=== PATIENT | female | born 1930 | race Caucasian/White ===

== ENCOUNTER 2017-08-09 06:39 | Emergency (ER) | payer OTHER, MEDICARE ==
[~2017-08-09] VITALS: Ht 152.4 cm; Wt 56.2 kg
[~2017-08-09 06:39] MED LIST: APR50 PO; ATOR-22 PO; DILT360C22 PO; FLV1 PO; LEVO175T3 PO; LIDO5DIS10 TOP; MULT-506 PO; MULT-663 PO; POLY335019 PO; POTA10CA28 PO; PRIM250T30 PO; PROP120C PO; PRT/20 PO; VALS-59 PO; WARF4TAB PO
[2017-08-09 06:45] VITALS: TEMP 36.8; Ht 152.4 cm; Wt 56.2 kg
[2017-08-09] MEDS ORDERED: MoRPHine SULFATE 4 MG/ML 1 ML CARP\\VIAL IV STA (07:02)
[2017-08-09] MEDS ORDERED: METOCLOPRAMIDE HCL INJ 5 MG/ML 2 ML VIAL IV STA (07:02)
[2017-08-09] MEDS ORDERED: SODIUM CHLORIDE 0.9% 500ML 500 ML IV STA (07:02)
--- NOTE | 2017-08-09 07:06 | EMERGENCY ROOM VISIT NOTE ---
History Report prepared by Rolanda: Rose Caldwell Under the Supervision of: Dr. Xavier Gillis M.D. First contact with patient: 06:55 Chief Complaint: GI ASSESSMENT Stated Complaint: BOWEL OBSTRUCTION History of Present Illness The patient is an 87 year old female who presents to the Emergency Room with complaints of persistent upper abdominal pain that began yesterday. She currently rates her discomfort as a 9/10 in severity. The patient states that she has a history of diverticulitis and notes several bowel obstructions since she had a diverticular rupture several years ago. She states that she has had four abdominal surgeries and has many known adhesions. The patient states that she went for lunch yesterday and ate foods that she knows she cannot. She states that she additionally has a known abdominal hernia. The patient states that she is on Coumadin for a Mitral Valve Prolapse. She denies any nausea or vomiting. Source of History: patient Onset: yesterday Position: abdomen (upper) Symptom Intensity: 9/10 Timing: other (persistent) Associated Symptoms: No nausea, No vomiting Review of Systems See HPI for pertinent positives & negatives. A total of 10 systems reviewed and were otherwise negative. Past Medical & Surgical Medical Problems: (1) ANTICOAGULANTS,LT,CURRENT USE (2) ATRIAL FIBRILLATION (3) DVT (deep venous thrombosis) (4) HEART BLOCK S/P PACEMAKER INSERTION (5) INTESTINAL OBSTRUCT NOS (6) KNEE JOINT REPLACEMENT STATUS (7) MRSA (8) Ovarian cyst Surgical Problems: (1) H/O: hysterectomy (2) History of colon resection (3) Hx of appendectomy (4) Hx of cholecystectomy Family History FH: gallbladder disease FH: heart disease FH: leukemia Hypertension Social History Smoking Status: Never Smoker Alcohol Use: none Drug Use: none Marital Status: Housing Status: lives with family Occupation Status: retired Current/Historical Medications Scheduled Diltiazem Hcl Extended Release (Tiazac 360 Mg), 360 MG PO QPM Folic Acid (Folic Acid), 1 MG PO DAILY Hydralazine HCl (Hydralazine HCl), 50 MG PO QPM Levothyroxine Sodium (Levothyroxine Sodium), 175 MCG PO DAILY Lidocaine (Lidoderm Patch 5%), 1 PATCH TOP DAILY Multiple Minerals W/ Vitamins (Citracal Plus), 1 TAB PO BIDM Multivitamin (Multivitamin), 1 TAB PO DAILY Pantoprazole Sodium (Protonix), 20 MG PO DAILY Polyethylene Glycol 3350 (Miralax), 17 GM PO DAILY Potassium Chloride (Micro-K Ext Rel), 10 MEQ PO BID Primidone (Mysoline), 375 MG PO BID Propranolol Hcl (Propranolol Hcl Er), 120 MG PO BID Valsartan (Valsartan), 320 MG PO DAILY Warfarin Sodium (Coumadin), 4 MG PO DAILY Allergies Coded Allergies: Pseudoephedrine (Verified Allergy, Intermediate, worsens afib, 09/15/16) Sulfa Antibiotics (Verified Allergy, Intermediate, hives, 09/15/16) White (Verified Allergy, Mild, HIVES, 09/15/16) [place] (Verified Allergy, Unknown, HIVES, 09/15/16) Lorazepam (Unverified Adverse Reaction, Severe, "WENT CRAZY", 09/15/16) Caffeine (Verified Adverse Reaction, Intermediate, HEART PALPITATIONS, ) worsens afib Physical Exam Vital Signs Date Time Temp Pulse Resp B/P (MAP) Pulse Ox O2 Delivery O2 Flow Rate FiO2 08/09/17 11:46 66 20 137/66 97 Room Air 08/09/17 11:24 66 08/09/17 10:01 87 18 139/61 96 08/09/17 08:08 73 16 144/68 96 Room Air 08/09/17 07:19 66 08/09/17 07:11 97 Room Air 08/09/17 06:45 36.8 73 20 184/82 97 Room Air Physical Exam GENERAL: Patient is a healthy-appearing well-nourished female HEAD: Normocephalic atraumatic EYES: Ocular movements intact pupils equal and react to light OROPHARYNX mucous membranes are moist no exudates present no erythema or edema present NECK: Supple no nuchal rigidity CHEST: Good equal expansion LUNGS: Clear and equal to auscultation CARDIAC: Normal S1 and S2 ABDOMEN: Soft, tender in the epigastric area, no guarding BACK: No CVA tenderness EXTREMITIES: No pain upon palpation normal muscle strength in all groups no clubbing cyanosis or edema NEURO: Patient is following commands and answering questions appropriately. Alert and oriented x3 Cranial Nerves 2-12 grossly intact Medical Decision & Procedures ER Provider Diagnostic Interpretation: Radiology results as stated below per my review and radiologist interpretation: CHEST ONE VIEW PORTABLE HISTORY: Atypical CHEST PAIN COMPARISON: Chest 12/09/2015. FINDINGS: The heart remains mildly enlarged. No pleural effusions. No pneumothorax. Left-sided single lead pacemaker. Mild diffuse interstitial thickening persists. IMPRESSION: No change in the cardiomegaly and mild congestive change. Electronically signed by: Adarsh Knapp M.D. 08/09/2017 8:51 AM Dictated Date/Time: 08/09/2017 8:48 AM ABDOMEN AND PELVIS CT WITH IV AND ORAL CONTRAST CT DOSE: 367.65 mGycm HISTORY: Generalized abdominal pain. Assess for bowel obstruction. TECHNIQUE: Multiaxial CT images of the abdomen and pelvis were performed following the use of intravenous and oral contrast. A dose lowering technique was utilized adhering to the principles of ALARA. COMPARISON STUDY: Abdomen and pelvis CT 09/15/2016. FINDINGS: The heart remains moderately enlarged. Pacemaker wire is identified. Stable 4 mm subpleural nodule within the right middle lobe on image 12. Bibasilar interstitial thickening persists. No pneumoperitoneum. No pneumatosis. Sclerosis within the right sacral wing consistent with an insufficiency fracture. This is likely subacute to chronic. Cholecystectomy. No hepatic or splenic masses. The adrenal glands and pancreas are unremarkable. Moderate bilateral cortical renal scarring. No hydronephrosis. Calcified plaque throughout the normal caliber abdominal aorta. No significant retroperitoneal lymphadenopathy. A few small fat-containing and a single small bowel containing ventral hernias. Normal bladder. The uterus is surgically absent. A 2.4 cm low-density lesion along the left side of the vaginal cuff. This was not present on the prior study. This could represent a bladder diverticulum. There is a similar-appearing low density lesion abutting the right anterior bladder which measures 2.6 cm. This may also represent a bladder diverticulum. No change in the low density tubular structure adjacent to the cecal base on image 274. This measures 3.9 x 1.5 cm. Evidence for prior sigmoid anastomosis. Mild bowel wall thickening and mucosal hyperenhancement involving the splenic flexure of the colon, descending colon, sigmoid colon, and rectum. This is consistent with a nonspecific colitis. No evidence for bowel obstruction. Contrast extends into the colon. Small low-density tubular structure anterior to the pancreatic tail which measures 3.1 x 1.1 cm. No significant stenosis seen within the celiac artery mesenteric vessels. Ventral hernia. This contains a short segment of small bowel. Trace perihepatic ascites. IMPRESSION: 1. Mild thickening and mucosal hyperenhancement seen within the splenic flexure of the colon, descending colon, sigmoid colon, and rectum. This is consistent with a nonspecific colitis but favors an infectious or inflammatory process. Ischemic colitis could also have a similar appearance. However, the visualized mesenteric vessels appear patent. This has slightly progressed compared the prior study. 2. No evidence for bowel obstruction. 3. A few scattered nonspecific low-density structures seen within the abdomen and pelvis. This could represent a combination of bladder diverticula and/or small focal areas of loculated fluid/ascites. This includes a 3.9 x 1.5 cm tubular low density focus adjacent to the cecal base. If the patient has had prior appendectomy, then this is of doubtful clinical significance. However, if the appendix remains present within this could represent a mucocele and surgical consultation would be recommended. 4. Small fat-containing ventral hernias and a single small bowel containing ventral hernia. 5. Additional findings as described above. Electronically signed by: Adarsh Knapp M.D. 08/09/2017 10:21 AM Dictated Date/Time: 08/09/2017 10:03 AM Laboratory Results 08/09/17 07:24 Red Blood Count 4.29, Mean Corpuscular Volume 96.0, Mean Corpuscular Hemoglobin 34.7, Mean Corpuscular Hemoglobin Concent 36.2, Mean Platelet Volume 9.4, Neutrophils (%) (Auto) 69.7, Lymphocytes (%) (Auto) 15.9, Monocytes (%) (Auto) 12.9, Eosinophils (%) (Auto) 1.0, Basophils (%) (Auto) 0.3, Neutrophils # (Auto ) 6.93, Lymphocytes # (Auto) 1.58, Monocytes # (Auto) 1.28, Eosinophils # (Auto ) 0.10, Basophils # (Auto) 0.03 08/09/17 07:24 Test 08/09/17 06:54 08/09/17 07:24 Urine Color YELLOW Urine Appearance CLEAR (CLEAR) Urine pH 7.5 (4.5-7.5) Urine Specific [place] 1.016 (1.000-1.030) Urine Protein NEG (NEG) Urine Glucose (UA) NEG (NEG) Urine Ketones NEG (NEG) Urine Occult Blood 1+ (NEG) Urine Nitrite NEG (NEG) Urine Bilirubin NEG (NEG) Urine Urobilinogen NEG (NEG) Urine Leukocyte Esterase NEG (NEG) Urine WBC (Auto) 1-5 /hpf (0-5) Urine RBC (Auto) 10-30 /hpf (0-4) Urine Hyaline Casts (Auto) 1-5 /lpf (0-5) Urine Epithelial Cells (Auto) 10-20 /lpf (0-5) Urine Bacteria (Auto) NEG (NEG) White Blood Count 9.94 K/uL (4.8-10.8) Red Blood Count 4.29 M/uL (4.2-5.4) Hemoglobin 14.9 g/dL (12.0-16.0) Hematocrit 41.2 % (37-47) Mean Corpuscular Volume 96.0 fL (80-100) Mean Corpuscular Hemoglobin 34.7 pg (25-34) Mean Corpuscular Hemoglobin Concent 36.2 g/dl (32-36) Platelet Count 168 K/uL (130-400) Mean Platelet Volume 9.4 fL (7.4-10.4) Neutrophils (%) (Auto) 69.7 % Lymphocytes (%) (Auto) 15.9 % Monocytes (%) (Auto) 12.9 % Eosinophils (%) (Auto) 1.0 % Basophils (%) (Auto) 0.3 % Neutrophils # (Auto) 6.93 K/uL (1.4-6.5) Lymphocytes # (Auto) 1.58 K/uL (1.2-3.4) Monocytes # (Auto) 1.28 K/uL (0.11-0.59) Eosinophils # (Auto) 0.10 K/uL (0-0.5) Basophils # (Auto) 0.03 K/uL (0-0.2) RDW Standard Deviation 54.3 fL (36.4-46.3) RDW Coefficient of Variation 15.6 % (11.5-14.5) Immature Granulocyte % (Auto) 0.2 % Immature Granulocyte # (Auto) 0.02 K/uL (0.00-0.02) Prothrombin Time 30.9 SECONDS (9.0-12.0) Prothromb Time International Ratio 2.8 (0.9-1.1) Anion Gap 7.0 mmol/L (3-11) Est Creatinine Clear Calc Drug Dose 41.2 ml/min Estimated GFR () 81.0 Estimated GFR (Non- 69.9 BUN/Creatinine Ratio 22.9 (10-20) Calcium Level 8.5 mg/dl (8.5-10.1) Total Bilirubin 0.8 mg/dl (0.2-1) Direct Bilirubin 0.3 mg/dl (0-0.2) Aspartate Amino Transf (AST/SGOT) 19 U/L (15-37) Alanine Aminotransferase (ALT/SGPT) 18 U/L (12-78) Alkaline Phosphatase 89 U/L (45-117) Total Creatine Kinase 54 U/L (26-192) Creatine Kinase MB 3.4 ng/ml (0.5-3.6) Creatine Kinase MB Ratio 6.3 (0-3.0) Troponin I < 0.015 ng/ml (0-0.045) Total Protein 7.1 gm/dl (6.4-8.2) Albumin 3.6 gm/dl (3.4-5.0) Lipase 123 U/L (73-393) Labs reviewed by ED physician. Medications Administered Medications (Trade) Dose Ordered Sig/[place] Route Start Time Stop Time Status Last Admin Dose Admin Sodium Chloride 500 ml @ 999 mls/hr Q31M STAT IV 08/09/17 07:02 08/09/17 07:32 DC 08/09/17 07:36 999 MLS/HR Metoclopramide HCl (Reglan Inj) 10 mg NOW STAT IV 08/09/17 07:02 08/09/17 07:04 DC 08/09/17 07:36 10 MG Cholestyramine Resin (Questran Powder Light) 4 gm NOW STAT PO 08/09/17 11:18 08/09/17 11:19 DC 08/09/17 11:45 4 GM ECG Indication: abdominal pain Rate (beats per minute): 62 Rhythm: other (paced rhythm) Findings: no acute ischemic change, paced rhythm, no ectopy ED Course 0656: Past medical records reviewed. The patient was evaluated in room B10. A complete history and physical examination was performed. 0702: Ordered Reglan Inj 10 mg IV, Sodium Chloride 500 ml @ 999 mls/hr IV. 0808: Per nursing staff the patient had a liquidy bowel movement 1117: I reevaluated the patient and she is feeling much better. I discussed the exam findings with her and I discussed the treatment plan. She verbalized complete understanding and agreement. She is ready to go home. 1118: Ordered Cholestyramine Resin 4 gm PO. Medical Decision Differential diagnosis: Etiologies such as appendicitis, diverticulitis, PUD, biliary pathology, UTI, pancreatitis, obstruction, mesenteric ischemia, aortic pathology, infections, inflammatory bowel disease, renal colic, as well as others were entertained. This is an 87-year-old female who presents emergency department complaining of epigastric abdominal pain. The patient was minimally tender on examination. The patient has a history of small bowel obstructions and asked what this feels like. An IV was established, patient given morphine and Reglan in the emergency department. After some time pain did suddenly constance and the patient had a large bowel movement in the emergency department. She was sent for CAT scan of the abdomen pelvis which only showed a colitis. She is pain-free at this point. Serial abdominal examinations were performed on the patient in the emergency department and the patient on second and third examinations did not have any abdominal tenderness or exhibited a surgical abdomen. She does not have an elevation in her white blood count cell count. She is feeling much better. I feel the patient can be discharged home. She was given cholestyramine for her diarrhea. I recommended that the patient follow-up with her primary care physician. Patient was in agreement with the treatment plan. Medication Reconcilliation Current Medication List: was personally reviewed by me Blood Pressure Screening Patient's blood pressure: Elevated blood pressure Blood pressure disposition: Referred to PCP Impression Primary Impression: Diarrhea Scribe Attestation The scribe's documentation has been prepared under my direction and personally reviewed by me in its entirety. I confirm that the note above accurately reflects all work, treatment, procedures, and medical decision making performed by me. Departure Information Dispostion Home / Self-Care Referrals Mayank Segura M.D. (PCP) Forms HOME CARE DOCUMENTATION FORM, IMPORTANT VISIT INFORMATION, School Instructions, Work Instructions Patient Instructions ED Diarrhea Viral, ED Diet Vomiting Diarrhea, My [facility] Additional Instructions Culture results are usually available in approx 48 hours You have been examined and treated today on an emergency basis only. This is not a substitute for, or an effort to provide, complete comprehensive medical care. It is impossible to recognize and treat all injuries or illnesses in a single emergency department visit. It is therefore important that you follow up closely with Dr Segura. Call as soon as possible for an appointment. Thank you for your time and consideration. I look forward to speaking with you again soon. Please don't hesitate to call us if you have any questions. Problem Qualifiers Primary Impression: Diarrhea Diarrhea type: unspecified type Qualified Codes: R19.7 - Diarrhea, unspecified
[2017-08-09] MEDS ORDERED: NF656 TOP (07:07)
[2017-08-09 07:11] VITALS: O2SAT 97
[2017-08-09 07:14] LABS: URINE APPEARANCE CLEAR (CLEAR); URINE BILIRUBIN NEG (NEG); URINE COLOR YELLOW; URINE NITRITE NEG (NEG); URINE PH 7.5 (4.5-7.5); URINE SPECIFIC GRAVITY 1.016 (1.000-1.030); UROBILINOGEN NEG (NEG); ZZUR CULT IF INDIC CLEAN CATCH NO
[2017-08-09 07:16] LABS: MANUAL MICROSCOPIC REQUIRED? NO; REVIEW REQ? NO
[2017-08-09 07:18] LABS: SULFASALICYLIC ACID NEG (NEG)
[2017-08-09 07:36] LABS: BASO % 0.3 %; BASO ABS # 0.03 K/uL (0-0.2); COMPLETE YES; HEMATOCRIT 41.2 % (37-47); IG% 0.2 %; LYMPH % 15.9 %; LYMPH ABS # 1.58 K/uL (1.2-3.4); MEAN CORPUSCULAR HEMOGLOBIN 34.7 pg (25-34); MEAN CORPUSCULAR HGB CONC 36.2 g/dl (32-36); MEAN PLATELET VOLUME 9.4 fL (7.4-10.4); MONO % 12.9 %; NEUT % 69.7 %; PLATELET COUNT 168 K/uL (130-400); RED BLOOD COUNT 4.29 M/uL (4.2-5.4); WHITE BLOOD COUNT 9.94 K/uL (4.8-10.8)
[2017-08-09 07:44] LABS: INR 2.8 (0.9-1.1); PROTHROMBIN TIME (PATIENT) 30.9 SECONDS (9.0-12.0)
[2017-08-09 07:54] LABS: BLOOD UREA NITROGEN 18 mg/dl (7-18); CREATININE 0.77 mg/dl (0.60-1.20); GLUCOSE 92 mg/dl (70-99)
[2017-08-09 07:55] LABS: ALT/SGPT 18 U/L (12-78); AST/SGOT 19 U/L (15-37); BUN/CREATININE RATIO 22.9 (10-20); CALCIUM 8.5 mg/dl (8.5-10.1); CARBON DIOXIDE 29 mmol/L (21-32); CHLORIDE 100 mmol/L (98-107); POTASSIUM 3.4 mmol/L (3.5-5.1); SODIUM 136 mmol/L (136-145)
[2017-08-09 07:57] LABS: ALKALINE PHOSPHATASE 89 U/L (45-117); CKMB/CK RATIO 6.3 (0-3.0)
--- NOTE | 2017-08-09 08:52 | DIAGNOSTIC IMAGING REPORT ---
CHEST ONE VIEW PORTABLE HISTORY: Atypical CHEST PAIN COMPARISON: Chest 12/09/2015. FINDINGS: The heart remains mildly enlarged. No pleural effusions. No pneumothorax. Left-sided single lead pacemaker. Mild diffuse interstitial thickening persists. IMPRESSION: No change in the cardiomegaly and mild congestive change. Electronically signed by: Adarsh Knapp M.D. 08/09/2017 8:51 AM Dictated Date/Time: 08/09/2017 8:48 AM
[2017-08-09] MEDS ORDERED: OPTIRAY 320 IV PRN (10:00)
--- NOTE | 2017-08-09 10:23 | DIAGNOSTIC IMAGING REPORT ---
ABDOMEN AND PELVIS CT WITH IV AND ORAL CONTRAST CT DOSE: 367.65 mGycm HISTORY: Generalized abdominal pain. Assess for bowel obstruction. TECHNIQUE: Multiaxial CT images of the abdomen and pelvis were performed following the use of intravenous and oral contrast. A dose lowering technique was utilized adhering to the principles of ALARA. COMPARISON STUDY: Abdomen and pelvis CT 09/15/2016. FINDINGS: The heart remains moderately enlarged. Pacemaker wire is identified. Stable 4 mm subpleural nodule within the right middle lobe on image 12. Bibasilar interstitial thickening persists. No pneumoperitoneum. No pneumatosis. Sclerosis within the right sacral wing consistent with an insufficiency fracture. This is likely subacute to chronic. Cholecystectomy. No hepatic or splenic masses. The adrenal glands and pancreas are unremarkable. Moderate bilateral cortical renal scarring. No hydronephrosis. Calcified plaque throughout the normal caliber abdominal aorta. No significant retroperitoneal lymphadenopathy. A few small fat-containing and a single small bowel containing ventral hernias. Normal bladder. The uterus is surgically absent. A 2.4 cm low-density lesion along the left side of the vaginal cuff. This was not present on the prior study. This could represent a bladder diverticulum. There is a similar-appearing low density lesion abutting the right anterior bladder which measures 2.6 cm. This may also represent a bladder diverticulum. No change in the low density tubular structure adjacent to the cecal base on image 274. This measures 3.9 x 1.5 cm. Evidence for prior sigmoid anastomosis. Mild bowel wall thickening and mucosal hyperenhancement involving the splenic flexure of the colon, descending colon, sigmoid colon, and rectum. This is consistent with a nonspecific colitis. No evidence for bowel obstruction. Contrast extends into the colon. Small low-density tubular structure anterior to the pancreatic tail which measures 3.1 x 1.1 cm. No significant stenosis seen within the celiac artery mesenteric vessels. Ventral hernia. This contains a short segment of small bowel. Trace perihepatic ascites. IMPRESSION: 1. Mild thickening and mucosal hyperenhancement seen within the splenic flexure of the colon, descending colon, sigmoid colon, and rectum. This is consistent with a nonspecific colitis but favors an infectious or inflammatory process. Ischemic colitis could also have a similar appearance. However, the visualized mesenteric vessels appear patent. This has slightly progressed compared the prior study. 2. No evidence for bowel obstruction. 3. A few scattered nonspecific low-density structures seen within the abdomen and pelvis. This could represent a combination of bladder diverticula and/or small focal areas of loculated fluid/ascites. This includes a 3.9 x 1.5 cm tubular low density focus adjacent to the cecal base. If the patient has had prior appendectomy, then this is of doubtful clinical significance. However, if the appendix remains present within this could represent a mucocele and surgical consultation would be recommended. 4. Small fat-containing ventral hernias and a single small bowel containing ventral hernia. 5. Additional findings as described above. Electronically signed by: Adarsh Knapp M.D. 08/09/2017 10:21 AM Dictated Date/Time: 08/09/2017 10:03 AM
[2017-08-09] MEDS ORDERED: CHOLESTYRAMINE LIGHT 4 GM PKT PO STA (11:18)
[2017-08-09 11:46] VITALS: BP 137/66; PULSE 66; O2SAT 97
== END 2017-08-09 11:56 | disposition home or self-care (01) ==
LOC: C.EDB 06:41
DX: R19.7 Diarrhea, unspecified (principal); I48.91 Unspecified atrial fibrillation; Z82.49 Family history of ischemic heart disease and other diseases of the circulatory system; Z79.01 Long term (current) use of anticoagulants

== ENCOUNTER 2019-05-13 10:45 | Inpatient (IN) ==
[2019-05-13] MEDS ORDERED: ONDANSETRON INJ 2 MG/ML 2 ML VIAL IV STA (11:15)
[2019-05-13] MEDS ORDERED: MoRPHine SULFATE 10 MG/ML CARP/VIAL IV STA (11:15)
[2019-05-13] MEDS ORDERED: MoRPHine SULFATE 2 MG/ML CARP ONE (11:27)
[2019-05-13] MEDS ORDERED: MoRPHine SULFATE 4 MG/ML 1 ML CARP\\VIAL ONE (11:27)
--- NOTE | 2019-05-13 12:20 | CT Scan Report ---
CT head/brain wo con CT DOSE: HISTORY: Trauma fall on coumadin TECHNIQUE: Multiaxial CT images of the head were performed without the use of intravenous contrast. A dose lowering technique was utilized adhering to the principles of ALARA. Comparison: 05/16/2014 Findings: The paranasal sinuses and mastoid air cells are clear. The calvarium and skull base are int act. The ventricles and sulci are within normal limits. There is no mass, hematoma, midline shift, or acute infarct. Impression: No acute intracranial abnormality. Age-related atrophy and chronic small vessel change The above report was generated using voice recognition software. It may contain grammatical, syntax or spelling errors. Electronically signed by: Niko Fuchs M.D. 05/13/2019 12:18 PM
--- NOTE | 2019-05-13 12:24 | CT Scan Report ---
CT cervical spine wo con CT DOSE: HISTORY: Trauma fall, trauma TECHNIQUE: Multiaxial CT images of the cervical spine were performed and reformatted in the sagittal and coronal plane without the use of contrast. A dose lowering technique was utilized adhering to th e principles of ALARA. COMPARISON: 04/21/2013 FINDINGS: No fractures. No subluxation. Prevertebral soft tissues and the C1-C2 interval are intact. No pneumothorax. Considerable degenerative disc change. No evidence for compression deformity. Slight wedge deformity superior endplate T3 considered old. IMPRESSION: No fractures within the cervical spine. Significant degenerative change. The above report was generated using voice recognition software. It may contain grammatical, syntax or spelling errors. Electronically signed by: Niko Fuchs M.D. 05/13/2019 12:22 PM
[2019-05-13] MEDS ORDERED: MoRPHine SULFATE 4 MG/ML 1 ML CARP\\VIAL IV STA (12:30)
--- NOTE | 2019-05-13 12:31 | CT Scan Report ---
CT chest wo con CT DOSE: HISTORY: Trauma. Pain. left rib pain s/p trauma on coumadin TECHNIQUE: Multiaxial CT images of the chest were performed without contrast. A dose lowering techni que was utilized adhering to the principles of ALARA. COMPARISON: 08/31/2015 FINDINGS: Cardiomegaly. Distinct prominence of pulmonary vasculature suggesting a component of conges tive heart failure with pulmonary arterial hypertension. Diffuse interstitial change of both hemithoraces progressive from the prior study. There are several old right-sided rib fractures. No well-defined acute bony abnormality is appreciate d. Slight wedge deformity of T3 considered old IMPRESSION: 1. Findings consistent with congestive heart failure. 2. Progressive interstitial change throughout both hemithoraces compared to the prior study possibly on the basis of interstitial congestive failure. 3. Cardiomegaly with components of pulmonary arterial hypertension. 4. No acute posttraumatic abnormality is appreciated. The above report was generated using voice recognition software. It may contain grammatical, syntax or spelling errors. Electronically signed by: Niko Fuchs M.D. 05/13/2019 12:30 PM
[2019-05-13 13:13] LABS: Basophils # (auto) 0.03 K/uL (0-0.2); Basophils % (auto) 0.5 %; Eosinophils # (auto) 0.21 K/uL (0-0.5); Eosinophils % (auto) 3.5 %; Hematocrit (blood only) 36.1 % (37-47); Hemoglobin 12.9 g/dL (12.0-16.0); Immature Granulocytes # (auto) 0.02 K/uL (0.00-0.02); Immature Granulocytes % (auto) 0.3 %; Lymphocytes # (auto) 0.99 K/uL (1.2-3.4); Lymphocytes % (auto) 16.4 %; Mean Corpuscular Hgb Conc 35.7 g/dL (32-36); Mean Corpuscular Volume 92.6 fL (80-100); Mean Platelet Volume 10.4 fL (7.4-10.4); Monocytes # (auto) 0.69 K/uL (0.11-0.59); Monocytes % (auto) 11.4 %; Neutrophils # (auto) 4.09 K/uL (1.4-6.5); Neutrophils % (auto) 67.9 %; Platelet Count 158 K/uL (130-400); RDW Coefficient of Variation 14.6 % (11.5-14.5); RDW Standard Deviation 49.6 fL (36.4-46.3); White Blood Count 6.03 K/uL (4.8-10.8)
[2019-05-13 13:30] LABS: BUN Creatinine Ratio 14.3 (10-20); Blood Urea Nitrogen 11 mg/dl (7-18); Calcium 8.2 mg/dl (8.5-10.1); Carbon Dioxide 25 mmol/L (21-32); Chloride 96 mmol/L (98-107); Creatinine Clr Calc Pharmacy 39.1 ml/min; Est GFR (African American) 76.3; Est GFR (Non-African American) 65.8; Glucose 102 mg/dl (70-99); Potassium 3.7 mmol/L (3.5-5.1); Sodium 129 mmol/L (136-145)
[2019-05-13 13:35] LABS: NT Pro B Type Natriuretic Pept 671 pg/ml (0-1800); Troponin I < 0.015 ng/ml (0-0.045)
[2019-05-13] MEDS ORDERED: FUROSEMIDE 40 MG/4 ML VIAL IV STA (13:37)
[2019-05-13 14:23] LABS: INR 2.6 (0.9-1.1); Prothrombin Time 24.7 Seconds (9.0-12.0)
--- NOTE | 2019-05-13 14:48 | History & Physical Report ---
Date of Service May 13, 2019 Assessment & Plan (1) Fall as cause of accidental injury at home as place of occurrence: Supportive care. OT and PT assessments tomorrow. Left rib detail to rule out fracture. Present on Admission?: Yes (2) CHF (congestive heart failure): Acute on chronic. Diastolic most likely. Cardiac echo pending. Continue intravenous Lasix. Claudio catheter to monitor urine output. Continue ARB therapy Present on Admission?: Yes (3) Contusion of rib on left side: Pain control measures and supportive care. Rib detail x-rays pending to rule out fracture Present on Admission?: Yes (4) Permanent atrial fibrillation: Rate controlled. Continue warfarin therapy. Daily INR. Continue propranolol and diltiazem Present on Admission?: Yes (5) Warfarin anticoagulation: INR 2.6. Daily INR measurements Present on Admission?: Yes History of Present Illness Chief Complaint: Mechanical fall at home Primary Care Provider: SOHAIL Daniel 89-year-old female who fell getting out of bed this morning suffering left- sided rib pain. She was evaluated in the emergency department. No apparent rib fractures on chest CT scan but she is exquisitely tender in the left lateral rib area and rib detail x-rays are pending. There is some evidence of CHF on chest CT scan and physical exam. Although she does not notice any change in her respiratory status she is mostly sedentary but she does notice some increasing peripheral edema. Nevertheless despite a normal BNP, she was given intravenous Lasix in the ED and has experienced a significant diuresis. Her sodium is mildly low at 129 and I suspect her serum osmolality will also be low due to volume overload. Serum osmolality is pending. She is on chronic Coumadin therapy with INR 2.6. She has chronic atrial fibrillation and sick sinus syndrome with a permanent cardiac pacemaker. Paced rhythm noted on EKG. She lives alone and is unable to ambulate effectively. She is admitted for further evaluation and treatment of the left rib contusions and possible rib fractures along with the CHF exacerbation. Allergies Allergy/AdvReac Type Severity Reaction Status Date / Time orange Allergy Intermediate HIVES Verified 05/13/19 11:20 pseudoephedrine Allergy Intermediate worsens Verified 05/13/19 11:20 afib strawberry Allergy Intermediate HIVES Verified 05/13/19 11:20 Sulfa (Sulfonamide Allergy Intermediate hives Verified 05/13/19 11:20 Antibiotics) lorazepam AdvReac Severe "WENT Verified 05/13/19 11:20 CRAZY" caffeine AdvReac Intermediate HEART Verified 05/13/19 11:20 PALPITATIONS Cephalosporins Allergy Unknown Unknown Uncoded 05/13/19 11:20 Codeine Derivatives Allergy Unknown Unknown Uncoded 05/13/19 11:20 Doxycycline Monohydrate CAPS Allergy Unknown Unknown Uncoded 05/13/19 11:20 hydroCHLOROthiazide TABS Allergy Unknown Unknown Uncoded 05/13/19 11:20 Pletal TABS Allergy Unknown Unknown Uncoded 05/13/19 11:20 Rosuvastatin Calcium TABS Allergy Unknown Unknown Uncoded 05/13/19 11:20 Tramadol Allergy Unknown Unknown Uncoded 05/13/19 11:20 Home Medications Home Medications Medication Instructions Recorded Confirmed Type diltiazem HCl 360 mg PO HS 02/02/19 05/13/19 History folic acid 1 mg PO QAM 02/02/19 05/13/19 History furosemide 20 mg PO DAILY PRN 02/02/19 05/13/19 History levothyroxine 150 mg PO DAILYBB 02/02/19 05/13/19 History valsartan 320 mg PO QAM 02/02/19 05/13/19 History warfarin [Coumadin] 4 mg PO HS 02/02/19 05/13/19 History primidone 250 mg tablet 375 mg PO BID #180 tab 04/10/19 05/13/19 Rx calcium phosphate-vitamin D3 250 1 tab PO BID tab 04/15/19 05/13/19 History mg calcium-500 unit chewable tablet docusate sodium 100 mg capsule 100 mg PO DAILY PRN cap 04/15/19 05/13/19 History hydrocortisone 2.5 % topical cream 1 appln TOPICAL BID PRN #1 gm 04/15/19 05/13/19 History pantoprazole 40 mg tablet,delayed 40 mg PO BID PRN #180 tab 04/15/19 05/13/19 History release potassium chloride ER 10 mEq 10 meq PO BID tab 04/15/19 05/13/19 History tablet,extended release propranolol ER 120 mg capsule,24 120 mg PO BID cap 04/15/19 05/13/19 History hr,extended release polyethylene glycol 3350 [Miralax] 17 g PO HS 05/13/19 05/13/19 History Past Med/Surg History Medical History Tricuspid regurgitation (Acute) Spinal stenosis (Chronic) Sick sinus syndrome (Acute) Rosacea (Acute) Rheumatoid arthritis (Acute) Rectocele (Acute) Permanent atrial fibrillation (Acute) Osteoporosis (Acute) Mitral regurgitation (Acute) Meckels diverticulum (Acute) Hypothyroidism (Acute) Hypertension (Acute) Hip pain, bilateral (Acute) Generalized weakness (Acute) Gastroesophageal reflux disease (Acute) Gait disturbance (Acute) Elevated alkaline phosphatase level (Acute) Edema (Acute) Dyslipidemia (Acute) Cystocele (Acute) Chronic osteoarthritis (Acute) Chronic anticoagulation (Acute) Cerebral atherosclerosis (Acute) Carotid artery plaque (Acute) Cardiac pacemaker (Acute) Benign essential tremor (Acute) Aortic stenosis (Acute) Actinic keratosis (Acute) Ovarian cyst (Chronic) DVT (deep venous thrombosis) (Resolved) SBO (small bowel obstruction) (Acute) Surgical History History of hernia repair Hx of appendectomy (Resolved) Hx of cholecystectomy (Resolved) H/O: hysterectomy (Resolved) History of colon resection (Resolved) Family History Other Family history non-contributory Social History Preferred Language: Japanese Current Living Situation: Alone Current Living Situation Comment: Family is neighbor Feels Safe at Home: Yes Smoking Status: Never smoker Review of Systems Review of Systems: Constitutional-no fever or chills ENT-no blurred vision, no double vision, no epistaxis, no sore throat Respiratory-no cough, no wheezing, no shortness of breath Cardiac-no palpitations, no chest pain, no syncope GI-no nausea, vomiting, diarrhea, melena, hematochezia -no urinary retention, no urinary incontinence, no dysuria, no hematuria Musculoskeletal-left lateral rib pain and tenderness Skin-no bruising, no rashes, no pruritus Neuro-no isolated weakness, no paresthesia, no weakness Psych-no depression, no anxiety Physical Exam Physical Exam: General-alert and oriented x3, no fevers, no chills HEENT-head atraumatic and normocephalic, TMs intact bilaterally, pupils equal and reactive to light, extraocular muscles intact Neck-no lymphadenopathy or thyromegaly, trachea midline Chest-bilateral coarse inspiratory rales. No dullness to percussion Cardiac-regular rate and rhythm, normal S1 and S2. Hepatojugular reflux noted. Grade 2/6 systolic murmur Abdomen-normal bowel sounds, nontender, no hepatosplenomegaly Extremities-no cyanosis, clubbing. 1+ pitting edema bilateral distal lower extremities Neuro-cranial nerves II through XII intact, motor and sensory function within normal limits, strength symmetrical , no focal deficits Psych-normal affect, normal mood Results & Data Vital Signs (Past 12 Hours) Vital Signs Temp Pulse Pulse Resp BP BP Pulse Ox 05/13/19 13:06 61 17 146/71 H 98 05/13/19 12:17 61 17 150/71 H 97 05/13/19 11:46 60 60 16 99 05/13/19 11:30 60 60 20 145/79 H 86 L 05/13/19 10:55 36.6 C 84 17 139/76 94 Laboratory Results 05/13/19 12:58 05/13/19 12:52 PG Care Time/CCT Total # of Minutes Spent Total Time Spent with Patient: Total time spent is greater than 50% in coordination of care (as documented) at patient's floor/unit and/or counseling patient: (1) CHF (congestive heart failure) Heart failure chronicity: unspecified Heart failure type: unspecified Qualified Code(s): I50.9 - Heart failure, unspecified (2) Contusion of rib on left side Encounter type: initial encounter Qualified Code(s): S20.212A - Contusion of left front wall of thorax, initial encounter
--- NOTE | 2019-05-13 14:53 | XRay Report ---
XR ribs LT min 3V w CXR1V HISTORY: 89 years-old Female fall rib pain acute left-sided rib pain status post fall COMPARISON: Chest CT 05/13/2019 TECHNIQUE: AP view of the chest with 3 views of the left ribs FINDINGS: Moderate cardiomegaly. Calcification the thoracic aortic arch. Left subclavian pacer. No pneumothorax . Trace pleural effusions with bilateral mixed interstitial and alveolar opacities. Degenerative aparicio ges of the shoulders and spine. Multiple remote left-sided rib fractures are noted. No definite acute rib fracture identified. Please note however that acute nondisplaced fractures of the anterior left fourth and fifth ribs are noted on chest CT of same day with healing subacute nondisplaced fracture o f the anterior right fourth rib. Degenerative changes of the spine. IMPRESSION: 1. Cardiomegaly with trace pleural effusions and bilateral mixed interstitial and alveolar opacities redemonstrated. 2. Multiple remote left-sided rib fractures. 3. No definite acute rib fracture identified. Please note however that on chest CT of same day there are acute nondisplaced fractures noted involving the anterior aspect of the left fourth and fifth rib s. The above report was generated using voice recognition software. It may contain grammatical, syntax o r spelling errors. Electronically signed by: Bao Evans M.D. 05/13/2019 2:52 PM
[2019-05-13] MEDS ORDERED: DOCUSATE SODIUM 100 MG CAP PO PRN (16:16)
[2019-05-13] MEDS ORDERED: ONDANSETRON INJ 2 MG/ML 2 ML VIAL IV PRN (16:16)
[2019-05-13] MEDS ORDERED: PANTOprazole 40 MG TAB PO PRN (16:16)
[2019-05-13] MEDS ORDERED: OXYCODONE HCL IR 5 MG TAB (IMMEDIATE RELEASE) PO PRN (16:16)
[2019-05-13] MEDS ORDERED: ALUMINUM/MAGNESIUM SUSP 30 ML UDC PO PRN (16:16)
--- NOTE | 2019-05-13 17:29 | Emergency Department Note ---
Entered by Debbie Regan acting as a scribe for Yordy Quiles MD ED Provider Note Name: Blanca Hall Age: 89F Arrives Via: EMS Informant: Patient CC: Fall HPI: The patient is a 89 year old female that is presenting to the Emergency Room with complaints of an episode of a fall that occurred this morning. The patient states that she was getting out of bed and fell. She notes that she uses a wheelchair or walker at baseline and states that she fell over the wheelchair. She reports that she is currently experiencing severe left sided chest pain that is worse under her left breast. She denies any lacerations, bruising, abdominal pain, headache, head trauma, or neck pain. She states that Fentanyl administered en route by EMS slightly relieved her symptoms. The patient notes that she takes Coumadin for a history of blood clots in her legs. She states that she fell in July and fractured a rib at that time. ROS: See above HPI for pertinent positives & negatives. A total of 10 systems reviewed and were otherwise negative. Past Medical History: Hypertension, blood clots. See below for more extensive history. Past Surgical History: See below Family History: Non-contributory Social History: , retired, lives with son; never smoker Home Medications: Coumadin, Propranolol, Valsartan Allergies Strawberries, oranges, sulfa drugs Physical: Vitals: BP: 145/79; P: 60; R: 16; T: 97.9F, 98% RA Exam: GENERAL: Patient is elderly appearing and in no mild distress. EYES: No scleral icterus, unremarkable pupils. ENT: Mucous membranes moist, no nasal congestion. NECK: No masses appreciated, no meningismus, trachea is midline. RESPIRATORY: No dyspnea. No rhonchi. Diffuse crackles at bases. CARDIOVASCULAR: Regular rate and rhythm. No murmurs, rubs, gallops appreciated. GASTROINTESTINAL: Abdomen soft, non-tender, no peritonitis. Bowel sounds positive. No masses appreciated. CHEST: Moderate tenderness to entire left lateral ribs. BACK: No midline tenderness, no CVA tenderness EXTREMITIES: Normal motion all extremities, no cyanosis, no edema. NEUROLOGIC: Alert and oriented, no acute motor or sensory deficits, no focal weakness, cranial nerves grossly intact. SKIN: No rash, no jaundice, no diaphoresis. GCS 15 ED Course: Prior Medical Record, Triage/Nursing Notes, Medications, Allergies reviewed by Yi dotson Vital Signs: reviewed and remarkable for wnl Labs: Reviewed and remarkable for normal bnp, normal cbc/bmp/trop Interventions: Saline lock, morphine IV x 2, Lasix 20mg IV Imaging: CT cervical spine wo con CT DOSE: HISTORY: Trauma fall, trauma TECHNIQUE: Multiaxial CT images of the cervical spine were performed and reformatted in the sagittal and coronal plane without the use of contrast. A dose lowering technique was utilized adhering to the principles of ALARA. COMPARISON: 04/21/2013 FINDINGS: No fractures. No subluxation. Prevertebral soft tissues and the C1-C2 interval are intact. No pneumothorax. Considerable degenerative disc change. No evidence for compression deformity. Slight wedge deformity superior endplate T3 considered old. IMPRESSION: No fractures within the cervical spine. Significant degenerative change. The above report was generated using voice recognition software. It may contain grammatical, syntax or spelling errors. Electronically signed by: Niko Fuchs M.D. 05/13/2019 12:[address] chest wo con CT DOSE: HISTORY: Trauma. Pain. left rib pain s/p trauma on coumadin TECHNIQUE: Multiaxial CT images of the chest were performed without contrast. A dose lowering technique was utilized adhering to the principles of ALARA. COMPARISON: 08/31/2015 FINDINGS: Cardiomegaly. Distinct prominence of pulmonary vasculature suggesting a component of congestive heart failure with pulmonary arterial hypertension. Diffuse interstitial change of both hemithoraces progressive from the prior stud y. There are several old right-sided rib fractures. No well-defined acute bony abnormality is appreciated. Slight wedge deformity of T3 considered old IMPRESSION: 1. Findings consistent with congestive heart failure. 2. Progressive interstitial change throughout both hemithoraces compared to the prior study possibly on the basis of interstitial congestive failure. 3. Cardiomegaly with components of pulmonary arterial hypertension. 4. No acute posttraumatic abnormality is appreciated. The above report was generated using voice recognition software. It may contain grammatical, syntax or spelling errors. Electronically signed by: Niko Fuchs M.D. 05/13/2019 12:[address] head/brain wo con CT DOSE: HISTORY: Trauma fall on coumadin TECHNIQUE: Multiaxial CT images of the head were performed without the use of intravenous contrast. A dose lowering technique was utilized adhering to the principles of ALARA. Comparison: 05/16/2014 Findings: The paranasal sinuses and mastoid air cells are clear. The calvarium and skull base are intact. The ventricles and sulci are within normal limits. There is no mass, hematoma, midline shift, or acute infarct. Impression: No acute intracranial abnormality. Age-related atrophy and chronic small vessel change The above report was generated using voice recognition software. It may contain grammatical, syntax or spelling errors. Electronically signed by: Niok Fuchs M.D. 05/13/2019 12:18 PM EKG: Course: 1110:The patient was evaluated in room A03. A complete history and physical examination was performed. 1230 I reevaluated the patient at this time. She states the pain is increasing after initially resolving. She states that she does not feel comfortable going home 1338: The patient is still requiring oxygen and is very uncomfortable in her ribs. She notes that she is still able to breathe through the pain. She does not feel like she can go home. 1349: I discussed the patients case [place] [facility] [place] will evaluate the patient for further management and care. He requested that a Claudio be placed and a serum osmolality ordered. 1350: Upon reevaluation, the patient is resting comfortably. I discussed laboratory and radiographic results with the patient. She verbalized agreement of the treatment plan. The patient will be evaluated for further management and care. Blood pressure: Normal. No Referral necessary Disposition: Hospitalization Differentials: Differential diagnosis: Etiologies such as fracture, dislocation, neurovascular compromise, compartment syndrome, soft tissue injury, as well as others were entertained. Medical Decision Makin yr old female very uncomfortable s/p fall at home. On coumadin. GCS [address] of head/neck indicated and given difficulty with pain will get CT chest at same time. CT with left rib fractures. Multiple IV rounds pain meds required. She is still uncomfortable but unfortunately she is somewhat hypoxic in RA after pain meds. Suspect this is combo of minor chf as well as pain medications. Regardless she is still uncomfortable and pain only moderately controlled with IV narcotics. No evidence of pneumothorax, ICH, nor cervical injury. Labs without evidence of ACS, renal failure, etc. She does not appear to have infectious etiology. Fall very much appears to be due to her wheelchair sliding out from under her. She will come in to hospitalist service for further management/evaluation as I do not feel this requires transfer to tertiary care center at this alli. Impression: CHF, hypoxia, intractable pain, left rib contusion The scribe's documentation has been prepared under my direction and personally reviewed by me in its entirety. I confirm that the note above accurately reflects all work, treatment, procedures, and medical decision making performed by me. Yordy Quiles MD Impression & Plan CHF (congestive heart failure), Hypoxia, Intractable pain, Left rib fracture Past Med/Surg History Medical History Fall as cause of accidental injury at home as place of occurrence (Acute) Warfarin anticoagulation (Chronic) CHF (congestive heart failure) (Acute) Tricuspid regurgitation (Acute) Spinal stenosis (Chronic) Sick sinus syndrome (Acute) Rosacea (Acute) Rheumatoid arthritis (Acute) Rectocele (Acute) Permanent atrial fibrillation (Chronic) Osteoporosis (Acute) Mitral regurgitation (Acute) Meckels diverticulum (Acute) Hypothyroidism (Acute) Hypertension (Chronic) Hip pain, bilateral (Acute) Generalized weakness (Acute) Gastroesophageal reflux disease (Acute) Gait disturbance (Acute) Elevated alkaline phosphatase level (Acute) Edema (Acute) Dyslipidemia (Acute) Cystocele (Acute) Chronic osteoarthritis (Acute) Chronic anticoagulation (Acute) Cerebral atherosclerosis (Acute) Carotid artery plaque (Acute) Cardiac pacemaker (Acute) Benign essential tremor (Acute) Aortic stenosis (Acute) Actinic keratosis (Acute) Ovarian cyst (Chronic) DVT (deep venous thrombosis) (Resolved) SBO (small bowel obstruction) (Acute) Surgical History History of hernia repair Hx of appendectomy (Resolved) Hx of cholecystectomy (Resolved) H/O: hysterectomy (Resolved) History of colon resection (Resolved) Family History Other Family history non-contributory Social History Preferred Language: Kinyarwanda Communication Ability: Effective Stock Driver Required: No Beliefs That Will Affect Care: None Current Living Situation: Alone Current Living Situation Comment: Family is neighbor Other Information That Helps Us Care for You: No Feels Safe at Home: Yes and No Is there a partner from a previous relationship who is making you feel unsafe now?: No Any Concerns about Your Family Situation: No Would You Like to Speak to Someone About Your Situation: No Safety Concerns: Feels Safe At This Time Smoking Status: Never smoker Do You Dip or Chew Tobacco: No Second Hand Exposure: No Tobacco Cessation Education Requested by Patient: No Hx Alcohol Use: No Hx Substance Use: No Results & Data Vital Signs Vital Signs - 24 hr 05/13/19 10:55 05/13/19 11:30 05/13/19 11:46 Temperature 36.6 C Temperature Source Oral Sepsis Recent Fever Within 48 Hours No Sepsis New/Unexplained Change in Mental Status No Sepsis Action Taken by Nursing No Action Required Oxygen Flow Rate - Titration 4 2 Pulse Oximetry Post Tiitration 96 98 Pulse Rate 84 60 60 Pulse Rate [Apical] 60 60 Pulse Rhythm Regular Regular Pulse Rhythm [Apical] Pulse Strength Normal Respiratory Rate 17 20 16 Respiratory Effort / Characteristics Non-Labored Spontaneous Non-Labored Spontaneous Respiratory Depth Normal Normal Respiratory Pattern Regular Regular Blood Pressure 139/76 Blood Pressure [Right Arm] 145/79 H Blood Pressure Mean 97 Blood Pressure Mean [Right Arm] 101 Blood Pressure Position [Right Arm] Lying Pulse Oximetry 94 86 L 99 Oxygen Delivery Method Room Air Nasal Cannula Nasal Cannula Oxygen Flow Rate 0 4 05/13/19 12:17 05/13/19 13:06 Temperature Temperature Source Sepsis Recent Fever Within 48 Hours Sepsis New/Unexplained Change in Mental Status Sepsis Action Taken by Nursing Oxygen Flow Rate - Titration Pulse Oximetry Post Tiitration Pulse Rate Pulse Rate [Apical] 61 61 Pulse Rhythm Pulse Rhythm [Apical] Regular Regular Pulse Strength Respiratory Rate 17 17 Respiratory Effort / Characteristics Non-Labored Spontaneous Non-Labored Spontaneous Respiratory Depth Normal Normal Respiratory Pattern Regular Regular Blood Pressure Blood Pressure [Right Arm] 150/71 H 146/71 H Blood Pressure Mean Blood Pressure Mean [Right Arm] 97 96 Blood Pressure Position [Right Arm] Pulse Oximetry 97 98 Oxygen Delivery Method Room Air Nasal Cannula Oxygen Flow Rate 2 Laboratory Data Result diagrams: 05/13/19 12:58 05/13/19 12:52 Lab Results 05/13/19 05/13/19 05/13/19 Range/Units 12:52 12:52 12:52 WBC (4.8-10.8) K/uL RBC (4.2-5.4) M/uL Hgb (12.0-16.0) g/dL Hct (37-47) % MCV (80-100) fL MCH (25-34) pg MCHC (32-36) g/dL RDW Std Deviation (36.4-46.3) fL RDW Coeff of Kristian (11.5-14.5) % Plt Count (130-400) K/uL MPV (7.4-10.4) fL Immature Gran % (Auto) % Neut % (Auto) % Lymph % (Auto) % [place] % (Auto) % Eos % (Auto) % Baso % (Auto) % Immature Gran # (Auto) (0.00-0.02) K/uL Neut # (Auto) (1.4-6.5) K/uL Lymph # (Auto) (1.2-3.4) K/uL [place] # (Auto) (0.11-0.59) K/uL Eos # (Auto) (0-0.5) K/uL Baso # (Auto) (0-0.2) K/uL PT 24.7 H (9.0-12.0) Seconds INR 2.6 H (0.9-1.1) Sodium 129 L (136-145) mmol/L Potassium 3.7 (3.5-5.1) mmol/L Chloride 96 L (98-107) mmol/L Carbon Dioxide 25 (21-32) mmol/L Anion Gap 8.0 (3-11) BUN 11 (7-18) mg/dl Creatinine 0.80 (0.6-1.2) mg/dl Est Cr Clr Drug Dosing 39.1 ml/min Est GFR ( Amer) 76.3 Est GFR (Non-Af Amer) 65.8 BUN/Creatinine Ratio 14.3 (10-20) Glucose 102 H (70-99) mg/dl Osmolality 266 L (280-300) mOsm/kg Calcium 8.2 L (8.5-10.1) mg/dl Troponin I < 0.015 (0-0.045) ng/ml NT-Pro-B Natriuret Pep 671 (0-1800) pg/ml 05/13/19 Range/Units 12:58 WBC 6.03 (4.8-10.8) K/uL RBC 3.90 L (4.2-5.4) M/uL Hgb 12.9 (12.0-16.0) g/dL Hct 36.1 L (37-47) % MCV 92.6 (80-100) fL MCH 33.1 (25-34) pg MCHC 35.7 (32-36) g/dL RDW Std Deviation 49.6 H (36.4-46.3) fL RDW Coeff of Kristian 14.6 H (11.5-14.5) % Plt Count 158 (130-400) K/uL MPV 10.4 (7.4-10.4) fL Immature Gran % (Auto) 0.3 % Neut % (Auto) 67.9 % Lymph % (Auto) 16.4 % [place] % (Auto) 11.4 % Eos % (Auto) 3.5 % Baso % (Auto) 0.5 % Immature Gran # (Auto) 0.02 (0.00-0.02) K/uL Neut # (Auto) 4.09 (1.4-6.5) K/uL Lymph # (Auto) 0.99 L (1.2-3.4) K/uL [place] # (Auto) 0.69 H (0.11-0.59) K/uL Eos # (Auto) 0.21 (0-0.5) K/uL Baso # (Auto) 0.03 (0-0.2) K/uL PT (9.0-12.0) Seconds INR (0.9-1.1) Sodium (136-145) mmol/L Potassium (3.5-5.1) mmol/L Chloride (98-107) mmol/L Carbon Dioxide (21-32) mmol/L Anion Gap (3-11) BUN (7-18) mg/dl Creatinine (0.6-1.2) mg/dl Est Cr Clr Drug Dosing ml/min Est GFR ( Amer) Est GFR (Non-Af Amer) BUN/Creatinine Ratio (10-20) Glucose (70-99) mg/dl Osmolality (280-300) mOsm/kg Calcium (8.5-10.1) mg/dl Troponin I (0-0.045) ng/ml NT-Pro-B Natriuret Pep (0-1800) pg/ml Administered Medications Oxycodone HCl (Roxicodone Immediate Rel) 5 mg PO Q6H PRN PRN Reason: Pain Stop: 08/06/19 16:15 Last Admin: 05/13/19 16:58 Dose: 5 mg Documented by: [id number] Discontinued Medications Furosemide (Lasix) 20 mg IV NOW STA Stop: 05/13/19 13:38 Last Admin: 05/13/19 14:08 Dose: 20 mg Documented by: [id number] Morphine Sulfate (Morphine Sulfate) 6 mg IV NOW STA Stop: 05/13/19 11:16 Last Admin: 05/13/19 11:31 Dose: Not Given Documented by: [id number] Morphine Sulfate (Morphine Sulfate) Confirm Administered Dose 4 mg .ROUTE .STK- MED ONE Stop: 05/13/19 11:28 Last Admin: 05/13/19 11:30 Dose: 4 mg Documented by: [id number] Morphine Sulfate (Morphine Sulfate) Confirm Administered Dose 2 mg .ROUTE .STK- MED ONE Stop: 05/13/19 11:28 Last Admin: 05/13/19 11:30 Dose: 2 mg Documented by: [id number] Morphine Sulfate (Morphine Sulfate) 4 mg IV NOW STA Stop: 05/13/19 12:31 Last Admin: 05/13/19 13:06 Dose: 4 mg Documented by: [id number] Ondansetron HCl (Zofran) 4 mg IV NOW STA Stop: 05/13/19 11:16 Last Admin: 05/13/19 11:29 Dose: 4 mg Documented by: [id number] Discharge Plan Visit Data *Final* Discharge Date/Time: 05/13/19 15:33 Chief Complaint: Fall Other Complaint: Rib Injury/Pain ED Provider: Yordy Quiles Discharge Problem: CHF (congestive heart failure), Hypoxia, Intractable pain, Left rib fracture Patient Disposition: Admitted As Inpatient Discharge Instructions Interventions: ED Discharge Assessment Last Done: 05/13/19 15:33 Discharge Problem: CHF (congestive heart failure) Qualifiers: Heart failure type: unspecified Heart failure chronicity: unspecified Qualified Code(s): I50.9 - Heart failure, unspecified Left rib fracture Qualifiers: Encounter type: initial encounter Rib fracture type: multiple ribs Fracture type: closed Qualified Code(s): S22.42XA - Multiple fractures of ribs, left side, initial encounter for closed fracture The scribe's documentation has been prepared under my direction and personally reviewed by me in its entirety. I confirm that the note above accurately reflects all work, treatment, procedures, and medical decision making performed by me.
[2019-05-13] MEDS: WARFARIN SOD 4 MG TAB PO SCH (17:48)
[2019-05-13] MEDS: dilTIAZem HCL 180 MG CAPCR PO SCH (17:55)
[2019-05-13] MEDS: PROPRANOLOL HCL 60 MG LA CAP PO SCH (17:56)
[2019-05-13] MEDS: FUROSEMIDE 20 MG in SYRINGE 0 ML IV SCH (20:20)
[2019-05-13] MEDS: POTASSIUM CHLORIDE 10 MEQ TABCR PO SCH (20:20)
[2019-05-13] MEDS: CALCIUM 600MG + VIT D 400 IU TAB PO SCH (20:21)
[2019-05-13] MEDS: POLYETHYLENE (MIRALAX) 17 GM PACK PO SCH (20:22)
[2019-05-13] MEDS ORDERED: PRIMIDONE 250 MG TAB PO SCH (21:00)
[2019-05-13] MEDS: PRIMIDONE 50 MG TAB PO SCH (21:43)
[2019-05-14] MEDS: LEVOTHYROXINE SODIUM 150 MCG TABLET PO SCH (05:20)
[2019-05-14 07:29] LABS: INR 3.1 (0.9-1.1); Prothrombin Time 29.3 Seconds (9.0-12.0)
[2019-05-14 07:54] LABS: BUN Creatinine Ratio 11.8 (10-20); Calcium 7.6 mg/dl (8.5-10.1); Est GFR (African American) 58.3; Est GFR (Non-African American) 50.3; Potassium 3.7 mmol/L (3.5-5.1)
[2019-05-14] MEDS: ACETAMINOPHEN 325 MG TAB PO PRN (09:01)
[2019-05-14] MEDS: CALCIUM 600MG + VIT D 400 IU TAB PO SCH ×2 (09:02→21:25)
[2019-05-14] MEDS: PROPRANOLOL HCL 60 MG LA CAP PO SCH ×2 (09:02→21:25)
[2019-05-14] MEDS: PRIMIDONE 50 MG TAB PO SCH ×2 (09:03→21:26)
[2019-05-14] MEDS: VALSARTAN 80 MG TAB PO SCH (09:03)
[2019-05-14] MEDS: FUROSEMIDE 20 MG in SYRINGE 0 ML IV SCH (09:03)
[2019-05-14] MEDS: POTASSIUM CHLORIDE 10 MEQ TABCR PO SCH ×2 (09:04→21:25)
[2019-05-14] MEDS: FOLIC ACID 1 MG TAB PO SCH (09:04)
--- NOTE | 2019-05-14 12:04 | Hospitalist Progress Note ---
Date of Service May 14, 2019 Assessment & Plan (1) Left rib fracture: CT chest shows non displaced fracture left anterior 4-5 ribs pain control, PT/OT evaluations encourage deep breathing (2) Fall as cause of accidental injury at home as place of occurrence: Supportive care. OT and PT assessments patient slipped due to one wheel on wheelchair not being locked (3) CHF (congestive heart failure): Acute on chronic. Diastolic most likely. Cardiac echo pending. stop IV Lasix today, lungs clear, no JVD, no further signs of volume overload resume Lasix 20mg PO daily tomorrow (4) Permanent atrial fibrillation: Rate controlled. Continue warfarin therapy. INR is 3.1, repeat tomorrow Continue propranolol and diltiazem (5) Warfarin anticoagulation: INR 3.1. Daily INR measurements Plan: will go to SNF for rehab, needs three midnights Subjective patient c/o pain in her ribs on the left side, but otherwise she is doing well she describes the fall as mechanical, the one side of wheelchair was not locked causing her to slip and fall over the wheelchair she is breathing well, no cough, no fever she ate her breakfast reviewed all the labs and viewed images myself discussed with RN, no concerns will transfer to medical floor patient would like to go to [place] for rehab, needs three midnights Review of Systems Review of Systems: All systems reviewed & are unremarkable except as noted in HPI & below Constitutional: + weakness; no fever, no chills, no sweats and no fatigue Respiratory: no cough, no dyspnea, no dyspnea on exertion and no sputum production Cardiovascular: + chest pain (rib pain, tender on palpation and deep breath); no edema Gastrointestinal: no abdominal pain, no nausea, no vomiting, no constipation and no diarrhea/loose stools Physical Exam Constitutional: WD/WN, vitals as above + thin Eyes: PERRL, conjunctivae normal, anicteric sclerae ENMT: external ear and nose normal, oropharynx normal Neck: trachea midline, no thyromegaly Respiratory: normal respiratory effort, lungs clear to auscultation Cardiovascular: Rate/Rhythm: regular rate and + irregularly irregular Heart Sounds: normal S1, normal S2 and + murmur Vessels: no JVD Extremities: normal capillary refill; no edema Chest (Breasts): Chest: normal inspection of chest (tender to palpation, anterior left side) Gastrointestinal (Abdomen): normal bowel sounds, soft, nontender, no hepatosplenomegaly Musculoskeletal: no cyanosis or clubbing, extremities motor strength 5/5 Skin: no rashes, warm and dry Neurologic: patellar DTR's 2+ bilat, sensation intact and PERRL, EOMI, accommodation nl, no face palsy, no dysarthria Psychiatric: A+Ox3, euthymic affect Lymphatic: no cervical or axillary lymphadenopathy Results & Data Vital Signs (Past 12 Hours) Vital Signs Temp Pulse Pulse Resp BP Pulse Ox Pulse Ox 05/14/19 08:30 60 05/14/19 06:56 36.6 C 60 18 120/72 99 05/14/19 04:37 36.5 C 60 19 103/62 97 05/14/19 03:14 60 98 Laboratory Results Laboratory Results - last 24 hr 05/13/19 05/13/19 05/13/19 12:52 12:52 12:52 WBC RBC Hgb Hct MCV MCH MCHC RDW Std Deviation RDW Coeff of Kristian Plt Count MPV Immature Gran % (Auto) Neut % (Auto) Lymph % (Auto) [place] % (Auto) Eos % (Auto) Baso % (Auto) Immature Gran # (Auto) Neut # (Auto) Lymph # (Auto) [place] # (Auto) Eos # (Auto) Baso # (Auto) PT 24.7 H INR 2.6 H Sodium 129 L Potassium 3.7 Chloride 96 L Carbon Dioxide 25 Anion Gap 8.0 BUN 11 Creatinine 0.80 Est Cr Clr Drug Dosing 39.1 Est GFR ( Amer) 76.3 Est GFR (Non-Af Amer) 65.8 BUN/Creatinine Ratio 14.3 Glucose 102 H Osmolality 266 L Calcium 8.2 L Troponin I < 0.015 NT-Pro-B Natriuret Pep 671 05/13/19 05/14/19 05/14/19 12:58 07:04 07:04 WBC 6.03 RBC 3.90 L Hgb 12.9 Hct 36.1 L MCV 92.6 MCH 33.1 MCHC 35.7 RDW Std Deviation 49.6 H RDW Coeff of Kristian 14.6 H Plt Count 158 MPV 10.4 Immature Gran % (Auto) 0.3 Neut % (Auto) 67.9 Lymph % (Auto) 16.4 [place] % (Auto) 11.4 Eos % (Auto) 3.5 Baso % (Auto) 0.5 Immature Gran # (Auto) 0.02 Neut # (Auto) 4.09 Lymph # (Auto) 0.99 L [place] # (Auto) 0.69 H Eos # (Auto) 0.21 Baso # (Auto) 0.03 PT 29.3 H INR 3.1 H Sodium 127 L Potassium 3.7 Chloride 92 L Carbon Dioxide 29 Anion Gap 6.0 BUN 12 Creatinine 1.00 Est Cr Clr Drug Dosing 31.0 Est GFR ( Amer) 58.3 Est GFR (Non-Af Amer) 50.3 BUN/Creatinine Ratio 11.8 Glucose 75 Osmolality Calcium 7.6 L Troponin I NT-Pro-B Natriuret Pep Medications Administered Current Inpatient Medications Acetaminophen (Tylenol) 650 mg PO Q4H PRN PRN Reason: Pain or Fever Stop: 06/12/19 16:15 Last Admin: 05/14/19 09:01 Dose: 650 mg Documented by: Al Hydrox/Mg Hydrox/Simethicone (Maalox) 15 ml PO Q4H PRN PRN Reason: Dyspepsia Stop: 06/12/19 16:15 Diltiazem HCl (Cardizem Cd) 360 mg PO HS [facility] Stop: 06/12/19 20:59 Last Admin: 05/13/19 17:55 Dose: 360 mg Documented by: Docusate Sodium (Colace) 100 mg PO DAILY PRN PRN Reason: Constipation Stop: 06/12/19 16:15 Last Admin: 05/13/19 21:48 Dose: 100 mg Documented by: Folic Acid (Folvite) 1 mg PO QAM [facility] Stop: 06/13/19 08:59 Last Admin: 05/14/19 09:04 Dose: 1 mg Documented by: Furosemide 20 mg/ Syringe 2 mls @ 4 mls/min IV Q12H [facility] Stop: 06/12/19 20:59 Last Admin: 05/14/19 09:03 Dose: 4 mls/min Documented by: Levothyroxine Sodium (Synthroid) 150 mcg PO DAILYBB [facility] Stop: 06/13/19 06:29 Last Admin: 05/14/19 05:20 Dose: 150 mcg Documented by: Multivitamins/Minerals (Caltrate Plus) 1 tab PO BID [facility] Stop: 06/12/19 20:59 Last Admin: 05/14/19 09:02 Dose: 1 tab Documented by: Ondansetron HCl (Zofran) 4 mg IV Q6H PRN PRN Reason: Nausea Stop: 06/12/19 16:15 Oxycodone HCl (Roxicodone Immediate Rel) 5 mg PO Q6H PRN PRN Reason: Pain Stop: 05/27/19 16:15 Last Admin: 05/13/19 16:58 Dose: 5 mg Documented by: Pantoprazole Sodium (Protonix) 40 mg PO BID PRN PRN Reason: Acid Reflux Stop: 06/12/19 16:15 Last Admin: 05/14/19 09:04 Dose: 40 mg Documented by: Polyethylene Glycol (Miralax Powder Packet) 17 gm PO HS [facility] Stop: 06/12/19 20:59 Last Admin: 05/13/19 20:22 Dose: 17 gm Documented by: Potassium Chloride (Klor-Con M10) 10 meq PO BID [facility] Stop: 06/12/19 20:59 Last Admin: 05/14/19 09:04 Dose: 10 meq Documented by: Primidone (Primidone) 375 mg PO BID [facility] Stop: 06/12/19 20:59 Last Admin: 05/14/19 09:03 Dose: 375 mg Documented by: Propranolol HCl (Inderal La) 120 mg PO BID [facility] Stop: 06/12/19 20:59 Last Admin: 05/14/19 09:02 Dose: 120 mg Documented by: Valsartan (Diovan) 320 mg PO QAM [facility] Stop: 06/13/19 08:59 Last Admin: 05/14/19 09:03 Dose: 320 mg Documented by: Warfarin Sodium (Coumadin) 4 mg PO DAILY@1600 [facility] Stop: 06/12/19 16:59 Last Admin: 05/13/19 17:48 Dose: 4 mg Documented by: PG Care Time/CCT Total # of Minutes Spent Total Time Spent with Patient: Total time spent is greater than 50% in coordination of care (as documented) at patient's floor/unit and/or counseling patient: (1) CHF (congestive heart failure) Heart failure chronicity: unspecified Heart failure type: unspecified Qualified Code(s): I50.9 - Heart failure, unspecified (2) Left rib fracture Encounter type: initial encounter Fracture type: closed Rib fracture type: multiple ribs Qualified Code(s): S22.42XA - Multiple fractures of ribs, left side, initial encounter for closed fracture
[2019-05-14] MEDS: WARFARIN SOD 4 MG TAB PO SCH (15:46)
[2019-05-14] MEDS ORDERED: MAGNESIUM HYDROXIDE SUSP 30 ML UDC PO PRN (19:11)
[2019-05-14] MEDS: dilTIAZem HCL 180 MG CAPCR PO SCH (21:25)
[2019-05-14] MEDS: POLYETHYLENE (MIRALAX) 17 GM PACK PO SCH (21:25)
[2019-05-15] MEDS: LEVOTHYROXINE SODIUM 150 MCG TABLET PO SCH (05:20)
[2019-05-15] MEDS: ACETAMINOPHEN 325 MG TAB PO PRN (05:20)
[2019-05-15 08:13] LABS: Prothrombin Time 28.3 Seconds (9.0-12.0)
[2019-05-15 08:34] LABS: BUN Creatinine Ratio 17.4 (10-20); Calcium 8.1 mg/dl (8.5-10.1); Creatinine Clr Calc Pharmacy 37.8 ml/min; Est GFR (Non-African American) 63.9
[2019-05-15] MEDS: POTASSIUM CHLORIDE 10 MEQ TABCR PO SCH ×2 (08:41→21:09)
[2019-05-15] MEDS: CALCIUM 600MG + VIT D 400 IU TAB PO SCH ×2 (08:42→21:08)
[2019-05-15] MEDS: VALSARTAN 80 MG TAB PO SCH (08:42)
[2019-05-15] MEDS: FOLIC ACID 1 MG TAB PO SCH (08:42)
[2019-05-15] MEDS: PRIMIDONE 50 MG TAB PO SCH ×2 (08:43→21:10)
[2019-05-15] MEDS: PROPRANOLOL HCL 60 MG LA CAP PO SCH ×2 (08:43→21:09)
[2019-05-15] MEDS: TRAMADOL HCL 50 MG TABLET PO PRN ×2 (12:20→16:22)
--- NOTE | 2019-05-15 12:54 | Fluoroscopy Report ---
FL video swallow HISTORY: Possible aspiration. please schedule per order to assess swallow TECHNIQUE: Video fluoroscopic evaluation of swallowing was performed in the AP and lateral projection s by the speech pathology staff. The patient is fed nectar-thick and thin liquid barium, a barium coa rajendra wafer, and barium pudding. FLUOROSCOPY TIME: 2.5 minutes. A cine loop submitted. COMPARISON STUDY: None. FINDINGS: A few episodes of incomplete epiglottic deflection. This results in aspiration with the thi n liquid barium only. Mild esophageal dysmotility. Mild vallecular residue with the thicker barium co nsistencies. IMPRESSION: 1. Aspiration of the thin liquid barium. 2. Please see the speech pathologist report for detailed findings and recommendations. Electronically signed by: Adarsh Knapp M.D. 05/15/2019 12:05 PM
--- NOTE | 2019-05-15 13:15 | Hospitalist Progress Note ---
Date of Service May 15, 2019 Assessment & Plan (1) Left rib fracture: CT chest shows non displaced fracture left anterior 4-5 ribs pain control, PT/OT evaluations encourage deep breathing will add Ultram today (2) Fall as cause of accidental injury at home as place of occurrence: Supportive care. OT and PT assessments patient slipped due to one wheel on wheelchair not being locked (3) CHF (congestive heart failure): Acute on chronic heart failure with preserved EF EF is 55-60% on echo yesterday responded well to Lasix initially, negative 1400cc breathing better continue PO Lasix 20mg daily fluid restriction (4) Hyponatremia: sodium up to 128 from 127 continue fluid restriction at 1200cc a day repeat BMP tomorrow (5) Permanent atrial fibrillation: Rate controlled. Continue warfarin therapy. INR is 3.0, repeat tomorrow Continue propranolol and diltiazem (6) Warfarin anticoagulation: INR 3.1. Daily INR measurements Plan: will go to SNF for rehab, needs three midnights Subjective patient doing well pain is moderate, only getting Tylenol, will try some Ultram will pull cueva today plan for SNF rehab tomorrow after third midnight tonight negative fluid output for 1400 she asked about fluid restriction, discussed that her sodium was low but improved to 128 today Review of Systems Review of Systems: All systems reviewed & are unremarkable except as noted in HPI & below Constitutional: + fatigue and + weakness; no fever, no chills and no sweats Respiratory: no cough and no dyspnea Cardiovascular: + chest pain (left side over fractured ribs) Gastrointestinal: no abdominal pain, no nausea, no vomiting, no constipation and no diarrhea/loose stools Physical Exam Constitutional: WD/WN, vitals as above + thin Eyes: PERRL, conjunctivae normal, anicteric sclerae ENMT: external ear and nose normal, oropharynx normal Neck: trachea midline, no thyromegaly Respiratory: normal respiratory effort, lungs clear to auscultation Cardiovascular: Rate/Rhythm: regular rate and + irregularly irregular Heart Sounds: normal S1, normal S2 and + murmur Vessels: no JVD Extremities: normal capillary refill; no edema Chest (Breasts): Chest: normal inspection of chest (tender to palpation, anterior left side) Gastrointestinal (Abdomen): normal bowel sounds, soft, nontender, no hepatosplenomegaly Musculoskeletal: no cyanosis or clubbing, extremities motor strength 5/5 Skin: no rashes, warm and dry Neurologic: patellar DTR's 2+ bilat, sensation intact and PERRL, EOMI, accommodation nl, no face palsy, no dysarthria Psychiatric: A+Ox3, euthymic affect Lymphatic: no cervical or axillary lymphadenopathy Results & Data Vital Signs (Past 12 Hours) Vital Signs Temp Pulse Resp BP Pulse Ox 05/15/19 07:44 36.7 C 60 15 118/71 97 Laboratory Results Laboratory Results - last 24 hr 05/15/19 05/15/19 07:37 07:37 PT 28.3 H INR 3.0 H Sodium 128 L Potassium 4.0 Chloride 93 L Carbon Dioxide 27 Anion Gap 8.0 BUN 14 Creatinine 0.82 Est Cr Clr Drug Dosing 37.8 Est GFR ( Amer) 74.0 Est GFR (Non-Af Amer) 63.9 BUN/Creatinine Ratio 17.4 Glucose 85 Calcium 8.1 L Medications Administered Current Inpatient Medications Acetaminophen (Tylenol) 650 mg PO Q4H PRN PRN Reason: Pain or Fever Stop: 06/12/19 16:15 Last Admin: 05/15/19 05:20 Dose: 650 mg Documented by: Al Hydrox/Mg Hydrox/Simethicone (Maalox) 15 ml PO Q4H PRN PRN Reason: Dyspepsia Stop: 06/12/19 16:15 Diltiazem HCl (Cardizem Cd) 360 mg PO HS [facility] Stop: 06/12/19 20:59 Last Admin: 05/14/19 21:25 Dose: 360 mg Documented by: Docusate Sodium (Colace) 100 mg PO DAILY PRN PRN Reason: Constipation Stop: 06/12/19 16:15 Last Admin: 05/13/19 21:48 Dose: 100 mg Documented by: Folic Acid (Folvite) 1 mg PO QAM [facility] Stop: 06/13/19 08:59 Last Admin: 05/15/19 08:42 Dose: 1 mg Documented by: Levothyroxine Sodium (Synthroid) 150 mcg PO DAILYBB [facility] Stop: 06/13/19 06:29 Last Admin: 05/15/19 05:20 Dose: 150 mcg Documented by: Magnesium Hydroxide (Milk Of Magnesia) 30 ml PO DAILY PRN PRN Reason: Constipation Stop: 06/13/19 19:10 Last Admin: 05/14/19 21:25 Dose: 30 ml Documented by: Multivitamins/Minerals (Caltrate Plus) 1 tab PO BID BAUDILIO Stop: 06/12/19 20:59 Last Admin: 05/15/19 08:42 Dose: 1 tab Documented by: Ondansetron HCl (Zofran) 4 mg IV Q6H PRN PRN Reason: Nausea Stop: 06/12/19 16:15 Oxycodone HCl (Roxicodone Immediate Rel) 5 mg PO Q6H PRN PRN Reason: Pain Stop: 05/27/19 16:15 Last Admin: 05/13/19 16:58 Dose: 5 mg Documented by: Pantoprazole Sodium (Protonix) 40 mg PO BID PRN PRN Reason: Acid Reflux Stop: 06/12/19 16:15 Last Admin: 05/14/19 09:04 Dose: 40 mg Documented by: Polyethylene Glycol (Miralax Powder Packet) 17 gm PO HS [facility] Stop: 06/12/19 20:59 Last Admin: 05/14/19 21:25 Dose: Not Given Documented by: Potassium Chloride (Klor-Con M10) 10 meq PO BID [facility] Stop: 06/12/19 20:59 Last Admin: 05/15/19 08:41 Dose: 10 meq Documented by: Primidone (Primidone) 375 mg PO BID BAUDILIO Stop: 06/12/19 20:59 Last Admin: 05/15/19 08:43 Dose: 375 mg Documented by: Propranolol HCl (Inderal La) 120 mg PO BID [facility] Stop: 06/12/19 20:59 Last Admin: 05/15/19 08:43 Dose: 120 mg Documented by: Tramadol HCl (Ultram) 50 mg PO Q4H PRN PRN Reason: Pain Stop: 06/14/19 10:54 Last Admin: 05/15/19 12:20 Dose: 50 mg Documented by: Valsartan (Diovan) 320 mg PO QAM BAUDILIO Stop: 06/13/19 08:59 Last Admin: 05/15/19 08:42 Dose: 320 mg Documented by: Warfarin Sodium (Coumadin) 4 mg PO DAILY@1600 [facility] Stop: 06/12/19 16:59 Last Admin: 05/14/19 15:46 Dose: 4 mg Documented by: PG Care Time/CCT Total # of Minutes Spent Total Time Spent with Patient: Total time spent is greater than 50% in coordination of care (as documented) at patient's floor/unit and/or counseling patient: (1) Left rib fracture Encounter type: initial encounter Fracture type: closed Rib fracture type: multiple ribs Qualified Code(s): S22.42XA - Multiple fractures of ribs, left side, initial encounter for closed fracture (2) CHF (congestive heart failure) Heart failure chronicity: unspecified Heart failure type: unspecified Qualified Code(s): I50.9 - Heart failure, unspecified
[2019-05-15] MEDS: WARFARIN SOD 4 MG TAB PO SCH (18:33)
[2019-05-15] MEDS: POLYETHYLENE (MIRALAX) 17 GM PACK PO SCH (21:04)
[2019-05-15] MEDS: dilTIAZem HCL 180 MG CAPCR PO SCH (21:09)
[2019-05-16] MEDS: LEVOTHYROXINE SODIUM 150 MCG TABLET PO SCH (05:42)
[2019-05-16 08:07] LABS: INR 2.1 (0.9-1.1); Prothrombin Time 20.8 Seconds (9.0-12.0)
[2019-05-16 08:30] LABS: BUN Creatinine Ratio 16.6 (10-20); Creatinine Clr Calc Pharmacy 45.7 ml/min; Est GFR (African American) 90.5; Est GFR (Non-African American) 78.1; Potassium 4.1 mmol/L (3.5-5.1)
[2019-05-16] MEDS: CALCIUM 600MG + VIT D 400 IU TAB PO SCH (09:22)
[2019-05-16] MEDS: FOLIC ACID 1 MG TAB PO SCH (09:23)
[2019-05-16] MEDS: PROPRANOLOL HCL 60 MG LA CAP PO SCH (09:23)
[2019-05-16] MEDS: VALSARTAN 80 MG TAB PO SCH (09:23)
[2019-05-16] MEDS: POTASSIUM CHLORIDE 10 MEQ TABCR PO SCH (09:24)
[2019-05-16] MEDS: PRIMIDONE 50 MG TAB PO SCH (09:24)
[2019-05-16] MEDS: ACETAMINOPHEN 325 MG TAB PO PRN (11:22)
[2019-05-16] MEDS: TRAMADOL HCL 50 MG TABLET PO PRN (13:37)
--- NOTE | 2019-05-16 16:08 | Discharge Summary ---
Date of Service May 16, 2019 Admission HPI Per Admitting Provider 89-year-old female who fell getting out of bed this morning suffering left-sided rib pain. She was evaluated in the emergency department. No apparent rib fractures on chest CT scan but she is exquisitely tender in the left lateral rib area and rib detail x-rays are pending. There is some evidence of CHF on chest CT scan and physical exam. Although she does not notice any change in her respiratory status she is mostly sedentary but she does notice some increasing peripheral edema. Nevertheless despite a normal BNP, she was given intravenous Lasix in the ED and has experienced a significant diuresis. Her sodium is mildly low at 129 and I suspect her serum osmolality will also be low due to volume overload. Serum osmolality is pending. She is on chronic Coumadin therapy with INR 2.6. She has chronic atrial fibrillation and sick sinus syndrome with a permanent cardiac pacemaker. Paced rhythm noted on EKG. She lives alone and is unable to ambulate effectively. She is admitted for further evaluation and treatment of the left rib contusions and possible rib fractures along with the CHF exacerbation. Admission Exam Per Admitting Provider General-alert and oriented x3, no fevers, no chills HEENT-head atraumatic and normocephalic, TMs intact bilaterally, pupils equal and reactive to light, extraocular muscles intact Neck-no lymphadenopathy or thyromegaly, trachea midline Chest-bilateral coarse inspiratory rales. No dullness to percussion Cardiac-regular rate and rhythm, normal S1 and S2. Hepatojugular reflux noted. Grade 2/6 systolic murmur Abdomen-normal bowel sounds, nontender, no hepatosplenomegaly Extremities-no cyanosis, clubbing. 1+ pitting edema bilateral distal lower extremities Neuro-cranial nerves II through XII intact, motor and sensory function within normal limits, strength symmetrical , no focal deficits Psych-normal affect, normal mood Principal Diagnosis Rib fractures, traumatic fall Discharge Exam Constitutional WD/WN, vitals as above + thin Eyes PERRL, conjunctivae normal, anicteric sclerae ENMT external ear and nose normal, oropharynx normal Neck trachea midline, no thyromegaly Respiratory normal respiratory effort, lungs clear to auscultation Cardiovascular Rate/Rhythm: regular rate and + irregularly irregular Heart Sounds: normal S1, normal S2 and + murmur Vessels: no JVD Extremities: normal capillary refill; no edema Chest (Breasts) Chest: normal inspection of chest (tender to palpation, anterior left side) Gastrointestinal (Abdomen) normal bowel sounds, soft, nontender, no hepatosplenomegaly Musculoskeletal no cyanosis or clubbing, extremities motor strength 5/5 Skin no rashes, warm and dry Neurologic patellar DTR's 2+ bilat, sensation intact and PERRL, EOMI, accommodation nl, no face palsy, no dysarthria Psychiatric A+Ox3, euthymic affect Lymphatic no cervical or axillary lymphadenopathy Discharge Data Allergies Allergy/AdvReac Type Severity Reaction Status Date / Time orange Allergy Intermediate HIVES Verified 05/13/19 11:20 pseudoephedrine Allergy Intermediate worsens Verified 05/13/19 11:20 afib strawberry Allergy Intermediate HIVES Verified 05/13/19 11:20 Sulfa (Sulfonamide Allergy Intermediate hives Verified 05/13/19 11:20 Antibiotics) lorazepam AdvReac Severe "WENT Verified 05/13/19 11:20 CRAZY" caffeine AdvReac Intermediate HEART Verified 05/13/19 11:20 PALPITATIONS Cephalosporins Allergy Unknown Unknown Uncoded 05/13/19 11:20 Codeine Derivatives Allergy Unknown Unknown Uncoded 05/13/19 11:20 Doxycycline Monohydrate CAPS Allergy Unknown Unknown Uncoded 05/13/19 11:20 hydroCHLOROthiazide TABS Allergy Unknown Unknown Uncoded 05/13/19 11:20 Pletal TABS Allergy Unknown Unknown Uncoded 05/13/19 11:20 Rosuvastatin Calcium TABS Allergy Unknown Unknown Uncoded 05/13/19 11:20 Tramadol Allergy Unknown Unknown Uncoded 05/13/19 11:20 Consultations 05/13/19 13:49 ED Decision to Admit Stat Ordered Studies 05/13/19 11:15 CT cervical spine wo con Stat CT chest wo con Stat CT head/brain wo con Stat 05/15/19 11:00 FL video swallow Routine Hospital Course (1) Left rib fracture: CT chest shows non displaced fracture left anterior 4-5 ribs pain control, PT/OT evaluations encourage deep breathing pain well controlled with Ultram, continue to use after discharge (2) Fall as cause of accidental injury at home as place of occurrence: Supportive care. OT and PT assessments patient slipped due to one wheel on wheelchair not being locked (3) CHF (congestive heart failure): Acute on chronic heart failure with preserved EF EF is 55-60% on echo responded well to Lasix initially, negative 1400cc breathing better continue PO Lasix 20mg daily fluid restriction (4) Hyponatremia: sodium up to 129 from 127 continue fluid restriction at 1500cc a day repeat BMP at rehab (5) Permanent atrial fibrillation: Rate controlled. Continue warfarin therapy. INR is therapeutic Continue propranolol and diltiazem (6) Warfarin anticoagulation: INR therapeutic. check INR at rehab Plan: will go to SNF for rehab Total Time Total Time Spent Total Time Spent (In Minutes): 25 Total Time Includes: Examination of the Patient, Discharge Planning and Medication Reconciliation Discharge Plan Discharge Items Patient Disposition: Transfer Custodial Fac Reason For Visit: MECHANICAL FALL,RIB CONTUSTIONS,CHF Discharge Diagnosis: Left 4th and 5th rib fractures Hyponatremia Acute heart failure with preserved ejection fraction Condition: Good Discharge Goals: Decrease discomfort, Improve disease control and Improve function Activity: Resume your previous activity Non-emergency contact: Primary Care Provider Call non-emergency contact if: you have any medication questions, your symptoms worsen, your pain is not controlled and you have a fever Follow-up/Referrals: Alta Segura CRNP [Primary Care Provider] - Diet: Regular Addtl Provider Instructions: Medications: - SODIUM CHLORIDE: 1gm daily to help keep sodium normal - LASIX: 20mg daily for fluid balance - ULTRAM: use every 4 hours as needed for right rib pain Right 4-5th rib fractures due to mechanical fall pain controlled with Ultram continue to encourage deep breathing, she is saturating in the 90's on room air, no distress continue therapy to improve strength and independence, at baseline she is independent on transfers, uses wheelchair Hyponatremia Na is 129 on discharge, has been stable, as low as 127 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 for now, no history of low sodium treated with fluid restriction recommend continue with fluid restriction of 1500mL a day, liberalize salt in diet, start NaCl 1gm daily recommend repeating BMP on Saturday 05/19 to follow up on sodium level Acute heart failure with preserved EF diuresed 1400cc on admission with Lasix 20mg IV BID changed back to Lasix 20mg PO daily, continue this fluid restrict to 1500mL a day recommend daily weights to make sure she is not gaining fluid FOLLOW UP - physician at [facility] this week Prescriptions: New tramadol 50 mg Tablet 50 mg PO Q4H PRN (Reason: pain) 14 Days Qty: 30 RF: 0 sodium chloride 1 gram tablet 1,000 mg PO DAILY Qty: 30 RF: 0 furosemide [Lasix] 20 mg tablet 20 mg PO DAILY Qty: 30 RF: 0 Continued primidone 250 mg tablet 375 mg PO BID Qty: 180 RF: 2 calcium phosphate-vitamin D3 [Citracal + D3 (calcium phos)] 250 mg calcium- 500 unit tablet,chewable 1 tab PO BID RF: 0 docusate sodium 100 mg capsule 100 mg PO DAILY PRN (Reason: Constipation) RF: 0 hydrocortisone 2.5 % cream 1 appln topical BID PRN (Reason: itching) Qty: 1 RF: 0 pantoprazole 40 mg tablet,delayed release (DR/EC) 40 mg PO BID PRN (Reason: Acid Reflux) Qty: 180 RF: 0 propranolol 120 mg capsule,extended release 24 hr 120 mg PO BID RF: 0 diltiazem HCl 360 mg capsule,extended release 24 hr 360 mg PO HS RF: 0 warfarin [Coumadin] 4 mg tablet 4 mg PO HS RF: 0 valsartan 320 mg tablet 320 mg PO QAM RF: 0 levothyroxine 150 mcg tablet 150 mg PO DAILYBB RF: 0 folic acid 1 mg Tablet 1 mg PO QAM RF: 0 potassium chloride 10 mEq tablet extended release 10 meq PO BID RF: 0 polyethylene glycol 3350 [Miralax] 17 gram Powder In Packet 17 g PO HS RF: 0 Discontinued furosemide 20 mg Tablet 20 mg PO DAILY PRN (Reason: Fluid Retention) RF: 0 Stand-Alone Forms: [facility] Discharge Orders: Discharge Order (Routine); Ordered 05/16/19 Ordered By: Connor Jain Skilled Items Patient informed of condition?: Yes DNR: No Discharge Level of Care: Skilled Communicable Disease: No Discharge Prognosis: Stable Admission Data Admit Date/Time: 05/13/19 14:46 Attending Provider: Connor Jain Admit Provider: Horacio Llanes Primary Care Provider: Alta Segura I Other Providers: Horacio Llanes Service: Medical Other Interventions: Discharge Summary Assessment (RN) Last Done: 05/16/19 12:45 Pending Studies at Discharge: No DC Date/Time DO NOT enter until pt leaves facility: 05/16/19 13:48
--- NOTE | 2019-06-18 13:37 | Coding Query ---
CODING QUERY To promote full compliance with coding requirements relating to patient care, provider participation is requested in all cases of director of music uncertainty. Please assist us with the question(s) below: Coding Question(s): Please clarify chronicity of the rib pain. Physician's Response(s): acute rib pain due to traumatic fall Thank you Martha Mcfarland Principal Diagnosis: "that condition established after study, to be chiefly responsible for occasioning the admission of the patient to the hospital for care." Co-Existing Principal Diagnosis: "when two or more diagnoses equally meet the criteria for principal diagnosis as determined by the circumstances of admission, diagnostic work up, and/or therapy provided, and the Alphabetic Index, Tabular List, or another coding guideline does not provide sequencing direction, any one of the diagnoses may be sequenced first." "When the physician has documented what appears to be a current diagnosis in the body of the record, but has not included the diagnosis in the final diagnostic statement, the physician should be asked whether the diagnosis should be added." ([facility] 2 QTR90. p3-4) RAFAEL
== END 2019-05-16 13:48 | DRG 947 ==
LOC: ED 10:45 → 2S 14:46 → SUATTDRO 14:46 → 2S 15:33 → 3W 05-14 12:02

== ENCOUNTER 2019-08-08 13:53 | Inpatient (IN) ==
[2019-08-08] MEDS ORDERED: SODIUM CHLORIDE 0.9% 1000ML 1,000 ML IV SCH (15:00)
--- NOTE | 2019-08-08 16:11 | XRay Report ---
XR chest 1V portable CLINICAL HISTORY: weakness COMPARISON STUDY: 07/16/2019 FINDINGS: The heart is enlarged. There is a left subclavian single chamber central venous pacemaker. There is mild chronic interstitial thickening. There is an equivocal more focal right upper lobe airs pace process. There are no pleural effusions.[ IMPRESSION: 1. Stable cardiomegaly and interstitial thickening 2. Equivocal subtle right upper lobe airspace opacities. A developing inflammatory process cannot be excluded and radiographic follow-up is recommended. Electronically signed by: Nikita Roberts M.D. 08/08/2019 4:10 PM
[2019-08-08 17:24] LABS: Basophils # (auto) 0.02 K/uL (0-0.2); Basophils % (auto) 0.3 %; Eosinophils # (auto) 0.24 K/uL (0-0.5); Eosinophils % (auto) 3.8 %; Hematocrit (blood only) 39.4 % (37-47); Hemoglobin 14.2 g/dL (12.0-16.0); Immature Granulocytes # (auto) 0.01 K/uL (0.00-0.02); Immature Granulocytes % (auto) 0.2 %; Lymphocytes # (auto) 1.63 K/uL (1.2-3.4); Mean Corpuscular Hemoglobin 34.1 pg (25-34); Mean Corpuscular Volume 94.5 fL (80-100); Mean Platelet Volume 10.5 fL (7.4-10.4); Monocytes % (auto) 11.2 %; Neutrophils # (auto) 3.67 K/uL (1.4-6.5); Neutrophils % (auto) 58.5 %; Platelet Count 166 K/uL (130-400); RDW Coefficient of Variation 15.9 % (11.5-14.5); RDW Standard Deviation 54.5 fL (36.4-46.3); Red Blood Count 4.17 M/uL (4.2-5.4); White Blood Count 6.27 K/uL (4.8-10.8)
--- NOTE | 2019-08-08 17:29 | CT Scan Report ---
CT head/brain wo con CLINICAL HISTORY: Head pain status post trauma. Weakness. COMPARISON STUDY: 07/16/2019 TECHNIQUE: Axial CT of the brain is performed from the vertex to the skull base. IV contrast was not administered for this examination. A dose lowering technique was utilized adhering to the principles of ALARA. CT DOSE: FINDINGS: No intra or extra-axial mass lesions are visualized. There is no CT evidence of acute cortical infarc tion. There is no evidence of midline shift. There is no acute hemorrhage. No calvarial fractures ar e visualized. There are patchy white matter hypodensities likely on a small vessel basis. There is no evidence of pathologic ventricular dilatation. There is no evidence of acute sinusitis IMPRESSION: No acute intracranial findings Electronically signed by: Nikita Roberts M.D. 08/08/2019 5:28 PM
[2019-08-08 17:32] LABS: INR 1.3 (0.9-1.1); Prothrombin Time 12.9 Seconds (9.0-12.0)
--- NOTE | 2019-08-08 17:32 | CT Scan Report ---
CT OF THE CERVICAL SPINE CLINICAL HISTORY: Neck pain status post trauma. Weakness. COMPARISON STUDY: 07/16/2019 CT DOSE: 383.13 mGycm TECHNIQUE: CT scan of the cervical spine was performed from the skull base to the thoracic inlet. Jody ges are reviewed in the axial, sagittal, and coronal planes. IV contrast was not administered for thi s examination. A dose lowering technique was utilized adhering to the principles of ALARA. FINDINGS: The visualized portions of the lung apices reveal no evidence of pneumothorax. The prevertebral soft tissues are normal. No fractures or traumatic subluxations are visualized. There are multilevel degenerative changes. There is minimal anterolisthesis of C3 on C4, unchanged fr om the prior study, and felt to be degenerative. There is also minimal anterolisthesis of C6 on C7 an d C7 on T1. This also remains unchanged and is felt to be arthritic there is a small C4-5 disc protru emily. This also remains unchanged IMPRESSION: No evidence of acute fracture or traumatic subluxation. Electronically signed by: Nikita Roberts M.D. 08/08/2019 5:31 PM
[2019-08-08 17:37] LABS: Alanine Aminotransferase 14 U/L (12-78); Albumin Level 3.2 gm/dl (3.4-5.0); Aspartate Aminotransferase 18 U/L (15-37); BUN Creatinine Ratio 18.4 (10-20); Blood Urea Nitrogen 17 mg/dl (7-18); Calcium 8.1 mg/dl (8.5-10.1); Carbon Dioxide 31 mmol/L (21-32); Chloride 105 mmol/L (98-107); Est GFR (African American) 63.6; Est GFR (Non-African American) 54.9; Glucose 94 mg/dl (70-99); Magnesium 2.1 mg/dl (1.8-2.4); Potassium 3.5 mmol/L (3.5-5.1); Sodium 141 mmol/L (136-145)
[2019-08-08 17:48] LABS: Albumin Globulin Ratio 0.8 (0.9-2); Alkaline Phosphatase 125 U/L (45-117); Bilirubin,Total 0.5 mg/dl (0.2-1); Creatine Kinase 58 U/L (26-192); Total Protein 7.2 gm/dl (6.4-8.2); Troponin I < 0.015 ng/ml (0-0.045)
[2019-08-08 18:02] LABS: T4 Free Thyroxine 0.66 ng/dl (0.8-1.6)
[2019-08-08 18:07] LABS: Appearance Urine Clear (Clear); Bilirubin Urine Negative (Negative); Blood Urine Negative (Negative); Color Urine Yellow; Glucose Urine UA Negative (Negative); Ketones Urine Negative (Negative); Leukocyte Esterase Urine Negative (Negative); Nitrite Urine Negative (Negative); Urobilinogen Urine Negative (Negative)
[2019-08-08 18:10] LABS: Protein Urine Trace (Negative); Sulfosalicylic Acid Urine Positive (Negative)
[2019-08-08 18:20] LABS: Bacteria Urine Negative (Negative); WBC Urine 0-5 /hpf (0-5)
[2019-08-08] MEDS ORDERED: CLINDAMYCIN 600 MG in DEXTROSE 5% 50 ML IV ONE (18:25)
[2019-08-08] MEDS ORDERED: LEVOFLOXACIN/D5W 750 MG/150 ML BAG IV STA (18:25)
[2019-08-08] MEDS ORDERED: LEVOTHYROXINE SODIUM 150 MCG TABLET PO STA (18:40)
--- NOTE | 2019-08-08 18:58 | History & Physical Report ---
Date of Service August 08, 2019 Assessment & Plan (1) AMS (altered mental status): (2) Toxic metabolic encephalopathy: (3) Severe hypothyroidism: (4) Pneumonia: (5) Warfarin anticoagulation: (6) CHF (congestive heart failure): (7) Hypoxia: (8) Sick sinus syndrome: (9) Permanent atrial fibrillation: (10) Hypertension: (11) Generalized weakness: (12) Gastroesophageal reflux disease: (13) Gait disturbance: (14) Dyslipidemia: (15) Cardiac pacemaker: (16) Aortic stenosis: (17) Frequent falls: Continue home medications. She was started on IV antibiotics for possible pneumonia. Consult case management for discharge planning. Consult PT OT. Repeat labs in a.m. CODE STATUS full code. Continue DVT prophylaxis with anticoagulationadjust Coumadin according to PT/INR. History of Present Illness Chief Complaint: Generalized weakness and decreased mental status Primary Care Provider: JALEN PCP The patient is 89 years old female who was brought to the emergency room with the complaints of generalized weakness. Patient is elderly lady who lives by herself and often misses her medications. The patient has not taken her Synthroid for many days. She has history of frequent falls. She is wheelchair-bound and has been falling frequently. She denies any chest pain or loss of consciousness. No seizures. She was started on IV antibiotics in the ER for possible pneumonia. She has history of vomiting and possible aspiration. No fever. She has history of permanent atrial fibrillation. In the ER she was found to be having severe hypothyroidism. She will be admitted for further evaluation and management. Family is requesting for possible rehab placement. CODE STATUS discussed and she is a full code. Allergies Allergy/AdvReac Type Severity Reaction Status Date / Time orange Allergy Intermediate HIVES Verified 08/08/19 14:37 pseudoephedrine Allergy Intermediate worsens Verified 08/08/19 14:37 afib strawberry Allergy Intermediate HIVES Verified 08/08/19 14:37 Sulfa (Sulfonamide Allergy Intermediate hives Verified 08/08/19 14:37 Antibiotics) Cephalosporins Allergy Unknown ON [facility] Verified 08/08/19 14:37 LIST cilostazol [From Pletal] Allergy Unknown ON [facility] Verified 08/08/19 14:37 LIST tramadol Allergy Unknown ON [facility] Verified 08/08/19 14:37 LIST lorazepam AdvReac Severe "WENT Verified 08/08/19 14:37 CRAZY" caffeine AdvReac Intermediate HEART Verified 08/08/19 14:37 PALPITATIONS doxycycline AdvReac Intermediate NIGHTMARES Verified 08/08/19 14:37 rosuvastatin AdvReac Intermediate MYALGIAS Verified 08/08/19 14:37 hydrochlorothiazide AdvReac HYPONATREMI Verified 08/08/19 14:37 A Home Medications Home Medications Medication Instructions Recorded Confirmed Type diltiazem HCl 360 mg PO HS 02/02/19 08/08/19 History folic acid 1 mg PO QAM 02/02/19 08/08/19 History levothyroxine 150 mg PO DAILYBB 02/02/19 08/08/19 History valsartan 320 mg PO QAM 02/02/19 08/08/19 History primidone 250 mg tablet 375 mg PO BID #180 tab 04/10/19 08/08/19 Rx calcium phosphate-vitamin D3 250 1 tab PO BID tab 04/15/19 08/08/19 History mg calcium-500 unit chewable tablet hydrocortisone 2.5 % topical cream 1 appln TOPICAL BID PRN #1 gm 04/15/19 08/08/19 History propranolol ER 120 mg capsule,24 120 mg PO BID cap 04/15/19 08/08/19 History hr,extended release polyethylene glycol 3350 [Miralax] 17 g PO HS 05/13/19 08/08/19 History acetaminophen 325 mg tablet 650 mg PO Q4H PRN #60 tab 06/17/19 08/08/19 Rx potassium chloride ER 10 mEq 10 meq PO BID tab 07/09/19 08/08/19 History tablet,extended release furosemide [Lasix] 20 mg PO DAILY 07/16/19 08/08/19 History warfarin 4 mg tablet 4 mg PO HS #100 tab 07/30/19 08/08/19 Rx Past Med/Surg History Medical History Hyponatremia Left rib fracture (Acute) Fall as cause of accidental injury at home as place of occurrence (Acute) Warfarin anticoagulation (Chronic) CHF (congestive heart failure) (Acute) Hypoxia (Acute) Tricuspid regurgitation (Acute) Spinal stenosis (Chronic) Sick sinus syndrome (Acute) Rosacea (Acute) Rheumatoid arthritis (Acute) Rectocele (Acute) Permanent atrial fibrillation (Chronic) Osteoporosis (Acute) Mitral regurgitation (Acute) Meckels diverticulum (Acute) Hypothyroidism (Acute) Hypertension (Chronic) Hip pain, bilateral (Acute) Generalized weakness (Acute) Gastroesophageal reflux disease (Acute) Gait disturbance (Chronic) Elevated alkaline phosphatase level (Acute) Edema (Acute) Dyslipidemia (Acute) Cystocele (Acute) Chronic osteoarthritis (Acute) Chronic anticoagulation (Acute) Cerebral atherosclerosis (Acute) Carotid artery plaque (Acute) Cardiac pacemaker (Acute) Benign essential tremor (Acute) Aortic stenosis (Acute) Actinic keratosis (Acute) Ovarian cyst (Chronic) DVT (deep venous thrombosis) (Resolved) SBO (small bowel obstruction) (Acute) Small bowel obstruction (Acute) Surgical History History of hernia repair Hx of appendectomy (Resolved) Hx of cholecystectomy (Resolved) H/O: hysterectomy (Resolved) History of colon resection (Resolved) Family History Other Family history non-contributory Social History Preferred Language: Citizen Of [place] Communication Ability: Effective Adult Care Provider Required: No Beliefs That Will Affect Care: None marital status: / Current Living Situation: Alone Current Living Situation Comment: Family is neighbor Feels Safe at Home: Yes Smoking Status: Never smoker Second Hand Exposure: No ; Hx Alcohol Use: No Hx Substance Use: No Review of Systems Review of Systems: All systems reviewed & are unremarkable except as noted in HPI & below Constitutional: + fatigue, + malaise, + weakness and + anorexia Respiratory: + cough, + chest congestion and + dyspnea on exertion Cardiovascular: + dyspnea and + dyspnea on exertion Neurologic: + gait abnormality, + unsteadiness, + falls, + generalized we akness, + lack of coordination and + memory loss Psychiatric: + confusion Physical Exam Physical Exam: GENERAL : No acute distress. Appears to be lethargic but arousable EYES: No icterus, gaze conjugate NOSE: No evidence of epistaxis MOUTH: No lesions or candidiasis, mucosa moist NECK: Supple LUNGS: Decreased breath in the lung bases HEART: Irregularly irregular, systolic murmur present ABDOMEN: Soft, NT, ND, BS Present EXTREMITIES: No LE edema, pedal pulses intact NEURO: A&OX3 Results & Data Vital Signs (Past 12 Hours) Vital Signs Temp Pulse Resp BP Pulse Ox 08/08/19 17:10 71 25 H 95 08/08/19 17:00 72 24 96 08/08/19 16:50 77 20 94 08/08/19 16:40 73 22 08/08/19 16:30 70 19 08/08/19 16:20 72 21 08/08/19 16:10 76 18 08/08/19 16:00 74 22 08/08/19 15:52 72 20 08/08/19 14:07 97.3 F L 69 18 146/75 H 87 L Laboratory Results 08/08/19 16:56 08/08/19 16:56 08/08/19 08/08/19 08/08/19 Range/Units 18:02 16:56 16:56 WBC 6.27 (4.8-10.8) K/uL RBC 4.17 L (4.2-5.4) M/uL Hgb 14.2 (12.0-16.0) g/dL Hct 39.4 (37-47) % MCV 94.5 (80-100) fL MCH 34.1 H (25-34) pg MCHC 36.0 (32-36) g/dL RDW Std Deviation 54.5 H (36.4-46.3) fL RDW Coeff of Kristian 15.9 H (11.5-14.5) % Plt Count 166 (130-400) K/uL MPV 10.5 H (7.4-10.4) fL Immature Gran % (Auto) 0.2 % Neut % (Auto) 58.5 % Lymph % (Auto) 26.0 % Bay % (Auto) 11.2 % Eos % (Auto) 3.8 % Baso % (Auto) 0.3 % Immature Gran # (Auto) 0.01 (0.00-0.02) K/uL Neut # (Auto) 3.67 (1.4-6.5) K/uL Lymph # (Auto) 1.63 (1.2-3.4) K/uL Bay # (Auto) 0.70 H (0.11-0.59) K/uL Eos # (Auto) 0.24 (0-0.5) K/uL Baso # (Auto) 0.02 (0-0.2) K/uL PT (9.0-12.0) Seconds INR (0.9-1.1) Sodium 141 (136-145) mmol/L Potassium 3.5 (3.5-5.1) mmol/L Chloride 105 (98-107) mmol/L Carbon Dioxide 31 (21-32) mmol/L Anion Gap 5.0 (3-11) BUN 17 (7-18) mg/dl Creatinine 0.93 (0.6-1.2) mg/dl Est Cr Clr Drug Dosing Not Reportable Est GFR ( Amer) 63.6 Est GFR (Non-Af Amer) 54.9 BUN/Creatinine Ratio 18.4 (10-20) Glucose 94 (70-99) mg/dl POC Glucose (70-99) Lactate (0.4-2.0) mmol/L Calcium 8.1 L (8.5-10.1) mg/dl Magnesium 2.1 (1.8-2.4) mg/dl Total Bilirubin 0.5 (0.2-1) mg/dl AST 18 (15-37) U/L ALT 14 (12-78) U/L Alkaline Phosphatase 125 H (45-117) U/L Total Creatine Kinase 58 (26-192) U/L Troponin I < 0.015 (0-0.045) ng/ml Total Protein 7.2 (6.4-8.2) gm/dl Albumin 3.2 L (3.4-5.0) gm/dl Globulin 4.0 (2.5-4.0) gm/dl Albumin/Globulin Ratio 0.8 L (0.9-2) TSH 54.700 H (0.300-4.500) uIu/ml Free T4 0.66 L (0.8-1.6) ng/dl Urine Color Yellow Urine Appearance Clear (Clear) Urine pH 8.0 H (4.5-7.5) Ur Specific [place] 1.010 (1.000-1.030) Urine Protein Trace H (Negative) Urine Glucose (UA) Negative (Negative) Urine Ketones Negative (Negative) Urine Blood Negative (Negative) Urine Nitrite Negative (Negative) Urine Bilirubin Negative (Negative) Urine Urobilinogen Negative (Negative) Ur Leukocyte Esterase Negative (Negative) Urine RBC 5-10 H (0-4) /hpf Urine WBC 0-5 (0-5) /hpf Ur Epithelial Cells 5-10 H (0-5) /lpf Urine Bacteria Negative (Negative) 08/08/19 08/08/19 08/08/19 Range/Units 16:56 16:56 16:26 WBC (4.8-10.8) K/uL RBC (4.2-5.4) M/uL Hgb (12.0-16.0) g/dL Hct (37-47) % MCV (80-100) fL MCH (25-34) pg MCHC (32-36) g/dL RDW Std Deviation (36.4-46.3) fL RDW Coeff of Kristian (11.5-14.5) % Plt Count (130-400) K/uL MPV (7.4-10.4) fL Immature Gran % (Auto) % Neut % (Auto) % Lymph % (Auto) % Bay % (Auto) % Eos % (Auto) % Baso % (Auto) % Immature Gran # (Auto) (0.00-0.02) K/uL Neut # (Auto) (1.4-6.5) K/uL Lymph # (Auto) (1.2-3.4) K/uL Bay # (Auto) (0.11-0.59) K/uL Eos # (Auto) (0-0.5) K/uL Baso # (Auto) (0-0.2) K/uL PT 12.9 H (9.0-12.0) Seconds INR 1.3 H (0.9-1.1) Sodium (136-145) mmol/L Potassium (3.5-5.1) mmol/L Chloride (98-107) mmol/L Carbon Dioxide (21-32) mmol/L Anion Gap (3-11) BUN (7-18) mg/dl Creatinine (0.6-1.2) mg/dl Est Cr Clr Drug Dosing Est GFR ( Amer) Est GFR (Non-Af Amer) BUN/Creatinine Ratio (10-20) Glucose (70-99) mg/dl POC Glucose 87 (70-99) Lactate 1.6 (0.4-2.0) mmol/L Calcium (8.5-10.1) mg/dl Magnesium (1.8-2.4) mg/dl Total Bilirubin (0.2-1) mg/dl AST (15-37) U/L ALT (12-78) U/L Alkaline Phosphatase (45-117) U/L Total Creatine Kinase (26-192) U/L Troponin I (0-0.045) ng/ml Total Protein (6.4-8.2) gm/dl Albumin (3.4-5.0) gm/dl Globulin (2.5-4.0) gm/dl Albumin/Globulin Ratio (0.9-2) TSH (0.300-4.500) uIu/ml Free T4 (0.8-1.6) ng/dl Urine Color Urine Appearance (Clear) Urine pH (4.5-7.5) Ur Specific [place] (1.000-1.030) Urine Protein (Negative) Urine Glucose (UA) (Negative) Urine Ketones (Negative) Urine Blood (Negative) Urine Nitrite (Negative) Urine Bilirubin (Negative) Urine Urobilinogen (Negative) Ur Leukocyte Esterase (Negative) Urine RBC (0-4) /hpf Urine WBC (0-5) /hpf Ur Epithelial Cells (0-5) /lpf Urine Bacteria (Negative) Diagnostic Findings XR chest 1V portable CLINICAL HISTORY: weakness COMPARISON STUDY: 07/16/2019 FINDINGS: The heart is enlarged. There is a left subclavian single chamber central venous pacemaker. There is mild chronic interstitial thickening. There is an equivocal more focal right upper lobe airspace process. There are no pleural effusions.[ IMPRESSION: 1. Stable cardiomegaly and interstitial thickening 2. Equivocal subtle right upper lobe airspace opacities. A developing inflammatory process cannot be excluded and radiographic follow-up is recommended. CT OF THE CERVICAL SPINE CLINICAL HISTORY: Neck pain status post trauma. Weakness. COMPARISON STUDY: 07/16/2019 CT DOSE: 383.13 mGycm TECHNIQUE: CT scan of the cervical spine was performed from the skull base to the thoracic inlet. Images are reviewed in the axial, sagittal, and coronal planes. IV contrast was not administered for this examination. A dose lowering technique was utilized adhering to the principles of ALARA. FINDINGS: The visualized portions of the lung apices reveal no evidence of pneumothorax. The prevertebral soft tissues are normal. No fractures or traumatic subluxations are visualized. There are multilevel degenerative changes. There is minimal anterolisthesis of C3 on C4, unchanged from the prior study, and felt to be degenerative. There is also minimal anterolisthesis of C6 on C7 and C7 on T1. This also remains unchanged and is felt to be arthritic there is a small C4-5 disc protrusion. This also remains unchanged IMPRESSION: No evidence of acute fracture or traumatic subluxation. Code Status & VTE Plan Code Status Full code PG Care Time/CCT Total # of Minutes Spent Total Time Spent with Patient: Total time spent is greater than 50% in coordination of care (as documented) at patient's floor/unit and/or counseling patient: (1) CHF (congestive heart failure) Heart failure chronicity: unspecified Heart failure type: unspecified Qualified Code(s): I50.9 - Heart failure, unspecified (2) AMS (altered mental status) Altered mental status type: unspecified Qualified Code(s): R41.82 - Altered mental status, unspecified (3) Pneumonia Laterality: unspecified laterality Lung location: unspecified part of lung Pneumonia type: due to unspecified organism Qualified Code(s): J18.9 - Pneumonia, unspecified organism
[2019-08-08] MEDS ORDERED: POLYETHYLENE (MIRALAX) 17 GM PACK PO PRN (19:50)
[2019-08-08] MEDS ORDERED: HYDROCORTISONE 2.5% CR 30 GM TUBE EXT PRN (19:50)
[2019-08-08] MEDS ORDERED: ALUMINUM/MAGNESIUM SUSP 30 ML UDC PO PRN (19:50)
[2019-08-08] MEDS ORDERED: ONDANSETRON INJ 2 MG/ML 2 ML VIAL IV PRN (19:50)
[2019-08-08] MEDS ORDERED: ACETAMINOPHEN 325 MG TAB PO PRN (19:50)
[2019-08-08] MEDS ORDERED: LEVOFLOXACIN CONSULT ACTIVE PRN (20:39)
[2019-08-08] MEDS: POTASSIUM CHLORIDE 10 MEQ TABCR PO SCH (21:02)
[2019-08-08] MEDS: POLYETHYLENE (MIRALAX) 17 GM PACK PO SCH (21:02)
[2019-08-08] MEDS: PRIMIDONE 250 MG TAB PO SCH (21:03)
[2019-08-08] MEDS: CALCIUM 600MG + VIT D 400 IU TAB PO SCH (21:03)
[2019-08-08] MEDS: PROPRANOLOL HCL 60 MG LA CAP PO SCH (21:04)
[2019-08-08] MEDS: WARFARIN SOD 4 MG TAB PO SCH (21:05)
--- NOTE | 2019-08-09 00:01 | Emergency Department Note ---
Entered by Faith Millan acting as a scribe for Bean Kaur MD ED Provider Note CHIEF COMPLAINT: Falls HISTORY OF PRESENT ILLNESS: The patient is a 89 year old female who presents to the Emergency Room with complaints of multiple episodes of falls over the past few days. She reports that she's had 4 falls in the past four days, noting that she's hit her head twice. Her son reports that this is similar to her episodes of falling 4 months ago, stating that she "cracked her ribs" then. The patient's family, at bedside, complains that she has been confused over the past few days, and her son notes that she's been speaking slowly. Her family reports that she's been weak over the past week. The patient complains of constipation. Pt denies LOC, headache, fevers, chills, diaphoresis, visual changes, neck pain, chest pain, breathing difficulties, nausea, vomiting, change in appetite, abdominal pain, back pain, melena, hematochezia, urinary symptoms, numbness, lymphadenopathy, rash, or other complaints. The patient notes that she's on Coumadin. REVIEW OF SYSTEMS: See HPI for pertinent positives and negatives. A total of ten systems were reviewed and were otherwise negative. PMHx/PSHx: CHF, hypoxia, osteoporosis, HTN, GERD, DVT, appendectomy SOCIAL HISTORY: Patient lives at home. PHYSICAL EXAM: GENERAL: Awake, alert, tired-appearing, in no distress HENT: Normocephalic. Large hematoma to the right forehead. Hematoma on the top of the scalp. Oropharynx unremarkable. EYES: PERRL. Normal conjunctiva. Sclera non-icteric. NECK: Inspection normal. Non-tender. Supple. No nuchal rigidity. FROM. No masses. RESPIRATORY: Clear to auscultation. No wheezes. No rales. Normal respiratory effort. CARDIAC: Normal rate. Normal rhythm. No murmurs. No rubs. Extremities warm and well perfused. Pulses equal. No JVD. GI: Soft, non-distended. No tenderness to palpation. No rebound or guarding. No masses. RECTAL: Deferred. MUSCULOSKELETAL: Atraumatic. Chest examination reveals no tenderness. The back is symmetrical on inspection without obvious abnormality. There is no CVA tenderness to palpation. No joint edema. LOWER EXTREMITIES: Calves are equal size bilaterally and non-tender. No edema. No discoloration. NEURO: Normal sensorium. No sensory or motor deficits noted. Speech is slow. SKIN: No rash or jaundice noted. EMERGENCY DEPARTMENT COURSE: 1506: Past medical records reviewed. The patient was evaluated in room A03, and a complete history and physical examination were performed. 1710: I reevaluated the patient, and she was feeling somewhat better. 1837: I updated the patient, and she said she hasn't been taking her Synthroid as prescribed. 1840: I spoke with Dr. Valero, [facility] hospitalist, about the patients case. Dr. Valero will further evaluate the patient. MEDICAL DECISION MAKING: Prior records/ancillary studies reviewed and summarized above. Nursing notes reviewed and agree them. Additional history obtained from family. Family also noted the patient was having some issues with choking on liquids and food over the last few days. They were concerned about aspiration yesterday. The patient's history was concerning for altered mental status. Differential diagnosis: Etiologies such as infection, hypoglycemia, electrolyte abnormalities, cardiac sources, intracerebral event, toxicologic, neurologic, as well as others were entertained. Physical examination: As above. ER treatment provided: IV Lock Normal saline hydration IV Levaquin IV clindamycin On reassessment the patient was stable. Diagnostics interpretation by me: ECG: No acute ischemia. The labs revealed an unremarkable CBC and chemistry panel. Urinalysis negative. The patient's troponin is negative. The patient's TSH is markedly elevated concerning for hypothyroidism. The patient then noted that she has not been taking her Synthroid. Imaging studies: Chest x-ray concerning for right-sided infiltrate. The patient's CT imaging did not reveal any acute findings. The patient has what appears to be a developing infiltrate. Family notes that her mental status is somewhat altered. She also has not been taking her Synthroid and is severely hypothyroid. She is not in a coma at this point in time. Oral levothyroxine was ordered. She was given the antibiotics as above to cover for possible aspiration and to avoid any of her significant allergies. Consultation: A consultation was placed with the hospitalist. The case was discussed and diagnostics were reviewed. The patient was evaluated in the ER for further treatment. IMPRESSION: AMS, severe hypothyroidism, pneumonia PLAN: Evaluation by hospitalist The scribe's documentation has been prepared under my direction and personally reviewed by me in its entirety. I confirm that the note above accurately reflect s all work, treatment, procedures, and medical decision making performed by me. Impression & Plan AMS (altered mental status), Severe hypothyroidism, Pneumonia Past Med/Surg History Medical History Hyponatremia Left rib fracture (Acute) Fall as cause of accidental injury at home as place of occurrence (Acute) Warfarin anticoagulation (Chronic) CHF (congestive heart failure) (Acute) Hypoxia (Acute) Tricuspid regurgitation (Acute) Spinal stenosis (Chronic) Sick sinus syndrome (Acute) Rosacea (Acute) Rheumatoid arthritis (Acute) Rectocele (Acute) Permanent atrial fibrillation (Chronic) Osteoporosis (Acute) Mitral regurgitation (Acute) Meckels diverticulum (Acute) Hypothyroidism (Acute) Hypertension (Chronic) Hip pain, bilateral (Acute) Generalized weakness (Acute) Gastroesophageal reflux disease (Acute) Gait disturbance (Chronic) Elevated alkaline phosphatase level (Acute) Edema (Acute) Dyslipidemia (Acute) Cystocele (Acute) Chronic osteoarthritis (Acute) Chronic anticoagulation (Acute) Cerebral atherosclerosis (Acute) Carotid artery plaque (Acute) Cardiac pacemaker (Acute) Benign essential tremor (Acute) Aortic stenosis (Acute) Actinic keratosis (Acute) Ovarian cyst (Chronic) DVT (deep venous thrombosis) (Resolved) SBO (small bowel obstruction) (Acute) Small bowel obstruction (Acute) Surgical History History of hernia repair Hx of appendectomy (Resolved) Hx of cholecystectomy (Resolved) H/O: hysterectomy (Resolved) History of colon resection (Resolved) Family History Other Family history non-contributory Social History Preferred Language: Upper Sorbian Communication Ability: Effective Cupola Tapper Helper Required: No Beliefs That Will Affect Care: None marital status: / Current Living Situation: Alone and Other Current Living Situation Comment: pt states her son lives next door Feels Safe at Home: Yes Smoking Status: Never smoker Second Hand Exposure: No ; Hx Alcohol Use: No Hx Substance Use: No Results & Data Vital Signs Vital Signs - 24 hr 08/08/19 14:07 08/08/19 15:52 08/08/19 16:00 Temperature 36.3 C L Temperature Source Oral Sepsis Recent Fever Within 48 Hours No Sepsis New/Unexplained Change in Mental Status No Sepsis Action Taken by Nursing No Action Required Pulse Rate 69 72 74 Pulse Rate from SpO2 Sensor Respiratory Rate 18 20 22 Blood Pressure 146/75 H Blood Pressure Mean 98 Pulse Oximetry 87 L Oxygen Delivery Method Room Air 08/08/19 16:10 08/08/19 16:20 08/08/19 16:30 Temperature Temperature Source Sepsis Recent Fever Within 48 Hours Sepsis New/Unexplained Change in Mental Status Sepsis Action Taken by Nursing Pulse Rate 76 72 70 Pulse Rate from SpO2 Sensor Respiratory Rate 18 21 19 Blood Pressure Blood Pressure Mean Pulse Oximetry Oxygen Delivery Method 08/08/19 16:40 08/08/19 16:50 08/08/19 17:00 Temperature Temperature Source Sepsis Recent Fever Within 48 Hours Sepsis New/Unexplained Change in Mental Status Sepsis Action Taken by Nursing Pulse Rate 73 77 72 Pulse Rate from SpO2 Sensor 75 72 Respiratory Rate 22 20 24 Blood Pressure Blood Pressure Mean Pulse Oximetry 94 96 Oxygen Delivery Method 08/08/19 17:10 Temperature Temperature Source Sepsis Recent Fever Within 48 Hours Sepsis New/Unexplained Change in Mental Status Sepsis Action Taken by Nursing Pulse Rate 71 Pulse Rate from SpO2 Sensor 72 Respiratory Rate 25 H Blood Pressure Blood Pressure Mean Pulse Oximetry 95 Oxygen Delivery Method Home Medications Current Medication List: was personally reviewed by me Laboratory Data Attestation: I reviewed the patient's lab results. Result diagrams: 08/08/19 16:56 08/08/19 16:56 Lab Results 08/08/19 08/08/19 08/08/19 Range/Units 16:26 16:56 16:56 WBC (4.8-10.8) K/uL RBC (4.2-5.4) M/uL Hgb (12.0-16.0) g/dL Hct (37-47) % MCV (80-100) fL MCH (25-34) pg MCHC (32-36) g/dL RDW Std Deviation (36.4-46.3) fL RDW Coeff of Kristian (11.5-14.5) % Plt Count (130-400) K/uL MPV (7.4-10.4) fL Immature Gran % (Auto) % Neut % (Auto) % Lymph % (Auto) % [place] % (Auto) % Eos % (Auto) % Baso % (Auto) % Immature Gran # (Auto) (0.00-0.02) K/uL Neut # (Auto) (1.4-6.5) K/uL Lymph # (Auto) (1.2-3.4) K/uL [place] # (Auto) (0.11-0.59) K/uL Eos # (Auto) (0-0.5) K/uL Baso # (Auto) (0-0.2) K/uL PT 12.9 H (9.0-12.0) Seconds INR 1.3 H (0.9-1.1) Sodium (136-145) mmol/L Potassium (3.5-5.1) mmol/L Chloride (98-107) mmol/L Carbon Dioxide (21-32) mmol/L Anion Gap (3-11) BUN (7-18) mg/dl Creatinine (0.6-1.2) mg/dl Est Cr Clr Drug Dosing Est GFR ( Amer) Est GFR (Non-Af Amer) BUN/Creatinine Ratio (10-20) Glucose (70-99) mg/dl POC Glucose 87 (70-99) Lactate 1.6 (0.4-2.0) mmol/L Calcium (8.5-10.1) mg/dl Magnesium (1.8-2.4) mg/dl Total Bilirubin (0.2-1) mg/dl AST (15-37) U/L ALT (12-78) U/L Alkaline Phosphatase (45-117) U/L Total Creatine Kinase (26-192) U/L Troponin I (0-0.045) ng/ml Total Protein (6.4-8.2) gm/dl Albumin (3.4-5.0) gm/dl Globulin (2.5-4.0) gm/dl Albumin/Globulin Ratio (0.9-2) TSH (0.300-4.500) uIu/ml Free T4 (0.8-1.6) ng/dl Urine Color Urine Appearance (Clear) Urine pH (4.5-7.5) Ur Specific [place] (1.000-1.030) Urine Protein (Negative) Urine Glucose (UA) (Negative) Urine Ketones (Negative) Urine Blood (Negative) Urine Nitrite (Negative) Urine Bilirubin (Negative) Urine Urobilinogen (Negative) Ur Leukocyte Esterase (Negative) Urine RBC (0-4) /hpf Urine WBC (0-5) /hpf Ur Epithelial Cells (0-5) /lpf Urine Bacteria (Negative) 08/08/19 08/08/19 08/08/19 Range/Units 16:56 16:56 18:02 WBC 6.27 (4.8-10.8) K/uL RBC 4.17 L (4.2-5.4) M/uL Hgb 14.2 (12.0-16.0) g/dL Hct 39.4 (37-47) % MCV 94.5 (80-100) fL MCH 34.1 H (25-34) pg MCHC 36.0 (32-36) g/dL RDW Std Deviation 54.5 H (36.4-46.3) fL RDW Coeff of Kristian 15.9 H (11.5-14.5) % Plt Count 166 (130-400) K/uL MPV 10.5 H (7.4-10.4) fL Immature Gran % (Auto) 0.2 % Neut % (Auto) 58.5 % Lymph % (Auto) 26.0 % [place] % (Auto) 11.2 % Eos % (Auto) 3.8 % Baso % (Auto) 0.3 % Immature Gran # (Auto) 0.01 (0.00-0.02) K/uL Neut # (Auto) 3.67 (1.4-6.5) K/uL Lymph # (Auto) 1.63 (1.2-3.4) K/uL [place] # (Auto) 0.70 H (0.11-0.59) K/uL Eos # (Auto) 0.24 (0-0.5) K/uL Baso # (Auto) 0.02 (0-0.2) K/uL PT (9.0-12.0) Seconds INR (0.9-1.1) Sodium 141 (136-145) mmol/L Potassium 3.5 (3.5-5.1) mmol/L Chloride 105 (98-107) mmol/L Carbon Dioxide 31 (21-32) mmol/L Anion Gap 5.0 (3-11) BUN 17 (7-18) mg/dl Creatinine 0.93 (0.6-1.2) mg/dl Est Cr Clr Drug Dosing Not Reportable Est GFR ( Amer) 63.6 Est GFR (Non-Af Amer) 54.9 BUN/Creatinine Ratio 18.4 (10-20) Glucose 94 (70-99) mg/dl POC Glucose (70-99) Lactate (0.4-2.0) mmol/L Calcium 8.1 L (8.5-10.1) mg/dl Magnesium 2.1 (1.8-2.4) mg/dl Total Bilirubin 0.5 (0.2-1) mg/dl AST 18 (15-37) U/L ALT 14 (12-78) U/L Alkaline Phosphatase 125 H (45-117) U/L Total Creatine Kinase 58 (26-192) U/L Troponin I < 0.015 (0-0.045) ng/ml Total Protein 7.2 (6.4-8.2) gm/dl Albumin 3.2 L (3.4-5.0) gm/dl Globulin 4.0 (2.5-4.0) gm/dl Albumin/Globulin Ratio 0.8 L (0.9-2) TSH 54.700 H (0.300-4.500) uIu/ml Free T4 0.66 L (0.8-1.6) ng/dl Urine Color Yellow Urine Appearance Clear (Clear) Urine pH 8.0 H (4.5-7.5) Ur Specific [place] 1.010 (1.000-1.030) Urine Protein Trace H (Negative) Urine Glucose (UA) Negative (Negative) Urine Ketones Negative (Negative) Urine Blood Negative (Negative) Urine Nitrite Negative (Negative) Urine Bilirubin Negative (Negative) Urine Urobilinogen Negative (Negative) Ur Leukocyte Esterase Negative (Negative) Urine RBC 5-10 H (0-4) /hpf Urine WBC 0-5 (0-5) /hpf Ur Epithelial Cells 5-10 H (0-5) /lpf Urine Bacteria Negative (Negative) Administered Medications Multivitamins/Minerals (Caltrate Plus) 1 tab PO BID [facility] Stop: 09/07/19 20:59 Last Admin: 08/08/19 21:03 Dose: 1 tab Documented by: [id number] Polyethylene Glycol (Miralax Powder Packet) 17 gm PO HS [facility] Stop: 09/07/19 20:59 Last Admin: 08/08/19 21:02 Dose: 17 gm Documented by: [id number] Potassium Chloride (Klor-Con M10) 10 meq PO BID [facility] Stop: 09/07/19 20:59 Last Admin: 08/08/19 21:02 Dose: 10 meq Documented by: [id number] Primidone (Mysoline) 375 mg PO BID [facility] Stop: 09/07/19 20:59 Last Admin: 08/08/19 21:03 Dose: 375 mg Documented by: [id number] Propranolol HCl (Inderal La) 120 mg PO BID [facility] Stop: 09/07/19 20:59 Last Admin: 08/08/19 21:04 Dose: 120 mg Documented by: [id number] Warfarin Sodium (Coumadin) 4 mg PO HS [facility] Stop: 09/07/19 20:59 Last Admin: 08/08/19 21:05 Dose: 4 mg Documented by: [id number] Discontinued Medications Sodium Chloride (Nss 1000ml) 1,000 mls @ 125 mls/hr IV .Q8H [facility] Stop: 08/08/19 22:59 Last Infusion: 08/08/19 20:48 Dose: 0 mls/hr Documented by: [id number] Infusion: 08/08/19 19:55 Dose: 0 mls/hr Documented by: [id number] Admin: 08/08/19 16:51 Dose: 125 mls/hr Documented by: [id number] Clindamycin Phosphate 600 mg/ (Dextrose) 54 mls @ 100 mls/hr IV ONE ONE Stop: 08/08/19 18:57 Last Infusion: 08/08/19 19:55 Dose: 0 mls/hr Documented by: [id number] Admin: 08/08/19 19:03 Dose: 100 mls/hr Documented by: [id number] Levofloxacin/Dextrose (Levaquin/D5w) 750 mg in 150 mls @ 100 mls/hr IV NOW STA Stop: 08/08/19 19:54 Last Infusion: 08/08/19 19:55 Dose: 0 mls/hr Documented by: [id number] Admin: 08/08/19 18:33 Dose: 100 mls/hr Documented by: [id number] Levothyroxine Sodium (Synthroid) 150 mcg PO NOW STA Stop: 08/08/19 18:41 Last Admin: 08/08/19 19:06 Dose: 150 mcg Documented by: [id number] Imaging Data Radiologist's Impression: Radiology results as stated below per my review and the radiologist's interpretation: CT OF THE CERVICAL SPINE CLINICAL HISTORY: Neck pain status post trauma. Weakness. COMPARISON STUDY: 07/16/2019 CT DOSE: 383.13 mGycm TECHNIQUE: CT scan of the cervical spine was performed from the skull base to the thoracic inlet. Images are reviewed in the axial, sagittal, and coronal planes. IV contrast was not administered for this examination. A dose lowering technique was utilized adhering to the principles of ALARA. FINDINGS: The visualized portions of the lung apices reveal no evidence of pneumothorax. The prevertebral soft tissues are normal. No fractures or traumatic subluxations are visualized. There are multilevel degenerative changes. There is minimal anterolisthesis of C3 on C4, unchanged from the prior study, and felt to be degenerative. There is also minimal anterolisthesis of C6 on C7 and C7 on T1. This also remains unchanged and is felt to be arthritic there is a small C4-5 disc protrusion. This also remains unchanged IMPRESSION: No evidence of acute fracture or traumatic subluxation. Electronically signed by: Nikita Roberts M.D. 08/08/2019 5:[address] head/brain wo con CLINICAL HISTORY: Head pain status post trauma. Weakness. COMPARISON STUDY: 07/16/2019 TECHNIQUE: Axial CT of the brain is performed from the vertex to the skull base. IV contrast was not administered for this examination. A dose lowering technique was utilized adhering to the principles of ALARA. CT DOSE: FINDINGS: No intra or extra-axial mass lesions are visualized. There is no CT evidence of acute cortical infarction. There is no evidence of midline shift. There is no acute hemorrhage. No calvarial fractures are visualized. There are patchy white matter hypodensities likely on a small vessel basis. There is no evidence of pathologic ventricular dilatation. There is no evidence of acute sinusitis IMPRESSION: No acute intracranial findings Electronically signed by: Nikita Roberts M.D. 08/08/2019 5:28 PM XR chest 1V portable CLINICAL HISTORY: weakness COMPARISON STUDY: 07/16/2019 FINDINGS: The heart is enlarged. There is a left subclavian single chamber cent ral venous pacemaker. There is mild chronic interstitial thickening. There is an equivocal more focal right upper lobe airspace process. There are no pleural effusions.[ IMPRESSION: 1. Stable cardiomegaly and interstitial thickening 2. Equivocal subtle right upper lobe airspace opacities. A developing inflammatory process cannot be excluded and radiographic follow-up is recommended. Electronically signed by: Nikita Roberts M.D. 08/08/2019 4:10 PM ECG Data Attestation: I personally reviewed and interpreted this ECG as follows: Indication: weakness Rate (beats per minute): 76 Rhythm: atrial fibrillation Findings: + other (ventricular paced complexes, right axis deviation, non specific intraventricular block, septal Q waves); no ST elevation Blood Pressure Blood Pressure Findings: Elevated blood pressure Blood Pressure Disposition: further management by hospitalist Discharge Plan Visit Data *Final* Discharge Date/Time: 08/08/19 19:15 Chief Complaint: Fall Stated Complaint: FELL ED Provider: Bean Kaur Discharge Problem: AMS (altered mental status), Severe hypothyroidism, Pneumonia Patient Disposition: Admitted As Inpatient Discharge Instructions Interventions: ED Discharge Assessment Last Done: 08/08/19 19:15 Discharge Problem: AMS (altered mental status) Qualifiers: Altered mental status type: unspecified Qualified Code(s): R41.82 - Altered mental status, unspecified Pneumonia Qualifiers: Pneumonia type: due to unspecified organism Laterality: unspecified laterality Lung location: unspecified part of lung Qualified Code(s): J18.9 - Pneumonia, unspecified organism The scribe's documentation has been prepared under my direction and personally reviewed by me in its entirety. I confirm that the note above accurately refl ects all work, treatment, procedures, and medical decision making performed by me.
[2019-08-09] MEDS: LEVOTHYROXINE SODIUM 150 MCG TABLET PO SCH (05:47)
[2019-08-09 07:28] LABS: Hematocrit (blood only) 35.9 % (37-47); Hemoglobin 12.5 g/dL (12.0-16.0); Mean Corpuscular Hemoglobin 32.9 pg (25-34); Mean Corpuscular Hgb Conc 34.8 g/dL (32-36); Mean Corpuscular Volume 94.5 fL (80-100); Mean Platelet Volume 10.6 fL (7.4-10.4); Platelet Count 155 K/uL (130-400); RDW Coefficient of Variation 15.8 % (11.5-14.5); RDW Standard Deviation 54.4 fL (36.4-46.3); White Blood Count 4.97 K/uL (4.8-10.8)
[2019-08-09 07:38] LABS: INR 1.3 (0.9-1.1); Prothrombin Time 12.8 Seconds (9.0-12.0)
[2019-08-09 08:08] LABS: Albumin Level 2.8 gm/dl (3.4-5.0); BUN Creatinine Ratio 20.5 (10-20); Bilirubin Direct 0.2 mg/dl (0-0.2); Calcium 8.3 mg/dl (8.5-10.1); Creatinine Clr Calc Pharmacy 34.9 ml/min; Est GFR (African American) 76.3; Est GFR (Non-African American) 65.8; Potassium 3.9 mmol/L (3.5-5.1)
[2019-08-09 08:11] LABS: Albumin Globulin Ratio 0.8 (0.9-2); Bilirubin,Total 0.6 mg/dl (0.2-1); Globulin 3.5 gm/dl (2.5-4.0); Total Protein 6.3 gm/dl (6.4-8.2)
[2019-08-09] MEDS: PRIMIDONE 250 MG TAB PO SCH ×2 (08:40→19:49)
[2019-08-09] MEDS: POTASSIUM CHLORIDE 10 MEQ TABCR PO SCH ×2 (08:42→19:50)
[2019-08-09] MEDS: dilTIAZem ER 180 MG CAPCR PO SCH (08:42)
[2019-08-09] MEDS: FUROSEMIDE 20 MG TAB PO SCH (08:42)
[2019-08-09] MEDS: CALCIUM 600MG + VIT D 400 IU TAB PO SCH ×2 (08:42→19:49)
[2019-08-09] MEDS: PROPRANOLOL HCL 60 MG LA CAP PO SCH ×2 (08:42→19:50)
[2019-08-09] MEDS: FOLIC ACID 1 MG TAB PO SCH (08:42)
[2019-08-09] MEDS: MAGNESIUM HYDROXIDE SUSP 30 ML UDC PO PRN (08:53)
[2019-08-09] MEDS ORDERED: VALSARTAN 80 MG TAB PO SCH (09:00)
[2019-08-09] MEDS: ACETAMINOPHEN 325 MG TAB PO PRN (15:22)
[2019-08-09] MEDS: WARFARIN SOD 4 MG TAB PO SCH (19:48)
[2019-08-09] MEDS: POLYETHYLENE (MIRALAX) 17 GM PACK PO SCH (19:48)
--- NOTE | 2019-08-09 20:44 | Hospitalist Progress Note ---
Date of Service August 09, 2019 Assessment & Plan (1) Frequent falls: Main reason for admission. Patient feels this is mainly a balance issue. Her strength appears normal on exam. Suspect mainly due to untreated hypothyroidism although possible recent concussion from falls also contributing. She has a prior history of spinal stenosis but no weakness on my exam today and was able to ambulate short distances with PT without pain. Recent discharged from [facility] in May. (2) Severe hypothyroidism: Non-compliant with meds Will restart prior dose (although may be too high longer term given non compliance) (3) Pneumonia: CAP possible given CXR findings. Will treat as may be contributory towards falls but no WBC or fever to suggest definitive diagnosis. Will continue levaquin for 7 day course. (4) Toxic metabolic encephalopathy: Unclear if she is off her baseline as unable to contact family today. She is alert and orientated but clearly shorter term memory difficulty with forgetting pills. Suspected untreated hypothyroidism contributing towards memory issues. (5) Sick sinus syndrome: s/p pacemaker. EKG - LBBB with intermittent ventricular pacing on EKG. Will get pacemaker check given recent frequent falls. (6) Permanent atrial fibrillation: Generally frequent falls not a contraindication to anticoagulation however given recent frequency of these would suggest holding for now and discussing with her stem shaper in the future if her falls resolve. Rate controlled on propranolol and diltiazem. Paced when she goes slow. (7) Hypertension: Continue losartan, diltiazem, lasix. 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 No current symptoms or si gn of exacerbation. Continue lasix 20mg PO daily. (9) Aortic stenosis: Echo 04/2019. Moderate aortic stenosis, moderate mitral regurgitation. Not causing heart failure at present (10) History of small bowel obstruction: Uses an abdominal binder, will prescribe here. Multiple prior abdominal surgeries (11) Constipation: Recommend miralax dosing until bowel movement. Passing flatus, no abdominal pain, nausea or vomiting to suggest obstruction. (12) Spastic dysphonia: (13) Benign essential tremor: Continue primidone. Will investigate when this was started as may have to be re-evaluated in setting of ataxia. (14) Osteoporosis: Currently on Prolia injections with Dr Hoffman (15) DVT prophylaxis: Start on lovenox 30mg SQ daily (reduced dose due to weight) (16) Discharge planning issues: Patient accepting of needing rehabilitation vs. roasterman care. Will get PT/OT evals and consult case management for placement. Keep on telemetry overnight. Can likely be transferred to med/surg in AM. Subjective Patient feels she needs to go to [facility] as admits to not taking her medication. She gets confused with the levothyroxine especially as it says before breakfast so if she doesn't take it prior to breakfast she decides not to take it that day. No fever, cough or shortness of breath to suggest pneumonia however I am unclear how reliable her history is and family not available at bedside or over the phone. Revisited history with the patient and consistent with H&P although she has only been wheelchair bound for the past 2 weeks and was walking after discharge from rehabilitation recently. 4 falls in 4 days recently without loss of conciousness causing scalp hematoma. She has been hospitalized for falls on multiple occasions in the last few years with rib fractures Review of Systems 2 Review of Systems: All systems reviewed & are unremarkable except as noted in HPI & below Constitutional: + fatigue; no fever, no chills and no weight loss Eyes: no diplopia and no eye pain Respiratory: no chest congestion and no dyspnea on exertion Gastrointestinal: + constipation (no BM since as per patient); no abdominal pain, no nausea, no vomiting and no diarrhea/loose stools Genitourinary: + urinary incontinence; no urinary frequency Musculoskeletal: + loss of height; no back pain, no joint pain, no muscle weakness, no muscle atrophy and no body aches Integumentary: no rash and no skin ulcer Neurologic: + unsteadiness, + generalized weakness, + headache(s) and + c onfusion; no localized weakness, no loss of sensation, no numbness, no tremor(s), no restless legs and no syncope Psychiatric: + difficulty concentrating; no hallucinations Physical Exam Constitutional: well developed, + disheveled and + malnourished; no acute distress and no altered mental status Eyes: normal pupil size ENMT: external ear and nose normal, oropharynx normal Neck: trachea midline Respiratory: normal respiratory effort, lungs clear to auscultation Cardiovascular: Rate/Rhythm: regular rhythm Heart Sounds: + murmur (LUSB) Extremities: normal capillary refill Gastrointestinal (Abdomen): Inspection/Auscultation: normal bowel sounds; + abdomen abnormal to inspection (multiple prior surgical scars) and abdomen not distended Percussion/Palpation: abdomen soft and + hernia (incisional); abdomen nontender, no guarding and abdomen not rigid Musculoskeletal: no cyanosis or clubbing, extremities motor strength 5/5 Skin: no rashes, warm and dry Neurologic: moves all extremities and awake; no focal motor deficits (grossly normal strength in all 4 extremities 5/5) Speech / Cognition: normal speech Motor/Sensory: no tremor and no pronator drift Psychiatric: A+Ox3, euthymic affect Results & Data Vital Signs (Past 12 Hours) Vital Signs Temp Pulse Resp BP Pulse Ox Pulse Ox 08/09/19 19:50 97 08/09/19 19:22 97.7 F 60 17 114/64 97 08/09/19 16:40 94 08/09/19 16:13 98.8 F 60 18 96/55 L 95 PG Care Time/CCT Total # of Minutes Spent Total Time Spent with Patient: Total time spent is greater than 50% in coordination of care (as documented) at patient's floor/unit and/or counseling patient: (1) CHF (congestive heart failure) Heart failure chronicity: unspecified Heart failure type: unspecified Qualified Code(s): I50.9 - Heart failure, unspecified (2) Aortic stenosis Cardiac valve disease etiology: nonrheumatic Qualified Code(s): I35.0 - Nonrheumatic aortic (valve) stenosis (3) Hypertension Hypertension type: essential hypertension Qualified Code(s): I10 - Essential (primary) hypertension (4) Pneumonia Laterality: unspecified laterality Lung location: unspecified part of lung Pneumonia type: due to unspecified organism Qualified Code(s): J18.9 - Pneumonia, unspecified organism (5) Constipation Constipation type: slow transit constipation Qualified Code(s): K59.01 - Slow transit constipation
[2019-08-09] MEDS: POLYETHYLENE (MIRALAX) 17 GM PACK PO PRN (21:52)
[2019-08-10] MEDS: POLYETHYLENE (MIRALAX) 17 GM PACK PO PRN ×4 (02:48→12:11)
[2019-08-10] MEDS: LEVOTHYROXINE SODIUM 150 MCG TABLET PO SCH (05:38)
[2019-08-10 08:05] LABS: Creatinine Clr Calc Pharmacy 32.1 ml/min; Est GFR (African American) 68.9; Est GFR (Non-African American) 59.5
[2019-08-10] MEDS ORDERED: VALSARTAN 80 MG TAB PO SCH (09:00)
[2019-08-10] MEDS: PROPRANOLOL HCL 60 MG LA CAP PO SCH ×2 (09:15→21:06)
[2019-08-10] MEDS: PRIMIDONE 250 MG TAB PO SCH ×2 (09:16→21:04)
[2019-08-10] MEDS: POTASSIUM CHLORIDE 10 MEQ TABCR PO SCH ×2 (09:16→21:06)
[2019-08-10] MEDS: CALCIUM 600MG + VIT D 400 IU TAB PO SCH ×2 (09:16→21:06)
[2019-08-10] MEDS: FOLIC ACID 1 MG TAB PO SCH (09:17)
[2019-08-10] MEDS: FUROSEMIDE 20 MG TAB PO SCH (09:18)
[2019-08-10] MEDS: dilTIAZem ER 180 MG CAPCR PO SCH (09:18)
[2019-08-10] MEDS: MAGNESIUM HYDROXIDE SUSP 30 ML UDC PO PRN (09:22)
[2019-08-10] MEDS: levoFLOXacin 750 MG TAB PO SCH (12:12)
--- NOTE | 2019-08-10 19:40 | Hospitalist Progress Note ---
Date of Service August 10, 2019 Assessment & Plan (1) Failure to thrive: Memory problems causing her to miss medications making this worse especially with hypothyroidism. If she does take her medications it seems her BP meds may have been prescribed too much for her as she doesn't take them regularly. Will get speech and nutrition evaluations. (2) Frequent falls: Main reason for admission. Patient feels this is mainly a balance issue. Does not appear to be related to her aortic stenosis. She is paced at 60 bpm consistently on monitor. No ophthalmoplegia to suggest Wernicke's but will start on thiamine tabs. Her strength appears normal on exam. Suspect mainly due to untreated hypothyroidism although possible recent concussion from falls also contributing. She has a prior history of spinal stenosis but no weakness on my exam today and was able to ambulate short distances with PT without pain. Recent discharged from [facility] in May - will need ongoing rehab on d/c possibly assistant terminal manager placement. (3) Severe hypothyroidism: Non-compliant with meds Restarted prior dose (although may be too high longer term given non compliance). Repeat labs in 2-4 weeks. (4) Pneumonia: CAP possible given CXR findings. Will treat as may be contributory towards falls but no WBC or fever to suggest definitive diagnosis. Continue levaquin for 7 day course. (5) Toxic metabolic encephalopathy: Unclear if she is off her baseline as unable to contact family today. She is alert and orientated but clearly shorter term memory difficulty with forgetting pills. Suspected untreated hypothyroidism contributing towards memory issues. (6) Sick sinus syndrome: s/p pacemaker. EKG - LBBB with intermittent ventricular pacing on EKG. Will get pacemaker check given recent frequent falls. (7) Permanent atrial fibrillation: Generally frequent falls not a contraindication to anticoagulation however given recent frequency of these would suggest holding for now and discussing with her perforator typist in the future if her falls resolve. Rate controlled on propranolol and diltiazem. Paced when she goes slow. (8) Hypertension: Continue diltiazem, lasix. Reduced propranolol and will d/c losartan given ongoing low BP. 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 No current symptoms or sign of exacerbation. Continue lasix 20mg PO daily. (10) Aortic stenosis: Echo 04/2019. Moderate aortic stenosis, moderate mitral regurgitation. Not causing heart failure or dizziness, SOBOE at present. Should be followed by cardiology as outpatient. (11) History of small bowel obstruction: Uses an abdominal binder, will prescribe here. Multiple prior abdominal surgeries (12) Constipation: Recommend miralax dosing until bowel movement. Passing flatus, no abdominal pain, nausea or vomiting to suggest obstruction. Continue MiraLAX to aim for BM daily. 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 Will reduce propranolol given low BP. (15) Osteoporosis: Currently on Prolia injections with Dr Hoffman (16) DVT prophylaxis: Continue lovenox 30mg SQ daily (reduced dose due to weight) (17) Discharge planning issues: Patient accepting of needing rehabilitation vs. senior care care. Transfer to Med/surg. Suspect can be d/c to rehabilitation once bed set up. Subjective Patient appears feels she is near her baseline mental state today. Concentrating on her bowels given her previous history of repeated small bowel obstruction although nursing do report having a small bowel movement earlier in the day. BP remains low normal but she reports no dizziness. No essential tremor noted with reduction in propranolol. She is not wearing the abdominal binder as she thinks it is too big for her (wears one at home). She was able to take some steps with supervision with PT so is not wheelchair bound (just she has been in a wheelchair at home for the past 2 weeks). No family visited today and no answer on phone contacts. Review of Systems Review of Systems: All systems reviewed & are unremarkable except as noted in HPI & below Physical Exam Constitutional: well developed, + disheveled and + malnourished; no acute distress and no altered mental status Eyes: PERRL; normal pupil size and no nystagmus ENMT: external ear and nose normal, oropharynx normal Neck: trachea midline Respiratory: normal respiratory effort, lungs clear to auscultation Cardiovascular: Rate/Rhythm: regular rhythm Heart Sounds: + murmur (LUSB) Extremities: normal capillary refill Gastrointestinal (Abdomen): Inspection/Auscultation: normal bowel sounds; + abdomen abnormal to inspection (multiple prior surgical scars) and abdomen not distended Percussion/Palpation: abdomen soft and + hernia (incisional); abdomen nontender, no guarding and abdomen not rigid Musculoskeletal: no cyanosis or clubbing, extremities motor strength 5/5 Skin: no rashes, warm and dry Neurologic: moves all extremities and awake; no focal motor deficits (grossly normal strength in all 4 extremities 5/5) Speech / Cognition: normal speech Motor/Sensory: no tremor and no pronator drift Psychiatric: A+Ox3, euthymic affect Results & Data Vital Signs (Past 12 Hours) Vital Signs Temp Pulse Resp BP Pulse Ox 08/10/19 18:27 97.7 F 63 20 122/72 96 08/10/19 15:17 98.4 F 60 23 108/67 96 08/10/19 11:58 97.3 F L 60 18 121/63 96 08/10/19 08:00 97.5 F L 78 19 122/69 94 PG Care Time/CCT Total # of Minutes Spent Total Time Spent with Patient: Total time spent is greater than 50% in coordination of care (as documented) at patient's floor/unit and/or counseling patient: (1) Osteoporosis Osteoporosis type: age-related Presence of current pathological fracture: without current pathological fracture Qualified Code(s): M81.0 - Age-related osteoporosis without current pathological fracture (2) CHF (congestive heart failure) Heart failure chronicity: unspecified Heart failure type: unspecified Qualified Code(s): I50.9 - Heart failure, unspecified (3) Aortic stenosis Cardiac valve disease etiology: nonrheumatic Qualified Code(s): I35.0 - Nonrheumatic aortic (valve) stenosis (4) Hypertension Hypertension type: essential hypertension Qualified Code(s): I10 - Essential (primary) hypertension (5) Pneumonia Laterality: unspecified laterality Lung location: unspecified part of lung Pneumonia type: due to unspecified organism Qualified Code(s): J18.9 - Pneumonia, unspecified organism (6) Constipation Constipation type: slow transit constipation Qualified Code(s): K59.01 - Slow transit constipation (7) Failure to thrive Failure to thrive age range: in adult Qualified Code(s): R62.7 - Adult failure to thrive
[2019-08-10] MEDS: POLYETHYLENE (MIRALAX) 17 GM PACK PO SCH (21:06)
[2019-08-11] MEDS: LEVOTHYROXINE SODIUM 150 MCG TABLET PO SCH (06:25)
[2019-08-11] MEDS: PROPRANOLOL HCL 60 MG LA CAP PO SCH ×2 (08:01→20:58)
[2019-08-11] MEDS: dilTIAZem ER 180 MG CAPCR PO SCH ×2 (08:02→08:07)
[2019-08-11] MEDS: FUROSEMIDE 20 MG TAB PO SCH (08:02)
[2019-08-11] MEDS: PRIMIDONE 250 MG TAB PO SCH ×2 (08:02→20:54)
[2019-08-11] MEDS: CALCIUM 600MG + VIT D 400 IU TAB PO SCH ×2 (08:03→20:59)
[2019-08-11] MEDS: FOLIC ACID 1 MG TAB PO SCH (08:04)
[2019-08-11] MEDS: POTASSIUM CHLORIDE 10 MEQ TABCR PO SCH ×2 (08:04→20:59)
[2019-08-11] MEDS: THIAMINE HCL 100 MG TAB PO SCH (08:16)
[2019-08-11] MEDS: ACETAMINOPHEN 325 MG TAB PO PRN (18:20)
[2019-08-11] MEDS: POLYETHYLENE (MIRALAX) 17 GM PACK PO SCH (21:25)
--- NOTE | 2019-08-11 23:07 | Hospitalist Progress Note ---
Date of Service August 11, 2019 Assessment & Plan (1) Failure to thrive: Memory problems causing her to miss medications making this worse especially with hypothyroidism. If she does take her medications it seems her BP meds may have been prescribed too much for her as she doesn't take them regularly. Will get speech and nutrition evaluations. Appreciate input. BMI does appear normal. (2) Frequent falls: Main reason for admission. Patient feels this is mainly a balance issue. Does not appear to be related to her aortic stenosis. She is paced at 60 bpm consistently on monitor. No ophthalmoplegia to suggest Wernicke's but will start on thiamine tabs. Her strength appears normal on exam. Suspect mainly due to untreated hypothyroidism although possible recent concussion from falls also contributing. She has a prior history of spinal stenosis but no weakness on my exam today and was able to ambulate short distances with PT without pain. Recent discharged from [facility] in May - will need ongoing rehab on d/c possibly termite control technician placement. Patient also requesting cardio input. Her balance problems could also be attributted to her noncompliance of her medicine which may lead to her to take too much meds at a time. (3) Severe hypothyroidism: Non-compliant with meds Restarted prior dose (although may be too high longer term given non compliance). Repeat labs in 2-4 weeks. (4) Pneumonia: CAP possible given CXR findings. Will treat as may be contributory towards falls but no WBC or fever to suggest definitive diagnosis. Continue levaquin for 7 day course. (5) Toxic metabolic encephalopathy: Unclear if she is off her baseline as unable to contact family today. She is alert and orientated but clearly shorter term memory difficulty with forgetting pills. Suspected untreated hypothyroidism contributing towards memory issues. Currently patient appears to be at baseline. (6) Sick sinus syndrome: s/p pacemaker. EKG - LBBB with intermittent ventricular pacing on EKG. Will get pacemaker check given recent frequent falls. Awaiting input from cardio. (7) Permanent atrial fibrillation: Generally frequent falls not a contraindication to anticoagulation however given recent frequency of these would suggest holding for now and discussing with her keymodule assembly supervisor in the future if her falls resolve. Rate controlled on propranolol and diltiazem. Paced when she goes slow. (8) Hypertension: Continue diltiazem, lasix. Reduced propranolol and will d/c losartan given ongoing low BP. 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 No current symptoms or sign of exacerbation. Continue lasix 20mg PO daily. (10) Aortic stenosis: Echo 04/2019. Moderate aortic stenosis, moderate mitral regurgitation. Not causing heart failure or dizziness, SOBOE at present. Should be followed by cardiology as outpatient. (11) History of small bowel obstruction: Uses an abdominal binder, will prescribe here. Multiple prior abdominal surgeries (12) Constipation: Recommend miralax dosing until bowel movement. Passing flatus, no abdominal pain, nausea or vomiting to suggest obstruction. Continue MiraLAX to aim for BM daily. 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 Will reduce propranolol given low BP. (15) Osteoporosis: Currently on Prolia injections with Dr Hoffman (16) DVT prophylaxis: Continue lovenox 30mg SQ daily (reduced dose due to weight) (17) Discharge planning issues: Patient accepting of needing rehabilitation vs. nursing home care. Transfer to Med/surg. Suspect can be d/c to rehabilitation once bed set up. Subjective Patient appears to be near her baseline as she is oirented x4. Patient though is fixated on the fact that she was transferred to a different roomm yesterday as is not happy about this. She also is requesting to see her keymodule assembly supervisor. Patient reports no new symptoms. Review of Systems Review of Systems: All systems reviewed & are unremarkable except as noted in HPI & below Physical Exam Physical Exam: Constitutional: well developed; no acute distress and no altered mental status Eyes: PERRL; normal pupil size and no nystagmus ENMT: external ear and nose normal, oropharynx normal Neck: trachea midline Respiratory: normal respiratory effort, lungs clear to auscultation Cardiovascular: Rate/Rhythm: regular rhythm Heart Sounds: + murmur (LUSB) Extremities: normal capillary refill Gastrointestinal (Abdomen): Inspection/Auscultation: normal bowel sounds; + abdomen abnormal to inspection (multiple prior surgical scars) and abdomen not distended Percussion/Palpation: abdomen soft and + hernia (incisional); abdomen nontender, no guarding and abdomen not rigid Musculoskeletal: no cyanosis or clubbing, extremities motor strength 5/5 Skin: no rashes, warm and dry Neurologic: moves all extremities and awake; no focal motor deficits (grossly normal strength in all 4 extremities 5/5) Speech / Cognition: normal speech Motor/Sensory: no tremor and no pronator drift Psychiatric: A+Ox3, euthymic affect Results & Data Vital Signs (Past 12 Hours) Vital Signs Temp Pulse Resp BP Pulse Ox 08/11/19 15:43 36.6 C 75 16 101/60 99 PG Care Time/CCT Total # of Minutes Spent Total Time Spent with Patient: Total time spent is greater than 50% in coordination of care (as documented) at patient's floor/unit and/or counseling patient: (1) Osteoporosis Osteoporosis type: age-related Presence of current pathological fracture: without current pathological fracture Qualified Code(s): M81.0 - Age-related osteoporosis without current pathological fracture (2) CHF (congestive heart failure) Heart failure chronicity: unspecified Heart failure type: unspecified Qualified Code(s): I50.9 - Heart failure, unspecified (3) Aortic stenosis Cardiac valve disease etiology: nonrheumatic Qualified Code(s): I35.0 - Nonrheumatic aortic (valve) stenosis (4) Failure to thrive Failure to thrive age range: in adult Qualified Code(s): R62.7 - Adult failure to thrive (5) Hypertension Hypertension type: essential hypertension Qualified Code(s): I10 - Essential (primary) hypertension (6) Pneumonia Laterality: unspecified laterality Lung location: unspecified part of lung Pneumonia type: due to unspecified organism Qualified Code(s): J18.9 - Pneumonia, unspecified organism (7) Constipation Constipation type: slow transit constipation Qualified Code(s): K59.01 - Slow transit constipation
[2019-08-12] MEDS: LEVOTHYROXINE SODIUM 150 MCG TABLET PO SCH (06:42)
[2019-08-12 07:48] LABS: Hematocrit (blood only) 37.1 % (37-47); Hemoglobin 12.9 g/dL (12.0-16.0); Mean Corpuscular Hemoglobin 33.2 pg (25-34); Mean Corpuscular Hgb Conc 34.8 g/dL (32-36); Mean Corpuscular Volume 95.4 fL (80-100); Mean Platelet Volume 10.7 fL (7.4-10.4); Platelet Count 184 K/uL (130-400); RDW Coefficient of Variation 15.8 % (11.5-14.5); RDW Standard Deviation 54.8 fL (36.4-46.3); Red Blood Count 3.89 M/uL (4.2-5.4)
[2019-08-12 08:22] LABS: BUN Creatinine Ratio 18.1 (10-20); Calcium 8.7 mg/dl (8.5-10.1); Creatinine Clr Calc Pharmacy 29.1 ml/min; Est GFR (African American) 61.2; Est GFR (Non-African American) 52.8; Potassium 4.3 mmol/L (3.5-5.1)
--- NOTE | 2019-08-12 10:00 | Cardiology Consultation ---
Date of Consultation August 12, 2019 Assessment & Plan (1) Atrial fibrillation: She appears to have permanent atrial fibrillation. She is not symptomatic from the arrhythmia. She has good rate control based on the histograms recorded by her pacemaker. She has been on systemic anticoagulation for stroke risk reduction. However, this has been discontinued due to frequent falls and minor trauma. It would seem reasonable to hold her anticoagulation in the short-term until her gait stability can be better assessed. I think constant reassessment of her gait instability, risk for falls and need for anticoagulation will need to be performed in the outpatient setting. (2) CHF (congestive heart failure): She is known to have preserved LV systolic function. She may have an element of diastolic dysfunction and was admitted earlier this year with volume overload. However, she does not appear to have any evidence of peripheral edema or pulmonary vascular congestion currently. She has no symptoms of decompensated heart failure. Do not believe she requires any specific intervention currently. Maintaining good blood pressure and continued use of her beta-leo and daily Lasix seems reasonable. (3) Cardiac pacemaker: Normal function. Longevity is limited and she likely will require a generator change within the next year. No arrhythmias recorded through the device to account for some of her falls. Overall rate histograms are blunted despite rate responsive mode likely due to her inactivity. (4) Valvular heart disease: She has moderate aortic stenosis and mitral regurgitation. None of the seem to be causing symptoms currently. She has preserved LV systolic function. Do not believe her valvular heart disease played any role in her recent falls or gait instability. History of Present Illness Reason for Consultation: Patient request Requesting Physician: Sam Attending Physician: Clarke Vargas History of Present Illness The patient is an 81-year-old woman with a history of valvular heart disease, chronic atrial fibrillation, diastolic heart failure and symptomatic bradycardia who was currently admitted after suffering a fall. Apparently the patient requested a visit by a card painter during her admission. She did not report any specific cardiac complaints. It seems that her recent issues involve significant weakness and fatigue. She was admitted to our hospital previously and discharged to [facility] for rehabilitation. Subsequently, she returned home which she has had some difficulty with gait stability. She states that she has fallen on multiple occasions primarily due to some discoordination of her lower extremities. She did not endorse symptoms of significant dizziness or lightheadedness associated with these episodes. She has not had dizziness or lightheadedness at other times. She has not been aware of any palpitations. She denies symptoms of chest pain either at rest or with exertion. She denies difficulty with breathing. She is not currently experiencing orthopnea or paroxysmal nocturnal dyspnea. She has not report any swelling in her lower extremities. No syncope. Patient states that she was able to ambulate with Physical therapy to the door of her hospital room yesterday. She continues to feel weak but overall thinks her strength has improved. Allergies Allergy/AdvReac Type Severity Reaction Status Date / Time orange Allergy Intermediate HIVES Verified 08/08/19 14:37 pseudoephedrine Allergy Intermediate worsens Verified 08/08/19 14:37 afib strawberry Allergy Intermediate HIVES Verified 08/08/19 14:37 Sulfa (Sulfonamide Allergy Intermediate hives Verified 08/08/19 14:37 Antibiotics) Cephalosporins Allergy Unknown ON [facility] Verified 08/08/19 14:37 LIST cilostazol [From Pletal] Allergy Unknown ON [facility] Verified 08/08/19 14:37 LIST tramadol Allergy Unknown ON [facility] Verified 08/08/19 14:37 LIST lorazepam AdvReac Severe "WENT Verified 08/08/19 14:37 CRAZY" caffeine AdvReac Intermediate HEART Verified 08/08/19 14:37 PALPITATIONS doxycycline AdvReac Intermediate NIGHTMARES Verified 08/08/19 14:37 rosuvastatin AdvReac Intermediate MYALGIAS Verified 08/08/19 14:37 hydrochlorothiazide AdvReac HYPONATREMI Verified 08/08/19 14:37 A Home Medications Home Medications Medication Instructions Recorded Confirmed Type diltiazem HCl 360 mg PO HS 02/02/19 08/08/19 History folic acid 1 mg PO QAM 02/02/19 08/08/19 History levothyroxine 150 mg PO DAILYBB 02/02/19 08/08/19 History valsartan 320 mg PO QAM 02/02/19 08/08/19 History primidone 250 mg tablet 375 mg PO BID #180 tab 04/10/19 08/08/19 Rx calcium phosphate-vitamin D3 250 1 tab PO BID tab 04/15/19 08/08/19 History mg calcium-500 unit chewable tablet hydrocortisone 2.5 % topical cream 1 appln TOPICAL BID PRN #1 gm 04/15/19 08/08/19 History propranolol ER 120 mg capsule,24 120 mg PO BID cap 04/15/19 08/08/19 History hr,extended release polyethylene glycol 3350 [Miralax] 17 g PO HS 05/13/19 08/08/19 History acetaminophen 325 mg tablet 650 mg PO Q4H PRN #60 tab 06/17/19 08/08/19 Rx potassium chloride ER 10 mEq 10 meq PO BID tab 07/09/19 08/08/19 History tablet,extended release furosemide [Lasix] 20 mg PO DAILY 07/16/19 08/08/19 History warfarin 4 mg tablet 4 mg PO HS #100 tab 07/30/19 08/08/19 Rx Patient History Medical History Hyponatremia Left rib fracture (Acute) Fall as cause of accidental injury at home as place of occurrence (Acute) Warfarin anticoagulation (Chronic) CHF (congestive heart failure) (Acute) Hypoxia (Acute) Tricuspid regurgitation (Acute) Spinal stenosis (Chronic) Sick sinus syndrome (Acute) Rosacea (Acute) Rheumatoid arthritis (Acute) Rectocele (Acute) Permanent atrial fibrillation (Chronic) Osteoporosis (Acute) Mitral regurgitation (Acute) Meckels diverticulum (Acute) Hypothyroidism (Acute) Hypertension (Chronic) Hip pain, bilateral (Acute) Generalized weakness (Acute) Gastroesophageal reflux disease (Acute) Gait disturbance (Chronic) Elevated alkaline phosphatase level (Acute) Edema (Acute) Dyslipidemia (Acute) Cystocele (Acute) Chronic osteoarthritis (Acute) Chronic anticoagulation (Acute) Cerebral atherosclerosis (Acute) Carotid artery plaque (Acute) Cardiac pacemaker (Acute) Benign essential tremor (Acute) Aortic stenosis (Acute) Actinic keratosis (Acute) Ovarian cyst (Chronic) DVT (deep venous thrombosis) (Resolved) SBO (small bowel obstruction) (Acute) Small bowel obstruction (Acute) Surgical History History of hernia repair Hx of appendectomy (Resolved) Hx of cholecystectomy (Resolved) H/O: hysterectomy (Resolved) History of colon resection (Resolved) Family History Other Family history non-contributory Social History Preferred Language: Italian Communication Ability: Effective Fur Sorter Required: No Beliefs That Will Affect Care: None marital status: / Current Living Situation: Alone and Other Current Living Situation Comment: pt states her son lives next door Feels Safe at Home: Yes Smoking Status: Never smoker Second Hand Exposure: No ; Hx Alcohol Use: No Hx Substance Use: No Review of Systems Review of Systems: All systems reviewed & are unremarkable except as noted in HPI & below Physical Exam Physical Exam: She is alert and oriented x3. Mood affect appear normal. She answered all questions appropriately. HEENT: Sclerae are anicteric. Pupils are equal and reactive to light and accommodation. Extraocular movements were intact. Neuro: Cranial nerves intact Neck: Examination of the submandibular region did not reveal any significant lymphadenopathy. Carotids are palpable bilaterally and free of bruits on auscultation. There was no evidence of jugular venous distention. The thyroid was not enlarged. Lungs: Lungs are clear to auscultation bilaterally. There are no rales wheezes or rhonchi. She has normal respiratory effort without use of accessory muscles. There is normal pulmonary excursion. Cardiac: The rhythm was regular. S1 and S2 were normal. Crescendo systolic murmur. The PMI was not markedly displaced on palpation. Abdomen: The abdomen was soft and nontender. Extremities: Patient has bilateral radial pulses that are equal in intensity. There is no evidence cyanosis or clubbing. There was no evidence of significant peripheral edema bilaterally. Skin: There are no rashes noted on examination today. Results & Data Vital Signs (Past 12 Hours) Vital Signs Temp Pulse Resp BP Pulse Ox 08/12/19 07:35 36.3 C L 60 20 137/79 99 08/11/19 23:32 36.7 C 64 18 101/68 91 Laboratory Results Abnormal Lab Results 08/12/19 08/12/19 07:12 07:12 WBC 5.10 RBC 3.89 L Hgb 12.9 Hct 37.1 MCV 95.4 MCH 33.2 MCHC 34.8 RDW Std Deviation 54.8 H RDW Coeff of Kristian 15.8 H Plt Count 184 MPV 10.7 H Sodium 139 Potassium 4.3 Chloride 105 Carbon Dioxide 28 Anion Gap 6.0 BUN 17 Creatinine 0.96 Est Cr Clr Drug Dosing 29.1 Est GFR ( Amer) 61.2 Est GFR (Non-Af Amer) 52.8 BUN/Creatinine Ratio 18.1 Glucose 77 Calcium 8.7 Diagnostic Findings Chest x-ray obtained at the time of admission was suspicious for an evolving infectious process but not diagnostic. No other significant findings. CT scan of the patient's head and neck did not reveal any acute intracranial abnormalities or cervical fractures. Echocardiogram obtained on 05/14/2019 revealed preserved LV systolic function. Mild LVH. Moderate valvular aortic stenosis. Moderate mitral regurgitation. Twelve lead EKG obtained at the time of admission revealed atrial fibrillation with demand ventricular pacing and fusion beats Device interrogation performed on 08/09/2019 revealed normal device function of a single-chamber pacemaker. Rate histograms are blunted likely due to inactivity. No ventricular arrhythmias recorded. Device longevity estimated at 10 months. PG Care Time/CCT Total # of Minutes Spent Total Time Spent with Patient: Total time spent is greater than 50% in coordination of care (as documented) at patient's floor/unit and/or counseling patient: (1) CHF (congestive heart failure) Heart failure chronicity: unspecified Heart failure type: unspecified Qualified Code(s): I50.9 - Heart failure, unspecified (2) Atrial fibrillation Atrial fibrillation type: longstanding persistent Qualified Code(s): I48.11 - Longstanding persistent atrial fibrillation
[2019-08-12] MEDS: PRIMIDONE 250 MG TAB PO SCH ×2 (10:19→20:36)
[2019-08-12] MEDS: POTASSIUM CHLORIDE 10 MEQ TABCR PO SCH ×2 (10:20→20:36)
[2019-08-12] MEDS: THIAMINE HCL 100 MG TAB PO SCH (10:20)
[2019-08-12] MEDS: CALCIUM 600MG + VIT D 400 IU TAB PO SCH ×2 (10:20→20:34)
[2019-08-12] MEDS: FOLIC ACID 1 MG TAB PO SCH (10:21)
[2019-08-12] MEDS: levoFLOXacin 750 MG TAB PO SCH (10:21)
[2019-08-12] MEDS: FUROSEMIDE 20 MG TAB PO SCH (10:21)
[2019-08-12] MEDS: PROPRANOLOL HCL 60 MG LA CAP PO SCH ×2 (10:21→20:35)
[2019-08-12] MEDS: dilTIAZem ER 180 MG CAPCR PO SCH ×2 (10:22→10:29)
[2019-08-12] MEDS: ACETAMINOPHEN 325 MG TAB PO PRN (16:01)
[2019-08-12] MEDS: LIDOCAINE 5% 1 PATCH TD SCH (16:22)
[2019-08-12] MEDS: POLYETHYLENE (MIRALAX) 17 GM PACK PO SCH (20:39)
--- NOTE | 2019-08-12 23:44 | Hospitalist Progress Note ---
Date of Service August 12, 2019 Assessment & Plan (1) Failure to thrive: Memory problems causing her to miss medications making this worse especially with hypothyroidism. If she does take her medications it seems her BP meds may have been prescribed too much for her as she doesn't take them regularly. Will get speech and nutrition evaluations. Appreciate input. BMI does appear normal. (2) Frequent falls: Main reason for admission. Patient feels this is mainly a balance issue. Does not appear to be related to her aortic stenosis. She is paced at 60 bpm consistently on monitor. No ophthalmoplegia to suggest Wernicke's but will start on thiamine tabs. Her strength appears normal on exam. Suspect mainly due to untreated hypothyroidism although possible recent concussion from falls also contributing. She has a prior history of spinal stenosis but no weakness on my exam today and was able to ambulate short distances with PT without pain. Recent discharged from [facility] in May - will need ongoing rehab on d/c possibly bed bug exterminator placement. Patient also requesting cardio input. Her balance problems could also be attributted to her noncompliance of her medicine which may lead to her to take too much meds at a time. will recommend f/u with Neuro as outpatient. (3) Severe hypothyroidism: Non-compliant with meds Restarted prior dose (although may be too high longer term given non compliance) . Repeat labs in 2-4 weeks. (4) Pneumonia: CAP possible given CXR findings. Will treat as may be contributory towards falls but no WBC or fever to suggest definitive diagnosis. Continue levaquin for 7 day course. Last dose on 08/14 (5) Toxic metabolic encephalopathy: Unclear if she is off her baseline as unable to contact family today. She is alert and orientated but clearly shorter term memory difficulty with forgetting pills. Suspected untreated hypothyroidism contributing towards memory issues. Currently patient appears to be at baseline. (6) Sick sinus syndrome: s/p pacemaker. EKG - LBBB with intermittent ventricular pacing on EKG. Will get pacemaker check given recent frequent falls. ppreciate input from cardio (7) Permanent atrial fibrillation: Generally frequent falls not a contraindication to anticoagulation however given recent frequency of these would suggest holding for now and discussing with her farm equipment engine mechanic in the future if her falls resolve. Rate controlled on propranolol and diltiazem. Paced when she goes slow. (8) Hypertension: Continue diltiazem, lasix. Reduced propranolol and will d/c losartan given ongoing low BP. 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 No current symptoms or sign of exacerbation. Continue lasix 20mg PO daily. (10) Aortic stenosis: Echo 04/2019. Moderate aortic stenosis, moderate mitral regurgitation. Not causing heart failure or dizziness, SOBOE at present. Should be followed by cardiology as outpatient. (11) History of small bowel obstruction: Uses an abdominal binder, will prescribe here. Multiple prior abdominal surgeries (12) Constipation: Recommend miralax dosing until bowel movement. Passing flatus, had BM today (08/12) no abdominal pain, nausea or vomiting to suggest obstruction. Continue MiraLAX to aim for BM daily. 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 Will reduce propranolol given low BP. (15) Osteoporosis: Currently on Prolia injections with Dr Hoffman (16) DVT prophylaxis: Continue lovenox 30mg SQ daily (reduced dose due to weight) (17) Discharge planning issues: Patient accepting of needing rehabilitation vs. bed bug exterminator care. Subjective Patient reports she had a BM yesterday. Patient reports she has some lower back pain and requested something for pain. Patient also reports having lower extremity weakness and would like to see a neurologist. She reports she saw Cardio today and was satisfied with the answers given. Review of Systems Review of Systems: All systems reviewed & are unremarkable except as noted in HPI & below Physical Exam Physical Exam: Constitutional: well developed; no acute distress and no altered mental status Eyes: PERRL; normal pupil size and no nystagmus ENMT: external ear and nose normal, oropharynx normal Neck: trachea midline Respiratory: normal respiratory effort, lungs clear to auscultation Cardiovascular: Rate/Rhythm: regular rhythm Heart Sounds: + murmur (LUSB) Extremities: normal capillary refill Gastrointestinal (Abdomen): Inspection/Auscultation: normal bowel sounds; (multiple prior surgical scars) and abdomen not distended Percussion/Palpation: abdomen soft and + hernia (incisional); abdomen nontender, no guarding and abdomen not rigid Musculoskeletal: no cyanosis or clubbing, extremities motor strength 5/5 Skin: no rashes, warm and dry Neurologic: moves all extremities and awake; no focal motor deficits (grossly normal strength in all 4 extremities 5/5) Speech / Cognition: normal speech Motor/Sensory: no tremor and no pronator drift Psychiatric: A+Ox3, euthymic affect Results & Data Vital Signs (Past 12 Hours) Vital Signs Temp Pulse Resp BP Pulse Ox 08/12/19 23:00 36.5 C 65 18 113/69 96 08/12/19 15:19 37.0 C 62 18 101/61 94 PG Care Time/CCT Total # of Minutes Spent Total Time Spent with Patient: Total time spent is greater than 50% in coordination of care (as documented) at patient's floor/unit and/or counseling patient: (1) Osteoporosis Osteoporosis type: age-related Presence of current pathological fracture: without current pathological fracture Qualified Code(s): M81.0 - Age-related osteoporosis without current pathological fracture (2) CHF (congestive heart failure) Heart failure chronicity: unspecified Heart failure type: unspecified Qualified Code(s): I50.9 - Heart failure, unspecified (3) Aortic stenosis Cardiac valve disease etiology: nonrheumatic Qualified Code(s): I35.0 - Nonrheumatic aortic (valve) stenosis (4) Failure to thrive Failure to thrive age range: in adult Qualified Code(s): R62.7 - Adult failure to thrive (5) Hypertension Hypertension type: essential hypertension Qualified Code(s): I10 - Essential (primary) hypertension (6) Pneumonia Laterality: unspecified laterality Lung location: unspecified part of lung Pneumonia type: due to unspecified organism Qualified Code(s): J18.9 - Pneumonia, unspecified organism (7) Constipation Constipation type: slow transit constipation Qualified Code(s): K59.01 - Slow transit constipation
[2019-08-13] MEDS: LEVOTHYROXINE SODIUM 150 MCG TABLET PO SCH (06:02)
[2019-08-13] MEDS: ACETAMINOPHEN 325 MG TAB PO PRN (06:08)
[2019-08-13] MEDS: CALCIUM 600MG + VIT D 400 IU TAB PO SCH (07:52)
[2019-08-13] MEDS: FOLIC ACID 1 MG TAB PO SCH (07:52)
[2019-08-13] MEDS: PROPRANOLOL HCL 60 MG LA CAP PO SCH (07:52)
[2019-08-13] MEDS: POTASSIUM CHLORIDE 10 MEQ TABCR PO SCH (07:53)
[2019-08-13] MEDS: FUROSEMIDE 20 MG TAB PO SCH (07:53)
[2019-08-13] MEDS: LIDOCAINE 5% 1 PATCH TD SCH (07:53)
[2019-08-13] MEDS: THIAMINE HCL 100 MG TAB PO SCH (07:53)
[2019-08-13] MEDS: dilTIAZem ER 180 MG CAPCR PO SCH (07:53)
[2019-08-13] MEDS: PRIMIDONE 250 MG TAB PO SCH (07:53)
--- NOTE | 2019-08-19 15:34 | Discharge Summary ---
Date of Service August 13, 2019 Admission HPI Per Admitting Provider The patient is 89 years old female who was brought to the emergency room with the complaints of generalized weakness. Patient is elderly lady who lives by herself and often misses her medications. The patient has not taken her Synthroid for many days. She has history of frequent falls. She is wheelchair-bound and has been falling frequently. She denies any chest pain or loss of consciousness. No seizures. She was started on IV antibiotics in the ER for possible pneumonia. She has history of vomiting and possible aspiration. No fever. She has history of permanent atrial fibrillation. In the ER she was found to be having severe hypothyroidism. She will be admitted for further evaluation and management. Family is requesting for possible rehab placement. CODE STATUS discussed and she is a full code. Principal Diagnosis failure to thrive Discharge Exam Constitutional: well developed; no acute distress and no altered mental status Eyes: PERRL; normal pupil size and no nystagmus ENMT: external ear and nose normal, oropharynx normal Neck: trachea midline Respiratory: normal respiratory effort, lungs clear to auscultation Cardiovascular: Rate/Rhythm: regular rhythm Heart Sounds: + murmur (LUSB) Extremities: normal capillary refill Gastrointestinal (Abdomen): Inspection/Auscultation: normal bowel sounds; (multiple prior surgical scars) and abdomen not distended Percussion/Palpation: abdomen soft and + hernia (incisional); abdomen nontender, no guarding and abdomen not rigid Musculoskeletal: no cyanosis or clubbing, extremities motor strength 5/5 Skin: no rashes, warm and dry Neurologic: moves all extremities and awake; no focal motor deficits (grossly normal strength in all 4 extremities 5/5) Speech / Cognition: normal speech Motor/Sensory: no tremor and no pronator drift Psychiatric: A+Ox3, euthymic affect Discharge Data Allergies Allergy/AdvReac Type Severity Reaction Status Date / Time orange Allergy Intermediate HIVES Verified 08/08/19 14:37 pseudoephedrine Allergy Intermediate worsens Verified 08/08/19 14:37 afib strawberry Allergy Intermediate HIVES Verified 08/08/19 14:37 Sulfa (Sulfonamide Allergy Intermediate hives Verified 08/08/19 14:37 Antibiotics) Cephalosporins Allergy Unknown ON [facility] Verified 08/08/19 14:37 LIST cilostazol [From Pletal] Allergy Unknown ON [facility] Verified 08/08/19 14:37 LIST tramadol Allergy Unknown ON [facility] Verified 08/08/19 14:37 LIST lorazepam AdvReac Severe "WENT Verified 08/08/19 14:37 CRAZY" caffeine AdvReac Intermediate HEART Verified 08/08/19 14:37 PALPITATIONS doxycycline AdvReac Intermediate NIGHTMARES Verified 08/08/19 14:37 rosuvastatin AdvReac Intermediate MYALGIAS Verified 08/08/19 14:37 hydrochlorothiazide AdvReac HYPONATREMI Verified 08/08/19 14:37 A Consultations 08/08/19 18:25 ED Decision to Admit Stat 08/11/19 18:22 Consult Cardiology Routine Ordered Studies 08/08/19 15:00 CT cervical spine wo con Stat CT head/brain wo con Stat Hospital Course (1) Failure to thrive: Memory problems causing her to miss medications making this worse especially with hypothyroidism. If she does take her medications it seems her BP meds may have been prescribed too much for her as she doesn't take them regularly. Will get speech and nutrition evaluations. Appreciate input. BMI does appear normal. (2) Frequent falls: Main reason for admission. Patient feels this is mainly a balance issue. Does not appear to be related to her aortic stenosis. She is paced at 60 bpm consistently on monitor. No ophthalmoplegia to suggest Wernicke's but will start on thiamine tabs. Her strength appears normal on exam. Suspect mainly due to untreated hypothyroidism although possible recent concussion from falls also contributing. She has a prior history of spinal stenosis but no weakness on my exam today and was able to ambulate short distances with PT without pain. Recent discharged from [facility] in May - will need ongoing rehab on d/c possibly fpc placement. Patient also requesting cardio input. Her balance problems could also be attributted to her noncompliance of her medicine which may lead to her to take too much meds at a time. will recommend f/u with Neuro as outpatient. (3) Severe hypothyroidism: Non-compliant with meds Restarted prior dose (although may be too high longer term given non compliance). Repeat labs in 2-4 weeks. (4) Pneumonia: CAP possible given CXR findings. Will treat as may be contributory towards falls but no WBC or fever to suggest definitive diagnosis. Continue levaquin for 7 day course. Last dose on 08/14 (5) Toxic metabolic encephalopathy: Unclear if she is off her baseline as unable to contact family today. She is alert and orientated but clearly shorter term memory difficulty with forgetting pills. Suspected untreated hypothyroidism contributing towards memory issues. Currently patient appears to be at baseline. (6) Sick sinus syndrome: s/p pacemaker. EKG - LBBB with intermittent ventricular pacing on EKG. Will get pacemaker check given recent frequent falls. appreciate input from cardio She appears to have permanent atrial fibrillation. She is not symptomatic from the arrhythmia. She has good rate control based on the histograms recorded by her pacemaker. She has been on systemic anticoagulation for stroke risk reduction. However, this has been discontinued due to frequent falls and minor trauma. It would seem reasonable to hold her anticoagulation in the short-term until her gait stability can be better assessed. I think constant reassessment of her gait instability, risk for falls and need for anticoagulation will need to be performed in the outpatient setting. 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 Rate controlled on propranolol and diltiazem. Paced when she goes slow. (8) Hypertension: Continue diltiazem, lasix. Reduced propranolol and will d/c losartan given ongoing low BP. 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 No current symptoms or sign of exacerbation. Continue lasix 20mg PO daily. (10) Aortic stenosis: Echo 04/2019. Moderate aortic stenosis, moderate mitral regurgitation. Not causing heart failure or dizziness, SOBOE at present. Should be followed by cardiology as outpatient. (11) History of small bowel obstruction: Uses an abdominal binder, will prescribe here. Multiple prior abdominal surgeries (12) Constipation: Recommend miralax dosing until bowel movement. Passing flatus, had BM today (08/12) no abdominal pain, nausea or vomiting to suggest obstruction. Continue MiraLAX to aim for BM daily. 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 Will reduce propranolol given low BP. (15) Osteoporosis: Currently on Prolia injections with Dr Hoffman (16) DVT prophylaxis: Continue lovenox 30mg SQ daily (reduced dose due to weight) (17) Discharge planning issues: Total Time Total Time Spent Total Time Spent (In Minutes): 32 Total Time Includes: Examination of the Patient, Discharge Planning and Medication Reconciliation Discharge Plan Discharge Items Patient Disposition: Transfer Inpatient Rehab Fac Reason For Visit: WEAKNESS Discharge Diagnosis: Failure to thrive Activity: Resume your previous activity Non-emergency contact: Primary Care Provider Call non-emergency contact if: you have any medication questions Follow-up/Referrals: PCP,NO [Primary Care Provider] - Diet: Regular Addtl Attending Provider Instructions: Recommend PCP followup in 2 weeks. Recommend followup with Neurology in 2-4 weeks for evaluation of her weakness. Followup with Cardiology in 2 weeks Hold blood thinning medicine due to risk of falls Continue antibiotic for one more day (last dose on 08/14) for levaquin Pending Studies at Discharge: No Stand-Alone Forms: [facility] GTI Skilled Items Patient informed of condition?: No DNR: No Discharge Level of Care: Skilled Communicable Disease: No Discharge Prognosis: Stable Lines: None Urinary Catheter: No Medications and DC Order Prescriptions: New thiamine HCl (vitamin B1) [Vitamin B-1] 100 mg Tablet 100 mg PO QAM Qty: 30 RF: 0 lidocaine 5 % Adhesive Patch,Medicated 1 patch transdermal QAM Qty: 30 RF: 0 Continued primidone 250 mg tablet 375 mg PO BID Qty: 180 RF: 2 acetaminophen [Tylenol] 325 mg tablet 650 mg PO Q4H PRN (Reason: pain) Qty: 60 RF: 5 potassium chloride 10 mEq tablet extended release 10 meq PO BID RF: 0 calcium phosphate-vitamin D3 [Citracal + D3 (calcium phos)] 250 mg calcium- 500 unit tablet,chewable 1 tab PO BID RF: 0 hydrocortisone 2.5 % cream 1 appln topical BID PRN (Reason: itching) Qty: 1 RF: 0 propranolol 120 mg capsule,extended release 24 hr 120 mg PO BID RF: 0 diltiazem HCl 360 mg capsule,extended release 24 hr 360 mg PO HS RF: 0 valsartan 320 mg tablet 320 mg PO QAM RF: 0 levothyroxine 150 mcg tablet 150 mg PO DAILYBB RF: 0 folic acid 1 mg Tablet 1 mg PO QAM RF: 0 polyethylene glycol 3350 [Miralax] 17 gram Powder In Packet 17 g PO HS RF: 0 furosemide [Lasix] 20 mg tablet 20 mg PO DAILY RF: 0 Discontinued warfarin [Coumadin] 4 mg tablet 4 mg PO HS Qty: 100 RF: 3 Discharge Orders: Discharge Order (Routine); Ordered 08/13/19 Ordered By: Clarke Vargas Admission Data Admit Date/Time: 08/08/19 18:50 Attending Provider: Clarke Vargas Admit Provider: Kurtis Valero Primary Care Provider: PCP,NO Other Providers: Kurtis Valero ; Yoandy Horvath Other DE Date/Time DO NOT enter until pt leaves facility: 08/13/19 13:07
== END 2019-08-13 13:07 | DRG 643 ==
LOC: ED 13:53 → SUATTDRO 18:50 → 2S 18:50 → 2N 08-10 18:08

== ENCOUNTER 2019-09-27 12:17 | Inpatient (IN) ==
[2019-09-27 13:11] LABS: Basophils # (auto) 0.03 K/uL (0-0.2); Basophils % (auto) 0.3 %; Eosinophils # (auto) 0.04 K/uL (0-0.5); Eosinophils % (auto) 0.4 %; Hematocrit (blood only) 47.9 % (37-47); Hemoglobin 17.4 g/dL (12.0-16.0); Immature Granulocytes # (auto) 0.03 K/uL (0.00-0.02); Immature Granulocytes % (auto) 0.3 %; Lymphocytes # (auto) 1.27 K/uL (1.2-3.4); Lymphocytes % (auto) 11.5 %; Mean Corpuscular Hemoglobin 35.7 pg (25-34); Mean Corpuscular Hgb Conc 36.3 g/dL (32-36); Mean Corpuscular Volume 98.4 fL (80-100); Mean Platelet Volume 11.9 fL (7.4-10.4); Monocytes # (auto) 1.19 K/uL (0.11-0.59); Monocytes % (auto) 10.8 %; Neutrophils # (auto) 8.48 K/uL (1.4-6.5); Neutrophils % (auto) 76.7 %; Platelet Count 166 K/uL (130-400); RDW Coefficient of Variation 15.1 % (11.5-14.5); RDW Standard Deviation 54.1 fL (36.4-46.3); Red Blood Count 4.87 M/uL (4.2-5.4); White Blood Count 11.04 K/uL (4.8-10.8)
[2019-09-27 13:24] LABS: Appearance Urine Clear (Clear); Bacteria Urine Automated Negative (Negative); Bilirubin Urine Negative (Negative); Blood Urine 2+ (Negative); Cast Urine Automated 0 /lpf (0-5); Color Urine Yellow; Glucose Urine UA Negative (Negative); Ketones Urine Trace (Negative); Leukocyte Esterase Urine Negative (Negative); Nitrite Urine Negative (Negative); Specific Gravity Urine 1.013 (1.000-1.030); Urobilinogen Urine Negative (Negative); pH Urine 8.5 (4.5-7.5)
[2019-09-27 13:25] LABS: Protein Urine 3+ (Negative)
[2019-09-27 13:26] LABS: Sulfosalicylic Acid Urine Positive (Negative)
[2019-09-27 13:27] LABS: INR 1.2 (0.9-1.1); Partial Thromboplastin Time 27.4 Seconds (21.0-31.0)
[2019-09-27] MEDS: SODIUM CHLORIDE 0.9% 500 ML IV SCH ×2 (13:40→18:18)
[2019-09-27 13:44] LABS: iSTAT Creatinine 0.6 mg/dl (0.6-1.3); iSTAT Hemoglobin 16.3 g/dl (12.0-16.0); iSTAT Ionized Calcium 0.88 mmol/l (1.12-1.32); iSTAT Potassium 3.8 mEq/L (3.3-5.0)
[2019-09-27 14:03] LABS: Albumin Level 3.5 gm/dl (3.4-5.0); BUN Creatinine Ratio 16.9 (10-20); Blood Urea Nitrogen 14 mg/dl (7-18); Calcium 8.5 mg/dl (8.5-10.1); Carbon Dioxide 27 mmol/L (21-32); Chloride 104 mmol/L (98-107); Creatinine Clr Calc Pharmacy 37.5 ml/min; Est GFR (Non-African American) 63.9; Glucose 91 mg/dl (70-99); Lipase 31 U/L (73-393); Sodium 139 mmol/L (136-145)
[2019-09-27 14:15] LABS: Alanine Aminotransferase 21 U/L (12-78); Alkaline Phosphatase 158 U/L (45-117); Bilirubin,Total 1.4 mg/dl (0.2-1); Troponin I < 0.015 ng/ml (0-0.045)
[2019-09-27] MEDS ORDERED: IOVERSOL 100ml IV PRN (14:19)
--- NOTE | 2019-09-27 14:29 | XRay Report ---
XR humerus RT 2V, XR elbow RT min 3V routine CLINICAL HISTORY: recurrent falls. Right arm and elbow pain. COMPARISON STUDY: None. FINDINGS: Mild chondrocalcinosis within the elbow. Suboptimal lateral view. No definite elbow effusio n. No fracture or dislocation within the humerus or elbow. No radiopaque foreign bodies. Soft tissues are unremarkable. The bones are osteopenic. IMPRESSION: No fractures within the right humerus or right elbow. Electronically signed by: Adarsh Knapp M.D. 09/27/2019 2:28 PM
[2019-09-27 14:30] LABS: Potassium 3.2 mmol/L (3.5-5.1)
--- NOTE | 2019-09-27 14:31 | XRay Report ---
XR chest 1V portable HISTORY: recurrent falls COMPARISON: Chest 08/08/2019. FINDINGS: The heart remains mildly enlarged. Left-sided single lead pacemaker. Mild diffuse interstit ial thickening which is likely chronic. No new focal lung consolidations. No pleural effusions. No pn eumothorax. IMPRESSION: Stable cardiomegaly and mild chronic interstitial thickening. No acute process within the chest. Electronically signed by: Adarsh Knapp M.D. 09/27/2019 2:29 PM
--- NOTE | 2019-09-27 14:34 | XRay Report ---
XR pelvis 1-2V routine, XR femur RT 2V routine CLINICAL HISTORY: recurrent falls Pelvic pain. Right leg pain. COMPARISON STUDY: Pelvis 07/16/2019. FINDINGS: No fracture or dislocation within the pelvis, hips, or right femur. There is a right total knee arthroplasty. Soft tissues are unremarkable. IMPRESSION: No fractures within the pelvis, hips, or right femur. Electronically signed by: Adarsh Knapp M.D. 09/27/2019 2:32 PM
[2019-09-27 14:38] LABS: Bilirubin Direct 0.4 mg/dl (0-0.2); Magnesium 2.1 mg/dl (1.8-2.4)
--- NOTE | 2019-09-27 14:43 | CT Scan Report ---
HEAD CT NONCONTRAST CT DOSE: HISTORY: recurrent falls TECHNIQUE: Multiaxial CT images of the head were performed without the use of intravenous contrast. A utomated exposure control was utilized for this study. A dose lowering technique was utilized adheri ng to the principles of ALARA. Comparison: Head CT 08/08/2019. Findings: The paranasal sinuses and mastoid air cells are clear. The calvarium and skull base are int act. There is no mass, hematoma, midline shift, acute infarct. White matter hypodensity is nonspecifi c but suggestive of microvascular ischemic change. The ventricles and sulci demonstrate mild age-rela rajendra involutional changes. 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 This r emains unchanged. Impression: No significant change compared to the prior study. No acute intracranial abnormality. Electronically signed by: Adarsh Knapp M.D. 09/27/2019 2:42 PM
--- NOTE | 2019-09-27 14:49 | CT Scan Report ---
CERVICAL SPINE CT CT DOSE: 1068.43 mGy.cm HISTORY: recurrent falls TECHNIQUE: Multiaxial CT images of the cervical spine were performed and reformatted in the sagittal and coronal plane without the use of contrast. A dose lowering technique was utilized adhering to th e principles of ALARA. COMPARISON: Cervical spine CT 08/08/2019. FINDINGS: No fractures. No subluxation. Prevertebral soft tissues and the C1-C2 interval are intact. No pneumothorax. Mild disc space narrowing at C4-C5. Moderate disc space narrowing at C5-C6 and C6-C7 . Minimal anterolisthesis of C6 on C7, unchanged. Stable Schmorl's node at C6. IMPRESSION: No fractures within the cervical spine. Electronically signed by: Adarsh Knapp M.D. 09/27/2019 2:48 PM
--- NOTE | 2019-09-27 14:58 | CT Scan Report ---
ABDOMEN AND PELVIS CT WITH IV CONTRAST CT DOSE: HISTORY: recurrent falls hx of sbo TECHNIQUE: Multiaxial CT images of the abdomen and pelvis were performed following the use of intrave nous contrast. A dose lowering technique was utilized adhering to the principles of ALARA. COMPARISON STUDY: Abdomen and pelvis CT 02/05/2019. FINDINGS: Stable 5 mm subpleural nodule within the right middle lobe. Interstitial thickening at the lung bases is likely chronic. No pneumoperitoneum. No pneumatosis. Old, healed bilateral rib fracture s. No acute fractures within the visualized osseous structures. The heart is enlarged. This remains u nchanged. Pacemaker wire is noted. Cholecystectomy. The liver, spleen, adrenal glands are unremarkabl e. There is motion artifact and streak artifact from the patient's overlapping artifact resulting in suboptimal evaluation of the abdomen and pelvis. Bilateral cortical renal thinning/scarring. No hydro nephrosis. The pancreas is suboptimally assessed but appears unremarkable. No retroperitoneal lymphad enopathy. Calcified plaque throughout the normal caliber abdominal aorta. Persistent anterior abdomin al wall laxity is again noted. Possible small left midline ventral hernia containing a short segment of small bowel. This is best seen on image 246. The bladder is unremarkable. The rectum is distended with gas and fluid. No pelvic free fluid. The uterus is surgically absent. The colon is fluid-filled. However, no bowel wall thickening or obstruction. IMPRESSION: 1. Fluid-filled colon and rectum which may represent a diarrheal state. This is not significantly tanya nged. 2. No definite bowel wall thickening or obstruction. 3. No acute traumatic process within the abdomen or pelvis. 4. Additional findings as described above. Electronically signed by: Adarsh Knapp M.D. 09/27/2019 2:57 PM
--- NOTE | 2019-09-27 17:19 | Emergency Department Note ---
Entered by Mar Wilde acting as a scribe for History of Present Illness General Chief complaint: Fall Stated complaint: fall/confused Time Seen by Provider: 09/27/19 12:38 Source: patient and RN notes reviewed Limitations: no limitations History of Present Illness Provider complaint: Fall Onset (ago): hour(s) 2 Location: upper extremity and lower extremity Pain Consistency: + other (episode ) Quality: + constant Associated symptoms: + other (Positive: fall, right arm pain, right leg pain ) The patient is an 89 year old female with past medical history of valvular disease, dysphonia, small bowel obstruction, atrial fibrillation, pneumonia, on Coumadin, CHF, intractable pain, tricuspid regurgitation, spinal stenosis, rheumatoid arthritis, dyslipidemia, aortic stenosis, appendectomy, cholecystectomy, colon resection, frequent falls, who presents to the ED with complaints of an episode of a fall that happened 2 hours ago. The patient reports she fell this morning and her right leg hurts. She additionally notes her right arm hurts from her previous fall on Sunday night. The patient additionally reports she has been out of lidocaine patches. Per nursing: the patient was found at 11 am this morning by her family that had not seen her since yesterday. The patients extremities are cold. EMS gave her about 700 mls of fluid. The patient has a pacemaker. She notes her right arm hurts from her previous fall. Home Medications Home Medications Medication Instructions Recorded Confirmed Type diltiazem HCl 360 mg PO HS 02/02/19 09/27/19 History folic acid 1 mg PO QAM 02/02/19 09/27/19 History levothyroxine 150 mg PO DAILYBB 02/02/19 09/27/19 History valsartan 320 mg PO QAM 02/02/19 09/27/19 History primidone 250 mg tablet 375 mg PO BID #180 tab 04/10/19 09/27/19 Rx calcium phosphate-vitamin D3 250 1 tab PO BID tab 04/15/19 09/27/19 History mg calcium-500 unit chewable tablet hydrocortisone 2.5 % topical cream 1 appln TOPICAL BID PRN #1 gm 04/15/19 09/27/19 History polyethylene glycol 3350 [Miralax] 17 g PO HS 05/13/19 09/27/19 History acetaminophen 325 mg tablet 650 mg PO Q4H PRN #60 tab 06/17/19 09/27/19 Rx potassium chloride 10 mEq 10 meq PO BID tab 07/09/19 09/27/19 History tablet,extended release lidocaine 1 patch TRANSDERMAL QAM #30 ea 08/13/19 09/27/19 Rx furosemide 20 mg tablet 20 mg PO DAILY #90 tab 09/17/19 09/27/19 Rx propranolol 120 mg capsule,24 120 mg PO BID #180 cap 09/17/19 09/27/19 Rx hr,extended release thiamine HCl (vitamin B1) 100 mg 100 mg PO QAM #90 tab 09/17/19 09/27/19 Rx tablet Allergies Allergy/AdvReac Type Severity Reaction Status Date / Time orange Allergy Intermediate HIVES Verified 09/27/19 13:48 pseudoephedrine Allergy Intermediate worsens Verified 09/27/19 13:48 afib strawberry Allergy Intermediate HIVES Verified 09/27/19 13:48 Sulfa (Sulfonamide Allergy Intermediate hives Verified 09/27/19 13:48 Antibiotics) Cephalosporins Allergy Unknown ON [facility] Verified 09/27/19 13:48 LIST cilostazol [From Pletal] Allergy Unknown ON [facility] Verified 09/27/19 13:48 LIST tramadol Allergy Unknown ON [facility] Verified 09/27/19 13:48 LIST lorazepam AdvReac Severe "WENT Verified 09/27/19 13:48 CRAZY" caffeine AdvReac Intermediate HEART Verified 09/27/19 13:48 PALPITATIONS doxycycline AdvReac Intermediate NIGHTMARES Verified 09/27/19 13:48 rosuvastatin AdvReac Intermediate MYALGIAS Verified 09/27/19 13:48 hydrochlorothiazide AdvReac HYPONATREMI Verified 09/27/19 13:48 A Past Med/Surg History Family History Other Family history non-contributory Social History Preferred Language: Beninese Communication Ability: Impaired Communication Ability Comment: confused speech impaired Donkey Doctor Required: No Beliefs That Will Affect Care: None marital status: / Current Living Situation: Alone Current Living Situation Comment: son lives next door Other Information That Helps Us Care for You: No Feels Safe at Home: Yes Safety Concerns: Feels Safe At This Time Smoking Status: Never smoker Second Hand Exposure: No ; Hx Alcohol Use: No Hx Substance Use: No Review of Systems See HPI for pertinent positives & negatives. and A total of 10 systems reviewed and were otherwise negative Physical Exam Vital Signs Vital Signs - 24 hr 09/27/19 12:34 09/27/19 12:42 09/27/19 12:48 Temperature Temperature Source Pulse Rate 78 76 77 Pulse Rate from SpO2 Sensor 80 74 77 Respiratory Rate 18 14 20 Respiratory Effort / Characteristics Respiratory Depth Respiratory Pattern Blood Pressure 171/83 H 143/79 H Blood Pressure Mean 94 106 Pulse Oximetry 92 96 96 Oxygen Delivery Method Sepsis Recent Fever Within 48 Hours Sepsis New/Unexplained Change in Mental Status Sepsis Action Taken by Nursing 09/27/19 13:00 09/27/19 13:18 09/27/19 13:19 Temperature 36.3 C L Temperature Source Oral Pulse Rate 71 87 87 Pulse Rate from SpO2 Sensor 75 Respiratory Rate 14 20 20 Respiratory Effort / Characteristics Non-Labored Spontaneous Respiratory Depth Normal Respiratory Pattern Regular Blood Pressure 160/80 H 171/83 H Blood Pressure Mean 107 112 Pulse Oximetry 94 97 97 Oxygen Delivery Method Room Air Room Air Sepsis Recent Fever Within 48 Hours No Sepsis New/Unexplained Change in Mental Status No Sepsis Action Taken by Nursing No Action Required 09/27/19 13:30 09/27/19 13:40 09/27/19 14:00 Temperature Temperature Source Pulse Rate 84 74 76 Pulse Rate from SpO2 Sensor 82 72 78 Respiratory Rate 19 16 14 Respiratory Effort / Characteristics Respiratory Depth Respiratory Pattern Blood Pressure 135/74 146/78 H Blood Pressure Mean 85 88 Pulse Oximetry 96 96 97 Oxygen Delivery Method Sepsis Recent Fever Within 48 Hours Sepsis New/Unexplained Change in Mental Status Sepsis Action Taken by Nursing 09/27/19 14:30 09/27/19 15:00 09/27/19 15:08 Temperature Temperature Source Pulse Rate 71 70 74 Pulse Rate from SpO2 Sensor 73 71 74 Respiratory Rate 19 20 13 Respiratory Effort / Characteristics Respiratory Depth Respiratory Pattern Blood Pressure 166/78 H 134/73 Blood Pressure Mean 91 87 Pulse Oximetry 97 91 95 Oxygen Delivery Method Sepsis Recent Fever Within 48 Hours Sepsis New/Unexplained Change in Mental Status Sepsis Action Taken by Nursing 09/27/19 15:09 09/27/19 15:30 09/27/19 16:00 Temperature Temperature Source Pulse Rate 74 68 70 Pulse Rate from SpO2 Sensor 74 71 73 Respiratory Rate 15 7 L 21 Respiratory Effort / Characteristics Respiratory Depth Respiratory Pattern Blood Pressure 127/74 116/58 L Blood Pressure Mean 94 78 Pulse Oximetry 98 95 98 Oxygen Delivery Method Sepsis Recent Fever Within 48 Hours Sepsis New/Unexplained Change in Mental Status Sepsis Action Taken by Nursing 09/27/19 16:30 09/27/19 16:31 09/27/19 17:00 Temperature Temperature Source Pulse Rate 76 73 73 Pulse Rate from SpO2 Sensor 73 66 77 Respiratory Rate 19 13 15 Respiratory Effort / Characteristics Respiratory Depth Respiratory Pattern Blood Pressure 116/66 139/60 Blood Pressure Mean 74 66 Pulse Oximetry 96 95 96 Oxygen Delivery Method Sepsis Recent Fever Within 48 Hours Sepsis New/Unexplained Change in Mental Status Sepsis Action Taken by Nursing 09/27/19 17:01 Temperature Temperature Source Pulse Rate 75 Pulse Rate from SpO2 Sensor 71 Respiratory Rate 9 L Respiratory Effort / Characteristics Respiratory Depth Respiratory Pattern Blood Pressure Blood Pressure Mean Pulse Oximetry 97 Oxygen Delivery Method Sepsis Recent Fever Within 48 Hours Sepsis New/Unexplained Change in Mental Status Sepsis Action Taken by Nursing GENERAL: She is oriented to person, place, and time. She appears well-developed and well-nourished. She does not appear distressed. She has dysarthria that is chronic. HENT: Exam performed. - Head: Normocephalic and atraumatic. - Right Ear: External ear normal. No mastoid tenderness. - Left Ear: External ear normal. No mastoid tenderness. - Mouth/Throat: The oropharynx is clear. Dry mucous membranes. No trismus in the jaw. No dental abscesses or uvula swelling. No oropharyngeal exudate or tons illar abscesses. EYES: Conjunctivae and EOM are normal. Pupils are equal, round, and reactive to light. Right eye exhibits no discharge. Left eye exhibits no discharge. No scleral icterus. NECK: Normal range of motion. Neck supple. No JVD present. No spinous process tenderness present. No carotid bruit present. No rigidity. No tracheal deviation and normal range of motion present. No Brudzinski's sign and no Kernig's sign noted. CV: Normal rate, regular rhythm, normal heart sounds and intact distal pulses. There is no peripheral edema. Palpable radial pulses bue. PULM/CHEST: Effort normal and breath sounds normal. No respiratory distress. No stridor. She has no wheezes. She has no rales. Chest Wall: She exhibits no tenderness. ABD: The abdomen is soft. Bowel sounds are normal. She has no distension. No mass is present. There is no tenderness. There is no rebound, no guarding, no Cobb's sign and no tenderness at McBurney's point. Rovsig negative MUSC/SKEL: No C, T, or L spine tenderness. Pelvis stable. LYMPH: No cervical adenopathy. NEURO: She is alert and oriented to person, place, and time. Motor sensations are grossly intact. SKIN: Skin is warm and dry. She is not diaphoretic. Ecchymosis over right elbow. PSYCH: She has a normal mood and affect. Her behavior is normal. Judgment and thought content normal. Course Course 1244: The patient was evaluated in room B11B. A complete history and physical exam was performed. 1550: Vital signs stable. The labs show a potassium if 3.2, lactate of 3.5, creatinine kinase of 952. Labs are within normal limits, no traumatic injury and no pneumonia. The patient will be admitted to [facility] team for rhabdomyolysis and recurrent falls. Given her aortic stenosis at an advanced state, the patient will be gently hydrated and no large fluid bolus will be given. The patients lactic acidemia is thought to be due to dehydration as opposed to infection, given her negative imagining and urinalysis are within normal limits. The patients granddaughter is at bedside and noted the patient lives alone and might have fallen trying to get to the phone. She agrees with the plan to admit the patient. I discussed the patients case with Pato Edwards [facility]. Administered Medications Sodium Chloride (Nss) 500 mls @ 125 mls/hr IV .Q4H [facility] Stop: 10/27/19 12:59 Last Admin: 09/27/19 13:40 Dose: 125 mls/hr Documented by: [id number] Ioversol (Optiray 320 100ml) 94 ml IV ONCE PRN PRN Reason: Interaction Checking Stop: 10/01/19 14:18 Last Admin: 09/27/19 14:20 Dose: 94 ml Documented by: [id number] Medical Decision Making Medical Records Attestation: I reviewed the patient's medical records. Home Medications Current Medication List: was personally reviewed by me Laboratory Data Attestation: I reviewed the patient's lab results. Result diagrams: 09/27/19 12:00 09/27/19 14:10 Lab Results 09/27/19 09/27/19 09/27/19 Range/Units 12:00 12:00 13:05 WBC 11.04 H (4.8-10.8) K/uL RBC 4.87 (4.2-5.4) M/uL Hgb 17.4 H (12.0-16.0) g/dL POC Hgb (12.0-16.0) g/dl Hct 47.9 H (37-47) % POC Hct (37-47) % MCV 98.4 (80-100) fL MCH 35.7 H (25-34) pg MCHC 36.3 H (32-36) g/dL RDW Std Deviation 54.1 H (36.4-46.3) fL RDW Coeff of Kristian 15.1 H (11.5-14.5) % Plt Count 166 (130-400) K/uL MPV 11.9 H (7.4-10.4) fL Immature Gran % (Auto) 0.3 % Neut % (Auto) 76.7 % Lymph % (Auto) 11.5 % Marshall % (Auto) 10.8 % Eos % (Auto) 0.4 % Baso % (Auto) 0.3 % Immature Gran # (Auto) 0.03 H (0.00-0.02) K/uL Neut # (Auto) 8.48 H (1.4-6.5) K/uL Lymph # (Auto) 1.27 (1.2-3.4) K/uL Marshall # (Auto) 1.19 H (0.11-0.59) K/uL Eos # (Auto) 0.04 (0-0.5) K/uL Baso # (Auto) 0.03 (0-0.2) K/uL PT 12.0 (9.0-12.0) Seconds INR 1.2 H (0.9-1.1) APTT 27.4 (21.0-31.0) Seconds PTT Ratio 1.0 POC Sodium (135-144) mEq/L Sodium (136-145) mmol/L POC Potassium (3.3-5.0) mEq/L Potassium (3.5-5.1) mmol/L POC Chloride (101-112) mEq/L Chloride (98-107) mmol/L Carbon Dioxide (21-32) mmol/L POC Total CO2 (24-31) mEq/l Anion Gap (3-11) POC Anion Gap (16-25) mmol/L POC BUN (7-18) mg/dl BUN (7-18) mg/dl Creatinine (0.6-1.2) mg/dl POC Creatinine (0.6-1.3) mg/dl Est Cr Clr Drug Dosing ml/min Est GFR ( Amer) Est GFR (Non-Af Amer) BUN/Creatinine Ratio (10-20) Glucose (70-99) mg/dl POC Glucose (other) (70-99) mg/dl Lactate Calcium (8.5-10.1) mg/dl POC Ioniz Calcium Luis (1.12-1.32) mmol/l Magnesium (1.8-2.4) mg/dl Total Bilirubin Direct Bilirubin AST ALT Alkaline Phosphatase Total Creatine Kinase (26-192) U/L Troponin I (0-0.045) ng/ml Total Protein Albumin Lipase (73-393) U/L TSH Urine Color Yellow Urine Appearance Clear (Clear) Urine pH 8.5 H (4.5-7.5) Ur Specific [place] 1.013 (1.000-1.030) Urine Protein 3+ H (Negative) Urine Glucose (UA) Negative (Negative) Urine Ketones Trace H (Negative) Urine Blood 2+ H (Negative) Urine Nitrite Negative (Negative) Urine Bilirubin Negative (Negative) Urine Urobilinogen Negative (Negative) Ur Leukocyte Esterase Negative (Negative) Urine WBC (Auto) 1-5 (0-5) /hpf Urine RBC (Auto) 5-10 H (0-4) /hpf U Hyaline Cast (Auto) 0 (0-5) /lpf U Epithel Cells (Auto) 10-20 H (0-5) /lpf Urine Bacteria (Auto) Negative (Negative) 09/27/19 09/27/19 09/27/19 Range/Units 13:29 13:33 13:33 WBC (4.8-10.8) K/uL RBC (4.2-5.4) M/uL Hgb (12.0-16.0) g/dL POC Hgb 16.3 H (12.0-16.0) g/dl Hct (37-47) % POC Hct 48 H (37-47) % MCV (80-100) fL MCH (25-34) pg MCHC (32-36) g/dL RDW Std Deviation (36.4-46.3) fL RDW Coeff of Kristian (11.5-14.5) % Plt Count (130-400) K/uL MPV (7.4-10.4) fL Immature Gran % (Auto) % Neut % (Auto) % Lymph % (Auto) % Marshall % (Auto) % Eos % (Auto) % Baso % (Auto) % Immature Gran # (Auto) (0.00-0.02) K/uL Neut # (Auto) (1.4-6.5) K/uL Lymph # (Auto) (1.2-3.4) K/uL Marshall # (Auto) (0.11-0.59) K/uL Eos # (Auto) (0-0.5) K/uL Baso # (Auto) (0-0.2) K/uL PT (9.0-12.0) Seconds INR (0.9-1.1) APTT (21.0-31.0) Seconds PTT Ratio POC Sodium 139 (135-144) mEq/L Sodium 139 (136-145) mmol/L POC Potassium 3.8 (3.3-5.0) mEq/L Potassium (3.5-5.1) mmol/L POC Chloride 107 (101-112) mEq/L Chloride 104 (98-107) mmol/L Carbon Dioxide 27 (21-32) mmol/L POC Total CO2 26 (24-31) mEq/l Anion Gap 8.0 (3-11) POC Anion Gap 11.0 L (16-25) mmol/L POC BUN 15 (7-18) mg/dl BUN 14 (7-18) mg/dl Creatinine 0.82 (0.6-1.2) mg/dl POC Creatinine 0.6 (0.6-1.3) mg/dl Est Cr Clr Drug Dosing 37.5 ml/min Est GFR ( Amer) 74.0 Est GFR (Non-Af Amer) 63.9 BUN/Creatinine Ratio 16.9 (10-20) Glucose 91 (70-99) mg/dl POC Glucose (other) 88 (70-99) mg/dl Lactate Calcium 8.5 (8.5-10.1) mg/dl POC Ioniz Calcium Luis 0.88 L (1.12-1.32) mmol/l Magnesium (1.8-2.4) mg/dl Total Bilirubin Cancelled 1.4 H Direct Bilirubin Cancelled AST Cancelled ALT Cancelled 21 Alkaline Phosphatase Cancelled 158 H Total Creatine Kinase (26-192) U/L Troponin I < 0.015 (0-0.045) ng/ml Total Protein Cancelled 8.0 Albumin Cancelled 3.5 Lipase 31 L (73-393) U/L TSH Cancelled 5.320 H Urine Color Urine Appearance (Clear) Urine pH (4.5-7.5) Ur Specific [place] (1.000-1.030) Urine Protein (Negative) Urine Glucose (UA) (Negative) Urine Ketones (Negative) Urine Blood (Negative) Urine Nitrite (Negative) Urine Bilirubin (Negative) Urine Urobilinogen (Negative) Ur Leukocyte Esterase (Negative) Urine WBC (Auto) (0-5) /hpf Urine RBC (Auto) (0-4) /hpf U Hyaline Cast (Auto) (0-5) /lpf U Epithel Cells (Auto) (0-5) /lpf Urine Bacteria (Auto) (Negative) 09/27/19 09/27/19 09/27/19 Range/Units 13:33 14:10 14:10 WBC (4.8-10.8) K/uL RBC (4.2-5.4) M/uL Hgb (12.0-16.0) g/dL POC Hgb (12.0-16.0) g/dl Hct (37-47) % POC Hct (37-47) % MCV (80-100) fL MCH (25-34) pg MCHC (32-36) g/dL RDW Std Deviation (36.4-46.3) fL RDW Coeff of Kristian (11.5-14.5) % Plt Count (130-400) K/uL MPV (7.4-10.4) fL Immature Gran % (Auto) % Neut % (Auto) % Lymph % (Auto) % Marshall % (Auto) % Eos % (Auto) % Baso % (Auto) % Immature Gran # (Auto) (0.00-0.02) K/uL Neut # (Auto) (1.4-6.5) K/uL Lymph # (Auto) (1.2-3.4) K/uL Marshall # (Auto) (0.11-0.59) K/uL Eos # (Auto) (0-0.5) K/uL Baso # (Auto) (0-0.2) K/uL PT (9.0-12.0) Seconds INR (0.9-1.1) APTT (21.0-31.0) Seconds PTT Ratio POC Sodium (135-144) mEq/L Sodium (136-145) mmol/L POC Potassium (3.3-5.0) mEq/L Potassium 3.2 L (3.5-5.1) mmol/L POC Chloride (101-112) mEq/L Chloride (98-107) mmol/L Carbon Dioxide (21-32) mmol/L POC Total CO2 (24-31) mEq/l Anion Gap (3-11) POC Anion Gap (16-25) mmol/L POC BUN (7-18) mg/dl BUN (7-18) mg/dl Creatinine (0.6-1.2) mg/dl POC Creatinine (0.6-1.3) mg/dl Est Cr Clr Drug Dosing ml/min Est GFR ( Amer) Est GFR (Non-Af Amer) BUN/Creatinine Ratio (10-20) Glucose (70-99) mg/dl POC Glucose (other) (70-99) mg/dl Lactate Cancelled 3.5 H* Calcium (8.5-10.1) mg/dl POC Ioniz Calcium Luis (1.12-1.32) mmol/l Magnesium 2.1 (1.8-2.4) mg/dl Total Bilirubin Direct Bilirubin 0.4 H AST 43 H ALT Alkaline Phosphatase Total Creatine Kinase 952 H (26-192) U/L Troponin I (0-0.045) ng/ml Total Protein Albumin Lipase (73-393) U/L TSH Urine Color Urine Appearance (Clear) Urine pH (4.5-7.5) Ur Specific [place] (1.000-1.030) Urine Protein (Negative) Urine Glucose (UA) (Negative) Urine Ketones (Negative) Urine Blood (Negative) Urine Nitrite (Negative) Urine Bilirubin (Negative) Urine Urobilinogen (Negative) Ur Leukocyte Esterase (Negative) Urine WBC (Auto) (0-5) /hpf Urine RBC (Auto) (0-4) /hpf U Hyaline Cast (Auto) (0-5) /lpf U Epithel Cells (Auto) (0-5) /lpf Urine Bacteria (Auto) (Negative) Imaging Data Radiologist's Impression: Radiology results as stated below per my review and the radiologist's interpretation: XR chest 1V portable HISTORY: recurrent falls COMPARISON: Chest 08/08/2019. FINDINGS: The heart remains mildly enlarged. Left-sided single lead pacemaker. Mild diffuse interstitial thickening which is likely chronic. No new focal lung consolidations. No pleural effusions. No pneumothorax. IMPRESSION: Stable cardiomegaly and mild chronic interstitial thickening. No acute process within the chest. Electronically signed by: Adarsh Knapp M.D. 09/27/2019 2:[address] CT DOSE: HISTORY: recurrent falls TECHNIQUE: Multiaxial CT images of the head were performed without the use of intravenous contrast. Automated exposure control was utilized for this study. A dose lowering technique was utilized adhering to the principles of ALARA. Comparison: Head CT 08/08/2019. Findings: The paranasal sinuses and mastoid air cells are clear. The calvarium and skull base are intact. There is no mass, hematoma, midline shift, acute infarct. White matter hypodensity is nonspecific but suggestive of microvascular ischemic change. The ventricles and sulci demonstrate mild age-related involutional changes. 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 This remains unchanged. Impression: No significant change compared to the prior study. No acute intracranial abnormality. Electronically signed by: Adarsh Knapp M.D. 09/27/2019 2:42 PM XR humerus RT 2V, XR elbow RT min 3V routine CLINICAL HISTORY: recurrent falls. Right arm and elbow pain. COMPARISON STUDY: None. FINDINGS: Mild chondrocalcinosis within the elbow. Suboptimal lateral view. No definite elbow effusion. No fracture or dislocation within the humerus or elbow. No radiopaque foreign bodies. Soft tissues are unremarkable. The bones are os teopenic. IMPRESSION: No fractures within the right humerus or right elbow. Electronically signed by: Adarsh Knapp M.D. 09/27/2019 2:28 PM XR pelvis 1-2V routine, XR femur RT 2V routine CLINICAL HISTORY: recurrent falls Pelvic pain. Right leg pain. COMPARISON STUDY: Pelvis 07/16/2019. FINDINGS: No fracture or dislocation within the pelvis, hips, or right femur. There is a right total knee arthroplasty. Soft tissues are unremarkable. IMPRESSION: No fractures within the pelvis, hips, or right femur. Electronically signed by: Adarsh Knapp M.D. 09/27/2019 2:32 PM XR humerus RT 2V, XR elbow RT min 3V routine CLINICAL HISTORY: recurrent falls. Right arm and elbow pain. COMPARISON STUDY: None. FINDINGS: Mild chondrocalcinosis within the elbow. Suboptimal lateral view. No definite elbow effusion. No fracture or dislocation within the humerus or elbow. No radiopaque foreign bodies. Soft tissues are unremarkable. The bones are osteopenic. IMPRESSION: No fractures within the right humerus or right elbow. Electronically signed by: Adarsh Knapp M.D. 09/27/2019 2:28 PM XR pelvis 1-2V routine, XR femur RT 2V routine CLINICAL HISTORY: recurrent falls Pelvic pain. Right leg pain. COMPARISON STUDY: Pelvis 07/16/2019. FINDINGS: No fracture or dislocation within the pelvis, hips, or right femur. There is a right total knee arthroplasty. Soft tissues are unremarkable. IMPRESSION: No fractures within the pelvis, hips, or right femur. Electronically signed by: Adarsh Knapp M.D. 09/27/2019 2:32 PM A[address]OMEN AND PELVIS CT WITH IV CONTRAST CT DOSE: HISTORY: recurrent falls hx of sbo TECHNIQUE: Multiaxial CT images of the abdomen and pelvis were performed foll owing the use of intravenous contrast. A dose lowering technique was utilized adhering to the principles of ALARA. COMPARISON STUDY: Abdomen and pelvis CT 02/05/2019. FINDINGS: Stable 5 mm subpleural nodule within the right middle lobe. Interstitial thickening at the lung bases is likely chronic. No pneumoperitoneum. No pneumatosis. Old, healed bilateral rib fractures. No acute fractures within the visualized osseous structures. The heart is enlarged. This remains unchanged. Pacemaker wire is noted. Cholecystectomy. The liver, spleen, adrenal glands are unremarkable. There is motion artifact and streak artifact from the patient's overlapping artifact resulting in suboptimal evaluation of t he abdomen and pelvis. Bilateral cortical renal thinning/scarring. No hydronephrosis. The pancreas is suboptimally assessed but appears unremarkable. No retroperitoneal lymphadenopathy. Calcified plaque throughout the normal caliber abdominal aorta. Persistent anterior abdominal wall laxity is again noted. Possible small left midline ventral hernia containing a short segment of small bowel. This is best seen on image 246. The bladder is unremarkable. The rectum is distended with gas and fluid. No pelvic free fluid. The uterus is surgically absent. The colon is fluid-filled. However, no bowel wall thickening or obstruction. IMPRESSION: 1. Fluid-filled colon and rectum which may represent a diarrheal state. This is not significantly changed. 2. No definite bowel wall thickening or obstruction. 3. No acute traumatic process within the abdomen or pelvis. 4. Additional findings as described above. Electronically signed by: Adarsh Knapp M.D. 09/27/2019 2:[address] DOSE: 1068.43 mGy.cm HISTORY: recurrent falls TECHNIQUE: Multiaxial CT images of the cervical spine were performed and reformatted in the sagittal and coronal plane without the use of contrast. A dose lowering technique was utilized adhering to the principles of ALARA. COMPARISON: Cervical spine CT 08/08/2019. FINDINGS: No fractures. No subluxation. Prevertebral soft tissues and the C1-C2 interval are intact. No pneumothorax. Mild disc space narrowing at C4-C5. Moderate disc space narrowing at C5-C6 and C6-C7. Minimal anterolisthesis of C6 on C7, unchanged. Stable Schmorl's node at C6. IMPRESSION: No fractures within the cervical spine. Electronically signed by: Adarsh Knapp M.D. 09/27/2019 2:48 PM ECG Data Attestation: I personally reviewed and interpreted this ECG as follows: Indication: + weakness Rate (beats per minute): 76 Rhythm: + other (Paced rhythm) ECG ST segments: no ST depression and no ST elevation ECG Findings: + PVCs and + Other (QRS: 142 QT-c: 513) Blood Pressure Blood Pressure Findings: Low blood pressure Blood Pressure Disposition: further management by hospitalist [facility] Narrative Vital signs stable. The labs show a potassium if 3.2, lactate of 3.5, creatinine kinase of 952. Labs are within normal limits, no traumatic injury and no pneumonia. The patient will be admitted to [facility] team for rhabdomyolysis and recurrent falls. Given her aortic stenosis at an advanced state, the patient will be gently hydrated and no large fluid bolus will be given. The patients lactic acidemia is thought to be due to dehydration as opposed to infection, given her negative imagining and urinalysis are within normal limits. The patients granddaughter is at bedside and noted the patient lives alone and might have fallen trying to get to the phone. She agrees with the plan to admit the patient. I discussed the patients case with Pato Edwards [facility]. Impression & Plan Rhabdomyolysis, Recurrent falls, Lactic acidemia Discharge Plan Visit Data Chief Complaint: Fall Stated Complaint: fall/confused ED Provider: Uday Hoskins Discharge Problem: Rhabdomyolysis, Recurrent falls, Lactic acidemia Patient Disposition: Being Evaluated by Hospitalist Forms Stand Alone Forms: My [facility] Prescriptions Prescriptions: No Action primidone 250 mg tablet 375 mg PO BID Qty: 180 RF: 2 acetaminophen [Tylenol] 325 mg tablet 650 mg PO Q4H PRN (Reason: pain) Qty: 60 RF: 5 potassium chloride 10 mEq tablet extended release 10 meq PO BID RF: 0 calcium phosphate-vitamin D3 [Citracal + D3 (calcium phos)] 250 mg calcium- 500 unit tablet,chewable 1 tab PO BID RF: 0 hydrocortisone 2.5 % cream 1 appln topical BID PRN (Reason: itching) Qty: 1 RF: 0 furosemide [Lasix] 20 mg tablet 20 mg PO DAILY Qty: 90 RF: 0 propranolol 120 mg capsule,extended release 24 hr 120 mg PO BID Qty: 180 RF: 0 thiamine HCl (vitamin B1) [Vitamin B-1] 100 mg tablet 100 mg PO QAM Qty: 90 RF: 0 diltiazem HCl 360 mg capsule,extended release 24 hr 360 mg PO HS RF: 0 valsartan 320 mg tablet 320 mg PO QAM RF: 0 levothyroxine 150 mcg tablet 150 mg PO DAILYBB RF: 0 folic acid 1 mg Tablet 1 mg PO QAM RF: 0 polyethylene glycol 3350 [Miralax] 17 gram Powder In Packet 17 g PO HS RF: 0 lidocaine 5 % Adhesive Patch,Medicated 1 patch transdermal QAM Qty: 30 RF: 0 Referrals Referrals: Alex Kwong DO [Primary Care Provider] - The scribe's documentation has been prepared under my direction and personally reviewed by me in its entirety. I confirm that the note above accurately reflects all work, treatment, procedures, and medical decision making performed by me.
--- NOTE | 2019-09-27 17:21 | History & Physical Report ---
Date of Service September 27, 2019 Assessment & Plan (1) Rhabdomyolysis: * Found down and incontinent of urine since last evening. Previously hospitalized Jul 2019 for falls, severe hypothyroidism. Sent to [facility] for skilled rehab and discharged home, where she resides alone. * Imaging without acute process: Xrays- pelvis, humerus, femur, elbow without abnormality. CT Head without acute abnormality. CT Cervical spine without fracture. CT Abd/pelvis without acute traumatic process. Possible diarrheal state with fluid filled colon and rectum, although patient denies any change in bowels. * Without evidence of bleeding -- H/H 17.4/47.9 -- hemoconcentration secondary to dehydration? * UA without evidence of infection, although does have 3+ protein, ketones, 2+ blood, 5-10 RBC. * CPK elevated at 952, lactic acid 3.5, tbili 1.4, alk phos 158, TSH 5.320 -- * Admit telemetry * Most recent ECHO (April 2019) shows moderate valvular aortic stenosis -- on exam, 5/6 murmur -- will repeat limited ECHO * Repeat lactic acid level * Supportive care, supplemental O2 as needed, pain management * NSS+20KCl @ 80cc/hr -- will need to monitor closely as patient with significant * PT/OT * Case Management -- patient likely will need placement * CPK, CBC, CMP in AM (2) Recurrent falls: * As above * PT/OT/CM -- patient likely will need placement (3) Lactic acidemia: * As above. Lactic elevated on admission at 3.5 * Repeat level in 6 hours * IVF as above (4) Valvular heart disease: * Moderate valvular on most recent ECHO April 2019 * Will need to be cautiouse with IVF to avoid acute decompensation (5) Atrial fibrillation: * Permanent afib * Was on coumadin, but due to recurrent falls, has been off anticoagulation for approximately one week, per patient * EKG with afib, 75bpm currently * INR 1.2 on admission, however patient 97% on room air and has not episodes of hypoxia reported. Hemodynamically stable (6) CHF (congestive heart failure): * Per patient, although most recent echo without reduction in systolic function. EF 55-60%. Moderate valvular , mod MR, mild TR, no wma, mild LVH. * Would be cautious though, given , with fluids to avoid acute decompensation, given patient in permanent afib and not fully anticoagulated * Repeat ECHO ordered (7) Sick sinus syndrome: * S/p pacemaker 6 years ago (8) Hypothyroidism: * Had previously been admitted with TSH of 54 secondary to medication non-compliance * TSH currently 5.320 -- given levothyroxine re-initiated over 6 weeks ago and TSH still elevated may need to increase dose further, however patient admits she does occassionally miss a dose (9) Hypertension: * BP well controlled, currently 139/60 * Holding valsartan and furosemide as giving patient fluids to correct elevated CPK (10) Gastroesophageal reflux disease: * Per patient - no current symptoms or home medications (11) Benign essential tremor: * Continue home propranolol and primidone (12) Dyslipidemia: * Not on any home medications * Given age and recurrent falls, as well as current rhabdo, unsure benefit ou tweighs risk (13) Elevated alkaline phosphatase level: * As above, elevated at 158 on admission (14) Oral lesion: * Nystatin prn (15) DVT prophylaxis: * Given high fall risk and recurrent falls, will forgo chemoprophylaxis * SCDs Dispo: likely will need to remain hospitalized 2-3 days, correct rhabdo, CM for possible placement History of Present Illness Primary Care Provider: Alex Kwong, 89 year old white female with PMH significant for atrial fibrillation (on coumadin but off x 1 d/t falls), severe , CHF, HTN, HLD, SSS s/p pacemaker, hypothyroidism, reflux, essential tremor, rheumatoid and osteoarthritis presents to the emergency room after being found down in her house this morning after 11am. Per family record, they had not heard from patient since last evening and called EMS who found the patient down and incontinent of urine. Patient states she was in the kitchen last night and fell. She states she tripped and had been yelling for a while but no one heard her. She does confirm some aches in her back as well as her head, but states she does have chronic back pain. She denies LOC or hitting her head. She states she has been taking lasix for the past week, which is a new medication for her, but she does states she had previous difficulty remembering to take her thyroid medications. Patient was previously hospitalized in July for frequent falls and failure to thrive secondary to severe hypothyroidism with a TSH of 54. Patient had not been taking her medications. She was subsequently discharged to [facility] on August 13 and was discharged home on September 01. She states she lives alone but her son does live nearby. She has help come in twice a week. She denies any recent fever or chills, chest pain or shortness of breath, diarrhea or constipation or blurred vision/visual changes. ER Course: Xrays- pelvis, humerus, femur, elbow without abnormality. CT Head without acute abnormality. CT Cervical spine without fracture. CT Abd/pelvis without acute traumatic process. Possible diarrheal state with fluid filled colon and rectum. CPK 952. H/H 17.4/47.. Na 139. K 3.2. Creat 0.82. Lactic acid 3.5. Tbili 1.4. Direct bili 0.4. Alk phos 158. TSH 5.320. UA without evidence of infection, 3+ protein, ketones, 2+ blood, 5-10 RBC. Given NSS @ 125cc/hr x 500cc. Allergies Allergy/AdvReac Type Severity Reaction Status Date / Time orange Allergy Intermediate HIVES Verified 09/27/19 13:48 pseudoephedrine Allergy Intermediate worsens Verified 09/27/19 13:48 afib strawberry Allergy Intermediate HIVES Verified 09/27/19 13:48 Sulfa (Sulfonamide Allergy Intermediate hives Verified 09/27/19 13:48 Antibiotics) Cephalosporins Allergy Unknown ON [facility] Verified 09/27/19 13:48 LIST cilostazol [From Pletal] Allergy Unknown ON [facility] Verified 09/27/19 13:48 LIST tramadol Allergy Unknown ON [facility] Verified 09/27/19 13:48 LIST lorazepam AdvReac Severe "WENT Verified 09/27/19 13:48 CRAZY" caffeine AdvReac Intermediate HEART Verified 09/27/19 13:48 PALPITATIONS doxycycline AdvReac Intermediate NIGHTMARES Verified 09/27/19 13:48 rosuvastatin AdvReac Intermediate MYALGIAS Verified 09/27/19 13:48 hydrochlorothiazide AdvReac HYPONATREMI Verified 09/27/19 13:48 A Home Medications Home Medications Medication Instructions Recorded Confirmed Type diltiazem HCl 360 mg PO HS 02/02/19 09/27/19 History folic acid 1 mg PO QAM 02/02/19 09/27/19 History levothyroxine 150 mg PO DAILYBB 02/02/19 09/27/19 History valsartan 320 mg PO QAM 02/02/19 09/27/19 History primidone 250 mg tablet 375 mg PO BID #180 tab 04/10/19 09/27/19 Rx calcium phosphate-vitamin D3 250 1 tab PO BID tab 04/15/19 09/27/19 History mg calcium-500 unit chewable tablet hydrocortisone 2.5 % topical cream 1 appln TOPICAL BID PRN #1 gm 04/15/19 09/27/19 History polyethylene glycol 3350 [Miralax] 17 g PO HS 05/13/19 09/27/19 History acetaminophen 325 mg tablet 650 mg PO Q4H PRN #60 tab 06/17/19 09/27/19 Rx potassium chloride 10 mEq 10 meq PO BID tab 07/09/19 09/27/19 History tablet,extended release lidocaine 1 patch TRANSDERMAL QAM #30 ea 08/13/19 09/27/19 Rx furosemide 20 mg tablet 20 mg PO DAILY #90 tab 09/17/19 09/27/19 Rx propranolol 120 mg capsule,24 120 mg PO BID #180 cap 09/17/19 09/27/19 Rx hr,extended release thiamine HCl (vitamin B1) 100 mg 100 mg PO QAM #90 tab 09/17/19 09/27/19 Rx tablet Past Med/Surg History Medical History (Updated 09/27/19 @ 18:23 by Callie Powers PA-C) Actinic keratosis (Acute) Aortic stenosis (Acute) Benign essential tremor (Acute) Cardiac pacemaker (Acute) Carotid artery plaque (Acute) Cerebral atherosclerosis (Acute) CHF (congestive heart failure) (Acute) Chronic anticoagulation (Acute) Chronic osteoarthritis (Acute) Cystocele (Acute) DVT (deep venous thrombosis) (Resolved) Dyslipidemia (Acute) Edema (Acute) Elevated alkaline phosphatase level (Acute) Fall as cause of accidental injury at home as place of occurrence (Acute) Gait disturbance (Chronic) Gastroesophageal reflux disease (Acute) Generalized weakness (Acute) Hip pain, bilateral (Acute) Hypertension (Chronic) Hyponatremia Hypothyroidism (Acute) Hypoxia (Acute) Left rib fracture (Acute) Meckels diverticulum (Acute) Mitral regurgitation (Acute) Osteoporosis (Acute) Ovarian cyst (Chronic) Ovarian cyst rupture Permanent atrial fibrillation (Chronic) Rectocele (Acute) Rheumatoid arthritis (Acute) Rosacea (Acute) SBO (small bowel obstruction) (Acute) Sick sinus syndrome (Acute) Small bowel obstruction (Acute) Spinal stenosis (Chronic) Tricuspid regurgitation (Acute) Warfarin anticoagulation (Chronic) Surgical History H/O: hysterectomy (Resolved) History of colon resection (Resolved) For diverticulitis and Meckel's Diverticulum History of hernia repair Hx of appendectomy (Resolved) Hx of cholecystectomy (Resolved) Family History Other Family history non-contributory Social History Preferred Language: Luxembourgish Communication Ability: Effective Communication Ability Comment: Impared at times due to essential tremor Leaf Coverer Required: No Beliefs That Will Affect Care: None marital status: / Current Living Situation: Alone Current Living Situation Comment: son lives next door Other Information That Helps Us Care for You: No Feels Safe at Home: Yes Safety Concerns: Feels Safe At This Time Smoking Status: Never smoker Second Hand Exposure: No ; Hx Alcohol Use: No Hx Substance Use: No Review of Systems Constitutional: no fever and no chills Eyes: no diplopia and no eye pain Ear, Nose, Mouth, Throat: no sore throat and no dysphagia dry mouth Respiratory: no cough and no dyspnea Cardiovascular: no chest pain and no palpitations Gastrointestinal: no abdominal pain, no nausea, no vomiting, no constipation and no diarrhea/loose stools Genitourinary: no dysuria, no difficulty urinating and no hematuria Musculoskeletal: + back pain head pain Integumentary: no rash and no lesions Neurologic: + falls and + tremor(s) Psychiatric: no depression and no anxiety Endocrine: + fatigue and + cold intolerance Hematologic / Lymphatic: + easy bruising; no unexplained weight loss Allergy / Immunological: no urticaria and no rash Physical Exam Constitutional: + frail appearing; no acute distress ENMT: dry mucus membranes white/yellow plaque adherent to teeth surfaces diffusely Additional yellow plaque left side hard palate Neck: trachea midline, no thyromegaly Respiratory: no respiratory distress and does not use accessory muscles Auscultation: + diminished lung sounds and + crackles (bibasilar crackles); no wheezes Cardiovascular: Rate/Rhythm: + irregularly irregular Heart Sounds: normal S1, normal S2 and + murmur (5/6 systolic ejection murmur best appreciated LUSB) Vessels: no JVD Extremities: no edema Chest (Breasts): normal inspection/palpation of breasts Gastrointestinal (Abdomen): normal bowel sounds, soft, nontender, no hepatosplenomegaly Musculoskeletal: no cyanosis or clubbing, extremities motor strength 5/5 Skin: no rashes, warm and dry Psychiatric: A+Ox3, euthymic affect Orientation: cooperative Eye Contact: good eye contact Motor Behavior: + tremor Lymphatic: no cervical or axillary lymphadenopathy Results & Data Vital Signs (Past 12 Hours) Vital Signs Temp Pulse Resp BP Pulse Ox 09/27/19 17:01 75 9 L 97 09/27/19 17:00 73 15 139/60 96 09/27/19 16:31 73 13 95 09/27/19 16:30 76 19 116/66 96 09/27/19 16:00 70 21 116/58 L 98 09/27/19 15:30 68 7 L 127/74 95 09/27/19 15:09 74 15 98 09/27/19 15:08 74 13 134/73 95 09/27/19 15:00 70 20 91 09/27/19 14:30 71 19 166/78 H 97 09/27/19 14:00 76 14 146/78 H 97 09/27/19 13:40 74 16 135/74 96 09/27/19 13:30 84 19 96 09/27/19 13:19 36.3 C L 87 20 171/83 H 97 09/27/19 13:18 87 20 97 09/27/19 13:00 71 14 160/80 H 94 09/27/19 12:48 77 20 143/79 H 96 09/27/19 12:42 76 14 96 09/27/19 12:34 78 18 171/83 H 92 Laboratory Results 09/27/19 09/27/19 09/27/19 Range/Units 14:10 14:10 13:33 WBC (4.8-10.8) K/uL RBC (4.2-5.4) M/uL Hgb (12.0-16.0) g/dL POC Hgb (12.0-16.0) g/dl Hct (37-47) % POC Hct (37-47) % MCV (80-100) fL MCH (25-34) pg MCHC (32-36) g/dL RDW Std Deviation (36.4-46.3) fL RDW Coeff of Kristian (11.5-14.5) % Plt Count (130-400) K/uL MPV (7.4-10.4) fL Immature Gran % (Auto) % Neut % (Auto) % Lymph % (Auto) % Morgan % (Auto) % Eos % (Auto) % Baso % (Auto) % Immature Gran # (Auto) (0.00-0.02) K/uL Neut # (Auto) (1.4-6.5) K/uL Lymph # (Auto) (1.2-3.4) K/uL Morgan # (Auto) (0.11-0.59) K/uL Eos # (Auto) (0-0.5) K/uL Baso # (Auto) (0-0.2) K/uL PT (9.0-12.0) Seconds INR (0.9-1.1) APTT (21.0-31.0) Seconds PTT Ratio POC Sodium (135-144) mEq/L Sodium (136-145) mmol/L POC Potassium (3.3-5.0) mEq/L Potassium 3.2 L (3.5-5.1) mmol/L POC Chloride (101-112) mEq/L Chloride (98-107) mmol/L Carbon Dioxide (21-32) mmol/L POC Total CO2 (24-31) mEq/l Anion Gap (3-11) POC Anion Gap (16-25) mmol/L POC BUN (7-18) mg/dl BUN (7-18) mg/dl Creatinine (0.6-1.2) mg/dl POC Creatinine (0.6-1.3) mg/dl Est Cr Clr Drug Dosing ml/min Est GFR ( Amer) Est GFR (Non-Af Amer) BUN/Creatinine Ratio (10-20) Glucose (70-99) mg/dl POC Glucose (other) (70-99) mg/dl Lactate 3.5 H* Cancelled Calcium (8.5-10.1) mg/dl POC Ioniz Calcium Luis (1.12-1.32) mmol/l Magnesium 2.1 (1.8-2.4) mg/dl Total Bilirubin Direct Bilirubin 0.4 H AST 43 H ALT Alkaline Phosphatase Total Creatine Kinase 952 H (26-192) U/L Troponin I (0-0.045) ng/ml Total Protein Albumin Lipase (73-393) U/L TSH Urine Color Urine Appearance (Clear) Urine pH (4.5-7.5) Ur Specific Quincy (1.000-1.030) Urine Protein (Negative) Urine Glucose (UA) (Negative) Urine Ketones (Negative) Urine Blood (Negative) Urine Nitrite (Negative) Urine Bilirubin (Negative) Urine Urobilinogen (Negative) Ur Leukocyte Esterase (Negative) Urine WBC (Auto) (0-5) /hpf Urine RBC (Auto) (0-4) /hpf U Hyaline Cast (Auto) (0-5) /lpf U Epithel Cells (Auto) (0-5) /lpf Urine Bacteria (Auto) (Negative) 09/27/19 09/27/19 09/27/19 Range/Units 13:33 13:33 13:29 WBC (4.8-10.8) K/uL RBC (4.2-5.4) M/uL Hgb (12.0-16.0) g/dL POC Hgb 16.3 H (12.0-16.0) g/dl Hct (37-47) % POC Hct 48 H (37-47) % MCV (80-100) fL MCH (25-34) pg MCHC (32-36) g/dL RDW Std Deviation (36.4-46.3) fL RDW Coeff of Kristian (11.5-14.5) % Plt Count (130-400) K/uL MPV (7.4-10.4) fL Immature Gran % (Auto) % Neut % (Auto) % Lymph % (Auto) % Morgan % (Auto) % Eos % (Auto) % Baso % (Auto) % Immature Gran # (Auto) (0.00-0.02) K/uL Neut # (Auto) (1.4-6.5) K/uL Lymph # (Auto) (1.2-3.4) K/uL Morgan # (Auto) (0.11-0.59) K/uL Eos # (Auto) (0-0.5) K/uL Baso # (Auto) (0-0.2) K/uL PT (9.0-12.0) Seconds INR (0.9-1.1) APTT (21.0-31.0) Seconds PTT Ratio POC Sodium 139 (135-144) mEq/L Sodium 139 (136-145) mmol/L POC Potassium 3.8 (3.3-5.0) mEq/L Potassium (3.5-5.1) mmol/L POC Chloride 107 (101-112) mEq/L Chloride 104 (98-107) mmol/L Carbon Dioxide 27 (21-32) mmol/L POC Total CO2 26 (24-31) mEq/l Anion Gap 8.0 (3-11) POC Anion Gap 11.0 L (16-25) mmol/L POC BUN 15 (7-18) mg/dl BUN 14 (7-18) mg/dl Creatinine 0.82 (0.6-1.2) mg/dl POC Creatinine 0.6 (0.6-1.3) mg/dl Est Cr Clr Drug Dosing 37.5 ml/min Est GFR ( Amer) 74.0 Est GFR (Non-Af Amer) 63.9 BUN/Creatinine Ratio 16.9 (10-20) Glucose 91 (70-99) mg/dl POC Glucose (other) 88 (70-99) mg/dl Lactate Calcium 8.5 (8.5-10.1) mg/dl POC Ioniz Calcium Luis 0.88 L (1.12-1.32) mmol/l Magnesium (1.8-2.4) mg/dl Total Bilirubin 1.4 H Cancelled Direct Bilirubin Cancelled AST Cancelled ALT 21 Cancelled Alkaline Phosphatase 158 H Cancelled Total Creatine Kinase (26-192) U/L Troponin I < 0.015 (0-0.045) ng/ml Total Protein 8.0 Cancelled Albumin 3.5 Cancelled Lipase 31 L (73-393) U/L TSH 5.320 H Cancelled Urine Color Urine Appearance (Clear) Urine pH (4.5-7.5) Ur Specific [place] (1.000-1.030) Urine Protein (Negative) Urine Glucose (UA) (Negative) Urine Ketones (Negative) Urine Blood (Negative) Urine Nitrite (Negative) Urine Bilirubin (Negative) Urine Urobilinogen (Negative) Ur Leukocyte Esterase (Negative) Urine WBC (Auto) (0-5) /hpf Urine RBC (Auto) (0-4) /hpf U Hyaline Cast (Auto) (0-5) /lpf U Epithel Cells (Auto) (0-5) /lpf Urine Bacteria (Auto) (Negative) 09/27/19 09/27/19 09/27/19 Range/Units 13:05 12:00 12:00 WBC 11.04 H (4.8-10.8) K/uL RBC 4.87 (4.2-5.4) M/uL Hgb 17.4 H (12.0-16.0) g/dL POC Hgb (12.0-16.0) g/dl Hct 47.9 H (37-47) % POC Hct (37-47) % MCV 98.4 (80-100) fL MCH 35.7 H (25-34) pg MCHC 36.3 H (32-36) g/dL RDW Std Deviation 54.1 H (36.4-46.3) fL RDW Coeff of Kristian 15.1 H (11.5-14.5) % Plt Count 166 (130-400) K/uL MPV 11.9 H (7.4-10.4) fL Immature Gran % (Auto) 0.3 % Neut % (Auto) 76.7 % Lymph % (Auto) 11.5 % Morgan % (Auto) 10.8 % Eos % (Auto) 0.4 % Baso % (Auto) 0.3 % Immature Gran # (Auto) 0.03 H (0.00-0.02) K/uL Neut # (Auto) 8.48 H (1.4-6.5) K/uL Lymph # (Auto) 1.27 (1.2-3.4) K/uL Morgan # (Auto) 1.19 H (0.11-0.59) K/uL Eos # (Auto) 0.04 (0-0.5) K/uL Baso # (Auto) 0.03 (0-0.2) K/uL PT 12.0 (9.0-12.0) Seconds INR 1.2 H (0.9-1.1) APTT 27.4 (21.0-31.0) Seconds PTT Ratio 1.0 POC Sodium (135-144) mEq/L Sodium (136-145) mmol/L POC Potassium (3.3-5.0) mEq/L Potassium (3.5-5.1) mmol/L POC Chloride (101-112) mEq/L Chloride (98-107) mmol/L Carbon Dioxide (21-32) mmol/L POC Total CO2 (24-31) mEq/l Anion Gap (3-11) POC Anion Gap (16-25) mmol/L POC BUN (7-18) mg/dl BUN (7-18) mg/dl Creatinine (0.6-1.2) mg/dl POC Creatinine (0.6-1.3) mg/dl Est Cr Clr Drug Dosing ml/min Est GFR ( Amer) Est GFR (Non-Af Amer) BUN/Creatinine Ratio (10-20) Glucose (70-99) mg/dl POC Glucose (other) (70-99) mg/dl Lactate Calcium (8.5-10.1) mg/dl POC Ioniz Calcium Luis (1.12-1.32) mmol/l Magnesium (1.8-2.4) mg/dl Total Bilirubin Direct Bilirubin AST ALT Alkaline Phosphatase Total Creatine Kinase (26-192) U/L Troponin I (0-0.045) ng/ml Total Protein Albumin Lipase (73-393) U/L TSH Urine Color Yellow Urine Appearance Clear (Clear) Urine pH 8.5 H (4.5-7.5) Ur Specific [place] 1.013 (1.000-1.030) Urine Protein 3+ H (Negative) Urine Glucose (UA) Negative (Negative) Urine Ketones Trace H (Negative) Urine Blood 2+ H (Negative) Urine Nitrite Negative (Negative) Urine Bilirubin Negative (Negative) Urine Urobilinogen Negative (Negative) Ur Leukocyte Esterase Negative (Negative) Urine WBC (Auto) 1-5 (0-5) /hpf Urine RBC (Auto) 5-10 H (0-4) /hpf U Hyaline Cast (Auto) 0 (0-5) /lpf U Epithel Cells (Auto) 10-20 H (0-5) /lpf Urine Bacteria (Auto) Negative (Negative) Supervising Physician Co-Signing Physician Notes Patient seen and examined with ASHLEY Wong. I agree with her exam findings, review of systems, assessment and plan. I personally reviewed the lab work and imaging as well. patient with possible syncope at home, on the floor for several hours fortunately no fractures or serious injuries on multiple x-rays and CT scans CK mildly elevated but Cr stable - Rhabdomyolysis: due to prolonged time on the floor, IV fluids at 80cc/hr, repeat CPK in the AM, Cr is stable, follow up in the AM - Syncope: no recollection of falling observe on tele for arrhythmia, has h/o which could be the culprit may no longer be safe to live alone PT/OT consults, CM consults for either rehab or consider more permanent placement vs 24 hour care at home PG Care Time/CCT Total # of Minutes Spent Total Time Spent with Patient: Total time spent is greater than 50% in coordinat ion of care (as documented) at patient's floor/unit and/or counseling patient: (1) CHF (congestive heart failure) Heart failure chronicity: unspecified Heart failure type: unspecified Qualified Code(s): I50.9 - Heart failure, unspecified (2) Atrial fibrillation Atrial fibrillation type: longstanding persistent Qualified Code(s): I48.11 - Longstanding persistent atrial fibrillation (3) Hypertension Hypertension type: essential hypertension Qualified Code(s): I10 - Essential (primary) hypertension
[2019-09-27] MEDS ORDERED: POTASSIUM CHLORIDE 20 MEQ TABCR PO STA (18:20)
[2019-09-27] MEDS ORDERED: POTASSIUM CHLORIDE / WTR 10 MEQ/100 ML PLCT IV STA (18:32)
[2019-09-27] MEDS ORDERED: NYSTATIN 30 ML, DEXAMETHASONE CONC 3.75 MG, DiphenhydrAMINE Syrup 300 MG, ORA-SWEET SYR... PO PRN (19:30)
[2019-09-27] MEDS ORDERED: HYDROCORTISONE 2.5% CR 30 GM TUBE EXT PRN (19:30)
[2019-09-27] MEDS ORDERED: NITROGLYCERIN SL 0.4 MG/TAB TAB SL PRN (19:30)
[2019-09-27] MEDS ORDERED: ACETAMINOPHEN 325 MG TAB PO PRN (19:30)
[2019-09-27] MEDS ORDERED: ONDANSETRON INJ 2 MG/ML 2 ML VIAL IV PRN (19:30)
[2019-09-27] MEDS ORDERED: MoRPHine SULFATE 2 MG/ML CARP IV PRN (19:30)
[2019-09-27] MEDS ORDERED: POLYETHYLENE (MIRALAX) 17 GM PACK PO PRN (19:30)
[2019-09-27] MEDS ORDERED: ALUMINUM/MAGNESIUM SUSP 30 ML UDC PO PRN (19:30)
[2019-09-27] MEDS: NSS + 20MEQ KCL 20 MEQ/1,000 ML BAG IV SCH (20:57)
[2019-09-27] MEDS: CALCIUM 600MG + VIT D 400 IU TAB PO SCH (20:59)
[2019-09-27] MEDS: PROPRANOLOL HCL 60 MG LA CAP PO SCH (21:01)
[2019-09-27] MEDS: PRIMIDONE 250 MG TAB PO SCH (21:01)
[2019-09-27] MEDS: POLYETHYLENE (MIRALAX) 17 GM PACK PO SCH (21:01)
[2019-09-27] MEDS: POTASSIUM CHLORIDE 10 MEQ TABCR PO SCH (21:01)
[2019-09-28] MEDS: LEVOTHYROXINE SODIUM 150 MCG TABLET PO SCH (06:10)
[2019-09-28 07:08] LABS: BUN Creatinine Ratio 21.3 (10-20); Calcium 8.7 mg/dl (8.5-10.1); Creatinine Clr Calc Pharmacy 30.8 ml/min; Est GFR (African American) 58.3; Est GFR (Non-African American) 50.3
[2019-09-28 07:24] LABS: Albumin Globulin Ratio 0.7 (0.9-2); Globulin 4.2 gm/dl (2.5-4.0); Total Protein 7.2 gm/dl (6.4-8.2)
[2019-09-28 08:08] LABS: Basophils # (auto) 0.02 K/uL (0-0.2); Basophils % (auto) 0.2 %; Eosinophils # (auto) 0.18 K/uL (0-0.5); Eosinophils % (auto) 2.1 %; Hematocrit (blood only) 40.5 % (37-47); Hemoglobin 14.2 g/dL (12.0-16.0); Immature Granulocytes # (auto) 0.01 K/uL (0.00-0.02); Immature Granulocytes % (auto) 0.1 %; Lymphocytes # (auto) 1.78 K/uL (1.2-3.4); Lymphocytes % (auto) 21.2 %; Mean Corpuscular Hemoglobin 34.4 pg (25-34); Mean Corpuscular Hgb Conc 35.1 g/dL (32-36); Mean Corpuscular Volume 98.1 fL (80-100); Mean Platelet Volume 11.7 fL (7.4-10.4); Monocytes # (auto) 1.28 K/uL (0.11-0.59); Monocytes % (auto) 15.3 %; Neutrophils # (auto) 5.12 K/uL (1.4-6.5); Neutrophils % (auto) 61.1 %; Platelet Count 138 K/uL (130-400); RDW Coefficient of Variation 15.2 % (11.5-14.5); RDW Standard Deviation 54.3 fL (36.4-46.3); Red Blood Count 4.13 M/uL (4.2-5.4); White Blood Count 8.39 K/uL (4.8-10.8)
[2019-09-28] MEDS: NSS + 20MEQ KCL 20 MEQ/1,000 ML BAG IV SCH ×2 (08:20→20:13)
[2019-09-28] MEDS: FOLIC ACID 1 MG TAB PO SCH (08:21)
[2019-09-28] MEDS: CALCIUM 600MG + VIT D 400 IU TAB PO SCH ×2 (08:21→20:13)
[2019-09-28] MEDS: PROPRANOLOL HCL 60 MG LA CAP PO SCH ×2 (08:21→20:15)
[2019-09-28] MEDS: POTASSIUM CHLORIDE 10 MEQ TABCR PO SCH ×2 (08:21→20:15)
[2019-09-28] MEDS: LIDOCAINE 5% 1 PATCH TD SCH (08:22)
[2019-09-28] MEDS: PRIMIDONE 250 MG TAB PO SCH ×2 (08:25→20:15)
[2019-09-28] MEDS: THIAMINE HCL 100 MG TAB PO SCH (08:26)
[2019-09-28 09:30] LABS: INR 1.2 (0.9-1.1); Prothrombin Time 12.2 Seconds (9.0-12.0)
--- NOTE | 2019-09-28 13:32 | Hospitalist Progress Note ---
Date of Service September 28, 2019 Assessment & Plan (1) Rhabdomyolysis: * Secondary to prolonged down time --> Found down and incontinent of urine since last evening. Previously hospitalized Jul 2019 for falls, severe hypothyroidism. Sent to [facility] for skilled rehab and discharged home, where she resides alone. * Imaging without acute process: Xrays- pelvis, humerus, femur, elbow without abnormality. CT Head without acute abnormality. CT Cervical spine without fra cture. CT Abd/pelvis without acute traumatic process. Possible diarrheal stat e with fluid filled colon and rectum, although patient denies any change in bowels. Without evidence of bleeding -- H/H 17.4/47.9 -- hemoconcentration secondary to dehydration. UA without evidence of infection, although does have 3+ protein, ketones, 2+ blood, 5-10 RBC. * Most recent ECHO (April 2019) shows moderate valvular aortic stenosis -- on exam, 5/6 murmur --> REPEAT ECHO PENDING * On admission, CPK elevated at 952, lactic acid 3.5, tbili 1.4, alk phos 158, TSH 5.320 * Today -- > * CPK remains elevated, at 1118. Lactic trended down, to 2.5. Tbili normalized to 1.0. H/H stable at 14.2/40.5 * Will continue IVF @ 80cc/hr as pt with significant * Pacemaker Interrogation * PT/OT/CM -- as patient not safe at home and will likely need placement * Repeat CBC, CMP, CPK in AM (2) Recurrent falls: * As above. PT/OT/CM -- patient likely will need placement. Likely secondary to worsening (3) Lactic acidemia: * As above. Lactic elevated on admission at 3.5. Repeat trending down, 2.5 * IVF as above. (4) Valvular heart disease: * Moderate valvular on most recent ECHO April 2019 * Will need to be cautiouse with IVF to avoid acute decompensation (5) Atrial fibrillation: * Permanent afib * Was on coumadin, but due to recurrent falls, has been off anticoagulation for approximately one week, per patient * INR 1.2 on admission, however patient 97% on room air and has not episodes of hypoxia reported. Hemodynamically stable * EKG with afib on admission. * Per review of telemetry, patient continues to be afib in the 60s (6) CHF (congestive heart failure): * Per patient, although most recent echo without reduction in systolic function. EF 55-60%. Moderate valvular , mod MR, mild TR, no wma, mild LVH. * Would be cautious though, given , with fluids to avoid acute decompensation, given patient in permanent afib and not fully anticoagulated * Repeat ECHO ordered -- completed, but pending (7) Sick sinus syndrome: * S/p pacemaker 6 years ago (8) Hypothyroidism: * Had previously been admitted with TSH of 54 secondary to medication non- compliance * TSH currently 5.320 -- given levothyroxine re-initiated over 6 weeks ago and TSH still elevated could consider increasing dose if patient with s/sx -- if increased, would need TFTs as outpatient in 4-6 weeks (9) Hypertension: * BP well controlled, currently 130/63 * Holding valsartan and furosemide as giving patient fluids to correct elevated CPK -- restart when resolved (10) Gastroesophageal reflux disease: * Per patient - no current symptoms or home medications (11) Benign essential tremor: * Continue home propranolol and primidone (12) Dyslipidemia: * Not on any home medications * Given age and recurrent falls, as well as current rhabdo, unsure benefit outweighs risk (13) Elevated alkaline phosphatase level: * As above, elevated at 158 on admission * Continues to be elevated, but trending down -- currently 142 (14) Oral lesion: * Nystatin prn (15) DVT prophylaxis: * Given high fall risk and recurrent falls, will forgo chemoprophylaxis * SCDs Dispo: likely will need to remain hospitalized additional 2-3 days to slowly c orrect rhabdo in setting of , PT/OT/CM for possible snf placement Subjective Patient seen this morning. She states she continues to have generalized aches and pains but they are improved from yesterday. She continues to state she believes she tripped in her kitchen and tried to yell out for help, but is not sure if "maybe I was thinking I was yelling in my head". She states she has "RT comes 3x/wk and OT comes 2x/wk". She states she did not mind [facility] but she is happier at home. However, she does state that she is afraid to go home and have the same thing happen and there will be no one there to help her if she falls. Review of Systems Review of Systems: All systems reviewed & are unremarkable except as noted in HPI & below no fever and no chills no diplopia and no eye pain no sore throat and no dysphagia. +dry mouth no cough and no dyspnea no chest pain and no palpitations no abdominal pain, no nausea, no vomiting, no constipation and no diarrhea/loose stools no dysuria, no difficulty urinating and no hematuria + back pain, +neck pain no rash and no lesions + falls and + tremor(s) no depression and no anxiety + fatigue and + cold intolerance + easy bruising; no unexplained weight loss no urticaria and no rash Physical Exam Constitutional: + frail appearing; no acute distress Eyes: + anicteric sclerae and PERRL Neck: trachea midline, no thyromegaly Respiratory: no respiratory distress and does not use accessory muscles Auscultation: + diminished lung sounds and + crackles (bibasilar crackles); no wheezes Cardiovascular: Rate/Rhythm: + irregularly irregular Heart Sounds: normal S1, normal S2 and + murmur (5/6 systolic ejection murmur best appreciated LUSB) Vessels: no JVD Extremities: no edema Gastrointestinal (Abdomen): normal bowel sounds, soft, nontender, no hepatosplenomegaly Musculoskeletal: no cyanosis or clubbing, extremities motor strength 5/5 Skin: no rashes, warm and dry Psychiatric: A+Ox3, euthymic affect Orientation: cooperative Eye Contact: good eye contact Motor Behavior: + tremor Lymphatic: no cervical or axillary lymphadenopathy Results & Data Vital Signs (Past 12 Hours) Vital Signs Temp Pulse Pulse Resp BP Pulse Ox 09/28/19 11:51 36.3 C L 62 18 109/63 95 09/28/19 07:34 36.6 C 65 18 130/63 97 09/28/19 03:52 36.6 C 75 12 116/69 97 Laboratory Results 09/28/19 09/28/19 09/28/19 Range/Units 08:42 05:59 05:59 WBC 8.39 (4.8-10.8) K/uL RBC 4.13 L (4.2-5.4) M/uL Hgb 14.2 D (12.0-16.0) g/dL POC Hgb (12.0-16.0) g/dl Hct 40.5 (37-47) % POC Hct (37-47) % MCV 98.1 (80-100) fL MCH 34.4 H (25-34) pg MCHC 35.1 (32-36) g/dL RDW Std Deviation 54.3 H (36.4-46.3) fL RDW Coeff of Kristian 15.2 H (11.5-14.5) % Plt Count 138 (130-400) K/uL MPV 11.7 H (7.4-10.4) fL Immature Gran % (Auto) 0.1 % Neut % (Auto) 61.1 % Lymph % (Auto) 21.2 % Armstrong % (Auto) 15.3 % Eos % (Auto) 2.1 % Baso % (Auto) 0.2 % Immature Gran # (Auto) 0.01 (0.00-0.02) K/uL Neut # (Auto) 5.12 (1.4-6.5) K/uL Lymph # (Auto) 1.78 (1.2-3.4) K/uL Armstrong # (Auto) 1.28 H (0.11-0.59) K/uL Eos # (Auto) 0.18 (0-0.5) K/uL Baso # (Auto) 0.02 (0-0.2) K/uL PT 12.2 H (9.0-12.0) Seconds INR 1.2 H (0.9-1.1) POC Sodium (135-144) mEq/L Sodium 139 (136-145) mmol/L POC Potassium (3.3-5.0) mEq/L Potassium 4.0 D (3.5-5.1) mmol/L POC Chloride (101-112) mEq/L Chloride 106 (98-107) mmol/L Carbon Dioxide 24 (21-32) mmol/L POC Total CO2 (24-31) mEq/l Anion Gap 10.0 (3-11) POC Anion Gap (16-25) mmol/L POC BUN (7-18) mg/dl BUN 21 H (7-18) mg/dl Creatinine 1.00 (0.6-1.2) mg/dl POC Creatinine (0.6-1.3) mg/dl Est Cr Clr Drug Dosing 30.8 ml/min Est GFR ( Amer) 58.3 Est GFR (Non-Af Amer) 50.3 BUN/Creatinine Ratio 21.3 H (10-20) Glucose 64 L (70-99) mg/dl POC Glucose (other) (70-99) mg/dl Lactate Calcium 8.7 (8.5-10.1) mg/dl POC Ioniz Calcium Luis (1.12-1.32) mmol/l Magnesium (1.8-2.4) mg/dl Total Bilirubin 1.0 Direct Bilirubin AST 54 H ALT 19 Alkaline Phosphatase 142 H Total Creatine Kinase 1118 H (26-192) U/L Troponin I (0-0.045) ng/ml Total Protein 7.2 Albumin 3.0 L Globulin 4.2 H (2.5-4.0) gm/dl Albumin/Globulin Ratio 0.7 L (0.9-2) Lipase (73-393) U/L TSH Specimen Hemolysis 09/27/19 09/27/19 09/27/19 Range/Units 20:03 14:10 14:10 WBC (4.8-10.8) K/uL RBC (4.2-5.4) M/uL Hgb (12.0-16.0) g/dL POC Hgb (12.0-16.0) g/dl Hct (37-47) % POC Hct (37-47) % MCV (80-100) fL MCH (25-34) pg MCHC (32-36) g/dL RDW Std Deviation (36.4-46.3) fL RDW Coeff of Kristian (11.5-14.5) % Plt Count (130-400) K/uL MPV (7.4-10.4) fL Immature Gran % (Auto) % Neut % (Auto) % Lymph % (Auto) % Armstrong % (Auto) % Eos % (Auto) % Baso % (Auto) % Immature Gran # (Auto) (0.00-0.02) K/uL Neut # (Auto) (1.4-6.5) K/uL Lymph # (Auto) (1.2-3.4) K/uL Armstrong # (Auto) (0.11-0.59) K/uL Eos # (Auto) (0-0.5) K/uL Baso # (Auto) (0-0.2) K/uL PT (9.0-12.0) Seconds INR (0.9-1.1) POC Sodium (135-144) mEq/L Sodium (136-145) mmol/L POC Potassium (3.3-5.0) mEq/L Potassium 3.2 L (3.5-5.1) mmol/L POC Chloride (101-112) mEq/L Chloride (98-107) mmol/L Carbon Dioxide (21-32) mmol/L POC Total CO2 (24-31) mEq/l Anion Gap (3-11) POC Anion Gap (16-25) mmol/L POC BUN (7-18) mg/dl BUN (7-18) mg/dl Creatinine (0.6-1.2) mg/dl POC Creatinine (0.6-1.3) mg/dl Est Cr Clr Drug Dosing ml/min Est GFR ( Amer) Est GFR (Non-Af Amer) BUN/Creatinine Ratio (10-20) Glucose (70-99) mg/dl POC Glucose (other) (70-99) mg/dl Lactate 2.5 H* 3.5 H* Calcium (8.5-10.1) mg/dl POC Ioniz Calcium Luis (1.12-1.32) mmol/l Magnesium 2.1 (1.8-2.4) mg/dl Total Bilirubin Direct Bilirubin 0.4 H AST 43 H ALT Alkaline Phosphatase Total Creatine Kinase 952 H (26-192) U/L Troponin I (0-0.045) ng/ml Total Protein Albumin Globulin (2.5-4.0) gm/dl Albumin/Globulin Ratio (0.9-2) Lipase (73-393) U/L TSH Specimen Hemolysis 09/27/19 09/27/19 09/27/19 Range/Units 13:33 13:33 13:33 WBC (4.8-10.8) K/uL RBC (4.2-5.4) M/uL Hgb (12.0-16.0) g/dL POC Hgb (12.0-16.0) g/dl Hct (37-47) % POC Hct (37-47) % MCV (80-100) fL MCH (25-34) pg MCHC (32-36) g/dL RDW Std Deviation (36.4-46.3) fL RDW Coeff of Kristian (11.5-14.5) % Plt Count (130-400) K/uL MPV (7.4-10.4) fL Immature Gran % (Auto) % Neut % (Auto) % Lymph % (Auto) % Armstrong % (Auto) % Eos % (Auto) % Baso % (Auto) % Immature Gran # (Auto) (0.00-0.02) K/uL Neut # (Auto) (1.4-6.5) K/uL Lymph # (Auto) (1.2-3.4) K/uL Armstrong # (Auto) (0.11-0.59) K/uL Eos # (Auto) (0-0.5) K/uL Baso # (Auto) (0-0.2) K/uL PT (9.0-12.0) Seconds INR (0.9-1.1) POC Sodium (135-144) mEq/L Sodium 139 (136-145) mmol/L POC Potassium (3.3-5.0) mEq/L Potassium (3.5-5.1) mmol/L POC Chloride (101-112) mEq/L Chloride 104 (98-107) mmol/L Carbon Dioxide 27 (21-32) mmol/L POC Total CO2 (24-31) mEq/l Anion Gap 8.0 (3-11) POC Anion Gap (16-25) mmol/L POC BUN (7-18) mg/dl BUN 14 (7-18) mg/dl Creatinine 0.82 (0.6-1.2) mg/dl POC Creatinine (0.6-1.3) mg/dl Est Cr Clr Drug Dosing 37.5 ml/min Est GFR ( Amer) 74.0 Est GFR (Non-Af Amer) 63.9 BUN/Creatinine Ratio 16.9 (10-20) Glucose 91 (70-99) mg/dl POC Glucose (other) (70-99) mg/dl Lactate Cancelled Calcium 8.5 (8.5-10.1) mg/dl POC Ioniz Calcium Luis (1.12-1.32) mmol/l Magnesium (1.8-2.4) mg/dl Total Bilirubin 1.4 H Cancelled Direct Bilirubin Cancelled AST Cancelled ALT 21 Cancelled Alkaline Phosphatase 158 H Cancelled Total Creatine Kinase (26-192) U/L Troponin I < 0.015 (0-0.045) ng/ml Total Protein 8.0 Cancelled Albumin 3.5 Cancelled Globulin (2.5-4.0) gm/dl Albumin/Globulin Ratio (0.9-2) Lipase 31 L (73-393) U/L TSH 5.320 H Cancelled Specimen Hemolysis 09/27/19 Range/Units 13:29 WBC (4.8-10.8) K/uL RBC (4.2-5.4) M/uL Hgb (12.0-16.0) g/dL POC Hgb 16.3 H (12.0-16.0) g/dl Hct (37-47) % POC Hct 48 H (37-47) % MCV (80-100) fL MCH (25-34) pg MCHC (32-36) g/dL RDW Std Deviation (36.4-46.3) fL RDW Coeff of Kristian (11.5-14.5) % Plt Count (130-400) K/uL MPV (7.4-10.4) fL Immature Gran % (Auto) % Neut % (Auto) % Lymph % (Auto) % Armstrong % (Auto) % Eos % (Auto) % Baso % (Auto) % Immature Gran # (Auto) (0.00-0.02) K/uL Neut # (Auto) (1.4-6.5) K/uL Lymph # (Auto) (1.2-3.4) K/uL Armstrong # (Auto) (0.11-0.59) K/uL Eos # (Auto) (0-0.5) K/uL Baso # (Auto) (0-0.2) K/uL PT (9.0-12.0) Seconds INR (0.9-1.1) POC Sodium 139 (135-144) mEq/L Sodium (136-145) mmol/L POC Potassium 3.8 (3.3-5.0) mEq/L Potassium (3.5-5.1) mmol/L POC Chloride 107 (101-112) mEq/L Chloride (98-107) mmol/L Carbon Dioxide (21-32) mmol/L POC Total CO2 26 (24-31) mEq/l Anion Gap (3-11) POC Anion Gap 11.0 L (16-25) mmol/L POC BUN 15 (7-18) mg/dl BUN (7-18) mg/dl Creatinine (0.6-1.2) mg/dl POC Creatinine 0.6 (0.6-1.3) mg/dl Est Cr Clr Drug Dosing ml/min Est GFR ( Amer) Est GFR (Non-Af Amer) BUN/Creatinine Ratio (10-20) Glucose (70-99) mg/dl POC Glucose (other) 88 (70-99) mg/dl Lactate Calcium (8.5-10.1) mg/dl POC Ioniz Calcium Luis 0.88 L (1.12-1.32) mmol/l Magnesium (1.8-2.4) mg/dl Total Bilirubin Direct Bilirubin AST ALT Alkaline Phosphatase Total Creatine Kinase (26-192) U/L Troponin I (0-0.045) ng/ml Total Protein Albumin Globulin (2.5-4.0) gm/dl Albumin/Globulin Ratio (0.9-2) Lipase (73-393) U/L TSH Specimen Hemolysis Diagnostic Findings ECHO - done but not read yet PG Care Time/CCT Total # of Minutes Spent Total Time Spent with Patient: Total time spent is greater than 50% in coordination of care (as documented) at patient's floor/unit and/or counseling patient: (1) CHF (congestive heart failure) Heart failure chronicity: unspecified Heart failure type: unspecified Qualified Code(s): I50.9 - Heart failure, unspecified (2) Atrial fibrillation Atrial fibrillation type: longstanding persistent Qualified Code(s): I48.11 - Longstanding persistent atrial fibrillation (3) Hypertension Hypertension type: essential hypertension Qualified Code(s): I10 - Essential (primary) hypertension
--- NOTE | 2019-09-28 18:30 | Cardiology Consultation ---
Date of Consultation September 28, 2019 History of Present Illness Attending Physician: Connor Jain DO History of Present Illness Patient is an 89-year-old female with past medical history significant for atrial fibrillation history of moderate aortic valve stenosis history of recurrent falls hypertension and 6 sinus syndrome status post permanent pacemaker placement was in her usual state of health when she noted that she tripped and fell 1 day prior to admission. She noted that she did not syncopized or get lightheaded she noted she just tripped fell to the floor and could not get herself up. She noted she was lying there for over a day according to the patient. She noted that she was yelling for help with nobody apparently could hear her calls for help. She noted that she denied any chest pain shortness of breath palpitations prior to this event. She noted she was recently placed on Lasix this past week. She did prior to this event she had been feeling fairly well in her usual state of health. She was subsequently seen in the emergency department after she was found by her family and transferred to the ER where she was admitted to the hospitalist service for rhabdomyolysis and cardiology was consulted. At the time my consultation the patient was resting comfortably denying any complaints of chest pain shortness of breath palpitations or any further syncopal or presyncope. Allergies Allergy/AdvReac Type Severity Reaction Status Date / Time orange Allergy Intermediate HIVES Verified 09/27/19 13:48 pseudoephedrine Allergy Intermediate worsens Verified 09/27/19 13:48 afib strawberry Allergy Intermediate HIVES Verified 09/27/19 13:48 Sulfa (Sulfonamide Allergy Intermediate hives Verified 09/27/19 13:48 Antibiotics) Cephalosporins Allergy Unknown ON [facility] Verified 09/27/19 13:48 LIST cilostazol [From Pletal] Allergy Unknown ON [facility] Verified 09/27/19 13:48 LIST tramadol Allergy Unknown ON [facility] Verified 09/27/19 13:48 LIST lorazepam AdvReac Severe "WENT Verified 09/27/19 13:48 CRAZY" caffeine AdvReac Intermediate HEART Verified 09/27/19 13:48 PALPITATIONS doxycycline AdvReac Intermediate NIGHTMARES Verified 09/27/19 13:48 rosuvastatin AdvReac Intermediate MYALGIAS Verified 09/27/19 13:48 hydrochlorothiazide AdvReac HYPONATREMI Verified 09/27/19 13:48 A Home Medications Home Medications Medication Instructions Recorded Confirmed Type diltiazem HCl 360 mg PO HS 02/02/19 09/27/19 History folic acid 1 mg PO QAM 02/02/19 09/27/19 History levothyroxine 150 mg PO DAILYBB 02/02/19 09/27/19 History valsartan 320 mg PO QAM 02/02/19 09/27/19 History primidone 250 mg tablet 375 mg PO BID #180 tab 04/10/19 09/27/19 Rx calcium phosphate-vitamin D3 250 1 tab PO BID tab 04/15/19 09/27/19 History mg calcium-500 unit chewable tablet hydrocortisone 2.5 % topical cream 1 appln TOPICAL BID PRN #1 gm 04/15/19 09/27/19 History polyethylene glycol 3350 [Miralax] 17 g PO HS 05/13/19 09/27/19 History acetaminophen 325 mg tablet 650 mg PO Q4H PRN #60 tab 06/17/19 09/27/19 Rx potassium chloride 10 mEq 10 meq PO BID tab 07/09/19 09/27/19 History tablet,extended release lidocaine 1 patch TRANSDERMAL QAM #30 ea 08/13/19 09/27/19 Rx furosemide 20 mg tablet 20 mg PO DAILY #90 tab 09/17/19 09/27/19 Rx propranolol 120 mg capsule,24 120 mg PO BID #180 cap 09/17/19 09/27/19 Rx hr,extended release thiamine HCl (vitamin B1) 100 mg 100 mg PO QAM #90 tab 09/17/19 09/27/19 Rx tablet Patient History Medical History (Updated 09/27/19 @ 18:23 by Callie Powers PA-C) Actinic keratosis (Acute) Aortic stenosis (Acute) Benign essential tremor (Acute) Cardiac pacemaker (Acute) Carotid artery plaque (Acute) Cerebral atherosclerosis (Acute) CHF (congestive heart failure) (Acute) Chronic anticoagulation (Acute) Chronic osteoarthritis (Acute) Cystocele (Acute) DVT (deep venous thrombosis) (Resolved) Dyslipidemia (Acute) Edema (Acute) Elevated alkaline phosphatase level (Acute) Fall as cause of accidental injury at home as place of occurrence (Acute) Gait disturbance (Chronic) Gastroesophageal reflux disease (Acute) Generalized weakness (Acute) Hip pain, bilateral (Acute) Hypertension (Chronic) Hyponatremia Hypothyroidism (Acute) Hypoxia (Acute) Left rib fracture (Acute) Meckels diverticulum (Acute) Mitral regurgitation (Acute) Osteoporosis (Acute) Ovarian cyst (Chronic) Ovarian cyst rupture Permanent atrial fibrillation (Chronic) Rectocele (Acute) Rheumatoid arthritis (Acute) Rosacea (Acute) SBO (small bowel obstruction) (Acute) Sick sinus syndrome (Acute) Small bowel obstruction (Acute) Spinal stenosis (Chronic) Tricuspid regurgitation (Acute) Warfarin anticoagulation (Chronic) Surgical History H/O: hysterectomy (Resolved) History of colon resection (Resolved) For diverticulitis and Meckel's Diverticulum History of hernia repair Hx of appendectomy (Resolved) Hx of cholecystectomy (Resolved) Family History Other Family history non-contributory Social History Preferred Language: Beninese Communication Ability: Effective Communication Ability Comment: Impared at times due to essential tremor Marketing Program Coordinator Required: No Beliefs That Will Affect Care: None marital status: / Current Living Situation: Alone Current Living Situation Comment: son lives next door Other Information That Helps Us Care for You: No Feels Safe at Home: Yes Safety Concerns: Feels Safe At This Time Smoking Status: Never smoker Second Hand Exposure: No ; Hx Alcohol Use: No Hx Substance Use: No Review of Systems Review of Systems: All systems reviewed & are unremarkable except as noted in HPI & below Physical Exam Constitutional: WD/WN, vitals as above Eyes: PERRL, conjunctivae normal, anicteric sclerae Neck: trachea midline, no thyromegaly Respiratory: normal respiratory effort, lungs clear to auscultation Cardiovascular: Rate/Rhythm: regular rate and + irregularly irregular Heart Sounds: + murmur (2/6 TANVI @RUSB) Gastrointestinal (Abdomen): normal bowel sounds, soft, nontender, no hepatosplenomegaly Neurologic: Grossly nonfocal Results & Data Vital Signs (Past 12 Hours) Vital Signs Temp Pulse Resp BP Pulse Ox 09/28/19 15:50 36.7 C 64 18 121/71 96 09/28/19 11:51 36.3 C L 62 18 109/63 95 09/28/19 07:34 36.6 C 65 18 130/63 97 Impression: 1. Recurrent falls 2. Rhabdomyolysis 3. Atrial fibrillation 4. Sick sinus syndrome status post permanent pacemaker placement 5. Hypertension 6. Aortic valve stenosis Plan: 1. Given the patient's moderate aortic valve stenosis by her echocardiogram we must optimize her loading conditions. She can continue with IV fluids as necessary for her rhabdomyolysis with gentle IVF hydration. We will continue to monitor her hemodynamic and volume status. Patient notes she is very lucid about her recollection of the events and I do not believe this was a syncopal episode. I would be cautious with any diuretic therapy in the future and should be taken only as needed. 2. As above per medicine we will continue with hydration 3. We will continue the current care noting the patient is not on oral anticoagulation secondary to recurrent falls.A further discussion should take place with the patient and her family in terms of her risks of stroke and fall risk and risk versus benefit. We will otherwise continue the current care. 4. Patient should have her pacemaker interrogated 5. Blood pressure was stable today therefore we will continue current regimen recommend a low-sodium diet. 6. As noted above, loading conditions should be optimize to avoid lowering preload as well as afterload to excessively.The patient follows with her primary ware carrier Dr. Hall. Patient is otherwise stable resting comfortably at the time of consultation therefore if you have any further concerns in regard to this patient please do not hesitate to contact me and thank you for allowing our cardiology team to care for this patient.
[2019-09-28] MEDS: HEPARIN SOD 5,000 UNIT/0.5 ML VIAL SQ SCH (20:14)
[2019-09-28] MEDS: POLYETHYLENE (MIRALAX) 17 GM PACK PO SCH (20:15)
[2019-09-29] MEDS: LEVOTHYROXINE SODIUM 150 MCG TABLET PO SCH (06:15)
[2019-09-29 07:15] LABS: Basophils # (auto) 0.03 K/uL (0-0.2); Basophils % (auto) 0.5 %; Eosinophils # (auto) 0.37 K/uL (0-0.5); Eosinophils % (auto) 5.7 %; Hematocrit (blood only) 33.7 % (37-47); Hemoglobin 11.8 g/dL (12.0-16.0); Immature Granulocytes # (auto) 0.01 K/uL (0.00-0.02); Immature Granulocytes % (auto) 0.2 %; Lymphocytes # (auto) 1.63 K/uL (1.2-3.4); Mean Corpuscular Hemoglobin 33.9 pg (25-34); Mean Corpuscular Volume 96.8 fL (80-100); Mean Platelet Volume 11.9 fL (7.4-10.4); Monocytes # (auto) 0.84 K/uL (0.11-0.59); Monocytes % (auto) 12.9 %; Neutrophils # (auto) 3.65 K/uL (1.4-6.5); Neutrophils % (auto) 55.7 %; Platelet Count 117 K/uL (130-400); RDW Coefficient of Variation 15.1 % (11.5-14.5); RDW Standard Deviation 53.4 fL (36.4-46.3); Red Blood Count 3.48 M/uL (4.2-5.4); White Blood Count 6.53 K/uL (4.8-10.8)
[2019-09-29 07:24] LABS: INR 1.2 (0.9-1.1)
[2019-09-29 07:46] LABS: Albumin Level 2.6 gm/dl (3.4-5.0); BUN Creatinine Ratio 25.1 (10-20); Est GFR (African American) 61.2; Est GFR (Non-African American) 52.8; Potassium 4.5 mmol/L (3.5-5.1)
[2019-09-29 07:48] LABS: Albumin Globulin Ratio 0.7 (0.9-2); Bilirubin,Total 0.7 mg/dl (0.2-1); Globulin 3.5 gm/dl (2.5-4.0); Total Protein 6.1 gm/dl (6.4-8.2)
[2019-09-29] MEDS: THIAMINE HCL 100 MG TAB PO SCH (07:57)
[2019-09-29] MEDS: FOLIC ACID 1 MG TAB PO SCH (07:58)
[2019-09-29] MEDS: CALCIUM 600MG + VIT D 400 IU TAB PO SCH ×2 (07:58→21:51)
[2019-09-29] MEDS: PRIMIDONE 250 MG TAB PO SCH ×2 (07:59→21:52)
[2019-09-29] MEDS: PROPRANOLOL HCL 60 MG LA CAP PO SCH ×2 (08:00→21:51)
[2019-09-29] MEDS: POTASSIUM CHLORIDE 10 MEQ TABCR PO SCH ×2 (08:00→21:51)
[2019-09-29] MEDS: LIDOCAINE 5% 1 PATCH TD SCH (08:01)
[2019-09-29] MEDS: HEPARIN SOD 5,000 UNIT/0.5 ML VIAL SQ SCH ×2 (08:04→21:53)
--- NOTE | 2019-09-29 09:42 | Cardiology Progress Note ---
Date of Service September 29, 2019 Assessment & Plan (1) Rhabdomyolysis: Mrs. Hall is an 89-year-old female with a history of Permanent Atrial Fibrillation, Chronic Coumadin Anticoagulation, Hypertension, Dyslipidemia, Valvular Heart Disease (Moderate to Severe , MR), Pulmonary Hypertension, and a history of Symptomatic Sinus Bradycardia / Cardiac Pauses s/p Medtronic VVI Pacemaker October 2011, Cerebrovascular Disease, Hypothyroidism, GERD, Carotid Artery Plaques, Lumbar Spinal Stenosis, and Frequent Falls who was admitted on 09/27/2019 with Rhabdomyolysis after sustaining a mechanical fall, and being unable to get up off of the floor. She was on the floor from the evening of 1 11/27/2018 and was discovered by her daughter on 09/27/2019 at approximately 1100. Her creatinine kinase levels and creatinine levels are trending down. Patient continues to feel stiff and sore from this event, but is otherwise asymptomatic. Recommend the following: -- Continue gentle IVF. -- Monitor CK and renal function. -- Monitor I&O's, body weights. (2) Sick sinus syndrome: Patient has a Medtronic Sensia Single Chamber Pacemaker that was interrogated during this hospitalization -- although I cannot find the print-out of this interrogation. When I interrogated her device in December 2018 she had an estimated battery life of 19 months. Continue device checks in our pacemaker clinic. (3) Permanent atrial fibrillation: Permanent atrial fibrillation -- she is asymptomatic and rate controlled. -- Continue Propranolol LA 120 mg b.i.d.. -- Diltiazem CD 360 mg daily. -- Resume Coumadin when feasible -- goal INR is 2.0 to 3.0.. (4) Cardiac pacemaker: -- Continue outpatient follow up in our pacemaker clinic. (5) Valvular heart disease: -- Asymptomatic. Supervising Physician Co-Signing Physician Notes Benjamin Vital MD. Subjective Mrs. Hall is an 89-year-old female with a history of Permanent Atrial Fibrillation, Chronic Coumadin Anticoagulation, Hypertension, Dyslipidemia, Valvular Heart Disease (Moderate to Severe , MR), Pulmonary Hypertension, and a history of Symptomatic Sinus Bradycardia / Cardiac Pauses s/p Medtronic VVI Pacemaker October 2011, Cerebrovascular Disease, Hypothyroidism, GERD, Carotid Artery Plaques, Lumbar Spinal Stenosis, and Frequent Falls who was admitted on 09/27/2019 after sustaining a mechanical fall, and being unable to get up off of the floor. She was on the floor from the evening of 09/26/2019 and was discovered by her daughter on 09/27/2019 at approximately 1100. Patient has evidence of rhabdomyolysis -- but her creatinine kinase levels and creatinine levels are trending down. Patient is currently being seen in room 237. She complains of feeling stiff and sore from falling and lying on the floor. Patient denies any chest pain, heavin ess, tightness, pressure, or discomfort. She denies any shortness of breath, recent unusual dyspnea on exertion, orthopnea, or PND. She denies any palpitations, syncope, or near syncope. Coumadin is currently on hold. Physical Exam Physical Exam: General: Patient in no acute distress. HEENT: Head is atraumatic, normocephalic. EOMs intact. Sclera anicteric. Facies symmetric. No perioral cyanosis. Neck: No JVD. Carotid upstrokes are +2 bilaterally without bruits. JVP is at the level of the clavicle sitting upright. Chest and Lungs: Clear to auscultation throughout all lung isbell, no wheezes, rales, or rhonchi. CVS: S1 and S2 are regular with a grade 2/6 basal systolic murmur, and a higher pitched grade 2/6 apical holosystolic murmur. No diastolic murmurs appreciated. No gallops or rubs. PMI is nondisplaced. No lifts, heaves, or thrills. No abdominal aortic or renal bruits. Abdominal Exam: Bowel sounds present. No masses, organomegaly, or tenderness. Extremities: No clubbing or cyanosis. Trace bipedal edema and trace ankle edema bilaterally. Intact radial pulses bilaterally. Neurologic Exam: Patient is awake, alert, and oriented. Pleasant and cooperative. Answers questions appropriately. Speech is consistent with essential tremor. Gait pattern was not assessed. ECHOCARDIOGRAM 09/28/2019: -- Normal LV size with hyperdynamic LV systolic function. -- LVEF > 70%, normal wall motion. -- Mild concentric LVH. -- Moderate to severe aortic valve stenosis. -- By dimensionless index it is moderate. -- Mild to moderate MR. -- Mild to moderate TR -- Mild atherosclerotic plaque in the ascending aorta. -- Pacemaker lead is visible RV. Results & Data Vital Signs (Past 12 Hours) Vital Signs Temp Pulse Resp BP BP Pulse Ox 09/29/19 07:32 36.7 C 58 L 16 132/77 97 09/29/19 04:51 36.5 C 64 20 124/67 93 09/28/19 23:18 36.5 C 64 20 101/62 97 Laboratory Results Laboratory Results - last 24 hr 09/29/19 09/29/19 09/29/19 06:37 06:37 06:37 WBC 6.53 RBC 3.48 L Hgb 11.8 L Hct 33.7 L MCV 96.8 MCH 33.9 MCHC 35.0 RDW Std Deviation 53.4 H RDW Coeff of Kristian 15.1 H Plt Count 117 L MPV 11.9 H Immature Gran % (Auto) 0.2 Neut % (Auto) 55.7 Lymph % (Auto) 25.0 [place] % (Auto) 12.9 Eos % (Auto) 5.7 Baso % (Auto) 0.5 Immature Gran # (Auto) 0.01 Neut # (Auto) 3.65 Lymph # (Auto) 1.63 [place] # (Auto) 0.84 H Eos # (Auto) 0.37 Baso # (Auto) 0.03 PT 12.0 INR 1.2 H Sodium 140 Potassium 4.5 Chloride 110 H Carbon Dioxide 24 Anion Gap 6.0 BUN 24 H Creatinine 0.96 Est Cr Clr Drug Dosing 32.0 Est GFR ( Amer) 61.2 Est GFR (Non-Af Amer) 52.8 BUN/Creatinine Ratio 25.1 H Glucose 83 Calcium 8.0 L Total Bilirubin 0.7 AST 39 H ALT 19 Alkaline Phosphatase 107 Total Creatine Kinase 640 H Total Protein 6.1 L Albumin 2.6 L Globulin 3.5 Albumin/Globulin Ratio 0.7 L Medications Administered Active Medications Generic Name Dose Route Start Last Admin Trade Name Freq PRN Reason Stop Dose Admin Acetaminophen 650 mg 09/27/19 19:30 Tylenol PO 10/27/19 19:29 Q4H PRN pain Al Hydrox/Mg Hydrox/Simethicone 15 ml 09/27/19 19:30 Maalox PO 10/27/19 19:29 Q4H PRN Dyspepsia Nystatin 30 ml/ Dexamethasone 0 ml 09/27/19 19:30 3.75 mg/ Diphenhydramine HCl PO 10/27/19 19:29 300 mg/ Sucrose 45 ml/ Q4H PRN Microcrystalline Cellulose 45 Pain ml/ BARCODE IDENTIFIER 1 ea Diltiazem HCl 360 mg 09/27/19 21:00 09/28/19 20:14 Dilacor Xr PO 10/27/19 20:59 360 mg HS BAUDILIO Administration Folic Acid 1 mg 09/28/19 09:00 09/29/19 07:58 Folvite PO 10/28/19 08:59 1 mg QAM BAUDILIO Administration Heparin Sodium (Porcine) 5,000 units 09/28/19 21:00 09/29/19 08:04 Heparin Sodium (Porcine) SQ 10/28/19 20:59 5,000 units Q12 BAUDILIO Administration Hydrocortisone 1 appln 09/27/19 19:30 Hydrocortisone 2.5% EXT 10/27/19 19:29 BID PRN itching Potassium Chloride/Sodium Chloride 20 meq in 1,000 mls @ 80 mls/hr 09/27/19 19:30 09/29/19 09:48 Normal Saline W/20 Meq Kcl IV 10/27/19 19:29 80 mls/hr .[id number] BAUDILIO Administration Protocol Ioversol 94 ml 09/27/19 14:19 09/27/19 14:20 Optiray 320 100ml IV 10/01/19 14:18 94 ml ONCE PRN Administration Interaction Checking Levothyroxine Sodium 150 mcg 09/28/19 06:30 09/29/19 06:15 Synthroid PO 10/28/19 06:29 150 mcg DAILYBB BAUDILIO Administration Lidocaine 1 patch 09/28/19 09:00 09/29/19 08:01 Lidoderm 5% TD 10/28/19 08:59 1 patch QAM BAUDILIO Administration Miscellaneous 1 ea 09/28/19 21:00 09/28/19 20:16 Remove Lidoderm Patch N/A 10/28/19 20:59 1 ea DAILY@2100 BAUDILIO Administration Morphine Sulfate 2 mg 09/27/19 19:30 Morphine Sulfate IV 10/11/19 19:29 Q30M PRN Chest Pain Multivitamins/Minerals 1 tab 09/27/19 21:00 09/29/19 07:58 Caltrate Plus PO 10/27/19 20:59 1 tab BID BAUDILIO Administration Nitroglycerin 0.4 mg 09/27/19 19:30 Nitrostat SL 10/27/19 19:29 UD PRN Chest Pain Ondansetron HCl 4 mg 09/27/19 19:30 Zofran IV 10/27/19 19:29 Q6H PRN Nausea Polyethylene Glycol 17 gm 09/27/19 21:00 09/28/19 20:15 Miralax Powder Packet PO 10/27/19 20:59 17 gm HS BAUDILIO Administration Potassium Chloride 10 meq 09/27/19 21:00 09/29/19 08:00 Klor-Con M10 PO 10/27/19 20:59 10 meq BID BAUDILIO Administration Primidone 375 mg 09/27/19 21:00 09/29/19 07:59 Mysoline PO 10/27/19 20:59 375 mg BID BAUDILIO Administration Propranolol HCl 120 mg 09/27/19 21:00 09/29/19 08:00 Inderal La PO 10/27/19 20:59 120 mg BID BAUDILIO Administration Thiamine HCl 100 mg 09/28/19 09:00 09/29/19 07:57 Vitamin B-1 PO 10/28/19 08:59 100 mg QAM BAUDILIO Administration PG Care Time/CCT Total # of Minutes Spent Total Time Spent with Patient: Total time spent is greater than 50% in coordination of care (as documented) at patient's floor/unit and/or counseling patient:
[2019-09-29] MEDS: NSS + 20MEQ KCL 20 MEQ/1,000 ML BAG IV SCH ×2 (09:48→22:38)
--- NOTE | 2019-09-29 10:47 | XCELERA ---
[id number] \\[id number]
--- NOTE | 2019-09-29 16:40 | Hospitalist Progress Note ---
Date of Service September 29, 2019 Assessment & Plan (1) Rhabdomyolysis: -Related to a fall and prolonged time down -suspect possible 15 hours on floor -Imaging on admission without acute process -continues to have generalized body aches and some soreness in the right shoulder, right elbow, and low mid back -Echo -EF greater than 70%, LV is hyperdynamic, moderate to severe aortic stenosis with mild to moderate mitral and tricuspid regurg -CK trending down and currently at 640 -will recheck in a.m.; creatinine 0.96 -Continue IVF at 80 mL/h -PT/OT -referrals placed to SNF (2) Recurrent falls: -PT/OT -patient currently resides at home alone -referrals placed for SNF (3) Lactic acidemia: -In the setting of dehydration -lactic trending down from admission - treatment as above (4) Valvular heart disease: -Patient reports a congenital heart valve issue? -Caution with IV fluids given moderate to severe (5) Atrial fibrillation: -Permanent -remains rate controlled -Diltiazem 360 mg daily; propranolol 120 mg twice a day -Typically on Coumadin -due to recurrent falls she has been off anticoagulation for approximately 1 week -We will discuss with patient and family about consideration for resumption (6) CHF (congestive heart failure): -Per patient -states on a previous admission the packet given to her stated cardiac failure -possibility of diastolic CHF and may be fluid accumulation due to valvular issues -Echo with hyperdynamic EF and no mention of diastolic dysfunction -no current signs of decompensated heart failure (7) Sick sinus syndrome: -S/P Pacer (8) Hypothyroidism: -Previous TSH of 54 secondary to noncompliance -TSH currently 5.320 -TSH still mildly elevated but given recent fall some of this could be reactive -would consider repeat check in 6 weeks to consider further medication adjustment (9) Hypertension: -Stable -Holding valsartan and furosemide given rhabdo -possible consideration for as needed use of diuretics on discharge (10) Benign essential tremor: -Continue propranolol and primidone 375 mg twice daily (11) Oral lesion: -Nystatin as needed (12) DVT prophylaxis: -SCD Disposition -await CK resolution; PT/OT and possible SNF Subjective Patient reports feeling slightly better but continues to have right shoulder and elbow discomfort. Also states with movement she has some discomfort in her low mid back. She states this back pain is chronic for her. Her CK continues to trend down with gentle hydration. Tolerating a diet without issue. She remains in A. fib with a rate of 60 on monitor. She verbalizes no new complaints at this time. Review of Systems Constitutional: + fatigue; no fever and no chills Eyes: no worsening vision Respiratory: no cough and no dyspnea Cardiovascular: no chest pain, no palpitations and no lightheadedness Gastrointestinal: no abdominal pain, no nausea, no vomiting, no constipation and no diarrhea/loose stools Genitourinary: no dysuria Musculoskeletal: + back pain (Chronic low mid back) and + joint pain (Right shoulder and right elbow) Integumentary: no rash Neurologic: + generalized weakness Physical Exam Constitutional: + frail appearing; no acute distress Eyes: + anicteric sclerae Neck: trachea midline Respiratory: normal respiratory effort, lungs clear to auscultation Cardiovascular: Rate/Rhythm: regular rate and + irregularly irregular Heart Sounds: + murmur Gastrointestinal (Abdomen): Inspection/Auscultation: normal bowel sounds Percussion/Palpation: abdomen soft; abdomen nontender Musculoskeletal: Head/Neck/Chest: normocephalic and head atraumatic Skin: no rashes, warm and dry Neurologic: moves all extremities Psychiatric: A+Ox3, euthymic affect Results & Data Vital Signs (Past 12 Hours) Vital Signs Temp Pulse Resp BP BP Pulse Ox 09/29/19 15:57 36.3 C L 60 19 135/74 98 09/29/19 11:11 36.6 C 62 16 129/71 99 09/29/19 07:32 36.7 C 58 L 16 132/77 97 09/29/19 04:51 36.5 C 64 20 124/67 93 PG Care Time/CCT Total # of Minutes Spent Total Time Spent with Patient: Total time spent is greater than 50% in coordination of care (as documented) at patient's floor/unit and/or counseling patient: (1) Atrial fibrillation Atrial fibrillation type: longstanding persistent Qualified Code(s): I48.11 - Longstanding persistent atrial fibrillation (2) CHF (congestive heart failure) Heart failure chronicity: unspecified Heart failure type: unspecified Qualified Code(s): I50.9 - Heart failure, unspecified (3) Hypertension Hypertension type: essential hypertension Qualified Code(s): I10 - Essential (primary) hypertension
[2019-09-29] MEDS: POLYETHYLENE (MIRALAX) 17 GM PACK PO SCH (21:51)
[2019-09-30] MEDS: LEVOTHYROXINE SODIUM 150 MCG TABLET PO SCH (06:24)
[2019-09-30] MEDS: THIAMINE HCL 100 MG TAB PO SCH (09:16)
[2019-09-30] MEDS: PRIMIDONE 250 MG TAB PO SCH ×2 (09:16→20:51)
[2019-09-30] MEDS: CALCIUM 600MG + VIT D 400 IU TAB PO SCH ×2 (09:16→20:49)
[2019-09-30] MEDS: NSS + 20MEQ KCL 20 MEQ/1,000 ML BAG IV SCH ×2 (09:17→21:43)
[2019-09-30] MEDS: PROPRANOLOL HCL 60 MG LA CAP PO SCH ×2 (09:17→20:50)
[2019-09-30] MEDS: POTASSIUM CHLORIDE 10 MEQ TABCR PO SCH ×2 (09:17→20:49)
[2019-09-30] MEDS: FOLIC ACID 1 MG TAB PO SCH (09:17)
[2019-09-30] MEDS: LIDOCAINE 5% 1 PATCH TD SCH (09:17)
[2019-09-30] MEDS: HEPARIN SOD 5,000 UNIT/0.5 ML VIAL SQ SCH ×2 (09:17→20:50)
[2019-09-30 09:25] LABS: BUN Creatinine Ratio 19.8 (10-20); Creatinine Clr Calc Pharmacy 40.5 ml/min; Est GFR (African American) 81.2
[2019-09-30] MEDS ORDERED: HydrALAZINE HCL 20 MG/ML VIAL IV PRN (12:39)
[2019-09-30] MEDS: POLYETHYLENE (MIRALAX) 17 GM PACK PO SCH (20:51)
--- NOTE | 2019-09-30 21:31 | Hospitalist Progress Note ---
Date of Service September 30, 2019 Assessment & Plan (1) Rhabdomyolysis: -Related to a fall and prolonged time down -suspect possible 15 hours on floor -Imaging on admission without acute process -body aches improving but continues with muscle weakness/generalized weakness -Echo -EF greater than 70%, LV is hyperdynamic, moderate to severe aortic stenosis with mild to moderate mitral and tricuspid regurg -CK trending down and currently at 380 -will recheck in a.m.; creatinine 0.96 -Continue IVF at 80 mL/h -PT/OT -referrals placed to [facility] (2) Recurrent falls: -PT/OT -patient currently resides at home alone -referrals placed for SNF (3) Lactic acidemia: -In the setting of dehydration -lactic trending down from admission - treatment as above (4) Valvular heart disease: -Patient reports a congenital heart valve issue? -Caution with IV fluids given moderate to severe (5) Atrial fibrillation: -Permanent -remains rate controlled -Diltiazem 360 mg daily; propranolol 120 mg twice a day -Typically on Coumadin -due to recurrent falls she has been off anticoagulation for approximately 1 week with plans to hold until gait improves -We will discuss with patient and family about consideration for resumption (6) CHF (congestive heart failure): -Per patient -states on a previous admission the packet given to her stated cardiac failure -possibility of diastolic CHF and may be fluid accumulation due to valvular issues -Echo with hyperdynamic EF and no mention of diastolic dysfunction -no current signs of decompensated heart failure (7) Sick sinus syndrome: -S/P Pacer (8) Hypothyroidism: -Previous TSH of 54 secondary to noncompliance -TSH currently 5.320 -TSH still mildly elevated but given recent fall some of this could be reactive -would consider repeat check in 6 weeks to consider further medication adjustment (9) Hypertension: -Stable -Resume Valsartan and continue to hold furosemide given rhabdo -possible consi deration for as needed use of diuretics on discharge (10) Benign essential tremor: -Continue propranolol and primidone 375 mg twice daily (11) Oral lesion: -Nystatin as needed (12) DVT prophylaxis: -SCD Disposition -await CK resolution; PT[facility]OT; [facility] Subjective Reports feeling pretty good today when she is just resting. Feels very weak when trying to walk or do activities. States she thinks she will need "a lot" of rehab. She remains in A Flutter/Fib on monitor in 60s. Denies SOB or CP. She agrees to go to [place] to get stronger. Her CK is now at 383 and her muscles aches are a bit better. Discussed with her son over the phone today to provide update. States that she seems to do very well when she is in the hospital and rehabs. Mentation is better, tremors seem to improve, and physical abilities improve. He states when he visits her at home she tends to be lethargic and sometimes rather out of it and not as interactive. States it seems she is slurring her words and increased weakness diffusely. Son states if it wasn't for the all over weakness he would think she would be having a stroke. Discussed her medications as he states the patient eluded to possibly taking a different medication that he was not aware of. Did discuss with patient at bedside who was able to list all her medications from memory with doses. Continued to try and ask if there could possibly be anything else she could be taking. Discussed with son we may need to see what her medications are at home as it is possible she maybe taking a medication that was previously prescribed that is no longer tracked in our system? Review of Systems Constitutional: + fatigue and + weakness; no fever, no chills and no body aches Respiratory: no cough and no dyspnea Cardiovascular: no chest pain, no palpitations and no lightheadedness Gastrointestinal: no abdominal pain, no nausea, no vomiting, no constipation and no diarrhea/loose stools Genitourinary: no dysuria Musculoskeletal: + muscle weakness Integumentary: no rash Neurologic: + unsteadiness, + falls and + generalized weakness Physical Exam Constitutional: + frail appearing; no acute distress Eyes: + anicteric sclerae Neck: trachea midline Respiratory: normal respiratory effort, lungs clear to auscultation Cardiovascular: Rate/Rhythm: regular rate and + irregularly irregular Heart Sounds: + murmur Gastrointestinal (Abdomen): Inspection/Auscultation: normal bowel sounds Percussion/Palpation: abdomen soft; abdomen nontender Musculoskeletal: Head/Neck/Chest: normocephalic and head atraumatic Skin: no rashes, warm and dry Neurologic: moves all extremities Psychiatric: A+Ox3, euthymic affect Results & Data Vital Signs (Past 12 Hours) Vital Signs Temp Pulse Resp BP BP Pulse Ox 09/30/19 19:17 36.5 C 73 19 144/77 H 96 09/30/19 17:56 180/89 H 09/30/19 16:20 36.4 C L 62 16 171/69 H 95 09/30/19 13:03 59 L 147/75 H 09/30/19 10:53 36.6 C 71 18 177/81 H 93 PG Care Time/CCT Total # of Minutes Spent Total Time Spent with Patient: Total time spent is greater than 50% in coordination of care (as documented) at patient's floor/unit and/or counseling patient: (1) Atrial fibrillation Atrial fibrillation type: longstanding persistent Qualified Code(s): I48.11 - Longstanding persistent atrial fibrillation (2) CHF (congestive heart failure) Heart failure chronicity: unspecified Heart failure type: unspecified Qualified Code(s): I50.9 - Heart failure, unspecified (3) Hypertension Hypertension type: essential hypertension Qualified Code(s): I10 - Essential (primary) hypertension
[2019-10-01] MEDS: LEVOTHYROXINE SODIUM 150 MCG TABLET PO SCH (05:55)
[2019-10-01] MEDS: VALSARTAN 80 MG TAB PO SCH (06:31)
[2019-10-01 07:47] LABS: Hematocrit (blood only) 38.2 % (37-47); Hemoglobin 13.5 g/dL (12.0-16.0); Mean Corpuscular Hemoglobin 34.2 pg (25-34); Mean Corpuscular Hgb Conc 35.3 g/dL (32-36); Mean Corpuscular Volume 96.7 fL (80-100); Mean Platelet Volume 11.4 fL (7.4-10.4); Platelet Count 155 K/uL (130-400); RDW Coefficient of Variation 14.7 % (11.5-14.5); RDW Standard Deviation 51.7 fL (36.4-46.3); Red Blood Count 3.95 M/uL (4.2-5.4)
[2019-10-01] MEDS: LIDOCAINE 5% 1 PATCH TD SCH (08:26)
[2019-10-01 08:27] LABS: BUN Creatinine Ratio 19.5 (10-20); Calcium 9.4 mg/dl (8.5-10.1); Creatinine Clr Calc Pharmacy 46.6 ml/min; Est GFR (African American) 91.4; Est GFR (Non-African American) 78.9; Potassium 3.8 mmol/L (3.5-5.1)
[2019-10-01] MEDS: CALCIUM 600MG + VIT D 400 IU TAB PO SCH ×2 (08:27→21:09)
[2019-10-01] MEDS: HEPARIN SOD 5,000 UNIT/0.5 ML VIAL SQ SCH ×2 (08:27→21:15)
[2019-10-01] MEDS: FOLIC ACID 1 MG TAB PO SCH (08:27)
[2019-10-01] MEDS: POTASSIUM CHLORIDE 10 MEQ TABCR PO SCH ×2 (08:27→21:10)
[2019-10-01] MEDS: PROPRANOLOL HCL 60 MG LA CAP PO SCH ×2 (08:28→21:10)
[2019-10-01] MEDS: PRIMIDONE 250 MG TAB PO SCH ×2 (08:28→21:55)
[2019-10-01] MEDS: THIAMINE HCL 100 MG TAB PO SCH (08:28)
--- NOTE | 2019-10-01 16:45 | Hospitalist Progress Note ---
Date of Service October 01, 2019 Assessment & Plan (1) Rhabdomyolysis: -Related to a fall and prolonged time down -suspect possible 15 hours on floor; traumatic rhabdomyolysis in setting of fall and prolonged down time treated with gentle IV hydration and BMPs -Imaging on admission without acute process -body aches improving but continues with muscle weakness/generalized weakness -Echo -EF greater than 70%, LV is hyperdynamic, moderate to severe aortic stenosis with mild to moderate mitral and tricuspid regurg -CK trending down and currently at 250 and will hold further fluids at this time as some mild crackles at bases -will recheck in a.m.; creatinine stable -PT/OT -referrals placed to [facility] (2) Encephalopathy: - Episodes of confusion night of 09/30 and into 10/01 however A&O and can recall discussions I have had with her however seems to forget it was me that spoke to her; seems to be exhibiting some mild paranoid thinking which is causing some agitation. On 09/30 she did call 911 as she felt the hospital is making and selling drugs - Spoke to DIL who states they have not noticed her act like that. She does question how the patient is managing her medications and her plans to review her medications and likely take over management of them - After discussing with the son on 09/30 - he states she does great in the hospital/rehab but then when she is home she has increasing weakness, slurred speech, lethargy - he states that if it wasn't for generalized weakness he would think she was having a stroke - Patient states she takes Primidone 375 mg just once daily. I do notice she tends to struggle to name this medication compared to the rest however with time can give the right dose. The last Rx was given in March 2019 which should be for 375 mg BID but patient is pretty sure she only takes it once a day. Discussed with patient about reducing to 250 mg as she does report losing about 20 lbs since she started this medication and agrees this could be causing some difficulty -- SEs include: slowed/slurred speech, numbness/tingling, loss of control of bodily movements, vertigo, blurred vision, confusion, depression, drowsiness... (3) Recurrent falls: -PT/OT -patient currently resides at home alone -referrals placed for SNF (4) Lactic acidemia: -In the setting of dehydration -lactic trended down from admission -treat ment as above (5) Valvular heart disease: -Patient reports a congenital heart valve issue? -Caution with IV fluids given moderate to severe (6) Atrial fibrillation: -Permanent -remains rate controlled -Diltiazem 360 mg daily; propranolol 120 mg twice a day -Typically on Coumadin -due to recurrent falls she has been off anticoagulation for approximately 1 week with plans to hold until gait improves -Did discuss with DIL today in regards to consideration for anticoagulation as she is at risk for stroke - will continue to readdress (7) CHF (congestive heart failure): -Per patient -states on a previous admission the packet given to her stated cardiac failure -possibility of diastolic CHF and may be fluid accumulation due to valvular issues -- Chronic HFpEF (diastolic HF) in setting of valvular heart disease () treated with gentle hydration, daily weights, and I&Os -Echo with hyperdynamic EF and no mention of diastolic dysfunction -no current signs of decompensated heart failure (8) Sick sinus syndrome: -S/P Pacer (9) Hypothyroidism: -Previous TSH of 54 secondary to noncompliance -TSH currently 5.320 -TSH still mildly elevated but given recent fall some of this could be reactive -would consider repeat check in 6 weeks to consider further medication adjustment (10) Hypertension: -Stable -Resume Valsartan and continue to hold furosemide given rhabdo -possible consideration for as needed use of diuretics on discharge (11) Benign essential tremor: -Continue propranolol and primidone will be reduced to 250 mg BID (12) Oral lesion: -Nystatin as needed (13) DVT prophylaxis: -SCD Disposition - plan on [facility] tomorrow pending stable overnight Subjective Patient is alert and oriented when visiting her on two occasions. She does recall the events of last night for the most part. She is exhibiting some paranoid thinking today as she feels she left a wheelchair here on her last admission as well as feels she was moved to a different room this morning then brought back. However, she then can engage in discussions of her home medications and is accurate on her dosing. However there obviously has been some medication issues as her TSH was 54 recently. When discussing with family she appears more lethargic/sedation/slurred speech/etc when not in a controlled environment. Upon reviewing her medications, I question if she is accidently taking more Primidone as the side effects of this medication seems to fit with the description the family gives when she is at home. She states she actually only takes 375 mg once a day. Son was thinking possibly she could be mixing up her propranolol which is possible too. Patient states she likes to manage her own medications as she knows them well. She does seem to know her medications but uncertain if possibly they could have gotten mixed up or how she does lay them out at home? Review of Systems Constitutional: + fatigue and + weakness; no fever, no chills and no body aches Ear, Nose, Mouth, Throat: dry mouth Respiratory: no cough and no dyspnea Cardiovascular: no chest pain, no palpitations, no lightheadedness and no edema Gastrointestinal: no abdominal pain, no nausea, no vomiting, no constipation and no diarrhea/loose stools Genitourinary: no dysuria Musculoskeletal: + muscle weakness Integumentary: no rash Neurologic: + unsteadiness, + falls and + generalized weakness Endocrine: + fatigue Physical Exam Constitutional: + frail appearing; no acute distress Eyes: + anicteric sclerae Neck: trachea midline Respiratory: normal respiratory effort Auscultation: + crackles (fine b/l bases) Cardiovascular: Rate/Rhythm: regular rate and + irregularly irregular Heart Sounds: + murmur Gastrointestinal (Abdomen): Inspection/Auscultation: normal bowel sounds Percussion/Palpation: abdomen soft; abdomen nontender Musculoskeletal: Head/Neck/Chest: normocephalic and head atraumatic Skin: no rashes, warm and dry Neurologic: moves all extremities Psychiatric: A+Ox3, euthymic affect Thought Content: + paranoid (mild) Results & Data Vital Signs (Past 12 Hours) Vital Signs Temp Pulse Resp BP Pulse Ox 10/01/19 11:56 36.6 C 59 L 24 137/70 95 10/01/19 08:18 36.6 C 62 24 147/76 H 96 PG Care Time/CCT Total # of Minutes Spent Total Time Spent with Patient: Total time spent is greater than 50% in coor dination of care (as documented) at patient's floor/unit and/or counseling patient: (1) CHF (congestive heart failure) Heart failure chronicity: unspecified Heart failure type: unspecified Qualified Code(s): I50.9 - Heart failure, unspecified (2) Atrial fibrillation Atrial fibrillation type: longstanding persistent Qualified Code(s): I48.11 - Longstanding persistent atrial fibrillation (3) Hypertension Hypertension type: essential hypertension Qualified Code(s): I10 - Essential (primary) hypertension
[2019-10-01] MEDS: POLYETHYLENE (MIRALAX) 17 GM PACK PO SCH (21:16)
[2019-10-02] MEDS: LEVOTHYROXINE SODIUM 150 MCG TABLET PO SCH (06:27)
[2019-10-02 06:36] LABS: BUN Creatinine Ratio 19.6 (10-20); Calcium 9.4 mg/dl (8.5-10.1); Creatinine Clr Calc Pharmacy 35.8 ml/min; Est GFR (African American) 69.9; Est GFR (Non-African American) 60.3
[2019-10-02] MEDS: CALCIUM 600MG + VIT D 400 IU TAB PO SCH (08:24)
[2019-10-02] MEDS: VALSARTAN 80 MG TAB PO SCH (08:24)
[2019-10-02] MEDS: POTASSIUM CHLORIDE 10 MEQ TABCR PO SCH (08:25)
[2019-10-02] MEDS: HEPARIN SOD 5,000 UNIT/0.5 ML VIAL SQ SCH (08:25)
[2019-10-02] MEDS: PRIMIDONE 250 MG TAB PO SCH (08:25)
[2019-10-02] MEDS: PROPRANOLOL HCL 60 MG LA CAP PO SCH (08:25)
[2019-10-02] MEDS: THIAMINE HCL 100 MG TAB PO SCH (08:25)
[2019-10-02] MEDS: FOLIC ACID 1 MG TAB PO SCH (08:25)
[2019-10-02] MEDS: LIDOCAINE 5% 1 PATCH TD SCH (10:08)
--- NOTE | 2019-10-02 13:06 | Discharge Summary ---
Date of Service October 02, 2019 Admission HPI Per Admitting Provider 89 year old white female with PMH significant for atrial fibrillation (on coumadin but off x 1 d/t falls), severe , CHF, HTN, HLD, SSS s/p pacemaker, hypothyroidism, reflux, essential tremor, rheumatoid and osteoarthritis presents to the emergency room after being found down in her house this morning after 11am. Per family record, they had not heard from patient since last evening and called EMS who found the patient down and incontinent of urine. Patient states she was in the kitchen last night and fell. She states she tripped and had been yelling for a while but no one heard her. She does confirm some aches in her back as well as her head, but states she does have chronic back pain. She denies LOC or hitting her head. She states she has been taking lasix for the past week, which is a new medicati on for her, but she does states she had previous difficulty remembering to take her thyroid medications. Patient was previously hospitalized in July for frequent falls and failure to thrive secondary to severe hypothyroidism with a TSH of 54. Patient had not been taking her medications. She was subsequently discharged to [facility] on August 13 and was discharged home on September 01. She states she lives alone but her son does live nearby. She has help come in twice a week. She denies any recent fever or chills, chest pain or shortness of breath, diarrhea or constipation or blurred vision/visual changes. ER Course: Xrays- pelvis, humerus, femur, elbow without abnormality. CT Head without acute abnormality. CT Cervical spine without fracture. CT Abd/pelvis without acute traumatic process. Possible diarrheal state with fluid filled colon and rectum. CPK 952. H/H 17.4/47.. Na 139. K 3.2. Creat 0.82. Lactic acid 3.5. Tbili 1.4. Direct bili 0.4. Alk phos 158. TSH 5.320. UA without evidence of infection, 3+ protein, ketones, 2+ blood, 5-10 RBC. Given NSS @ 125cc/hr x 500cc. Principal Diagnosis Traumatic Rhabdomyolysis Discharge Exam Constitutional + frail appearing; no acute distress Eyes + anicteric sclerae Neck trachea midline Respiratory normal respiratory effort Auscultation: + crackles (Minimal at bases bilaterally) Cardiovascular Rate/Rhythm: regular rate and + irregularly irregular Heart Sounds: + murmur Gastrointestinal (Abdomen) Inspection/Auscultation: normal bowel sounds Percussion/Palpation: abdomen soft; abdomen nontender Musculoskeletal Head/Neck/Chest: normocephalic and head atraumatic Skin no rashes, warm and dry Neurologic moves all extremities Psychiatric A+Ox3, euthymic affect Thought Content: + paranoid (mild; rare but intermittent) Discharge Data Allergies Allergy/AdvReac Type Severity Reaction Status Date / Time orange Allergy Intermediate HIVES Verified 09/27/19 13:48 pseudoephedrine Allergy Intermediate worsens Verified 09/27/19 13:48 afib strawberry Allergy Intermediate HIVES Verified 09/27/19 13:48 Sulfa (Sulfonamide Allergy Intermediate hives Verified 09/27/19 13:48 Antibiotics) Cephalosporins Allergy Unknown ON [facility] Verified 09/27/19 13:48 LIST cilostazol [From Pletal] Allergy Unknown ON [facility] Verified 09/27/19 13:48 LIST tramadol Allergy Unknown ON [facility] Verified 09/27/19 13:48 LIST lorazepam AdvReac Severe "WENT Verified 09/27/19 13:48 CRAZY" caffeine AdvReac Intermediate HEART Verified 09/27/19 13:48 PALPITATIONS doxycycline AdvReac Intermediate NIGHTMARES Verified 09/27/19 13:48 rosuvastatin AdvReac Intermediate MYALGIAS Verified 09/27/19 13:48 hydrochlorothiazide AdvReac HYPONATREMI Verified 09/27/19 13:48 A Consultations 09/27/19 15:44 ED Decision to Admit Stat 09/27/19 19:30 Consult Cardiology Routine Consult Case Management - Discharge Planning Routine Ordered Studies 09/27/19 12:53 CT abd pelvis IV con only Stat CT cervical spine wo con Stat CT head/brain wo con Stat Hospital Course (1) Rhabdomyolysis: -Related to a fall and prolonged time down -suspect possible 15 hours on floor; traumatic rhabdomyolysis in setting of fall and prolonged down time treated with gentle IV hydration and BMPs -Imaging on admission without acute process -Echo -EF greater than 70%, LV is hyperdynamic, moderate to severe aortic stenosis with mild to moderate mitral and tricuspid regurg -CK trending down and currently at 139; creatinine stable -PT/OT -referrals placed to [facility] (2) Encephalopathy: - Episodes of confusion night of 09/30 and into 10/01 however A&O and can recall discussions I have had with her however seems to forget it was me that spoke to her; seems to be exhibiting some mild paranoid thinking which is causing some agitation. On 09/30 she did call 911 as she felt the hospital is making and selling drugs - Spoke to DIL who states they have not noticed her act like that. She does question how the patient is managing her medications and her plans to review her medications and likely take over management of them - After discussing with the son on 09/30 - he states she does great in the hospital/rehab but then when she is home she has increasing weakness, slurred speech, lethargy - he states that if it wasn't for generalized weakness he would think she was having a stroke - Patient states she takes Primidone 375 mg just once daily. I do notice she tends to struggle to name this medication compared to the rest however with time can give the right dose. The last Rx was given in March 2019 which should be for 375 mg BID but patient is pretty sure she only takes it once a day. Discussed with patient about reducing to 250 mg as she does report losing about 20 lbs since she started this medication and agrees this could be causing some difficulty -- SEs include: slowed/slurred speech, numbness/tingling, loss of control of bodily movements, vertigo, blurred vision, confusion, depression, drowsiness... -Seems to fit with the description of how her son sees her at home on occasion -This may be more well-compensated dementia as her confusion or forgetfulness tends to be more prominent at night. On day of discharge she is alert and oriented and can even recall her creatinine kinase levels and the trend; instructions given to [facility] to assess for UTI if confusion continues but currently no leukocytosis or fever. No focal deficits to suggest CVA as patient would be at risk giving lack of anticoagulation in setting of atrial fibrillation (3) Recurrent falls: -PT/OT -patient currently resides at home alone -referrals placed for SNF (4) Lactic acidemia: -In the setting of dehydration -lactic trended down from admission - treatment as above (5) Valvular heart disease: -Patient reports a congenital heart valve issue? -Caution with IV fluids given moderate to severe (6) Atrial fibrillation: -Permanent -remains rate controlled -Diltiazem 360 mg daily; propranolol 120 mg twice a day -Typically on Coumadin -due to recurrent falls she has been off anticoagulation for approximately 1 week with plans to hold until gait improves -Did discuss with DIL on 10/01 in regards to consideration for anticoagulation as she is at risk for stroke -can be readdressed after some rehab and with PCP (7) CHF (congestive heart failure): -Per patient -states on a previous admission the packet given to her stated cardiac failure -possibility of diastolic CHF and may be fluid accumulation due to valvular issues -- Chronic HFpEF (diastolic HF) in setting of valvular heart disease () treated with gentle hydration, daily weights, and I&Os -Echo with hyperdynamic EF and no mention of diastolic dysfunction -no current signs of decompensated heart failure -Given aortic stenosis -patient may be better suited for as needed Lasix to prevent significant swings in volume status (8) Sick sinus syndrome: -S/P Pacer (9) Hypothyroidism: -Previous TSH of 54 secondary to noncompliance -TSH currently 5.320 -TSH still mildly elevated but given recent fall some of this could be reactive -should repeat check in 6 weeks to consider further medication adjustment (10) Hypertension: -Stable -Resume Valsartan and continue furosemide as needed for weight gain/edema (11) Benign essential tremor: -Continue propranolol and primidone will be reduced to 250 mg BID (12) Oral lesion: -Nystatin as needed (13) DVT prophylaxis: -SCD Disposition - plan on [facility] tomorrow pending stable overnight Total Time Total Time Spent Total Time Spent (In Minutes): Greater than 30 minutes Discharge Plan Discharge Items Patient Disposition: Transfer Custodial Fac Reason For Visit: FALL, DEHYDRATION Discharge Diagnosis: Rhabdomyolysis (Muscle Breakdown) from a Fall Activity: Resume your previous activity Non-emergency contact: Primary Care Provider Call non-emergency contact if: you have any medication questions, your symptoms worsen and you have a fever Follow-up/Referrals: Alex Kwong DO [Primary Care Provider] - Diet: Heart Healthy Diet Comment: Minced and moist Addtl Attending Provider Instructions: Traumatic Rhabdomyolysis related to Fall: Possibly on floor approx. 15 hours - Creatine kinase at 139 and WNL at this time; Kidney function and electrolytes are WNL - No further treatment necessary - continued work on muscle/endurance building Confusion: - Does have periodic moments of confusion. However typically can l recall medications, discussions, etc. She is very aware of her medications and is very mindful of what she is taking. However, she did have a TSH in the recent past of 54 so it is not certain if sometimes medications are missed - Possible that Primidone could be contributing. When discussing with family it appears patient does well in facilities but at home can be lethargic, slurred speech, very weak... which can all be side effects of Primidone - whether it is her current dosing or if accidentally more is taken. She typically does not want others helping with her medications - May benefit from evaluations to assess memory and evaluate for any dementia. As observed she seems to have good memory recall but may still have some well adapted dementia? - If periodic confusion continues can just urinalysis for UTI. 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 Currently she is alert and oriented and can reiterate the plan to go to [facility]. Was even able to recall her CK levels to me. No focal deficits appreciated. Should monitor for this as well given off anticoagulation with A Fib. Valvular heart disease: -Patient reports a congenital heart valve issue? Echo does reveal moderate to severe which definitely could contribute to weakness/fatigue/dizziness - Will need to be mindful of volume status to prevent significant dehydration or overload to prevent issues given her aortic stenosis - Can follow-up with cardiology. Can discuss whether TAVR (valve replacement) could be an option? Atrial fibrillation: -Permanent -remains rate controlled -Diltiazem 360 mg daily; propranolol 120 mg twice a day -Typically on Coumadin -due to recurrent falls she has been off anticoagulation for approximately 1.5 week with plans to hold until gait improves -This will need to be readdressed as she would be at risk for stroke CHF (congestive heart failure): -Per patient -states on a previous admission the packet given to her stated cardiac failure -possibility of diastolic CHF and may be fluid accumulation due to valvular issues -Echo with hyperdynamic EF and no mention of diastolic dysfunction -no current signs of decompensated heart failure - SHe is normally on Lasix daily. Per cardiology may be best to use Lasix as needed for fluid accumulation and/or weight gain to prevent dehydration/falls - this can be monitored and readdressed - If she continues with Lasix as needed would only use Potassium supplement on days she is using lasix. This will need adjusted if plans to eventually move to daily usage of Lasix Sick sinus syndrome: -S/P Pacer Hypothyroidism: -Previous TSH of 54 secondary to noncompliance -TSH currently 5.320 -TSH still mildly elevated but given recent fall some of this could be reactive -would repeat TSH check in 4 weeks to consider further medication adjustment Hypertension: -Continue Valsartan, Diltiazem, Propranolol Benign essential tremor: -Continue propranolol and primidone will be reduced to 250 mg BID -- Patient thinks she is only taking 375 mg of the Primidone daily but last Rx was for BID dosing - will reduce as mentioned above as not sure if it was being used once a day or not and can be monitored Pending Studies at Discharge: No Stand-Alone Forms: My [facility] Skilled Items Patient informed of condition?: Yes DNR: No Discharge Level of Care: Skilled Communicable Disease: Yes (MRSA history) Discharge Prognosis: Stable Lines: None Urinary Catheter: No Medications and DC Order Prescriptions: New potassium chloride [Klor-Con M10] 10 mEq Tablet,Er Particles/Crystals 10 meq PO BID PRN (Reason: Take on days with Lasix) Qty: 0 RF: 0 Continued acetaminophen [Tylenol] 325 mg tablet 650 mg PO Q4H PRN (Reason: pain) Qty: 60 RF: 5 calcium phosphate-vitamin D3 [Citracal + D3 (calcium phos)] 250 mg calcium- 500 unit tablet,chewable 1 tab PO BID RF: 0 hydrocortisone 2.5 % cream 1 appln topical BID PRN (Reason: itching) Qty: 1 RF: 0 propranolol 120 mg capsule,extended release 24 hr 120 mg PO BID Qty: 180 RF: 0 thiamine HCl (vitamin B1) [Vitamin B-1] 100 mg tablet 100 mg PO QAM Qty: 90 RF: 0 diltiazem HCl 360 mg capsule,extended release 24 hr 360 mg PO HS RF: 0 valsartan 320 mg tablet 320 mg PO QAM RF: 0 levothyroxine 150 mcg tablet 150 mg PO DAILYBB RF: 0 folic acid 1 mg Tablet 1 mg PO QAM RF: 0 polyethylene glycol 3350 [Miralax] 17 gram Powder In Packet 17 g PO HS RF: 0 lidocaine 5 % Adhesive Patch,Medicated 1 patch transdermal QAM Qty: 30 RF: 0 Changed primidone 250 mg tablet 250 mg PO BID Qty: 180 RF: 2 furosemide [Lasix] 20 mg tablet 20 mg PO DAILY PRN (Reason: Weight Gain/Edema) Qty: 90 RF: 0 Discontinued potassium chloride 10 mEq tablet extended release 10 meq PO BID RF: 0 Discharge Orders: Discharge Order (Routine); Ordered 10/02/19 Ordered By: Brianna Johnson Admission Data Admit Date/Time: 09/27/19 17:03 Attending Provider: Connor Jain Admit Provider: Connor Jian Primary Care Provider: Alex Kwong Other Providers: Castro Mercado Pearcy ; Rosemarie Gtz ; Sebastian Piper Other Interventions: Discharge Summary Assessment (RN) Last Done: 10/02/19 09:22 DC Date/Time DO NOT enter until pt leaves facility: 10/02/19 09:45 Supervising Physician Co-Signing Physician Notes Attending note: patient seen and examined with Brianna Johnson PA-C. I agree with her discharge summary. I personally reviewed the labs and imaging findings. patient doing better after a few rough nights with confusion, called 911 due to delusional thinking her pain and mobility are improved reviewed labs, CPK normal, Cr stable, electrolytes stable patient's family in agreement that she needs SNF rehab and likely needs placement given her falls at home - Traumatic rhabdomyolysis: due to fall and laying on ground CPK returned to normal with IV fluids, Cr is at baseline, electrolytes stable - Falls, weakness, ambulatory dysfunction go to SNF for rehab, may require placement as she has failed at home for full details see the d/c summary
== END 2019-10-02 09:45 | DRG 565 ==
LOC: ED 12:17 → 2S 17:03 → 4W 10-01 16:33

== ENCOUNTER 2019-11-29 22:25 | Inpatient (IN) ==
[2019-11-29] MEDS ORDERED: MoRPHine SULFATE 4 MG/ML 1 ML CARP\\VIAL IV STA (22:41)
--- NOTE | 2019-11-29 22:48 | Emergency Department Note ---
Entered by Ozzy Whiting acting as a scribe for History of Present Illness General Chief complaint: Abdominal Pain Stated complaint: SPASMS AND SHARP ABD PAIN Time Seen by Provider: 11/29/19 22:29 Source: patient History of Present Illness Onset (ago): hour(s) (2030 tonight) Location: abdomen Severity: similar to prior episodes Pain Consistency: + constant Maximum Pain Intensity: 5 Quality: + other (pain and spasms) Associated symptoms: + other (Negative for nausea and vomiting.) The patient is an 89 year old female who presents to the emergency department with complaints of constant abdominal pain beginning at 2030 tonight. The patient states that she developed abdominal pain tonight at the site of her hernia. She notes that her abdominal pain feels like spasms. She reports that she has a history of SBO, and she states that her current pain is similar to when she had a SBO. She denies any nausea and vomiting. Home Medications Home Medications Medication Instructions Recorded Confirmed Type diltiazem HCl 360 mg PO HS 02/02/19 11/29/19 History folic acid 1 mg PO QAM 02/02/19 11/29/19 History levothyroxine 150 mg PO DAILYBB 02/02/19 11/29/19 History polyethylene glycol 3350 [Miralax] 17 g PO AMPM 05/13/19 11/29/19 History primidone 250 mg PO BID #180 tab 10/02/19 11/29/19 Rx Wheelchair (Manual or Powered) #1 ea 11/05/19 11/12/19 Rx furosemide [Lasix] 20 mg PO DAILY 11/29/19 11/29/19 History propranolol 60 mg PO BID 11/29/19 11/29/19 History valsartan 160 mg PO QAM 11/29/19 11/29/19 History warfarin 4 mg PO UD 11/29/19 11/29/19 History Allergies Allergy/AdvReac Type Severity Reaction Status Date / Time orange Allergy Intermediate HIVES Verified 11/29/19 23:32 pseudoephedrine Allergy Intermediate worsens Verified 11/29/19 23:32 afib strawberry Allergy Intermediate HIVES Verified 11/29/19 23:32 Sulfa (Sulfonamide Allergy Intermediate hives Verified 11/29/19 23:32 Antibiotics) Cephalosporins Allergy Unknown ON [facility] Verified 11/29/19 23:32 LIST cilostazol [From Pletal] Allergy Unknown ON [facility] Verified 11/29/19 23:32 LIST tramadol Allergy Unknown ON [facility] Verified 11/29/19 23:32 LIST lorazepam AdvReac Severe "WENT Verified 11/29/19 23:32 CRAZY" caffeine AdvReac Intermediate HEART Verified 11/29/19 23:32 PALPITATIONS doxycycline AdvReac Intermediate NIGHTMARES Verified 11/29/19 23:32 rosuvastatin AdvReac Intermediate MYALGIAS Verified 11/29/19 23:32 hydrochlorothiazide AdvReac HYPONATREMI Verified 11/29/19 23:32 A Past Med/Surg History Medical History (Updated 11/30/19 @ 00:50 by Ozzy Whiting) Actinic keratosis Aortic stenosis (Acute) Benign essential tremor (Acute) Cardiac pacemaker Carotid artery plaque Cerebral atherosclerosis CHF (congestive heart failure) (Acute) Chronic anticoagulation Chronic osteoarthritis Cystocele DVT (deep venous thrombosis) Dyslipidemia (Acute) Edema Elevated alkaline phosphatase level (Acute) Fall as cause of accidental injury at home as place of occurrence Gait disturbance (Chronic) Gastroesophageal reflux disease (Acute) Generalized weakness Hip pain, bilateral (Acute) History of small bowel obstruction Hypertension (Chronic) Hyponatremia Hypothyroidism (Acute) Hypoxia Left rib fracture Meckels diverticulum Mitral regurgitation (Acute) Osteoporosis (Acute) Ovarian cyst Ovarian cyst rupture Permanent atrial fibrillation Rectocele Rheumatoid arthritis (Acute) Rosacea (Acute) SBO (small bowel obstruction) Sick sinus syndrome (Acute) Small bowel obstruction Spinal stenosis (Chronic) Tricuspid regurgitation (Acute) Warfarin anticoagulation (Chronic) Surgical History (Updated 11/12/19 @ 09:58 by Alex Kwong DO) H/O: hysterectomy History of colon resection For diverticulitis and Meckel's Diverticulum History of hernia repair Hx of appendectomy Hx of cholecystectomy Social History Preferred Language: Urdu Communication Ability: Effective 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 and A total of 10 systems reviewed and were otherwise negative Physical Exam Vital Signs Vital Signs - 24 hr 02/08/20 22:26 11/29/19 22:55 11/29/19 23:41 Temperature 36.5 C Temperature Source Oral Pulse Rate 116 H Pulse Rate [Bilateral Apical] 68 79 Respiratory Rate 18 20 18 Respiratory Effort / Characteristics Respiratory Depth Blood Pressure 185/95 H Blood Pressure [Left Arm] 188/119 H 166/92 H Blood Pressure Mean 125 Blood Pressure Mean [Left Arm] 142 116 Blood Pressure Position [Left Arm] Pulse Oximetry 97 98 96 Oxygen Delivery Method Room Air Room Air Room Air Sepsis Recent Fever Within 48 Hours No Sepsis New/Unexplained Change in Mental Status No Sepsis Action Taken by Nursing No Action Required 11/29/19 23:59 11/30/19 00:50 Temperature Temperature Source Pulse Rate Pulse Rate [Bilateral Apical] 74 71 Respiratory Rate 18 20 Respiratory Effort / Characteristics Non-Labored Respiratory Depth Normal Blood Pressure Blood Pressure [Left Arm] 161/78 H 163/78 H Blood Pressure Mean Blood Pressure Mean [Left Arm] 105 106 Blood Pressure Position [Left Arm] Lying Pulse Oximetry 96 95 Oxygen Delivery Method Room Air Room Air Sepsis Recent Fever Within 48 Hours Sepsis New/Unexplained Change in Mental Status Sepsis Action Taken by Nursing CONSTITUTIONAL/VITAL SIGNS: Reviewed / noted above. GENERAL: Non-toxic in appearance. INTEGUMENTARY: Warm, dry, and [place]. HEAD: Normocephalic. EYES: without scleral icterus or trauma. ENT/OROPHARYNX: clear and moist. LYMPHADENOPATHY/NECK: Is supple without lymphadenopathy or meningismus. RESPIRATORY: Lungs clear and equal. CARDIOVASCULAR: Regular rate and rhythm. GI/ABDOMEN: Soft. No organomegaly or pulsatile mass. No rebound or guarding. Normal bowel sounds. Tenderness in the left lower and upper quadrants as well as the mid abdominal region. EXTREMITIES: Warm and well perfused. BACK: No CVA tenderness. NEUROLOGICAL: Intact without focal deficits. PSYCHIATRIC: normal affect. MUSCULOSKELETAL: Normally developed with good muscle tone. Course Course 2231: The patient was evaluated in room B11. A complete history and physical exam was performed. 0049: Upon reevaluation, the patient is stable. I discussed the findings and the treatment plan with the patient. She expresses agreement and understanding. STU Mcgowan, was made aware of the patient. The patient will be evaluated for further management. Consultations Consultation #1: VEENA McgowanG, was made aware of the patient. He will evaluate the patient for further management. Time: 00:49 Administered Medications Discontinued Medications Morphine Sulfate (Morphine Sulfate) 2 mg IV NOW STA Stop: 11/29/19 22:42 Last Admin: 11/29/19 23:39 Dose: 2 mg Documented by: [id number] Ondansetron HCl (Zofran Odt) 4 mg PO NOW STA Stop: 11/29/19 23:07 Last Admin: 11/29/19 23:12 Dose: 4 mg Documented by: [id number] Medical Decision Making Differential Diagnosis Differential diagnoses includes but is not limited to gastritis, peptic ulcer disease, GERD, gallbladder disease, pancreatitis, small bowel obstruction, acute coronary syndrome, pericarditis, ischemic bowel, irritable bowel disease, irritable bowel syndrome, appendicitis, diverticulitis, malignancy, hernia, urinary tract infection, torsion, perforation, trauma, infectious. Medical Records Attestation: I reviewed the patient's medical records. Home Medications Current Medication List: was personally reviewed by me Laboratory Data Attestation: I reviewed the patient's lab results. Result diagrams: 11/29/19 23:33 11/29/19 23:33 Lab Results 11/29/19 11/29/19 11/29/19 Range/Units 23:00 23:33 23:33 WBC 8.64 (4.8-10.8) K/uL RBC 4.31 (4.2-5.4) M/uL Hgb 15.0 (12.0-16.0) g/dL Hct 41.8 (37-47) % MCV 97.0 (80-100) fL MCH 34.8 H (25-34) pg MCHC 35.9 (32-36) g/dL RDW Std Deviation 50.7 H (36.4-46.3) fL RDW Coeff of Kristian 14.2 (11.5-14.5) % Plt Count 154 (130-400) K/uL MPV 10.8 H (7.4-10.4) fL Immature Gran % (Auto) 0.2 % Neut % (Auto) 70.6 % Lymph % (Auto) 16.8 % [place] % (Auto) 10.8 % Eos % (Auto) 1.5 % Baso % (Auto) 0.1 % Immature Gran # (Auto) 0.02 (0.00-0.02) K/uL Neut # (Auto) 6.10 (1.4-6.5) K/uL Lymph # (Auto) 1.45 (1.2-3.4) K/uL [place] # (Auto) 0.93 H (0.11-0.59) K/uL Eos # (Auto) 0.13 (0-0.5) K/uL Baso # (Auto) 0.01 (0-0.2) K/uL PT (9.0-12.0) Seconds INR (0.9-1.1) Sodium 141 (136-145) mmol/L Potassium 3.5 (3.5-5.1) mmol/L Chloride 104 (98-107) mmol/L Carbon Dioxide 30 (21-32) mmol/L Anion Gap 7.0 (3-11) BUN 20 H (7-18) mg/dl Creatinine 0.90 (0.6-1.2) mg/dl Est Cr Clr Drug Dosing Not Reportable Est GFR ( Amer) 66.2 Est GFR (Non-Af Amer) 57.1 BUN/Creatinine Ratio 21.8 H (10-20) Glucose 106 H (70-99) mg/dl Calcium 9.6 (8.5-10.1) mg/dl Total Bilirubin 0.6 (0.2-1) mg/dl AST 23 (15-37) U/L ALT 19 (12-78) U/L Alkaline Phosphatase 120 H (45-117) U/L Total Protein 8.0 (6.4-8.2) gm/dl Albumin 3.7 (3.4-5.0) gm/dl Globulin 4.3 H (2.5-4.0) gm/dl Albumin/Globulin Ratio 0.9 (0.9-2) Lipase 151 (73-393) U/L Urine Color Yellow Urine Appearance Clear (Clear) Urine pH 8.5 H (4.5-7.5) Ur Specific [place] 1.009 (1.000-1.030) Urine Protein Negative (Negative) Urine Glucose (UA) Negative (Negative) Urine Ketones Negative (Negative) Urine Blood Negative (Negative) Urine Nitrite Negative (Negative) Urine Bilirubin Negative (Negative) Urine Urobilinogen Negative (Negative) Ur Leukocyte Esterase Negative (Negative) Urine WBC (Auto) 1-5 (0-5) /hpf Urine RBC (Auto) 0-4 (0-4) /hpf U Hyaline Cast (Auto) 0 (0-5) /lpf U Epithel Cells (Auto) 5-10 H (0-5) /lpf Urine Bacteria (Auto) Negative (Negative) Urine Yeast Budding A (None Prsent) 11/29/19 Range/Units 23:33 WBC (4.8-10.8) K/uL RBC (4.2-5.4) M/uL Hgb (12.0-16.0) g/dL Hct (37-47) % MCV (80-100) fL MCH (25-34) pg MCHC (32-36) g/dL RDW Std Deviation (36.4-46.3) fL RDW Coeff of Kristian (11.5-14.5) % Plt Count (130-400) K/uL MPV (7.4-10.4) fL Immature Gran % (Auto) % Neut % (Auto) % Lymph % (Auto) % [place] % (Auto) % Eos % (Auto) % Baso % (Auto) % Immature Gran # (Auto) (0.00-0.02) K/uL Neut # (Auto) (1.4-6.5) K/uL Lymph # (Auto) (1.2-3.4) K/uL [place] # (Auto) (0.11-0.59) K/uL Eos # (Auto) (0-0.5) K/uL Baso # (Auto) (0-0.2) K/uL PT 11.6 (9.0-12.0) Seconds INR 1.1 (0.9-1.1) Sodium (136-145) mmol/L Potassium (3.5-5.1) mmol/L Chloride (98-107) mmol/L Carbon Dioxide (21-32) mmol/L Anion Gap (3-11) BUN (7-18) mg/dl Creatinine (0.6-1.2) mg/dl Est Cr Clr Drug Dosing Est GFR ( Amer) Est GFR (Non-Af Amer) BUN/Creatinine Ratio (10-20) Glucose (70-99) mg/dl Calcium (8.5-10.1) mg/dl Total Bilirubin (0.2-1) mg/dl AST (15-37) U/L ALT (12-78) U/L Alkaline Phosphatase (45-117) U/L Total Protein (6.4-8.2) gm/dl Albumin (3.4-5.0) gm/dl Globulin (2.5-4.0) gm/dl Albumin/Globulin Ratio (0.9-2) Lipase (73-393) U/L Urine Color Urine Appearance (Clear) Urine pH (4.5-7.5) Ur Specific [place] (1.000-1.030) Urine Protein (Negative) Urine Glucose (UA) (Negative) Urine Ketones (Negative) Urine Blood (Negative) Urine Nitrite (Negative) Urine Bilirubin (Negative) Urine Urobilinogen (Negative) Ur Leukocyte Esterase (Negative) Urine WBC (Auto) (0-5) /hpf Urine RBC (Auto) (0-4) /hpf U Hyaline Cast (Auto) (0-5) /lpf U Epithel Cells (Auto) (0-5) /lpf Urine Bacteria (Auto) (Negative) Urine Yeast (None Prsent) Imaging Data Radiologist's Impression: Radiology results as stated below per my review and the radiologist's interpretation: CT ABDOMEN & PELVIS With Contrast: 09/15/2016. Dilated small bowel loops with air-fluid levels in the left/mid abdomen. Distal loops smaller caliber. Consistent with small bowel obstruction. Transition point in the anterior mid abdomen. Unclear if the obstruction is due to adhesions or possibly due to the ventral hernia containing small segment of a small bowel loop. No free air. Minimal free fluid in the abdomen and pelvis. Ch olecystectomy. Hysterectomy. Marked vascular calcifications. Degenerative changes of the spine. Cardiomegaly, pacemaker lads, coronary calcifications. Mild basilar atelectasis/chronic changes. Radiologist: Mickie Pollock MD. ECG Data Attestation: I personally reviewed and interpreted this ECG as follows: Indication: + abdominal pain Rate (beats per minute): 68 Rhythm: + atrial fibrillation ECG Intervals/blocks: + Left bundle branch block and + Normal QT-c ECG ST segments: no ST elevation Blood Pressure Blood Pressure Findings: Elevated blood pressure Blood Pressure Disposition: further management by hospitalist JOSHUA Narrative This is an 89-year-old female who presents to the ED with a chief complaint of abdominal pain. Her symptoms started around 8:30 PM tonight. She reports it as being a spasm or crampy type of pain. Is mostly in the mid abdominal region on left side. The patient has had previous abdominal surgeries as well as mesh. She denies previous similar symptoms. No nausea or vomiting. No diarrhea constipation. On exam, she is tender to palpation in the mid abdominal region as well as left side. It appears to encompass the upper and lower quadrants. Is slightly tachycardic and she is also hypertensive. She appears to be in mild discomfort. The patient reports a history of about 13 small bowel obstruction in the past. She states that most have resolved with conservative measures and without an NG tube. She states that she required an NG tube once. The patient CT scan reveals findings suggestive of a small bowel obstruction. The patient's CBC and chemistry panel was unremarkable and urinalysis did not show infection. The patient was given some IV morphine for her discomfort. She was given Zofran ODT initially as staff was not able to get an IV right away. The patient appears to be more comfortable. She will be seen by the hospitalist for further inpatient evaluation and care. Impression & Plan SBO (small bowel obstruction) Discharge Plan Visit Data Chief Complaint: Abdominal Pain Stated Complaint: SPASMS AND SHARP ABD PAIN ED Provider: Xavier Luu Discharge Problem: SBO (small bowel obstruction) Patient Disposition: Being Evaluated by Hospitalist Forms Stand Alone Forms: [facility] Prescriptions Prescriptions: No Action (DME) Wheelchair (Manual) Device See Rx Instructions .ROUTE .MEDSUPPLY Qty: 1 RF: 0 diltiazem HCl 360 mg capsule,extended release 24 hr 360 mg PO HS RF: 0 levothyroxine 150 mcg tablet 150 mg PO DAILYBB RF: 0 folic acid 1 mg Tablet 1 mg PO QAM RF: 0 polyethylene glycol 3350 [Miralax] 17 gram Powder In Packet 17 g PO AMPM RF: 0 primidone 250 mg tablet 250 mg PO BID Qty: 180 RF: 2 propranolol 60 mg tablet 60 mg PO BID RF: 0 furosemide [Lasix] 20 mg tablet 20 mg PO DAILY RF: 0 warfarin 4 mg tablet 4 mg PO UD RF: 0 valsartan 160 mg tablet 160 mg PO QAM RF: 0 Referrals Referrals: Alex Kwong, DO [Primary Care Provider] - The scribe's documentation has been prepared under my direction and personally reviewed by me in its entirety. I confirm that the note above accurately reflects all work, treatment, procedures, and medical decision making performed by me.
[2019-11-29] MEDS ORDERED: ONDANSETRON 4 MG OD TAB PO STA (23:06)
[2019-11-29 23:13] LABS: Appearance Urine Clear (Clear); Bacteria Urine Automated Negative (Negative); Bilirubin Urine Negative (Negative); Blood Urine Negative (Negative); Cast Urine Automated 0 /lpf (0-5); Color Urine Yellow; Glucose Urine UA Negative (Negative); Ketones Urine Negative (Negative); Leukocyte Esterase Urine Negative (Negative); Nitrite Urine Negative (Negative); Specific Gravity Urine 1.009 (1.000-1.030); Urobilinogen Urine Negative (Negative); pH Urine 8.5 (4.5-7.5)
[2019-11-29 23:29] LABS: Protein Urine Negative (Negative); Sulfosalicylic Acid Urine Negative (Negative)
[2019-11-29 23:32] LABS: RBC Urine Automated 0-4 /hpf (0-4)
[2019-11-29 23:40] LABS: Basophils # (auto) 0.01 K/uL (0-0.2); Basophils % (auto) 0.1 %; Eosinophils # (auto) 0.13 K/uL (0-0.5); Eosinophils % (auto) 1.5 %; Hematocrit (blood only) 41.8 % (37-47); Immature Granulocytes # (auto) 0.02 K/uL (0.00-0.02); Immature Granulocytes % (auto) 0.2 %; Lymphocytes # (auto) 1.45 K/uL (1.2-3.4); Lymphocytes % (auto) 16.8 %; Mean Corpuscular Hemoglobin 34.8 pg (25-34); Mean Corpuscular Hgb Conc 35.9 g/dL (32-36); Mean Platelet Volume 10.8 fL (7.4-10.4); Monocytes # (auto) 0.93 K/uL (0.11-0.59); Monocytes % (auto) 10.8 %; Neutrophils % (auto) 70.6 %; Platelet Count 154 K/uL (130-400); RDW Coefficient of Variation 14.2 % (11.5-14.5); RDW Standard Deviation 50.7 fL (36.4-46.3); Red Blood Count 4.31 M/uL (4.2-5.4); White Blood Count 8.64 K/uL (4.8-10.8)
[2019-11-29 23:49] LABS: INR 1.1 (0.9-1.1); Prothrombin Time 11.6 Seconds (9.0-12.0)
[2019-11-29 23:56] LABS: Alanine Aminotransferase 19 U/L (12-78); Albumin Level 3.7 gm/dl (3.4-5.0); Aspartate Aminotransferase 23 U/L (15-37); BUN Creatinine Ratio 21.8 (10-20); Blood Urea Nitrogen 20 mg/dl (7-18); Calcium 9.6 mg/dl (8.5-10.1); Carbon Dioxide 30 mmol/L (21-32); Chloride 104 mmol/L (98-107); Est GFR (African American) 66.2; Est GFR (Non-African American) 57.1; Glucose 106 mg/dl (70-99); Lipase 151 U/L (73-393); Potassium 3.5 mmol/L (3.5-5.1); Sodium 141 mmol/L (136-145)
[2019-11-29 23:59] LABS: Albumin Globulin Ratio 0.9 (0.9-2); Alkaline Phosphatase 120 U/L (45-117); Bilirubin,Total 0.6 mg/dl (0.2-1); Globulin 4.3 gm/dl (2.5-4.0)
--- NOTE | 2019-11-30 01:43 | History & Physical Report ---
Date of Service November 30, 2019 Assessment & Plan (1) SBO (small bowel obstruction): Blanca is an 89yo female with a past medical history of multiple abdominal surgeries, A. fib, CHF, essential tremor with dysphonia, rheumatoid arthritis, hypothyroidism, hypertension, and aortic stenosis who presents with 1 day of mid to left upper quadrant abdominal pain which feels similar to her to prior small bowel obstructions. Small bowel obstruction CT abdomen shows dilated small bowel with air-fluid level at the mid abdomen consistent with small bowel obstruction Suspect secondary to adhesions versus ventral hernia. No entrapped hernia on physical exam N.p.o. -Lungs with crackles/light rales bibasilar. Fluids held for CHF, reassess fluid status daily and resume IVFM when appropriate Patient known to Dr. Welsh. Medical management of small bowel obstruction at this time, surgical intervention if patient not improving or per judgment of primary team NGT deferred at this time, patient without abdominal distention, nausea, or vomiting. -Morphine 1-2 mg every 4 hours PRN for pain, minimize narcotic use or possible 2/2 potential for worsening ileus Atrial fibrillation with known valvular disease Or for anticoagulation discontinued in September after multiple falls and ri sks/benefits discussion with patient INR daily Continue diltiazem 360 mg p.o. nightly, propranolol 60 mg p.o. twice daily Last echo April 2019. Patient also with aortic stenosis, cautious use of IVFM versus diuretics CHF EF 50-60% on last echo, moderate left ear, moderate MR, mild TR, mild LVH Continue Lasix daily, converted to IV dosing while n.p.o. Hypothyroidism Synthroid p.o. held in the setting of n.p.o. Convert to IV Synthroid if patient going to remain n.p.o. 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 Patient status post cholecystectomy DVT prophylaxis: Heparin 5000 units twice daily Diet: N.p.o. Disposition: Ongoing. Patient previously living at home independently, lives alone but in an apartment on the same property as her son. (2) Valvular heart disease: (3) Atrial fibrillation: (4) Warfarin anticoagulation: (5) CHF (congestive heart failure): (6) Tricuspid regurgitation: (7) Spinal stenosis: (8) Sick sinus syndrome: (9) Rheumatoid arthritis: (10) Mitral regurgitation: (11) Hypertension: (12) Benign essential tremor: (13) Dyslipidemia: (14) Aortic stenosis: History of Present Illness Chief Complaint: Abdominal Pain Primary Care Provider: Alex Kwong DO Blanca is an 89yo female with a past medical history of multiple abdominal surgeries, A. fib, CHF, essential tremor with dysphonia, rheumatoid arthritis, hypothyroidism, hypertension, and aortic stenosis who presents with 1 day of mid to left upper quadrant abdominal pain which feels similar to her to prior small bowel obstructions. She reports her pain began early this afternoon, and was really noticeable by around 8 PM. The pain was on her left upper side and did not radiate. She has had 2 small bowel movements in the previous day, last bowel movement a few days before that. She normally takes MiraLAX twice daily but skipped it today. She has had some nausea but no vomiting. No fever, chills, sweats. No shortness of breath or chest pain. She has no appetite. She reports her pain is greatly improved following morphine administration on arrival. She reports she has a history of multiple abdominal surgeries, including a temporary colostomy in 1999 after a diverticular rupture which was reversed but which developed a hematoma and had a drain removed which caught a staple causing a perforation and resulted in additional surgeries. She has had a cholecystectomy, appendectomy, and hysterectomy. Medical history: Reviewed in EMR Surgical history: Reviewed in EMR Allergies: Reviewed in EMR, multiple allergies including cephalosporins, Cillo stays all, tramadol, lorazepam, doxycycline, rosuvastatin. She is sensitive to hydrochlorothiazide. Medications: Reviewed in EMR. Family history: Noncontributory CODE STATUS: Full code, shirlene with patient. Allergies Allergy/AdvReac Type Severity Reaction Status Date / Time orange Allergy Intermediate HIVES Verified 11/29/19 23:32 pseudoephedrine Allergy Intermediate worsens Verified 11/29/19 23:32 afib strawberry Allergy Intermediate HIVES Verified 11/29/19 23:32 Sulfa (Sulfonamide Allergy Intermediate hives Verified 02/08/20 23:32 Antibiotics) Cephalosporins Allergy Unknown ON [facility] Verified 11/29/19 23:32 LIST cilostazol [From Pletal] Allergy Unknown ON [facility] Verified 11/29/19 23:32 LIST tramadol Allergy Unknown ON [facility] Verified 11/29/19 23:32 LIST lorazepam AdvReac Severe "WENT Verified 11/29/19 23:32 CRAZY" caffeine AdvReac Intermediate HEART Verified 11/29/19 23:32 PALPITATIONS doxycycline AdvReac Intermediate NIGHTMARES Verified 11/29/19 23:32 rosuvastatin AdvReac Intermediate MYALGIAS Verified 11/29/19 23:32 hydrochlorothiazide AdvReac HYPONATREMI Verified 11/29/19 23:32 A Home Medications Home Medications Medication Instructions Recorded Confirmed Type diltiazem HCl 360 mg PO HS 02/02/19 11/29/19 History folic acid 1 mg PO QAM 02/02/19 11/29/19 History levothyroxine 150 mcg PO DAILYBB 02/02/19 11/30/19 History polyethylene glycol 3350 [Miralax] 17 g PO AMPM 05/13/19 11/29/19 History primidone 250 mg PO BID #180 tab 10/02/19 11/29/19 Rx Wheelchair (Manual or Powered) #1 ea 11/05/19 11/12/19 Rx furosemide [Lasix] 20 mg PO DAILY 11/29/19 11/29/19 History propranolol 60 mg PO BID 11/29/19 11/29/19 History valsartan 160 mg PO QAM 11/29/19 11/29/19 History Past Med/Surg History Medical History Actinic keratosis Aortic stenosis (Acute) Benign essential tremor (Acute) Cardiac pacemaker Carotid artery plaque Cerebral atherosclerosis CHF (congestive heart failure) (Acute) Chronic anticoagulation Chronic osteoarthritis Cystocele DVT (deep venous thrombosis) Dyslipidemia (Acute) Edema Elevated alkaline phosphatase level (Acute) Fall as cause of accidental injury at home as place of occurrence Gait disturbance (Chronic) Gastroesophageal reflux disease (Acute) Generalized weakness Hip pain, bilateral (Acute) History of small bowel obstruction Hypertension (Chronic) Hyponatremia Hypothyroidism (Acute) Hypoxia Left rib fracture Meckels diverticulum Mitral regurgitation (Acute) Osteoporosis (Acute) Ovarian cyst Ovarian cyst rupture Permanent atrial fibrillation Rectocele Rheumatoid arthritis (Acute) Rosacea (Acute) SBO (small bowel obstruction) Sick sinus syndrome (Acute) Small bowel obstruction Spinal stenosis (Chronic) Tricuspid regurgitation (Acute) Warfarin anticoagulation (Chronic) Surgical History H/O: hysterectomy History of colon resection For diverticulitis and Meckel's Diverticulum History of hernia repair Hx of appendectomy Hx of cholecystectomy Family History Other Family history non-contributory Social History Preferred Language: Italian Communication Ability: Effective Fats And Oils Loader Required: No Beliefs That Will Affect Care: Bahai Bahai Beliefs: Would like communion if offered. marital status: / Current Living Situation: Alone Current Living Situation Comment: son lives next door Other Information That Helps Us Care for You: No Feels Safe at Home: Yes Safety Concerns: Feels Safe At This Time Smoking Status: Never smoker Second Hand Exposure: No ; Hx Alcohol Use: No Hx Substance Use: No Review of Systems Review of Systems: All systems reviewed & are unremarkable except as noted in HPI & below Physical Exam Physical Exam: General: A&Ox3. Appears uncomfortable. Cooperative. Voice with tremor. Appears frail. HEENT: Atraumatic, normocephalic. Visual acuity grossly intact. Extraocular movements intact without nystagmus. Pupils equal and responsive to light. Pulm: Crackles of the dependent lobes bilaterally, lung sounds diminished. Cardiac: Irregularly irregular with systolic ejection murmur. No JVD. Abdominal: Tender in the left upper quadrant and epigastrium, no rebound tenderness. Abdomen nonrigid. Large ventral hernia, reducible without erythema or prominent tenderness. Patient is thin, abdominal viscera prominent on palpation. Extremities: Moves all extremities equally, 5/5 urgent care technician strength and pl aidan/dorsiflexion. Sensation intact in feet and fingertips. 3 to 6 Hz tremor present in upper extremities bilaterally. Results & Data Vital Signs (Past 12 Hours) Vital Signs Temp Pulse Pulse Resp BP BP Pulse Ox 11/30/19 00:50 71 20 163/78 H 95 02/08/20 23:59 74 18 161/78 H 96 11/29/19 23:41 79 18 166/92 H 96 11/29/19 22:55 68 20 188/119 H 98 11/29/19 22:26 36.5 C 116 H 18 185/95 H 97 Supervising Physician Co-Signing Physician Notes Attending addendum: I have physically seen this patient, have supervised the medical residents activities, and agree with the H&P unless as otherwise noted. Assessment and Plan: Small bowel obstruction- History of multiple abdominal surgeries. Associated with adhesions versus ventral hernia. NPO except medications IV fluids will be held for now as noted. Consult general surgery Dr. Welsh Atrial fibrillation/aortic stenosis- Diltiazem and propranolol with hold parameters. Remainder orders and notations as noted. Resident Activity Tracking Resident Involvement: Resident Care Provided Care Provided: Adult Hospital Medicine (1) CHF (congestive heart failure) Heart failure chronicity: unspecified Heart failure type: unspecified Qualified Code(s): I50.9 - Heart failure, unspecified (2) Aortic stenosis Cardiac valve disease etiology: nonrheumatic Qualified Code(s): I35.0 - Nonrheumatic aortic (valve) stenosis (3) Atrial fibrillation Atrial fibrillation type: longstanding persistent Qualified Code(s): I48.11 - Longstanding persistent atrial fibrillation (4) Hypertension Hypertension type: essential hypertension Qualified Code(s): I10 - Essential (primary) hypertension
[2019-11-30] MEDS ORDERED: MoRPHine SULFATE 2 MG/ML CARP IV PRN (02:12)
[2019-11-30] MEDS: ONDANSETRON INJ 2 MG/ML 2 ML VIAL IV PRN ×3 (03:55→23:01)
[2019-11-30 06:07] LABS: BUN Creatinine Ratio 25.2 (10-20); Calcium 9.2 mg/dl (8.5-10.1); Creatinine Clr Calc Pharmacy 31.7 ml/min; Est GFR (Non-African American) 58.7; Potassium 3.4 mmol/L (3.5-5.1)
[2019-11-30] MEDS: PROPRANOLOL HCL 20 MG TAB PO SCH ×2 (07:46→20:31)
[2019-11-30] MEDS: VALSARTAN 80 MG TAB PO SCH (07:46)
--- NOTE | 2019-11-30 07:50 | CT Scan Report ---
CT OF THE ABDOMEN AND PELVIS WITHOUT CONTRAST CLINICAL HISTORY: Abdominal pain. COMPARISON STUDY: CT of the abdomen and pelvis September 27, 2019. TECHNIQUE: Axial images of the abdomen and pelvis were obtained without IV contrast. Images were revi ewed in the axial, sagittal, and coronal planes. Automated exposure control was utilized for the rebecca dy. A dose lowering technique was utilized adhering to the principles of ALARA. FINDINGS: Imaged portions of the lower chest demonstrate moderate cardiomegaly. Pacer leads are parti ally imaged. Subpleural reticulation within the lower lungs suggest interstitial lung disease. There is no pneumatosis, free air or portal venous gas. Evaluation of the abdomen and pelvis is suboptimal on this unenhanced exam. The liver, spleen, adrenal glands and pancreas are unremarkable. Mild dilata tion of the common bile duct is unchanged since prior CT and likely related to cholecystectomy. Trace ascites within the abdomen and pelvis is noted. Ventral hernia is noted which contains several small bowel loops. There has been interval development of moderate dilatation of the mid small bowel with transition point within the anterior mid abdomen, likely on image 221 of 406. Subtle clear. This is d ue to the ventral hernia or adhesions. Distal small bowel is decompressed. No suspicious osseous lesi ons are noted. There is no lymphadenopathy. No hydronephrosis. IMPRESSION: Numerous loops of moderately dilated mid small bowel with transition point within the an terior mid abdomen. This represents a moderate to high-grade small bowel obstruction. It's unclear if the obstruction is due to a ventral hernia which contains loops of small bowel or due to adhesions. Small amount of associated ascites and mesenteric infiltration. ACT 112: Negative or not required by law. Electronically signed by: Alonzo Minaya M.D. 11/30/2019 7:49 AM
--- NOTE | 2019-11-30 08:03 | Electrocardiogram Report ---
Test Reason : Blood Pressure : / mmHG Vent. Rate : 068 BPM Atrial Rate : 468 BPM P-R Int : 000 ms QRS Dur : 134 ms QT Int : 416 ms P-R-T Axes : 000 250 -37 degrees QTc Int : 442 ms Atrial fibrillation with occasional ventricular-paced complexes Non-specific intra-ventricular conduction block Old Anteroseptal infarct Old Anterolateral infarct Abnormal ECG When compared with ECG of 28-SEP-2019 06:32, Electronic ventricular pacemaker now present Otherwise no significant change Confirmed by Lam Hall ([id number]) on 11/30/2019 8:03:31 AM Referred By: REFERRED SELF Confirmed By:Lam Hall
[2019-11-30] MEDS: MoRPHine SULFATE 2 MG/ML CARP IV PRN ×3 (08:15→18:01)
[2019-11-30] MEDS ORDERED: FUROSEMIDE 40 MG/4 ML VIAL IV SCH (09:00)
[2019-11-30] MEDS ORDERED: FUROSEMIDE 10 MG in SYRINGE 0 ML IV SCH (09:00)
[2019-11-30] MEDS: POTASSIUM CHLORIDE / WTR 10 MEQ/100 ML PLCT IV SCH ×2 (09:47→11:10)
--- NOTE | 2019-11-30 11:27 | Hospitalist Progress Note ---
Date of Service November 30, 2019 Assessment & Plan (1) SBO (small bowel obstruction): - Due to h/o multiple abdominal surgeries vs. ventral hernia. - CT showed dilated small bowel with air fluid level c/w SBO. - NPO status; IV fluids at 80 cc/hr. - Follows with Dr. Welsh as outpatient -- consult gen surg as inpatient. - Pt. deferred NG tube; does not currently have N/V. - Morphine IV prn pain - caution with narcotic use. (2) Atrial fibrillation: - Continue Diltiazem and Propanolol. - Anticoagulation d/c'ed in Sep due to multiple falls. (3) Rheumatoid arthritis: - Followed as outpatient. (4) Hypothyroidism: - Holding home Levothyroxine in setting of SBO, consider IV if necessary. - Most recent TSH was 0.8. (5) Hypertension: - Continue home Diltiazem, Valsartan and Propanolol as prescribed. (6) Benign essential tremor: - Continue Propanolol & Primidone as prescribed. (7) Dyslipidemia: - Not currently on statin agent. (8) Sick sinus syndrome: - S/p pacemaker placement. - No indication for pacemaker interrogation. (9) Cardiac pacemaker: - As noted above. (10) Aortic stenosis: - Most recent echo in Sep 2019 showed moderate to severe aortic stenosis. - Caution with IV fluid hydration. (11) Chronic diastolic heart failure: - Echo in Sep 2019 showed preserved EF, mod to severe , mild to mod MR and TR. - Holding home Lasix due to NPO status. On IV fluids at 80 cc/hr. - Monitor net I/Os and daily weights. - Continue home ARB. (12) DVT prophylaxis: - SCDs; hold pharmacologic ppx for possible procedure. K level 3.4 - ordered K 20 mEq IV + addition of KCl to IV fluids. Dispo: Med/surg for SBO. Subjective Pt. c/o LUQ pain, improved with pain medications this morning. She is not passing gas, has not had a BM yet. Had nausea last evening, now improved. Denies chest pain, SOB. Review of Systems Review of Systems: All systems reviewed & are unremarkable except as noted in HPI & below Constitutional: + fatigue, + weakness and + anorexia; no fever and no chills Respiratory: no cough, no dyspnea and no dyspnea on exertion Cardiovascular: no chest pain, no palpitations and no edema Gastrointestinal: + abdominal pain, + bloating, + nausea, + vomiting and + constipation Genitourinary: no difficulty urinating Musculoskeletal: no back pain and no joint pain Integumentary: no non-healing lesions Physical Exam Physical Exam: General: Resting comfortably HEENT: NC/AT; PERRLA with EOMI; [place] conjunctiva, MMM. No erythema of posterior pharynx Neck: Supple and nontender Cardiac: RRR Lungs: Mild crackles noted in bilat lower lung bases. Abdomen: Bowel normoactive X 4; Tender to palpation over upper abdomen. Extremities: Warm. No edema present Neuro: No focal weakness Skin: No rash Results & Data ([facility]) Vital Signs (Past 12 Hours) Vital Signs Temp Pulse Pulse Resp BP BP Pulse Ox 11/30/19 07:37 36.8 C 76 16 115/70 94 11/30/19 03:36 36.4 C L 79 16 152/85 H 94 11/30/19 02:09 70 20 153/93 H 96 11/30/19 00:50 71 20 163/78 H 95 11/29/19 23:59 74 18 161/78 H 96 11/29/19 23:41 79 18 166/92 H 96 Laboratory Results 11/30/19 11/29/19 11/29/19 Range/Units 05:22 23:33 23:33 WBC (4.8-10.8) K/uL RBC (4.2-5.4) M/uL Hgb (12.0-16.0) g/dL Hct (37-47) % MCV (80-100) fL MCH (25-34) pg MCHC (32-36) g/dL RDW Std Deviation (36.4-46.3) fL RDW Coeff of Kristian (11.5-14.5) % Plt Count (130-400) K/uL MPV (7.4-10.4) fL Immature Gran % (Auto) % Neut % (Auto) % Lymph % (Auto) % [place] % (Auto) % Eos % (Auto) % Baso % (Auto) % Immature Gran # (Auto) (0.00-0.02) K/uL Neut # (Auto) (1.4-6.5) K/uL Lymph # (Auto) (1.2-3.4) K/uL [place] # (Auto) (0.11-0.59) K/uL Eos # (Auto) (0-0.5) K/uL Baso # (Auto) (0-0.2) K/uL PT 11.6 (9.0-12.0) Seconds INR 1.1 (0.9-1.1) Sodium 140 141 (136-145) mmol/L Potassium 3.4 L 3.5 (3.5-5.1) mmol/L Chloride 105 104 (98-107) mmol/L Carbon Dioxide 30 30 (21-32) mmol/L Anion Gap 5.0 7.0 (3-11) BUN 22 H 20 H (7-18) mg/dl Creatinine 0.88 0.90 (0.6-1.2) mg/dl Est Cr Clr Drug Dosing 31.7 Not Reportable Est GFR ( Amer) 68.0 66.2 Est GFR (Non-Af Amer) 58.7 57.1 BUN/Creatinine Ratio 25.2 H 21.8 H (10-20) Glucose 126 H 106 H (70-99) mg/dl Calcium 9.2 9.6 (8.5-10.1) mg/dl Total Bilirubin 0.6 (0.2-1) mg/dl AST 23 (15-37) U/L ALT 19 (12-78) U/L Alkaline Phosphatase 120 H (45-117) U/L Total Protein 8.0 (6.4-8.2) gm/dl Albumin 3.7 (3.4-5.0) gm/dl Globulin 4.3 H (2.5-4.0) gm/dl Albumin/Globulin Ratio 0.9 (0.9-2) Lipase 151 (73-393) U/L Urine Color Urine Appearance (Clear) Urine pH (4.5-7.5) Ur Specific [place] (1.000-1.030) Urine Protein (Negative) Urine Glucose (UA) (Negative) Urine Ketones (Negative) Urine Blood (Negative) Urine Nitrite (Negative) Urine Bilirubin (Negative) Urine Urobilinogen (Negative) Ur Leukocyte Esterase (Negative) Urine WBC (Auto) (0-5) /hpf Urine RBC (Auto) (0-4) /hpf U Hyaline Cast (Auto) (0-5) /lpf U Epithel Cells (Auto) (0-5) /lpf Urine Bacteria (Auto) (Negative) Urine Yeast (None Prsent) 11/29/19 11/29/19 Range/Units 23:33 23:00 WBC 8.64 (4.8-10.8) K/uL RBC 4.31 (4.2-5.4) M/uL Hgb 15.0 (12.0-16.0) g/dL Hct 41.8 (37-47) % MCV 97.0 (80-100) fL MCH 34.8 H (25-34) pg MCHC 35.9 (32-36) g/dL RDW Std Deviation 50.7 H (36.4-46.3) fL RDW Coeff of Kristian 14.2 (11.5-14.5) % Plt Count 154 (130-400) K/uL MPV 10.8 H (7.4-10.4) fL Immature Gran % (Auto) 0.2 % Neut % (Auto) 70.6 % Lymph % (Auto) 16.8 % [place] % (Auto) 10.8 % Eos % (Auto) 1.5 % Baso % (Auto) 0.1 % Immature Gran # (Auto) 0.02 (0.00-0.02) K/uL Neut # (Auto) 6.10 (1.4-6.5) K/uL Lymph # (Auto) 1.45 (1.2-3.4) K/uL [place] # (Auto) 0.93 H (0.11-0.59) K/uL Eos # (Auto) 0.13 (0-0.5) K/uL Baso # (Auto) 0.01 (0-0.2) K/uL PT (9.0-12.0) Seconds INR (0.9-1.1) Sodium (136-145) mmol/L Potassium (3.5-5.1) mmol/L Chloride (98-107) mmol/L Carbon Dioxide (21-32) mmol/L Anion Gap (3-11) BUN (7-18) mg/dl Creatinine (0.6-1.2) mg/dl Est Cr Clr Drug Dosing Est GFR ( Amer) Est GFR (Non-Af Amer) BUN/Creatinine Ratio (10-20) Glucose (70-99) mg/dl Calcium (8.5-10.1) mg/dl Total Bilirubin (0.2-1) mg/dl AST (15-37) U/L ALT (12-78) U/L Alkaline Phosphatase (45-117) U/L Total Protein (6.4-8.2) gm/dl Albumin (3.4-5.0) gm/dl Globulin (2.5-4.0) gm/dl Albumin/Globulin Ratio (0.9-2) Lipase (73-393) U/L Urine Color Yellow Urine Appearance Clear (Clear) Urine pH 8.5 H (4.5-7.5) Ur Specific [place] 1.009 (1.000-1.030) Urine Protein Negative (Negative) Urine Glucose (UA) Negative (Negative) Urine Ketones Negative (Negative) Urine Blood Negative (Negative) Urine Nitrite Negative (Negative) Urine Bilirubin Negative (Negative) Urine Urobilinogen Negative (Negative) Ur Leukocyte Esterase Negative (Negative) Urine WBC (Auto) 1-5 (0-5) /hpf Urine RBC (Auto) 0-4 (0-4) /hpf U Hyaline Cast (Auto) 0 (0-5) /lpf U Epithel Cells (Auto) 5-10 H (0-5) /lpf Urine Bacteria (Auto) Negative (Negative) Urine Yeast Budding A (None Prsent) PG Care Time/CCT Total # of Minutes Spent Total Time Spent with Patient: Total time spent is greater than 50% in coordination of care (as documented) at patient's floor/unit and/or counseling patient: Coding Level of Care Code 57878 Subseq Hosp Care Lvl 3 Diagnoses SBO (small bowel obstruction) K56.609 Atrial fibrillation I48.11 Atrial fibrillation type: longstanding persistent Rheumatoid arthritis M06.9 Hypothyroidism E03.9 Hypertension I10 Hypertension type: essential hypertension Benign essential tremor G25.0 Dyslipidemia E78.5 Sick sinus syndrome I49.5 Cardiac pacemaker Z95.0 Aortic stenosis I35.0 Cardiac valve disease etiology: nonrheumatic Chronic diastolic heart failure I50.32 DVT prophylaxis Z29.9 (1) Aortic stenosis Cardiac valve disease etiology: nonrheumatic Qualified Code(s): I35.0 - Nonrheumatic aortic (valve) stenosis (2) Atrial fibrillation Atrial fibrillation type: longstanding persistent Qualified Code(s): I48.11 - Longstanding persistent atrial fibrillation (3) Hypertension Hypertension type: essential hypertension Qualified Code(s): I10 - Essential (primary) hypertension
--- NOTE | 2019-11-30 14:16 | Surgery Consultation ---
Date of Consultation November 30, 2019 Assessment & Plan (1) SBO (small bowel obstruction): She usually responds in a day or two to bowel rest and IVF. I've ordered NSS +20 K at 80 cc/hr. Can hold on NGT unless she has persistent nausea or recurrent vomiting, she usually declines to have this placed anyway. We've been able to avoid surgery for many years with this hernia given her extensive medical history and surgeries. History of Present Illness Attending Physician: Connor Jain DO History of Present Illness 89 y/o female well known to our service for history of incisional hernia and multiple small bowel obstructions. Usually is careful with her intake but had eaten a dish with partially cooked apples over the past three days and began having pain, N/V throughout yesterday and admitted overnight. Last SBO was 3 years ago according to her. Her nausea is improved with medication, has not vomited since coming to the hospital. No flatus, 2 small BMs yesterday. Allergies Allergy/AdvReac Type Severity Reaction Status Date / Time orange Allergy Intermediate HIVES Verified 11/29/19 23:32 pseudoephedrine Allergy Intermediate worsens Verified 11/29/19 23:32 afib strawberry Allergy Intermediate HIVES Verified 11/29/19 23:32 Sulfa (Sulfonamide Allergy Intermediate hives Verified 11/29/19 23:32 Antibiotics) Cephalosporins Allergy Unknown ON [facility] Verified 11/29/19 23:32 LIST cilostazol [From Pletal] Allergy Unknown ON [facility] Verified 11/29/19 23:32 LIST tramadol Allergy Unknown ON [facility] Verified 11/29/19 23:32 LIST lorazepam AdvReac Severe "WENT Verified 11/29/19 23:32 CRAZY" caffeine AdvReac Intermediate HEART Verified 11/29/19 23:32 PALPITATIONS doxycycline AdvReac Intermediate NIGHTMARES Verified 11/29/19 23:32 rosuvastatin AdvReac Intermediate MYALGIAS Verified 11/29/19 23:32 hydrochlorothiazide AdvReac HYPONATREMI Verified 11/29/19 23:32 A Home Medications Home Medications Medication Instructions Recorded Confirmed Type diltiazem HCl 360 mg PO HS 02/02/19 11/29/19 History folic acid 1 mg PO QAM 02/02/19 11/29/19 History levothyroxine 150 mcg PO DAILYBB 02/02/19 11/30/19 History polyethylene glycol 3350 [Miralax] 17 g PO AMPM 05/13/19 11/29/19 History primidone 250 mg PO BID #180 tab 10/02/19 11/29/19 Rx Wheelchair (Manual or Powered) #1 ea 11/05/19 11/12/19 Rx furosemide [Lasix] 20 mg PO DAILY 11/29/19 11/29/19 History propranolol 60 mg PO BID 11/29/19 11/29/19 History valsartan 160 mg PO QAM 11/29/19 11/29/19 History Patient History Medical History Actinic keratosis Aortic stenosis (Acute) Benign essential tremor (Acute) Cardiac pacemaker Carotid artery plaque Cerebral atherosclerosis CHF (congestive heart failure) (Acute) Chronic anticoagulation Chronic osteoarthritis Cystocele DVT (deep venous thrombosis) Dyslipidemia (Acute) Edema Elevated alkaline phosphatase level (Acute) Fall as cause of accidental injury at home as place of occurrence Gait disturbance (Chronic) Gastroesophageal reflux disease (Acute) Generalized weakness Hip pain, bilateral (Acute) History of small bowel obstruction Hypertension (Chronic) Hyponatremia Hypothyroidism (Acute) Hypoxia Left rib fracture Meckels diverticulum Mitral regurgitation (Acute) Osteoporosis (Acute) Ovarian cyst Ovarian cyst rupture Permanent atrial fibrillation Rectocele Rheumatoid arthritis (Acute) Rosacea (Acute) SBO (small bowel obstruction) Sick sinus syndrome (Acute) Small bowel obstruction Spinal stenosis (Chronic) Tricuspid regurgitation (Acute) Warfarin anticoagulation (Chronic) Surgical History H/O: hysterectomy History of colon resection For diverticulitis and Meckel's Diverticulum History of hernia repair Hx of appendectomy Hx of cholecystectomy Family History Other Family history non-contributory Social History Preferred Language: Vietnamese Communication Ability: Effective Tag Stringer Required: No Beliefs That Will Affect Care: Voodoo Voodoo Beliefs: Would like communion if offered. marital status: / Current Living Situation: Alone Current Living Situation Comment: son lives next door Other Information That Helps Us Care for You: No Feels Safe at Home: Yes Safety Concerns: Feels Safe At This Time Smoking Status: Never smoker Second Hand Exposure: No ; Hx Alcohol Use: No Hx Substance Use: No Review of Systems Constitutional: no fever and no chills Gastrointestinal: + abdominal pain, + bloating, + nausea and + vomiting Physical Exam Constitutional: + frail appearing and + underweight Respiratory: normal respiratory effort Cardiovascular: Rate/Rhythm: regular rate Gastrointestinal (Abdomen): Inspection/Auscultation: + abdomen distended (moderate, ventral hernia noted) Percussion/Palpation: + abdomen tender (mild) and abdomen soft Results & Data Vital Signs (Past 12 Hours) Vital Signs Temp Pulse Resp BP Pulse Ox 11/30/19 07:37 36.8 C 76 16 115/70 94 11/30/19 03:36 36.4 C L 79 16 152/85 H 94 PG Care Time/CCT Total # of Minutes Spent Total Time Spent with Patient: Total time spent is greater than 50% in coordination of care (as documented) at patient's floor/unit and/or counseling patient: Coding Level of Care Code 77238 Initial Inpt Care Lvl 1 Diagnoses SBO (small bowel obstruction) K56.609
[2019-11-30] MEDS: NSS + 20MEQ KCL 20 MEQ/1,000 ML BAG IV SCH (15:38)
[2019-11-30] MEDS: dilTIAZem ER 180 MG CAPCR PO SCH (20:31)
[2019-11-30] MEDS: PRIMIDONE 250 MG TAB PO SCH (20:32)
--- NOTE | 2019-11-30 23:33 | Communication Note ---
Date of Service: November 30, 2019 Called to bedside. Pt with increased nausea, dry emesis, and small amounts of clear emesis. Known SBO with midab transition point. NGT deferred by day team as she was not having nausea/vomiting. +abdominal distension, tenderness unchanged. Soft, non-rigid, without rebound. No signs of acute abdomen. Pt agreeable to NGT, placed to low intermittent suction with portable CXR for confirmation.
--- NOTE | 2019-12-01 01:15 | Billing Data ---
Date of Service December 01, 2019 Coding Level of Care Code 83259 Initial Inpt Care Lvl 3
--- NOTE | 2019-12-01 01:17 | Billing Data ---
Date of Service December 01, 2019 Coding Level of Care Code 52951 Subseq Hosp Care Lvl 1 Comment no charge due to acute follow up in hospital
[2019-12-01] MEDS: NSS + 20MEQ KCL 20 MEQ/1,000 ML BAG IV SCH ×2 (03:28→15:42)
[2019-12-01 06:42] LABS: Calcium 8.7 mg/dl (8.5-10.1); Creatinine Clr Calc Pharmacy 32.5 ml/min; Est GFR (African American) 69.9; Est GFR (Non-African American) 60.3; Magnesium 1.9 mg/dl (1.8-2.4); Potassium 4.1 mmol/L (3.5-5.1)
--- NOTE | 2019-12-01 07:09 | XRay Report ---
SINGLE VIEW CHEST CLINICAL HISTORY: Enteric tube placement. FINDINGS: An AP, portable, upright chest radiograph is compared to study dated 09/27/2019 and correlat ed with chest CT dated 05/13/2019. The examination is degraded by portable technique and patient rotat ion. An enteric tube has been placed. The tip projects below the diaphragm. The sideholes are located at the level of the diaphragm. A single lead cardiac pacemaker is unchanged in position. The heart i s enlarged noting atherosclerotic calcification of the thoracic aorta. The pulmonary vasculature is n oncongested. Chronic interstitial thickening is similar to previous. No airspace consolidation or lar ge pleural effusion is identified. No pneumothorax is seen. The skeletal structures are osteopenic. T he bony thorax is grossly intact. Degenerative change is noted in the shoulders and thoracic spine. IMPRESSION: 1. An enteric tube has been placed as above. The side holes project at the level of the diaphragm and this should likely be advanced. 2. Cardiomegaly and cardiac pacemaker with no radiographic evidence of congestive failure. 3. No airspace consolidation or large pleural effusion is identified. Electronically signed by: Pato Philip M.D. 12/01/2019 7:07 AM
--- NOTE | 2019-12-01 07:43 | Surgery Progress Note ---
Date of Service December 01, 2019 Assessment & Plan (1) SBO (small bowel obstruction): seen with Dr. Welsh will check KUB will monitor I+O, may need additional IVF if NG output is high although its seems to have decreased overnight Subjective no flatus, feels better after NG placed, 1100 output so far Physical Exam Gastrointestinal (Abdomen): Inspection/Auscultation: + abdomen distended and + visible herniation Percussion/Palpation: abdomen soft (softer this AM) Results & Data Vital Signs (Past 12 Hours) Vital Signs Temp Pulse Resp BP Pulse Ox 11/30/19 22:52 37 C 90 18 184/96 H 91 11/30/19 21:41 83 173/95 H 91 11/30/19 20:29 83 187/99 H 94 PG Care Time/CCT Total # of Minutes Spent Total Time Spent with Patient: Total time spent is greater than 50% in coordination of care (as documented) at patient's floor/unit and/or counseling patient: Coding Level of Care Code 98761 Subseq Hosp Care Lvl 1 Diagnoses SBO (small bowel obstruction) K56.609
[2019-12-01] MEDS: PRIMIDONE 250 MG TAB PO SCH ×2 (07:56→20:20)
[2019-12-01] MEDS: PROPRANOLOL HCL 20 MG TAB PO SCH ×2 (07:56→20:21)
[2019-12-01] MEDS: VALSARTAN 80 MG TAB PO SCH (07:56)
--- NOTE | 2019-12-01 08:21 | XRay Report ---
XR KUB/Abdomen 1 view CLINICAL HISTORY: 89 years-old Female presenting with follow up bowel obstruction. TECHNIQUE: Single supine view of the abdomen was obtained. COMPARISON: 12/10/[address] from 11/29/2019. FINDINGS: Cholecystectomy clips. Nasogastric tube terminates in the body of the stomach, sidehole at the level of the gastroesophageal junction. Gaseous distended loops of small and large bowel. The bowel obstruc tion seen on recent CT is not as well demonstrated on the current exam. No gross pneumoperitoneum. Allowing for bowel gas and stool, no calcifications to suggest nephrolithiasis. Significant calcifica tion related to atherosclerosis. Degenerative changes of the spine. IMPRESSION: 1. Nasogastric tube terminates in the stomach though the sidehole may be at the gastroesophageal omkar ction or in the distal esophagus; advancement recommended. 2. The presence of the small bowel obstruction seen on CT is not as well-demonstrated on the current radiograph. Overall nonspecific bowel gas pattern by radiograph. ACT 112: Negative or not required by law. Electronically signed by: Rahat Shaw M.D. 12/01/2019 8:19 AM
--- NOTE | 2019-12-01 15:30 | Hospitalist Progress Note ---
Date of Service December 01, 2019 Assessment & Plan (1) SBO (small bowel obstruction): - Due to h/o multiple abdominal surgeries vs. ventral hernia. - CT showed dilated small bowel with air fluid level c/w SBO. - S/p NG tube placement overnight to LIS; has had >1500 cc output. - F/u KUB showed improvement in SBO. - NPO status; IV fluids at 80 cc/hr. - Follows with Dr. Welsh, consulted as inpatient. - Morphine IV prn pain - caution with narcotic use. - Pt. did have large BM this morning. (2) Atrial fibrillation: - Continue Diltiazem and Propanolol - clamp NG tube prior to giving meds. - Anticoagulation d/c'ed in Sep due to multiple falls. (3) Sick sinus syndrome: - S/p pacemaker placement. - No indication for pacemaker interrogation. (4) Rheumatoid arthritis: - Followed as outpatient. (5) Hypertension: - Continue home Diltiazem, Valsartan and Propanolol as prescribed. (6) Benign essential tremor: - Continue Propanolol & Primidone as prescribed. (7) Dyslipidemia: - Not currently on statin agent. (8) Aortic stenosis: - Most recent echo in Sep 2019 showed moderate to severe aortic stenosis. - Caution with IV fluid hydration. (9) Chronic diastolic heart failure: - Echo in Sep 2019 showed preserved EF, mod to severe , mild to mod MR and TR. - Hold home Lasix due to NPO status. On IV fluids at 80 cc/hr. - Monitor net I/Os and daily weights. - Continue home ARB. Dispo: Med/surg for SBO. Admission and Anticipated Discharge Date Admission Date: November 30, 2019 Anticipated date of discharge: 12/03/19 Supervising Physician Co-Signing Physician Notes PA Supervision Note: I did not personally see or examine the patient today, but I verified all zamudio points of ASHLEY Cloud's assessment and plan with the following exceptio ns/additions: None Subjective S/p NG tube placement with 1100 cc output. Currently has ~500 cc output this morning. Did have large BM prior to rounds, is passing gas. Abd pain and nausea improved following NG tube placement. Review of Systems Review of Systems: All systems reviewed & are unremarkable except as noted in HPI & below Constitutional: + fatigue, + weakness and + anorexia; no fever and no chills Respiratory: no cough, no dyspnea and no dyspnea on exertion Cardiovascular: no chest pain, no palpitations and no edema Gastrointestinal: + abdominal pain, + bloating, + nausea and + constipation; no vomiting and no diarrhea/loose stools Genitourinary: no difficulty urinating Musculoskeletal: no back pain and no joint pain Integumentary: no non-healing lesions Physical Exam Physical Exam: General: Resting comfortably HEENT: NC/AT; PERRLA with EOMI; [place] conjunctiva, MMM. No erythema of posterior pharynx Neck: Supple and nontender Cardiac: RRR Lungs: room air; CTA throughout Abdomen: Bowel normoactive X 4; nontender to light palpation. Extremities: Warm. No edema present Neuro: No focal weakness Skin: No rash Results & Data ([facility]) Vital Signs (Past 12 Hours) Vital Signs Temp Pulse Pulse Resp BP Pulse Ox 12/01/19 15:09 36.9 C 74 16 170/79 H 91 12/01/19 08:17 36.9 C 68 66 16 151/75 H 93 Laboratory Results 12/01/19 Range/Units 05:37 Sodium 144 (136-145) mmol/L Potassium 4.1 D (3.5-5.1) mmol/L Chloride 111 H (98-107) mmol/L Carbon Dioxide 27 (21-32) mmol/L Anion Gap 6.0 (3-11) BUN 22 H (7-18) mg/dl Creatinine 0.86 (0.6-1.2) mg/dl Est Cr Clr Drug Dosing 32.5 ml/min Est GFR ( Amer) 69.9 Est GFR (Non-Af Amer) 60.3 BUN/Creatinine Ratio 26.0 H (10-20) Glucose 87 (70-99) mg/dl Calcium 8.7 (8.5-10.1) mg/dl Magnesium 1.9 (1.8-2.4) mg/dl PG Care Time/CCT Total # of Minutes Spent Total Time Spent with Patient: Total time spent is greater than 50% in coordination of care (as documented) at patient's floor/unit and/or counseling patient: Coding Level of Care Code 01996 Subseq Hosp Care Lvl 3 Diagnoses SBO (small bowel obstruction) K56.609 Atrial fibrillation I48.11 Atrial fibrillation type: longstanding persistent Sick sinus syndrome I49.5 Rheumatoid arthritis M06.9 Hypertension I10 Hypertension type: essential hypertension Benign essential tremor G25.0 Dyslipidemia E78.5 Aortic stenosis I35.0 Cardiac valve disease etiology: nonrheumatic Chronic diastolic heart failure I50.32 (1) Aortic stenosis Cardiac valve disease etiology: nonrheumatic Qualified Code(s): I35.0 - Nonrheumatic aortic (valve) stenosis (2) Atrial fibrillation Atrial fibrillation type: longstanding persistent Qualified Code(s): I48.11 - Longstanding persistent atrial fibrillation (3) Hypertension Hypertension type: essential hypertension Qualified Code(s): I10 - Essential (primary) hypertension
[2019-12-01] MEDS ORDERED: HydrALAZINE HCL 20 MG/ML VIAL IV ONE (15:51)
[2019-12-01] MEDS: dilTIAZem ER 180 MG CAPCR PO SCH (20:21)
[2019-12-02] MEDS: NSS + 20MEQ KCL 20 MEQ/1,000 ML BAG IV SCH (04:23)
--- NOTE | 2019-12-02 05:26 | Surgery Progress Note ---
Date of Service December 02, 2019 Assessment & Plan (1) SBO (small bowel obstruction): 12/02/19 if the patient behaves like she has in multiple other admissions bowel obstruction should resolve in 24 to 48 hours I would continue with NG drainage at this time we will give her some ice chips leave NG tube in for now until patient has a bowel movement We will hold off reimaging her today since clinically she is improving albeit slowly seen with Dr. Welsh will check KUB will monitor I+O, may need additional IVF if NG output is high although its seems to have decreased overnight Subjective 12/02/19 Patient feels better less abdominal discomfort is passing flatus would like some ice chips no flatus, feels better after NG placed, 1100 output so far Physical Exam Physical Exam: Alert coherent no abdominal complaints Gastrointestinal (Abdomen): The abdomen is a bit softer still has some guarding as I press on the large hernia in the midline but compared to yesterday appears to be less tender The NG output is decreased at 400 overnight Results & Data Vital Signs (Past 12 Hours) Vital Signs Temp Pulse Resp BP Pulse Ox 12/01/19 23:23 36.8 C 68 15 161/71 H 94 12/01/19 21:56 153/79 H 12/01/19 20:18 83 178/99 H 96 PG Care Time/CCT Total # of Minutes Spent Total Time Spent with Patient: Total time spent is greater than 50% in coordination of care (as documented) at patient's floor/unit and/or counseling patient: Coding Level of Care Code 80727 Subseq Hosp Care Lvl 3 Diagnoses SBO (small bowel obstruction) K56.609
[2019-12-02 06:30] LABS: Basophils # (auto) 0.02 K/uL (0-0.2); Basophils % (auto) 0.3 %; Eosinophils # (auto) 0.08 K/uL (0-0.5); Hemoglobin 13.9 g/dL (12.0-16.0); Immature Granulocytes # (auto) 0.02 K/uL (0.00-0.02); Immature Granulocytes % (auto) 0.3 %; Lymphocytes # (auto) 1.46 K/uL (1.2-3.4); Lymphocytes % (auto) 19.1 %; Mean Corpuscular Hemoglobin 34.2 pg (25-34); Mean Corpuscular Hgb Conc 34.8 g/dL (32-36); Mean Corpuscular Volume 98.3 fL (80-100); Monocytes # (auto) 1.17 K/uL (0.11-0.59); Monocytes % (auto) 15.3 %; Platelet Count 139 K/uL (130-400); RDW Coefficient of Variation 14.4 % (11.5-14.5); RDW Standard Deviation 51.7 fL (36.4-46.3); Red Blood Count 4.07 M/uL (4.2-5.4); White Blood Count 7.65 K/uL (4.8-10.8)
[2019-12-02 07:02] LABS: BUN Creatinine Ratio 24.5 (10-20); Calcium 8.5 mg/dl (8.5-10.1); Creatinine Clr Calc Pharmacy 39.3 ml/min; Est GFR (African American) 88.1; Magnesium 1.7 mg/dl (1.8-2.4); Potassium 3.7 mmol/L (3.5-5.1)
[2019-12-02 07:03] LABS: Phosphorus 2.5 mg/dl (2.5-4.9)
[2019-12-02] MEDS ORDERED: MAGNESIUM SULFATE / D5W 1 GM/100 ML BAG IV ONE (08:30)
[2019-12-02] MEDS: VALSARTAN 80 MG TAB PO SCH (08:49)
[2019-12-02] MEDS: PROPRANOLOL HCL 20 MG TAB PO SCH ×2 (08:50→20:31)
[2019-12-02] MEDS: PRIMIDONE 250 MG TAB PO SCH ×2 (08:50→20:32)
[2019-12-02] MEDS: POTASSIUM CHLORIDE 20 MEQ in DEXTROSE 5% 1,000 ML IV SCH ×2 (11:24→23:03)
[2019-12-02] MEDS ORDERED: HydrALAZINE HCL 20 MG/ML VIAL IV PRN (15:15)
--- NOTE | 2019-12-02 15:18 | Hospitalist Progress Note ---
Date of Service December 02, 2019 Assessment & Plan (1) SBO (small bowel obstruction): - Due to h/o multiple abdominal surgeries vs. ventral hernia. Pt. and surgical team would like to avoid intervention if possible. - CT showed dilated small bowel with air fluid level c/w SBO. - S/p NG tube placement to LIS; output is now decreasing, can likely clamp tube over next 24 hours and remove if tolerating. - F/u KUB showed improvement in SBO. - NPO except ice chips; IV fluids at 80 cc/hr (converted to D5 due to hypoglycemia this AM) - Follows with Dr. Welsh, consulted as inpatient. - Morphine IV prn pain. - She is passing flatus, most recent BM on 12/01. Will continue to monitor, is slowly improving. (2) Atrial fibrillation: - Continue Diltiazem and Propanolol - clamping NG tube prior to giving meds. - Anticoagulation d/c'ed in Sep due to multiple falls. (3) Sick sinus syndrome: - S/p pacemaker placement. - No indication for pacemaker interrogation. (4) Rheumatoid arthritis: - Followed as outpatient. (5) Hypertension: - Continue home Diltiazem, Valsartan and Propanolol as prescribed. - BP has been elevated -- hydralazine IV prn. (6) Benign essential tremor: - Continue Propanolol & Primidone as prescribed. (7) Dyslipidemia: - Not currently on statin agent. (8) Aortic stenosis: - Most recent echo in Sep 2019 showed moderate to severe aortic stenosis. - Caution with IV fluid hydration. (9) Chronic diastolic heart failure: - Echo in Sep 2019 showed preserved EF, mod to severe , mild to mod MR and TR. - Holding home Lasix due to NPO status. On IV fluids at 80 cc/hr. - Monitor net I/Os and daily weights - has had ~5 kg weight gain since admission. - Continue home ARB. Mag level 1.7 - ordered mag sulfate 1 gm IV. DVT ppx: SCDs; start Heparin q8hr. Dispo: Med/surg for SBO. Admission and Anticipated Discharge Date Admission Date: November 30, 2019 Anticipated date of discharge: 12/04/19 Supervising Physician Co-Signing Physician Notes PA Supervision Note: I did not personally see or examine the patient today, but I verified all zamudio points of ASHLEY Cloud's assessment and plan with the following exceptions/additions: None Subjective Pt. states she is miserable. She has NG tube in place, less output this morning. Abd pain rated as a 1-2/10. Denies nausea, chest pain, SOB. Has not had a BM since yesterday morning but is passing gas. Surgery following. Review of Systems Review of Systems: All systems reviewed & are unremarkable except as noted in HPI & below Constitutional: + fatigue, + weakness and + anorexia; no fever and no chills Respiratory: no cough, no dyspnea and no dyspnea on exertion Cardiovascular: no chest pain, no palpitations and no edema Gastrointestinal: + abdominal pain, + bloating and + constipation; no nausea and no vomiting Genitourinary: no difficulty urinating Musculoskeletal: no back pain and no joint pain Integumentary: no non-healing lesions Physical Exam Physical Exam: General: Resting comfortably HEENT: NC/AT; PERRLA with EOMI; [place] conjunctiva, MMM. No erythema of posterior pharynx Neck: Supple and nontender Cardiac: RRR Lungs: CTA throughout Abdomen: Bowel normoactive X 4; nontender to light palpation. Extremities: Warm. No edema present Neuro: No focal weakness Skin: No rash Results & Data ([facility]) Vital Signs (Past 12 Hours) Vital Signs Temp Pulse Resp BP Pulse Ox 12/02/19 11:10 37.0 C 60 16 153/78 H 95 12/02/19 07:13 37.3 C 65 18 167/80 H 94 Laboratory Results 12/02/19 12/02/19 Range/Units 05:46 05:46 WBC 7.65 (4.8-10.8) K/uL RBC 4.07 L (4.2-5.4) M/uL Hgb 13.9 (12.0-16.0) g/dL Hct 40.0 (37-47) % MCV 98.3 (80-100) fL MCH 34.2 H (25-34) pg MCHC 34.8 (32-36) g/dL RDW Std Deviation 51.7 H (36.4-46.3) fL RDW Coeff of Kristian 14.4 (11.5-14.5) % Plt Count 139 (130-400) K/uL MPV 11.0 H (7.4-10.4) fL Immature Gran % (Auto) 0.3 % Neut % (Auto) 64.0 % Lymph % (Auto) 19.1 % [place] % (Auto) 15.3 % Eos % (Auto) 1.0 % Baso % (Auto) 0.3 % Immature Gran # (Auto) 0.02 (0.00-0.02) K/uL Neut # (Auto) 4.90 (1.4-6.5) K/uL Lymph # (Auto) 1.46 (1.2-3.4) K/uL [place] # (Auto) 1.17 H (0.11-0.59) K/uL Eos # (Auto) 0.08 (0-0.5) K/uL Baso # (Auto) 0.02 (0-0.2) K/uL Sodium 139 (136-145) mmol/L Potassium 3.7 (3.5-5.1) mmol/L Chloride 107 (98-107) mmol/L Carbon Dioxide 23 (21-32) mmol/L Anion Gap 9.0 (3-11) BUN 17 (7-18) mg/dl Creatinine 0.71 (0.6-1.2) mg/dl Est Cr Clr Drug Dosing 39.3 ml/min Est GFR ( Amer) 88.1 Est GFR (Non-Af Amer) 76.0 BUN/Creatinine Ratio 24.5 H (10-20) Glucose 68 L (70-99) mg/dl Calcium 8.5 (8.5-10.1) mg/dl Phosphorus 2.5 (2.5-4.9) mg/dl Magnesium 1.7 L (1.8-2.4) mg/dl PG Care Time/CCT Total # of Minutes Spent Total Time Spent with Patient: Total time spent is greater than 50% in coordination of care (as documented) at patient's floor/unit and/or counseling patient: Coding Level of Care Code 26980 Subseq Hosp Care Lvl 3 Diagnoses SBO (small bowel obstruction) K56.609 Atrial fibrillation I48.11 Atrial fibrillation type: longstanding persistent Sick sinus syndrome I49.5 Rheumatoid arthritis M06.9 Hypertension I10 Hypertension type: essential hypertension Benign essential tremor G25.0 Dyslipidemia E78.5 Aortic stenosis I35.0 Cardiac valve disease etiology: nonrheumatic Chronic diastolic heart failure I50.32 (1) Aortic stenosis Cardiac valve disease etiology: nonrheumatic Qualified Code(s): I35.0 - Nonrheumatic aortic (valve) stenosis (2) Atrial fibrillation Atrial fibrillation type: longstanding persistent Qualified Code(s): I48.11 - Longstanding persistent atrial fibrillation (3) Hypertension Hypertension type: essential hypertension Qualified Code(s): I10 - Essential (primary) hypertension
[2019-12-02] MEDS ORDERED: CHLORASEPTIC 1.4% SOLN 180 ML BTL MT PRN (16:08)
[2019-12-02] MEDS: dilTIAZem ER 180 MG CAPCR PO SCH (20:32)
[2019-12-02] MEDS: HEPARIN SOD 5,000 UNIT/0.5 ML VIAL SQ SCH (21:20)
[2019-12-03] MEDS: HEPARIN SOD 5,000 UNIT/0.5 ML VIAL SQ SCH ×3 (05:23→21:21)
[2019-12-03] MEDS ORDERED: bisacodyL 10 MG SUPP PR ONE (07:27)
--- NOTE | 2019-12-03 07:38 | Surgery Progress Note ---
Date of Service December 03, 2019 Assessment & Plan (1) SBO (small bowel obstruction): some improvement NG output decreased will give suppository check XR before removing NG seen with Dr. Welsh Subjective increasing flatus, no BM Physical Exam Gastrointestinal (Abdomen): Inspection/Auscultation: + abdomen distended (slightly) Percussion/Palpation: abdomen soft; abdomen nontender NG 110 overnight Results & Data Vital Signs (Past 12 Hours) Vital Signs Temp Pulse Pulse Resp BP Pulse Ox 12/02/19 23:12 37.2 C 63 14 155/73 H 93 12/02/19 21:22 68 179/91 H 94 12/02/19 20:29 71 180/97 H PG Care Time/CCT Total # of Minutes Spent Total Time Spent with Patient: Total time spent is greater than 50% in coordination of care (as documented) at patient's floor/unit and/or counseling patient: Coding Level of Care Code 03181 Subseq Hosp Care Lvl 1 Diagnoses SBO (small bowel obstruction) K56.609
[2019-12-03 07:46] LABS: BUN Creatinine Ratio 16.9 (10-20); Calcium 8.1 mg/dl (8.5-10.1); Creatinine Clr Calc Pharmacy 45.1 ml/min; Est GFR (African American) 93.3; Est GFR (Non-African American) 80.5; Magnesium 1.8 mg/dl (1.8-2.4); Potassium 3.6 mmol/L (3.5-5.1)
[2019-12-03] MEDS: PROPRANOLOL HCL 20 MG TAB PO SCH ×2 (09:40→20:09)
[2019-12-03] MEDS: PRIMIDONE 250 MG TAB PO SCH ×2 (09:40→20:10)
[2019-12-03] MEDS: VALSARTAN 80 MG TAB PO SCH (09:41)
--- NOTE | 2019-12-03 10:54 | XRay Report ---
KUB CLINICAL HISTORY: Small bowel obstruction. FINDINGS: 2 AP supine abdominal radiographs are compared to study dated 12/01/2019 and correlated with abdominal CT dated 11/29/2019. An enteric tube projects over the proximal stomach. The sideholes are a t the level of the diaphragm. Cholecystectomy clips are noted. There is persistent gaseous distention of the small bowel loops which measure up to 3.6 cm. Gas and stool are noted in the colon. No abnorm al abdominal calcifications are identified. There is advanced atherosclerotic calcification of the ab dominal aorta. Cardiomegaly with pacemaker leads is noted in the lower chest. The skeletal structures are osteopenic and appear intact. There is moderate to advanced lumbosacral spondylosis. IMPRESSION: 1. There is mild persistent gaseous distention of the small bowel loops likely representing known bow el obstruction. 2. The enteric tube is unchanged in position and should likely be advanced. Electronically signed by: Pato Philip M.D. 12/03/2019 10:53 AM
[2019-12-03] MEDS: D5W AND NSS 1,000 ML IV SCH ×2 (11:13→23:34)
--- NOTE | 2019-12-03 17:56 | Hospitalist Progress Note ---
Date of Service December 03, 2019 Assessment & Plan (1) SBO (small bowel obstruction): - Due to h/o multiple abdominal surgeries and adhesive disease. Pt. and surgical team would like to avoid intervention if possible. -She reports having 14 bowel obstructions in the past 20 years after having multiple surgeries for a ruptured diverticulum and then subsequent hernia with hernia repair and now the mesh has failed - CT showed dilated small bowel with air fluid level c/w SBO upon admission. There is no incarceration of her hernia-is easily reducible -Subsequent KUB now showing resolution - S/p NG tube placement to LIS; she is now passing flatus and having bowel movements, NG tube removed on 12/03 -Diet advanced to clear liquids on 12/03 -Appreciate surgery evaluation and management -Slowly advance diet as tolerated -Continue gentle IV fluids until tolerating p.o. more -Encourage ambulation with assistance now that NG tube is removed (2) Atrial fibrillation: Remains in rate controlled atrial fibrillation - Continue Diltiazem and Propanolol -Is not on anticoagulation-it was d/c'ed in Sep due to multiple falls. (3) Sick sinus syndrome: - S/p pacemaker placement. - No indication for pacemaker interrogation. (4) Rheumatoid arthritis: - Followed as outpatient. (5) Hypertension: Blood pressures are elevated requiring PRN hydralazine at times - Continue home Diltiazem, Valsartan and Propanolol as prescribed. -Continue hydralazine IV prn. (6) Benign essential tremor: - Continue Propanolol & Primidone as prescribed. (7) Dyslipidemia: - Not currently on statin agent. (8) Aortic stenosis: - Most recent echo in Sep 2019 showed moderate to severe aortic stenosis. -Watch extremes of volume status (9) Chronic diastolic heart failure: - Echo in Sep 2019 showed preserved EF, mod to severe , mild to mod MR and TR. -Continue holding home Lasix due to NPO status. -Okay to continue gentle IV fluids until tolerating p.o. -Has some bibasilar crackles today but no respiratory distress - Monitor net I/Os and daily weights - has had ~5 kg weight gain since admission. (10) Hyponatremia: Sodium has dropped significantly today to 132 from 139-likely secondary to starting D5W for hypoglycemia yesterday -DC D5W and start normal saline +20 mEq KCl at 70 mL's per hour-later reduced to 50 mL's per hour after she was tolerating clear liquids -Follow BMP in the morning (11) Hypothyroidism: TSH normal at 0.8 in 10/2019 -restart home LT4 po in the AM which she has not received since admission (12) DVT prophylaxis: Heparin SQ Dispo-remain hospitalized, slowly progressing PT/OT consults placed today Patient would prefer to go home with home health if possible Admission and Anticipated Discharge Date Admission Date: November 30, 2019 Anticipated date of discharge: 12/05/19 Subjective Patient is passing flatus and had 2 small bowel movements after getting a bisacodyl suppository today. No abdominal pain and just started eating a clears diet when I saw her which she was tolerating well. No nausea or vomiting. Her NG tube was removed today. She is feeling much better overall. She is feeling quite weak and has only been out of bed a few times to walk to the commode with assistance. Denies chest pains or shortness of breath, no lightheadedness or headache. Review of Systems Review of Systems: All systems reviewed & are unremarkable except as noted in HPI & below Physical Exam Constitutional: WD/WN, vitals as above Eyes: + anicteric sclerae Neck: trachea midline, no thyromegaly Respiratory: normal respiratory effort Auscultation: + crackles (Mild at the bases which resolved with subsequent inspiration); no rhonchi and no wheezes Cardiovascular: Rate/Rhythm: regular rate and + irregularly irregular Heart Sounds: + murmur (3/6 at the RUSB) Chest (Breasts): Chest: normal inspection of chest Gastrointestinal (Abdomen): Inspection/Auscultation: normal bowel sounds and + visible herniation; + abdomen abnormal to inspection (Multiple surgical scars) and abdomen not distended Percussion/Palpation: abdomen soft and + hernia (Large ventral hernia easily reduced); abdomen nontender, no guarding and abdomen not rigid Musculoskeletal: Extremities: extremities normal to inspection; no cyanosis and no clubbing Skin: no rashes, warm and dry Neurologic: moves all extremities and awake; no focal motor deficits Psychiatric: A+Ox3, euthymic affect Lymphatic: no lymphedema Results & Data ([facility]) Vital Signs (Past 12 Hours) Vital Signs Temp Pulse Pulse Resp BP BP Pulse Ox 12/03/19 15:57 36.9 C 73 15 141/82 H 94 12/03/19 08:02 37.0 C 64 20 156/61 H 94 Laboratory Results 12/03/19 12/03/19 Range/Units 08:46 06:45 Sodium 132 L D (136-145) mmol/L Potassium 3.6 (3.5-5.1) mmol/L Chloride 100 (98-107) mmol/L Carbon Dioxide 26 (21-32) mmol/L Anion Gap 6.0 (3-11) BUN 11 (7-18) mg/dl Creatinine 0.62 (0.6-1.2) mg/dl Est Cr Clr Drug Dosing 45.1 ml/min Est GFR ( Amer) 93.3 Est GFR (Non-Af Amer) 80.5 BUN/Creatinine Ratio 16.9 (10-20) Glucose 111 H (70-99) mg/dl Calcium 8.1 L (8.5-10.1) mg/dl Magnesium 1.8 (1.8-2.4) mg/dl Nasal Screen MRSA (PCR) Negative (Negative) PG Care Time/CCT Total # of Minutes Spent Total Time Spent with Patient: Total time spent is greater than 50% in coordination of care (as documented) at patient's floor/unit and/or counseling patient: Coding Level of Care Code 39414 Subseq Hosp Care Lvl 2 Diagnoses SBO (small bowel obstruction) K56.609 Atrial fibrillation I48.11 Atrial fibrillation type: longstanding persistent Sick sinus syndrome I49.5 Rheumatoid arthritis M06.9 Hypertension I10 Hypertension type: essential hypertension Benign essential tremor G25.0 Dyslipidemia E78.5 Aortic stenosis I35.0 Cardiac valve disease etiology: nonrheumatic Chronic diastolic heart failure I50.32 Hyponatremia E87.1 Hypothyroidism E03.9 DVT prophylaxis Z29.9 (1) Aortic stenosis Cardiac valve disease etiology: nonrheumatic Qualified Code(s): I35.0 - Nonrheumatic aortic (valve) stenosis (2) Atrial fibrillation Atrial fibrillation type: longstanding persistent Qualified Code(s): I48.11 - Longstanding persistent atrial fibrillation (3) Hypertension Hypertension type: essential hypertension Qualified Code(s): I10 - Essential (primary) hypertension
[2019-12-03] MEDS: dilTIAZem ER 180 MG CAPCR PO SCH (20:10)
[2019-12-04] MEDS: HEPARIN SOD 5,000 UNIT/0.5 ML VIAL SQ SCH ×3 (05:44→21:01)
[2019-12-04] MEDS: LEVOTHYROXINE SODIUM 150 MCG TABLET PO SCH (05:44)
[2019-12-04 07:30] LABS: BUN Creatinine Ratio 14.7 (10-20); Calcium 8.2 mg/dl (8.5-10.1); Est GFR (African American) 95.9; Est GFR (Non-African American) 82.8; Potassium 3.1 mmol/L (3.5-5.1)
[2019-12-04] MEDS: PROPRANOLOL HCL 20 MG TAB PO SCH ×2 (09:00→19:57)
[2019-12-04] MEDS: VALSARTAN 80 MG TAB PO SCH (09:00)
[2019-12-04] MEDS: PRIMIDONE 250 MG TAB PO SCH ×2 (09:00→19:58)
--- NOTE | 2019-12-04 11:11 | Surgery Progress Note ---
Date of Service December 04, 2019 Assessment & Plan (1) SBO (small bowel obstruction): advance to full liquids can use the binder she has at home will give 2 runs K+ then stop IVF seen with Dr. Welsh Subjective tolerating clears, flatus, no BM today Physical Exam Gastrointestinal (Abdomen): Inspection/Auscultation: + abdomen distended (mild hernia) Percussion/Palpation: abdomen soft Results & Data Vital Signs (Past 12 Hours) Vital Signs Temp Pulse Resp BP BP Pulse Ox 12/04/19 07:26 37.0 C 62 16 154/73 H 93 12/03/19 23:21 36.9 C 60 15 135/68 95 PG Care Time/CCT Total # of Minutes Spent Total Time Spent with Patient: Total time spent is greater than 50% in coordination of care (as documented) at patient's floor/unit and/or counseling patient: Coding Level of Care Code 06631 Subseq Hosp Care Lvl 1 Diagnoses SBO (small bowel obstruction) K56.609
[2019-12-04] MEDS ORDERED: D5NSS + 20MEQ KCL 20 MEQ/1,000 ML BAG IV SCH (11:15)
--- NOTE | 2019-12-04 11:34 | Hospitalist Progress Note ---
Date of Service December 04, 2019 Assessment & Plan (1) SBO (small bowel obstruction): - Due to H/O multiple abdominal surgeries and adhesive disease. Pt. and surgical team would like to avoid intervention if possible. - She reports having 14 bowel obstructions in the past 20 years after having multiple surgeries for a ruptured diverticulum and then subsequent hernia with hernia repair and now the mesh has failed - CT showed dilated small bowel with air fluid level c/w SBO upon admission. There is no incarceration of her hernia-is easily reducible -Subsequent KUB now showing resolution - S/P NG tube placement to LIS and removed on 12/03; she continues to pass flatus and having bowel movements - Diet advanced to full liquid and will monitor tolerance; D/C fluids and given K riders in AM - will monitor electrolytes on AM labs - Appreciate surgery evaluation and management - conservative measures at this time; can use home binder - Encourage ambultion - continue PT/OT (2) Atrial fibrillation: - Remains in rate controlled atrial fibrillation - Continue Diltiazem and Propanolol - Is not on anticoagulation-it was d/c'ed in Sep due to multiple falls (3) Sick sinus syndrome: - S/P pacemaker placement; no indication for pacemaker interrogation at this time (4) Hypertension: - Blood pressures are elevated requiring PRN hydralazine at times - has improved some now that NGT removed - Continue home Diltiazem 360 mg HS, Valsartan 160 mg daily, and Propanolol 60 mg BID as prescribed. - Continue hydralazine PRN (5) Benign essential tremor: - Continue Propanolol & Primidone as prescribed (6) Dyslipidemia: - Not currently on statin agent (7) Aortic stenosis: - Most recent echo in Sep 2019 sowed moderate to severe aortic stenosis. - Watch extremes of volume status (8) Chronic diastolic heart failure: - Echo in Sep 2019 showed preserved EF, mod to severe , mild to mod MR and TR. - Continue holding home Lasix and monitor volume status - likely can be resumed on D/C pending diet advancement and adequate intake - Monitor net I/Os and daily weights - has had ~5 kg weight gain since admission. (9) Hyponatremia: - Sodium has dropped significantly yesterday to 132 from 139-likely secondary to starting D5W for hypoglycemia yesterday but now resolved today - Was converted to NSS + KCL and can be D/C'd today -Follow BMP in the morning (10) Hypothyroidism: - TSH normal at 0.8 in 10/2019 - Continue Levothyroxine 150 mcg daily (11) Rheumatoid arthritis: - Followed as outpatient. (12) DVT prophylaxis: Heparin SQ Disposition: Advance diet and monitor tolerance; progressing -- Appeciate PT/OT evaluations - patient would prefer home with home health if possible - possibly tomorrow? Admission and Anticipated Discharge Date Admission Date: November 30, 2019 Anticipated date of discharge: 12/05/19 Supervising Physician Co-Signing Physician Notes PA Supervision Note: I did not personally see or examine the patient today, but I verified all zamudio points of ASHLEY Johnson's assessment and plan with the following exceptions/additions: None Subjective Reports feeling well today. Moved her bowels yesterday and continues to pass gas. Tolerating clear liquid diet and has been advanced this AM. She denies abdominal pain. Eating not making symptoms worse. She verbalizes no new complaints and hoping to return home tomorrow Review of Systems Constitutional: no fever and no chills Respiratory: no cough and no dyspnea Cardiovascular: no chest pain, no palpitations and no edema Gastrointestinal: no abdominal pain, no nausea, no vomiting, no constipation and no diarrhea/loose stools Genitourinary: no dysuria Integumentary: no rash Physical Exam Constitutional: WD/WN, vitals as above Eyes: + anicteric sclerae ENMT: Ears: no hearing impairment Neck: trachea midline Respiratory: normal respiratory effort, lungs clear to auscultation Cardiovascular: Rate/Rhythm: regular rate and + irregularly irregular Heart Sounds: + murmur Gastrointestinal (Abdomen): Inspection/Auscultation: normal bowel sounds Percussion/Palpation: abdomen soft and + hernia (ventral; reducible); abdomen nontender Musculoskeletal: Head/Neck/Chest: normocephalic and head atraumatic Extremities: no cyanosis and no clubbing Skin: no rashes, warm and dry Neurologic: moves all extremities Psychiatric: A+Ox3, euthymic affect Results & Data ([facility]) Vital Signs (Past 12 Hours) Vital Signs Temp Pulse Resp BP Pulse Ox 12/04/19 07:26 37.0 C 62 16 154/73 H 93 PG Care Time/CCT Total # of Minutes Spent Total Time Spent with Patient: Total time spent is greater than 50% in coordination of care (as documented) at patient's floor/unit and/or counseling patient: Coding Level of Care Code 80508 Subseq Hosp Care Lvl 3 Diagnoses SBO (small bowel obstruction) K56.609 Atrial fibrillation I48.11 Atrial fibrillation type: longstanding persistent Sick sinus syndrome I49.5 Hypertension I10 Hypertension type: essential hypertension Benign essential tremor G25.0 Dyslipidemia E78.5 Aortic stenosis I35.0 Cardiac valve disease etiology: nonrheumatic Chronic diastolic heart failure I50.32 Hyponatremia E87.1 Hypothyroidism E03.9 Rheumatoid arthritis M06.9 DVT prophylaxis Z29.9 (1) Aortic stenosis Cardiac valve disease etiology: nonrheumatic Qualified Code(s): I35.0 - Nonrheumatic aortic (valve) stenosis (2) Atrial fibrillation Atrial fibrillation type: longstanding persistent Qualified Code(s): I48.11 - Longstanding persistent atrial fibrillation (3) Hypertension Hypertension type: essential hypertension Qualified Code(s): I10 - Essential (primary) hypertension
[2019-12-04] MEDS: POTASSIUM CHLORIDE / WTR 10 MEQ/100 ML PLCT IV SCH ×2 (12:07→13:37)
[2019-12-04] MEDS ORDERED: bisacodyL 10 MG SUPP PR STA (18:38)
[2019-12-04] MEDS ORDERED: POTASSIUM CHLORIDE 20 MEQ TABCR PO ONE (19:00)
[2019-12-04] MEDS: dilTIAZem ER 180 MG CAPCR PO SCH (19:58)
[2019-12-05] MEDS: HEPARIN SOD 5,000 UNIT/0.5 ML VIAL SQ SCH ×2 (05:31→13:57)
[2019-12-05] MEDS: LEVOTHYROXINE SODIUM 150 MCG TABLET PO SCH (05:32)
--- NOTE | 2019-12-05 06:51 | Surgery Progress Note ---
Date of Service December 05, 2019 Assessment & Plan (1) SBO (small bowel obstruction): 12/05/19 Patient can be discharged today from my point of view a repeat potassium from this morning is pending yesterday was 3.1 based on that she may need some potassium prescription to be given to her on discharge we will leave that up to the medical service There is no need for her to follow-up with us unless new issues arise hopefully will be another 3-1/2 years before she comes back with another bowel obstruction Regarding her diet I recommended her to be on a low fiber diet for the time being and she continue to use MiraLAX on a as needed basis advance to full liquids can use the binder she has at home will give 2 runs K+ then stop IVF seen with Dr. Welsh Subjective 12/05/19 Patient feels fine she had a good day yesterday tolerated her diet and her bowels are moving she is ready to go home tolerating clears, flatus, no BM today Results & Data Vital Signs (Past 12 Hours) Vital Signs Temp Pulse Resp BP BP Pulse Ox 12/04/19 23:21 36.4 C L 61 14 157/69 H 98 12/04/19 19:55 61 147/75 H PG Care Time/CCT Total # of Minutes Spent Total Time Spent with Patient: Total time spent is greater than 50% in coordination of care (as documented) at patient's floor/unit and/or counseling patient: Coding Level of Care Code 48584 Subseq Hosp Care Lvl 2 Diagnoses SBO (small bowel obstruction) K56.609
[2019-12-05 08:04] LABS: BUN Creatinine Ratio 9.3 (10-20); Calcium 8.5 mg/dl (8.5-10.1); Creatinine Clr Calc Pharmacy 45.6 ml/min; Est GFR (Non-African American) 78.5; Potassium 3.8 mmol/L (3.5-5.1)
[2019-12-05] MEDS: PRIMIDONE 250 MG TAB PO SCH (09:15)
[2019-12-05] MEDS: PROPRANOLOL HCL 20 MG TAB PO SCH (09:15)
[2019-12-05] MEDS: VALSARTAN 80 MG TAB PO SCH (09:15)
--- NOTE | 2019-12-05 12:50 | Discharge Summary ---
Date of Service December 05, 2019 Admission HPI Per Admitting Provider Blanca is an 89yo female with a past medical history of multiple abdominal surgeries, A. fib, CHF, essential tremor with dysphonia, rheumatoid arthritis, hypothyroidism, hypertension, and aortic stenosis who presents with 1 day of mid to left upper quadrant abdominal pain which feels similar to her to prior small bowel obstructions. She reports her pain began early this afternoon, and was really noticeable by a round 8 PM. The pain was on her left upper side and did not radiate. She has had 2 small bowel movements in the previous day, last bowel movement a few days before that. She normally takes MiraLAX twice daily but skipped it today. She has had some nausea but no vomiting. No fever, chills, sweats. No shortness of breath or chest pain. She has no appetite. She reports her pain is greatly imp roved following morphine administration on arrival. She reports she has a history of multiple abdominal surgeries, including a temporary colostomy in 1999 after a diverticular rupture which was reversed but which developed a hematoma and had a drain removed which caught a staple causing a perforation and resulted in additional surgeries. She has had a cholecystectomy, appendectomy, and hysterectomy. Medical history: Reviewed in EMR Surgical history: Reviewed in EMR Allergies: Reviewed in EMR, multiple allergies including cephalosporins, Cillo stays all, tramadol, lorazepam, doxycycline, rosuvastatin. She is sensitive to hydrochlorothiazide. Medications: Reviewed in EMR. Family history: Noncontributory CODE STATUS: Full code, shirlene with patient. Principal Diagnosis Small Bowel Obstruction due to Multiple Surgeries/Adhesions Discharge Exam Constitutional WD/WN, vitals as above Eyes + anicteric sclerae ENMT Ears: no hearing impairment Neck trachea midline Respiratory normal respiratory effort, lungs clear to auscultation Cardiovascular Rate/Rhythm: regular rate and regular rhythm Heart Sounds: + murmur On previous admission she can be A Fib/flutter - she does examine in a regular rhythm but possibly this is A Flutter Gastrointestinal (Abdomen) Inspection/Auscultation: normal bowel sounds Percussion/Palpation: abdomen soft and + hernia (ventral; reducible); abdomen nontender Musculoskeletal Head/Neck/Chest: normocephalic and head atraumatic Extremities: no cyanosis and no clubbing Skin no rashes, warm and dry Neurologic moves all extremities Psychiatric A+Ox3, euthymic affect Discharge Data Allergies Allergy/AdvReac Type Severity Reaction Status Date / Time orange Allergy Intermediate HIVES Verified 11/29/19 23:32 pseudoephedrine Allergy Intermediate worsens Verified 11/29/19 23:32 afib strawberry Allergy Intermediate HIVES Verified 11/29/19 23:32 Sulfa (Sulfonamide Allergy Intermediate hives Verified 11/29/19 23:32 Antibiotics) Cephalosporins Allergy Unknown ON [facility] Verified 11/29/19 23:32 LIST cilostazol [From Pletal] Allergy Unknown ON [facility] Verified 11/29/19 23:32 LIST tramadol Allergy Unknown ON [facility] Verified 11/29/19 23:32 LIST lorazepam AdvReac Severe "WENT Verified 11/29/19 23:32 CRAZY" caffeine AdvReac Intermediate HEART Verified 11/29/19 23:32 PALPITATIONS doxycycline AdvReac Intermediate NIGHTMARES Verified 11/29/19 23:32 rosuvastatin AdvReac Intermediate MYALGIAS Verified 11/29/19 23:32 hydrochlorothiazide AdvReac HYPONATREMI Verified 11/29/19 23:32 A Consultations 11/30/19 13:37 Consult General Surgery Routine Ordered Studies 11/29/19 22:41 CT abd pelvis wo con Urgent Hospital Course (1) SBO (small bowel obstruction): - Due to H/O multiple abdominal surgeries and adhesive disease. Pt. and surgical team would like to avoid intervention if possible. - She reports having 14 bowel obstructions in the past 20 years after having multiple surgeries for a ruptured diverticulum and then subsequent hernia with hernia repair and now the mesh has failed - CT showed dilated small bowel with air fluid level c/w SBO upon admission. There is no incarceration of her hernia-is easily reducible - S/P NG tube placement to LIS and removed on 12/03; she continues to pass flatus and having bowel movements - Diet advanced to low fiber and tolerating - Appreciate surgery evaluation and management - conservative measures at this time; can use home binder; continue BID Miralax (2) Atrial fibrillation: - Remains in rate controlled atrial fibrillation - however did examine as a regular rhythm on day of D/C. During previous admission she was noted to be A Fib and sometimes flutter so possibly that could be the case today. Either way rate is controlled. - Continue Diltiazem and Propanolol - Is not on anticoagulation-it was d/c'ed in Sep due to multiple falls - she is planning to talk to her filtration operator on next F/U to discuss maybe resumption of this (3) Sick sinus syndrome: - S/P pacemaker placement; no indication for pacemaker interrogation at this time (4) Hypertension: - Blood pressures are elevated requiring PRN hydralazine at times - has improved some now that NGT removed - Continue home Diltiazem 360 mg HS, Valsartan 160 mg daily, and Propanolol 60 mg BID as prescribed. (5) Benign essential tremor: - Continue Propanolol & Primidone as prescribed (6) Dyslipidemia: - Not currently on statin agent (7) Aortic stenosis: - Most recent echo in Sep 2019 sowed moderate to severe aortic stenosis. - Watch extremes of volume status (8) Chronic diastolic heart failure: - Echo in Sep 2019 showed preserved EF, mod to severe , mild to mod MR and TR. - Continue home Lasix and monitor volume status - recommend daily weights (9) Hyponatremia: - RESOLVED (10) Hypothyroidism: - TSH normal at 0.8 in 10/2019 - Continue Levothyroxine 150 mcg daily (11) Rheumatoid arthritis: - Followed as outpatient. (12) DVT prophylaxis: Heparin SQ Disposition: Home with services; no need for surgical F/U; has PCP F/U in chart Total Time Total Time Spent Total Time Spent (In Minutes): Greater than 30 minutes Discharge Plan Discharge Items Patient Disposition: Home - Home Health Services Reason For Visit: SBO Discharge Diagnosis: Small Bowel Obstruction Condition on Discharge: Good Activity: Resume your previous activity Non-emergency contact: Primary Care Provider and Surgeon Call non-emergency contact if: you have any medication questions, your symptoms worsen, your pain is not controlled, your pain is worsening, your pain is unusual for you and you have a fever Follow-up/Referrals: Alex Kwong, [Primary Care Provider] - 12/10/19 9:00 am (Your appointment is with DEZ Frank. If you need to change this appointment, please call [phone].) Diet: Low Fiber Addtl Attending Provider Instructions: Small Bowel Obstruction: - Unfortunately you have had multiple bowel obstructions in the past and are at risk for them due to your surgeries. Thankfully they have been resolving on their own with just resting the bowels. - For the next few weeks we do recommend having a low fiber diet. We will provide a handout on some food options for this. - You can continue your normal bowel regimen at home with Miralax and the the abdominal binder. - Recommend to stay active and walk as you can tolerate as this will help with good bowel movements/motility Atrial Fibrillation/Pacer: - Continue your Diltiazem and Propranolol as we did not make adjustments to these - You were taken off blood thinners recently due to falls - you can continue to discuss this with your filtration operator to see if adding this back should be done. High Blood Pressure: - Continue your Dilitiazem, Valsartan, and Propranolol as previously prescribed. Chronic diastolic heart failure: - Continue home Lasix and monitor volume status - doing daily weights can help keep track of any fluid accumulation. - Discuss with your filtration operator if you gain 3-4 lbs in one day Pending Studies at Discharge: No Stand-Alone Forms: My [facility] Medications and DC Order Prescriptions: Continued (DME) Wheelchair (Manual) Device See Rx Instructions .ROUTE .MEDSUPPLY Qty: 1 RF: 0 diltiazem HCl 360 mg capsule,extended release 24 hr 360 mg PO HS RF: 0 levothyroxine 150 mcg tablet 150 mcg PO DAILYBB RF: 0 folic acid 1 mg Tablet 1 mg PO QAM RF: 0 polyethylene glycol 3350 [Miralax] 17 gram Powder In Packet 17 g PO AMPM RF: 0 primidone 250 mg tablet 250 mg PO BID Qty: 180 RF: 2 propranolol 60 mg tablet 60 mg PO BID RF: 0 furosemide [Lasix] 20 mg tablet 20 mg PO DAILY RF: 0 valsartan 160 mg tablet 160 mg PO QAM RF: 0 Discharge Orders: Discharge Order (Routine); Ordered 12/05/19 Ordered By: Rosemarie Donovan/Other Patient Handouts: Obstruction Sm Bowel Admission Data Admit Date/Time: 11/30/19 02:10 Attending Provider: Rosemarie Gtz Admit Provider: Rahat De La Garza Primary Care Provider: Alex Kwong Other Providers: Edmundo Sanchez ; [facility] Other Interventions: Discharge Summary Assessment (RN) Last Done: 12/05/19 13:45 DC Date/Time DO NOT enter until pt leaves facility: 12/05/19 16:20 Coding Level of Care Code D/C Day Management >30 mins Diagnoses SBO (small bowel obstruction) K56.609 Atrial fibrillation I48.11 Atrial fibrillation type: longstanding persistent Sick sinus syndrome I49.5 Hypertension I10 Hypertension type: essential hypertension Benign essential tremor G25.0 Dyslipidemia E78.5 Aortic stenosis I35.0 Cardiac valve disease etiology: nonrheumatic Chronic diastolic heart failure I50.32 Hyponatremia E87.1 Hypothyroidism E03.9 Rheumatoid arthritis M06.9 DVT prophylaxis Z29.9
== END 2019-12-05 16:20 | disposition home health service (06) | DRG 389 ==
LOC: ED 22:25 → 3W 11-30 02:10 → SUATTDRO 11-30 02:10 → 3W 11-30 02:34

== ENCOUNTER 2020-07-25 04:29 | Inpatient (IN) ==
[2020-07-25] MEDS ORDERED: ONDANSETRON INJ 2 MG/ML 2 ML VIAL IV STA (05:11)
[2020-07-25] MEDS ORDERED: ACETAMINOPHEN 1,000 MG/100 ML VIAL IV STA (05:11)
[2020-07-25] MEDS: SODIUM CHLORIDE 0.9% 1000ML 1,000 ML IV SCH ×3 (05:18→20:23)
--- NOTE | 2020-07-25 05:18 | Emergency Department Note ---
History of Present Illness General Chief complaint: Abdominal Pain Stated complaint: ABDOMINAL PAIN Time Seen by Provider: 07/25/20 04:52 Source: patient Mode of arrival: EMS Limitations: no limitations History of Present Illness Provider complaint: n/v, abd pain Onset (ago): day(s) 1 Location: abdomen Radiation: non-radiation Severity: mild Pain Consistency: + constant Maximum Pain Intensity: 3 Current Pain Intensity: 3 Quality: + constant Relieved By: + none Exacerbated By: + eating and + movement Associated symptoms: + loss of appetite, + nausea/vomiting and + weakness; no chest pain, no fever/chills and no shortness of breath Treatments prior to arrival: none This is an 89-year-old female who presents via EMS from home due to concern for possible recurrent bowel obstruction. Patient states yesterday she began having nausea and mild abdominal discomfort. Patient states she felt slightly improved this morning, however after eating lunch around noon which included apple crisp she began to feel worse again including evolving generalized and nonradiating abdominal pain, nausea, vomiting, and general fatigue. Patient states her abdomen began to feel bloated and distended and she realized she had not passed gas. Patient then began to have worsening symptoms this evening and overnight and called 911. On arrival here patient promptly vomited 400 mL's of yellow/brown emesis. During my exam patient vomited another 200 mL of the same. No gross blood noted. Patient states this is similar to prior bowel obstructions. Patient states she has had numerous prior bowel obstructions the last of which was in November. Patient states the Stemper multiple prior bowel surgeries. Pt seen during a time of high acuity and national emergency pandemic while wearing PPE. Home Medications Home Medications Medication Instructions Recorded Confirmed Type polyethylene glycol 3350 [Miralax] 17 g PO AMPM 05/13/19 07/25/20 History potassium chloride 10 mEq 10 meq PO DAILY #90 cap 12/24/19 07/25/20 Rx capsule,extended release diltiazem HCl 360 mg capsule,24 360 mg PO HS #90 cap 12/29/19 07/25/20 Rx hr,extended release folic acid 1 mg tablet 1 mg PO DAILY #90 tab 12/29/19 07/25/20 Rx primidone 250 mg tablet 250 mg PO BID #180 tab 12/29/19 07/25/20 Rx propranolol 60 mg tablet 60 mg PO BID #180 tab 12/29/19 07/25/20 Rx losartan 50 mg tablet 50 mg PO DAILY #90 tab 01/12/20 07/25/20 Rx Wheelchair (Manual or Powered) #1 ea 05/20/20 06/16/20 Rx furosemide 20 mg tablet See Rx Instructions PO DAILY #60 06/04/20 07/25/20 Rx tab levothyroxine 137 mcg tablet 137 mcg PO DAILY #30 tab 06/16/20 07/25/20 Rx pantoprazole 40 mg tablet,delayed 40 mg PO DAILY #90 tab 06/16/20 07/25/20 Rx release apixaban 2.5 mg tablet 2.5 mg PO BID #180 tab 06/22/20 07/25/20 Rx Allergies Allergy/AdvReac Type Severity Reaction Status Date / Time orange Allergy Intermediate HIVES Verified 07/25/20 04:49 pseudoephedrine Allergy Intermediate worsens Verified 07/25/20 04:49 afib strawberry Allergy Intermediate HIVES Verified 07/25/20 04:49 Sulfa (Sulfonamide Allergy Intermediate hives Verified 07/25/20 04:49 Antibiotics) Cephalosporins Allergy Unknown ON MNPG Verified 07/25/20 04:49 LIST cilostazol [From Pletal] Allergy Unknown ON MNPG Verified 07/25/20 04:49 LIST tramadol Allergy Unknown ON MNPG Verified 07/25/20 04:49 LIST lorazepam AdvReac Severe "WENT Verified 07/25/20 04:49 CRAZY" caffeine AdvReac Intermediate HEART Verified 07/25/20 04:49 PALPITATIONS doxycycline AdvReac Intermediate NIGHTMARES Verified 07/25/20 04:49 rosuvastatin AdvReac Intermediate MYALGIAS Verified 07/25/20 04:49 hydrochlorothiazide AdvReac HYPONATREMI Verified 07/25/20 04:49 A Past Med/Surg History Medical History Actinic keratosis Aortic stenosis Benign essential tremor Carotid artery plaque Cerebral atherosclerosis Chronic anticoagulation Chronic osteoarthritis Cystocele DVT (deep venous thrombosis) Dyslipidemia Edema Elevated alkaline phosphatase level Fall as cause of accidental injury at home as place of occurrence Gait disturbance Gastroesophageal reflux disease Generalized weakness Hip pain, bilateral History of small bowel obstruction Hypertension Hyponatremia Hypothyroidism Hypoxia Left rib fracture Meckels diverticulum Osteoporosis Ovarian cyst Ovarian cyst rupture Permanent atrial fibrillation Rectocele Rheumatoid arthritis Rosacea SBO (small bowel obstruction) (11/2019) Sick sinus syndrome Small bowel obstruction Surgical History H/O abdominal surgery abdominal exploration, repair, and oversewing over perforation 08/02/2000, Dr. Welsh H/O colonoscopy H/O: hysterectomy History of colon resection For diverticulitis and Meckel's Diverticulum History of hernia repair History of tonsillectomy and adenoidectomy Hx of appendectomy Hx of cataract surgery right eye, 12/24/2002 Hx of cholecystectomy Family History Father Leukemia Social History Smoking Status: Never smoker Second Hand Exposure: No; Do You Dip or Chew Tobacco: No; Tobacco Cessation Education Requested by Patient: No Hx Alcohol Use: No Hx Substance Use: No Preferred Language: Portuguese Communication Ability: Effective Visual Impairment: Limited Hearing Ability: Hard of Hearing Flight Engineer Required: No Beliefs That Will Affect Care: Judaism Judaism Beliefs: Druze marital status: / Current Living Situation: Alone Current Living Situation Comment: pt live in apartment, son and family live in house on same property Other Information That Helps Us Care for You: No Feels Safe at Home: Yes Safety Concerns: Feels Safe At This Time Childhood Exposure to Second-Hand Smoke: No Diet Comment: watches fiber, nuts and seeds caffeine: Yes (occasional soda) Dental Care, Regularly: No Physical Activity Frequency: Does not Exercise Physical Activity Frequency Comment: due to physical condition Seatbelt Use: always Sunscreen Use: Yes Assistive Devices: None Review of Systems See HPI for pertinent positives & negatives. and A total of 10 systems reviewed and were otherwise negative Physical Exam Vital Signs Vital Signs - 24 hr 07/25/20 04:48 07/25/20 05:11 07/25/20 06:15 Temperature 36.4 C L Temperature Source Oral Pulse Rate 80 Pulse Rate [Bilateral Apical] 60 62 Pulse Rate from SpO2 Sensor Respiratory Rate 20 20 18 Respiratory Depth Normal Blood Pressure 124/65 Blood Pressure [Left Arm] 120/44 L 120/52 L Blood Pressure Mean 84 Blood Pressure Mean [Left Arm] 69 74 Blood Pressure Position [Left Arm] Sitting Pulse Oximetry 97 95 99 Oxygen Delivery Method Room Air Room Air Room Air Sepsis Recent Fever Within 48 Hours No Sepsis New/Unexplained Change in Mental Status N/A Sepsis Action Taken by Nursing No Action Required 07/25/20 06:41 07/25/20 07:00 Temperature Temperature Source Pulse Rate 62 Pulse Rate [Bilateral Apical] 62 Pulse Rate from SpO2 Sensor 59 L Respiratory Rate 20 16 Respiratory Depth Blood Pressure 100/51 L Blood Pressure [Left Arm] 102/48 L Blood Pressure Mean 65 Blood Pressure Mean [Left Arm] 66 Blood Pressure Position [Left Arm] Pulse Oximetry 92 97 Oxygen Delivery Method Room Air Sepsis Recent Fever Within 48 Hours Sepsis New/Unexplained Change in Mental Status Sepsis Action Taken by Nursing GENERAL: alert, ill appearing, well nourished, mild distress, non-toxic, active vomiting brown emesis EYE EXAM: normal conjunctiva, PERRL and EOM's grossly intact OROPHARYNX: no exudate, no erythema, lips, buccal mucosa, and tongue normal and mucous membranes are moist NECK: supple, no nuchal rigidity, no adenopathy, non-tender LUNGS: Clear to auscultation. Normal chest wall mechanics, no w/r/r HEART: no murmurs, S1 normal and S2 normal ABDOMEN: abdomen soft, diffuse abdominal tenderness to palpation, mild tympany w ith percussion, normo-active bowel sounds, no masses, no rebound or guarding. BACK: Back is symmetrical on inspection and there is no deformity, no midline tenderness, no CVA tenderness. SKIN: no rashes and no bruising UPPER EXTREMITIES: upper extremities are grossly normal. FROM, nml pulses b/l. LOWER EXTREMITIES: No pitting edema. FROM, nml pulses b/l. NEURO EXAM: Normal sensorium, cranial nerves II-XII grossly intact, normal speech, no gross weakness of arms, no gross weakness of legs. Gross sensation intact. Course Course 0655: Case discussed with Riri Isabel PA-C with general surgery. Attending is Dr. Chavarria. Recommends NG tube. 0711: Pt made aware of results. Denies any further nausea. 0715: SANDRA with gen surg now at bedside. 07: Discussed with [facility] Hospitalist Dr. Jain. Administered Medications Sodium Chloride (Nss 1000ml) 1,000 mls @ 80 mls/hr IV .[id number] BAUDILIO Stop: 08/24/20 05:14 Last Admin: 10/04/20 20:23 Dose: 80 mls/hr Documented by: [id number] Admin: 07/25/20 18:09 Dose: Not Given Documented by: [id number] Infusion: 07/25/20 14:16 Dose: 80 mls/hr Documented by: [id number] Infusion: 07/25/20 11:35 Dose: 80 mls/hr Documented by: [id number] Admin: 07/25/20 05:18 Dose: 125 mls/hr Documented by: [id number] Heparin Sodium/Dextrose (Heparin Sodium/Dextrose) 25,000 units in 500 mls @ 13 mls/hr IV .Q24H BAUDILIO; Protocol Stop: 08/24/20 10:59 Last Titration: 07/25/20 19:05 Dose: 650 units/hr, 13 mls/hr Documented by: [id number] Cosigned by: [id number] Titration: 07/25/20 18:07 Dose: 650 units/hr, 13 mls/hr Documented by: [id number] Cosigned by: [id number] Admin: 07/25/20 11:30 Dose: 650 units/hr, 13 mls/hr Documented by: [id number] Cosigned by: [id number] Metoprolol Tartrate (Metoprolol Tartrate 1 Mg/Ml Vial) 5 mg IV Q6 BAUDILIO Stop: 08/24/20 11:59 Last Admin: 07/26/20 00:59 Dose: 5 mg Documented by: [id number] Admin: 07/25/20 17:56 Dose: 5 mg Documented by: [id number] Admin: 07/25/20 11:32 Dose: 5 mg Documented by: [id number] Discontinued Medications Heparin Sodium/Dextrose (Heparin Iv Low Dose *No* Bolus) 1 ea IV Q15M BAUDILIO; Protocol Stop: 07/25/20 11:40 Last Admin: 07/25/20 12:04 Dose: Not Given Documented by: [id number] Admin: 07/25/20 12:04 Dose: Not Given Documented by: [id number] Acetaminophen (Ofirmev) 1,000 mg in 100 mls @ 400 mls/hr IV NOW STA Stop: 07/25/20 05:25 Last Infusion: 07/25/20 05:34 Dose: 0 mls/hr Documented by: [id number] Admin: 07/25/20 05:19 Dose: 400 mls/hr Documented by: [id number] Ioversol (Ioversol 100ml) 93 ml IV ONCE ONE Stop: 07/25/20 06:14 Last Admin: 07/25/20 06:14 Dose: 93 ml Documented by: [id number] Ondansetron HCl (Ondansetron Inj 2 Mg/Ml 2 Ml Vial) 4 mg IV NOW STA Stop: 07/25/20 05:12 Last Admin: 07/25/20 05:19 Dose: 4 mg Documented by: [id number] Medical Decision Making Differential Diagnosis Differential: Gastroenteritis, Food Borne, Esophageal Perforation, , Electrolyte Abnormality, Dehydration, Intraabdominal Infection, UTI/Pyelonephritis, Bowel Obstruction, Biliary Pathology, amongst other path ology entertained. Medical Records Attestation: I reviewed the patient's medical records. Home Medications Current Medication List: was personally reviewed by me Laboratory Data Attestation: I reviewed the patient's lab results. Result diagrams: 07/25/20 04:45 07/25/20 04:45 Lab Results 07/25/20 07/25/20 07/25/20 Range/Units 04:45 04:45 04:45 WBC 7.25 (4.8-10.8) K/uL RBC 4.52 (4.2-5.4) M/uL Hgb 15.2 (12.0-16.0) g/dL Hct 43.3 (37-47) % MCV 95.8 (80-100) fL MCH 33.6 (25-34) pg MCHC 35.1 (32-36) g/dL RDW Std Deviation 52.0 H (36.4-46.3) fL RDW Coeff of Kristian 14.9 H (11.5-14.5) % Plt Count 183 (130-400) K/uL MPV 11.1 H (7.4-10.4) fL Immature Gran % (Auto) 0.1 % Neut % (Auto) 80.1 % Lymph % (Auto) 13.9 % [place] % (Auto) 5.1 % Eos % (Auto) 0.7 % Baso % (Auto) 0.1 % Neut # (Auto) 5.80 (1.4-6.5) K/uL Lymph # (Auto) 1.01 L (1.2-3.4) K/uL [place] # (Auto) 0.37 (0.11-0.59) K/uL Eos # (Auto) 0.05 (0-0.5) K/uL Baso # (Auto) 0.01 (0-0.2) K/uL Immature Gran # (Auto) 0.01 (0.00-0.02) K/uL PT 12.1 H (9.0-12.0) Seconds INR 1.2 H (0.9-1.1) Sodium 137 (136-145) mmol/L Potassium 4.1 (3.5-5.1) mmol/L Chloride 99 (98-107) mmol/L Carbon Dioxide 31 (21-32) mmol/L Anion Gap 7.0 (3-11) BUN 26 H (7-18) mg/dl Creatinine 1.17 (0.6-1.2) mg/dl Est Cr Clr Drug Dosing 27.6 ml/min Est GFR ( Amer) 47.8 Est GFR (Non-Af Amer) 41.3 BUN/Creatinine Ratio 21.9 H (10-20) Glucose 142 H (70-99) mg/dl Lactate (0.4-2.0) mmol/L Calcium 9.8 (8.5-10.1) mg/dl Phosphorus (2.5-4.9) mg/dl Magnesium 2.3 (1.8-2.4) mg/dl Total Bilirubin 0.8 (0.2-1) mg/dl AST 22 (15-37) U/L ALT 19 (12-78) U/L Alkaline Phosphatase 157 H (45-117) U/L Troponin I < 0.015 (0-0.045) ng/ml Total Protein 8.7 H (6.4-8.2) gm/dl Albumin 4.0 (3.4-5.0) gm/dl Globulin 4.7 H (2.5-4.0) gm/dl Albumin/Globulin Ratio 0.9 (0.9-2) Lipase 133 (73-393) U/L 07/25/20 07/25/20 Range/Units 04:45 05:42 WBC (4.8-10.8) K/uL RBC (4.2-5.4) M/uL Hgb (12.0-16.0) g/dL Hct (37-47) % MCV (80-100) fL MCH (25-34) pg MCHC (32-36) g/dL RDW Std Deviation (36.4-46.3) fL RDW Coeff of Kristian (11.5-14.5) % Plt Count (130-400) K/uL MPV (7.4-10.4) fL Immature Gran % (Auto) % Neut % (Auto) % Lymph % (Auto) % [place] % (Auto) % Eos % (Auto) % Baso % (Auto) % Neut # (Auto) (1.4-6.5) K/uL Lymph # (Auto) (1.2-3.4) K/uL [place] # (Auto) (0.11-0.59) K/uL Eos # (Auto) (0-0.5) K/uL Baso # (Auto) (0-0.2) K/uL Immature Gran # (Auto) (0.00-0.02) K/uL PT (9.0-12.0) Seconds INR (0.9-1.1) Sodium (136-145) mmol/L Potassium (3.5-5.1) mmol/L Chloride (98-107) mmol/L Carbon Dioxide (21-32) mmol/L Anion Gap (3-11) BUN (7-18) mg/dl Creatinine (0.6-1.2) mg/dl Est Cr Clr Drug Dosing ml/min Est GFR ( Amer) Est GFR (Non-Af Amer) BUN/Creatinine Ratio (10-20) Glucose (70-99) mg/dl Lactate 1.9 (0.4-2.0) mmol/L Calcium (8.5-10.1) mg/dl Phosphorus 3.7 (2.5-4.9) mg/dl Magnesium (1.8-2.4) mg/dl Total Bilirubin (0.2-1) mg/dl AST (15-37) U/L ALT (12-78) U/L Alkaline Phosphatase (45-117) U/L Troponin I (0-0.045) ng/ml Total Protein (6.4-8.2) gm/dl Albumin (3.4-5.0) gm/dl Globulin (2.5-4.0) gm/dl Albumin/Globulin Ratio (0.9-2) Lipase (73-393) U/L Imaging Data Radiologist's Impression: CT abdomen and pelvis with contrast: Prior from 09/15/2016 Dilated small bowel loops in the abdomen and pelvis. Distal small bowel and colonic loops are small caliber. Consistent with small bowel obstruction. Transition point in the left anterior abdomen, possibly due to small knuckle of herniated loop within a ventral hernia. Thickened bowel loop near the transition point. Ischemic component not excluded. Weakened anterior abdominal wall, query prior ventral hernia repair. No free air. Absent uterus. Cholecystectomy. Cardiomegaly. Pacemaker. Coronary calcifications. Small amount of gas noted in the right atrium and may relate to injection. Mild basilar atelectasis. Degenerative changes of the spine. Radiologist: Mickie Pollock MD ECG Data Attestation: I personally reviewed and interpreted this ECG as follows: Indication: + abdominal pain and + nausea Rate (beats per minute): 60 Rhythm: + other (paced) ECG Intervals/blocks: + IVCD and + Prolonged QT ECG [place]: + Right axis deviation ECG ST segments: + Nonspecific ST abnormalities MDM Narrative Patient presents ill-appearing with abdominal pain nausea and vomiting and concern for recurrent bowel obstruction which she has had multiple times before. Labs are drawn and sent, patient started on IV fluids, Zofran, and medication for pain. Patient then sent for CT imaging which did confirm recurrent bowel obstruction. I do not suspect ischemic process is lactic acid was normal. Patient's other labs were reassuring despite advanced age and comorbidities. Patient afebrile and otherwise hemodynamically stable here. Case discussed with hospitalist as well as on-call general surgery PA. I did discuss with them placement of an NG tube which they would like given the patient's vomiting earlier. Patient made aware of all results and was in agreement with plan. General surgery did see the patient at bedside in the emergency room. An order was placed for continuous cardiac monitoring. The monitor shows a rate of _80_ with _normal sinus rhythm. Impression & Plan Abdominal pain, Small bowel obstruction, Nausea & vomiting Discharge Plan Visit Data Chief Complaint: Abdominal Pain Stated Complaint: ABDOMINAL PAIN ED Provider: Preeti Campbell Discharge Problem: Abdominal pain, Small bowel obstruction, Nausea & vomiting Patient Disposition: Admitted As Inpatient Discharge Instructions Interventions: ED Discharge Assessment Last Done: 07/25/20 07:49 Discharge Problem: Abdominal pain Qualifiers: Abdominal location: generalized Qualified Code(s): R10.84 - Generalized abdominal pain Nausea & vomiting Qualifiers: Vomiting type: unspecified Vomiting Intractability: non-intractable Qualified Code(s): R11.2 - Nausea with vomiting, unspecified
[2020-07-25 05:19] LABS: Basophils # (auto) 0.01 K/uL (0-0.2); Basophils % (auto) 0.1 %; Eosinophils # (auto) 0.05 K/uL (0-0.5); Eosinophils % (auto) 0.7 %; Hematocrit (blood only) 43.3 % (37-47); Hemoglobin 15.2 g/dL (12.0-16.0); Immature Granulocytes # (auto) 0.01 K/uL (0.00-0.02); Immature Granulocytes % (auto) 0.1 %; Lymphocytes # (auto) 1.01 K/uL (1.2-3.4); Lymphocytes % (auto) 13.9 %; Mean Corpuscular Hemoglobin 33.6 pg (25-34); Mean Corpuscular Hgb Conc 35.1 g/dL (32-36); Mean Corpuscular Volume 95.8 fL (80-100); Mean Platelet Volume 11.1 fL (7.4-10.4); Monocytes # (auto) 0.37 K/uL (0.11-0.59); Monocytes % (auto) 5.1 %; Neutrophils % (auto) 80.1 %; Platelet Count 183 K/uL (130-400); RDW Coefficient of Variation 14.9 % (11.5-14.5); Red Blood Count 4.52 M/uL (4.2-5.4); White Blood Count 7.25 K/uL (4.8-10.8)
[2020-07-25 05:27] LABS: Alanine Aminotransferase 19 U/L (12-78); Aspartate Aminotransferase 22 U/L (15-37); BUN Creatinine Ratio 21.9 (10-20); Blood Urea Nitrogen 26 mg/dl (7-18); Calcium 9.8 mg/dl (8.5-10.1); Carbon Dioxide 31 mmol/L (21-32); Chloride 99 mmol/L (98-107); Creatinine Clr Calc Pharmacy 27.6 ml/min; Est GFR (African American) 47.8; Est GFR (Non-African American) 41.3; Glucose 142 mg/dl (70-99); Lipase 133 U/L (73-393); Magnesium 2.3 mg/dl (1.8-2.4); Potassium 4.1 mmol/L (3.5-5.1); Sodium 137 mmol/L (136-145)
[2020-07-25 05:32] LABS: Albumin Globulin Ratio 0.9 (0.9-2); Alkaline Phosphatase 157 U/L (45-117); Bilirubin,Total 0.8 mg/dl (0.2-1); Globulin 4.7 gm/dl (2.5-4.0); Total Protein 8.7 gm/dl (6.4-8.2); Troponin I < 0.015 ng/ml (0-0.045)
[2020-07-25 05:41] LABS: INR 1.2 (0.9-1.1); Prothrombin Time 12.1 Seconds (9.0-12.0)
[2020-07-25] MEDS ORDERED: IOVERSOL 100ml IV ONE (06:13)
--- NOTE | 2020-07-25 07:49 | Surgery Consultation ---
Date of Consultation July 25, 2020 Assessment & Plan (1) Small bowel obstruction: This is an 89y F with a PMH of afib on eliquis, pacemaker, hypothyroid, RA, as well as multiple abdominal surgeries including temporary ostomy for perforated diverticulitis, colon resection, & ostomy take-down who presents to the [facility] ED on 07/25/20 with complaints of abdominal pain. Patient underwent CT scan which revealed findings concerning for small bowel obstruction. Chart review reveals she was here in with a worse CT scan at that time and the obstruction resolved with conservative measures. Would like to try to avoid surgery in this patient due to extensive surgical history. At this time agree with keeping patient NPO with IVF and placing an NGT for decompression. Medicine planning to admit patient under their service. We will continue to follow throughout patient's admission. History of Present Illness History of Present Illness This is an 89y F with a PMH of afib on eliquis, pacemaker, hypothyroid, RA, as well as multiple abdominal surgeries including temporary ostomy for perforated diverticulitis, colon resection, & ostomy take-down who presents to the [facility] ED on 07/25/20 with complaints of abdominal pain. Patient reports her abdominal discomfort began yesterday which has progressively worsened. She subsequently developed nausea/vomiting into this morning and decided to come into the ED for further evaluation. She has a history of small bowel obstructions and felt as though her symptoms felt similarly. In the ED patient underwent a CT a/p that revealed findings concerning for small bowel obstruction with transition point in the left anterior abdomen. She reports her last BM was on . She states she last ate yesterday in the afternoon, but cannot recall what she had. She denies any fevers/chills, chest pain, or shortness of breath. Currently reports her pain a 2/10 after receiving anti-emetics and pain medication. Allergies Allergy/AdvReac Type Severity Reaction Status Date / Time orange Allergy Intermediate HIVES Verified 07/25/20 04:49 pseudoephedrine Allergy Intermediate worsens Verified 07/25/20 04:49 afib strawberry Allergy Intermediate HIVES Verified 07/25/20 04:49 Sulfa (Sulfonamide Allergy Intermediate hives Verified 07/25/20 04:49 Antibiotics) Cephalosporins Allergy Unknown ON MNPG Verified 07/25/20 04:49 LIST cilostazol [From Pletal] Allergy Unknown ON MNPG Verified 07/25/20 04:49 LIST tramadol Allergy Unknown ON MNPG Verified 07/25/20 04:49 LIST lorazepam AdvReac Severe "WENT Verified 07/25/20 04:49 CRAZY" caffeine AdvReac Intermediate HEART Verified 07/25/20 04:49 PALPITATIONS doxycycline AdvReac Intermediate NIGHTMARES Verified 07/25/20 04:49 rosuvastatin AdvReac Intermediate MYALGIAS Verified 07/25/20 04:49 hydrochlorothiazide AdvReac HYPONATREMI Verified 07/25/20 04:49 A Home Medications Home Medications Medication Instructions Recorded Confirmed Type polyethylene glycol 3350 [Miralax] 17 g PO AMPM 05/13/19 07/25/20 History potassium chloride 10 mEq 10 meq PO DAILY #90 cap 12/24/19 07/25/20 Rx capsule,extended release diltiazem HCl 360 mg capsule,24 360 mg PO HS #90 cap 12/29/19 07/25/20 Rx hr,extended release folic acid 1 mg tablet 1 mg PO DAILY #90 tab 12/29/19 07/25/20 Rx primidone 250 mg tablet 250 mg PO BID #180 tab 12/29/19 07/25/20 Rx propranolol 60 mg tablet 60 mg PO BID #180 tab 12/29/19 07/25/20 Rx losartan 50 mg tablet 50 mg PO DAILY #90 tab 01/12/20 07/25/20 Rx Wheelchair (Manual or Powered) #1 ea 05/20/20 06/16/20 Rx furosemide 20 mg tablet See Rx Instructions PO DAILY #60 06/04/20 07/25/20 Rx tab levothyroxine 137 mcg tablet 137 mcg PO DAILY #30 tab 06/16/20 07/25/20 Rx pantoprazole 40 mg tablet,delayed 40 mg PO DAILY #90 tab 06/16/20 07/25/20 Rx release apixaban 2.5 mg tablet 2.5 mg PO BID #180 tab 06/22/20 07/25/20 Rx Patient History Medical History Actinic keratosis Aortic stenosis Benign essential tremor Carotid artery plaque Cerebral atherosclerosis Chronic anticoagulation Chronic osteoarthritis Cystocele DVT (deep venous thrombosis) Dyslipidemia Edema Elevated alkaline phosphatase level Fall as cause of accidental injury at home as place of occurrence Gait disturbance Gastroesophageal reflux disease Generalized weakness Hip pain, bilateral History of small bowel obstruction Hypertension Hyponatremia Hypothyroidism Hypoxia Left rib fracture Meckels diverticulum Osteoporosis Ovarian cyst Ovarian cyst rupture Permanent atrial fibrillation Rectocele Rheumatoid arthritis Rosacea SBO (small bowel obstruction) (11/2019) Sick sinus syndrome Small bowel obstruction Surgical History H/O abdominal surgery abdominal exploration, repair, and oversewing over perforation 08/02/2000, Dr. Welsh H/O colonoscopy H/O: hysterectomy History of colon resection For diverticulitis and Meckel's Diverticulum History of hernia repair History of tonsillectomy and adenoidectomy Hx of appendectomy Hx of cataract surgery right eye, 12/24/2002 Hx of cholecystectomy Family History Father Leukemia Social History Smoking Status: Never smoker Second Hand Exposure: No; Hx Alcohol Use: No Hx Substance Use: No Preferred Language: Danish Communication Ability: Effective Visual Impairment: Limited Hearing Ability: Hard of Hearing Optical Goods Drill Operator Required: No Beliefs That Will Affect Care: Adventism Adventism Beliefs: Would like communion if offered. marital status: / Current Living Situation: Alone Current Living Situation Comment: son lives next door Feels Safe at Home: Yes Childhood Exposure to Second-Hand Smoke: No Diet Comment: watches fiber, nuts and seeds caffeine: Yes (occasional soda) Dental Care, Regularly: No Physical Activity Frequency: Does not Exercise Physical Activity Frequency Comment: due to physical condition Seatbelt Use: always Sunscreen Use: Yes Assistive Devices: Walker Review of Systems Constitutional: no fever and no chills Respiratory: no dyspnea Cardiovascular: no chest pain Gastrointestinal: + abdominal pain, + bloating, + nausea, + vomiting and + constipation Physical Exam Physical Exam: awake/alert Respiratory: normal respiratory effort Gastrointestinal (Abdomen): Inspection/Auscultation: + abdomen distended and + abdominal surgical scar (multiple well healed surgical scars) Percussion/Palpation: + abdomen tender (diffusely tender) and abdomen soft Results & Data ([facility]) Vital Signs (Past 12 Hours) Vital Signs Temp Pulse Pulse Resp BP BP Pulse Ox 07/25/20 07:00 62 16 100/51 L 97 07/25/20 06:41 62 20 102/48 L 92 07/25/20 06:15 62 18 120/52 L 99 07/25/20 05:11 60 20 120/44 L 95 07/25/20 04:48 36.4 C L 80 20 124/65 97 PG Care Time/CCT Total # of Minutes Spent Total Time Spent with Patient: Total time spent is greater than 50% in coordination of care (as documented) at patient's floor/unit and/or counseling patient: Coding Level of Care Code 81924 Inpt Consult Level 1 Diagnoses Small bowel obstruction K56.609
[2020-07-25] MEDS ORDERED: ONDANSETRON INJ 2 MG/ML 2 ML VIAL IV PRN (08:12)
--- NOTE | 2020-07-25 08:47 | XRay Report ---
XR chest 1V portable CLINICAL HISTORY: vomiting COMPARISON STUDY: December 01, 2019 FINDINGS: The heart is enlarged. There is stable residual thickening. There is no lobar consolidation . There are no pleural effusions. There is a left subclavian central venous pacemaker.[ IMPRESSION: Stable cardiomegaly and mild interstitial thickening. No evidence of acute parenchymal co nsolidation ACT 112: Negative or not required by law. Electronically signed by: Nikita Roberts M.D. 07/25/2020 8:45 AM
--- NOTE | 2020-07-25 09:09 | CT Scan Report ---
CT abd pelvis IV con only CLINICAL HISTORY: Nausea, vomiting, abdominal pain. COMPARISON STUDY: November 2019 TECHNIQUE: The patient was scanned in a dynamic helical fashion during intravenous and ministration o f 93 cc of Optiray 320 A dose lowering technique was utilized adhering to the principles of ALARA. CT DOSE: 451.11 mGy.cm FINDINGS: Lower chest: The heart is enlarged. There are coronary artery calcifications. There are basilar opaci ties statistically atelectatic. There is trace gas within the right atrium likely iatrogenic. Liver: The contrast-enhanced liver is normal in size, contour, and attenuation. There is no intrahepa tic biliary ductal dilatation. The hepatic veins and portal veins are patent. Gallbladder: Surgically absent Spleen: Normal in size and attenuation. Pancreas: Unremarkable. Adrenal glands: Unremarkable. Kidneys: There is a subcentimeter left renal cyst. Bowel: There are multiple dilated small bowel loops with normal caliber distal small bowel. The findi ngs are indicative of a small bowel obstruction. The obstruction appears to be secondary to a couple of bowel within a ventral hernia. There is mild adjacent small bowel wall thickening. No pneumatosis is visualized. There is no portal venous gas. There is no acute diverticulitis. There is mild rectal wall thickening. There are no findings to indicate acute appendicitis. Peritoneum: There is no intraperitoneal free air or abdominal ascites. Vasculature: The abdominal aorta is normal in course and caliber. Adenopathy: None. Pelvic viscera: The uterus appears surgically absent Skeletal structures: Advanced degenerative changes are present within the spine. There is a grade 1 s pondylolisthesis of L5 and S1. IMPRESSION: 1. Small bowel obstruction felt to be secondary to a knuckle of small bowel within a ventral hernia. The patient appears be status post a prior ventral hernia repair. There is mild small bowel wall thic kening near the transition point. There is no pneumatosis and no portal venous gas 2. Mild rectal wall thickening. ACT 112: Negative or not required by law. Electronically signed by: Nikita Roberts M.D. 07/25/2020 9:07 AM
--- NOTE | 2020-07-25 09:52 | Electrocardiogram Report ---
Test Reason : Blood Pressure : / mmHG Vent. Rate : 060 BPM Atrial Rate : 326 BPM P-R Int : 000 ms QRS Dur : 162 ms QT Int : 492 ms P-R-T Axes : 000 243 068 degrees QTc Int : 492 ms Ventricular-paced rhythm Abnormal ECG When compared with ECG of 29-NOV-2019 23:00, Vent. rate has decreased BY 8 BPM Confirmed by Ben Domínguez ([id number]) on 07/25/2020 9:52:15 AM Referred By: REFERRED SELF Confirmed By:John Domínguez
[2020-07-25] MEDS: HEPARIN SODIUM/DEXTROSE 25,000 UNITS/500 ML BAG IV SCH (11:30)
[2020-07-25] MEDS: METOPROLOL TARTRATE 1 MG/ML VIAL IV SCH ×2 (11:32→17:56)
[2020-07-25] MEDS: Heparin IV Low Dose *NO* Bolus IV SCH (12:04)
--- NOTE | 2020-07-25 15:53 | History & Physical Report ---
Date of Service July 25, 2020 Assessment & Plan (1) Small bowel obstruction: history of such, she says at least 15 occurrences NG tube placed in the ED at low intermittent suction, Dr. Chavarria evaluated her in the ED strict NPO NSS at 80cc/hr follow up for passage of flatus and/or stool general surgery will give recommendations daily (2) Atrial fibrillation: holding rate control medications such as Diltiazem she is also on Propranolol but doubt that it is for rate control place on scheduled Lopressor IV 5mg with hold parameters place on heparin drip in case she needs surgery and it can be stopped hold eliquis (3) Chronic diastolic heart failure: examines euvolemic hold diuretics, gentle IV fluids at 80cc/hr while she is NPO (4) Hypothyroidism: okay to hold Synthroid for 7 days while she is NPO resume once she is taking PO again (5) Hypertension: BP stable use scheduled Lopressor 5mg IV (6) Gastroesophageal reflux disease: hold PPI for now could use IV Protonix if she has symptoms (7) Benign essential tremor: no tremors right now hold Propranol for time being Admission and Anticipated Discharge Date Admission Date: July 25, 2020 History of Present Illness Chief Complaint: I was vomiting, I knew I had a bowel obstruction Primary Care Provider: Alex Kwong, DO 89 yo female with history of small bowel obstructions, by her count, 15 of them in the past, presented with abdominal distension, intense pain and vomiting. She said that her symptoms started yesterday evening. No BM yesterday or this morning. She had persistent pain and nothing really helped. She vomited but that did not relieve her distension or pressure. In the ED she had a CT of the abdomen/pelvis that showed a small bowel obstruction. She was evaluated by general surgery, Dr Chavarria, he recommended NG tube decompression and observe for resolution, hopeful that it will resolve with conservative measures. Vitals were stable. CBC stable, CMP normal CR and electrolytes. CXR with no acute changes. Allergies Allergy/AdvReac Type Severity Reaction Status Date / Time orange Allergy Intermediate HIVES Verified 07/25/20 04:49 pseudoephedrine Allergy Intermediate worsens Verified 07/25/20 04:49 afib strawberry Allergy Intermediate HIVES Verified 07/25/20 04:49 Sulfa (Sulfonamide Allergy Intermediate hives Verified 07/25/20 04:49 Antibiotics) Cephalosporins Allergy Unknown ON [facility] Verified 07/25/20 04:49 LIST cilostazol [From Pletal] Allergy Unknown ON [facility] Verified 07/25/20 04:49 LIST tramadol Allergy Unknown ON [facility] Verified 07/25/20 04:49 LIST lorazepam AdvReac Severe "WENT Verified 07/25/20 04:49 CRAZY" caffeine AdvReac Intermediate HEART Verified 07/25/20 04:49 PALPITATIONS doxycycline AdvReac Intermediate NIGHTMARES Verified 07/25/20 04:49 rosuvastatin AdvReac Intermediate MYALGIAS Verified 07/25/20 04:49 hydrochlorothiazide AdvReac HYPONATREMI Verified 07/25/20 04:49 A Home Medications Home Medications Medication Instructions Recorded Confirmed Type polyethylene glycol 3350 [Miralax] 17 g PO AMPM 05/13/19 07/25/20 History potassium chloride 10 mEq 10 meq PO DAILY #90 cap 12/24/19 07/25/20 Rx capsule,extended release diltiazem HCl 360 mg capsule,24 360 mg PO HS #90 cap 12/29/19 07/25/20 Rx hr,extended release folic acid 1 mg tablet 1 mg PO DAILY #90 tab 12/29/19 07/25/20 Rx primidone 250 mg tablet 250 mg PO BID #180 tab 12/29/19 07/25/20 Rx propranolol 60 mg tablet 60 mg PO BID #180 tab 12/29/19 07/25/20 Rx losartan 50 mg tablet 50 mg PO DAILY #90 tab 01/12/20 07/25/20 Rx Wheelchair (Manual or Powered) #1 ea 05/20/20 06/16/20 Rx furosemide 20 mg tablet See Rx Instructions PO DAILY #60 06/04/20 07/25/20 Rx tab levothyroxine 137 mcg tablet 137 mcg PO DAILY #30 tab 06/16/20 07/25/20 Rx pantoprazole 40 mg tablet,delayed 40 mg PO DAILY #90 tab 06/16/20 07/25/20 Rx release apixaban 2.5 mg tablet 2.5 mg PO BID #180 tab 06/22/20 07/25/20 Rx Past Med/Surg History Medical History Actinic keratosis Aortic stenosis Benign essential tremor Carotid artery plaque Cerebral atherosclerosis Chronic anticoagulation Chronic osteoarthritis Cystocele DVT (deep venous thrombosis) Dyslipidemia Edema Elevated alkaline phosphatase level Fall as cause of accidental injury at home as place of occurrence Gait disturbance Gastroesophageal reflux disease Generalized weakness Hip pain, bilateral History of small bowel obstruction Hypertension Hyponatremia Hypothyroidism Hypoxia Left rib fracture Meckels diverticulum Osteoporosis Ovarian cyst Ovarian cyst rupture Permanent atrial fibrillation Rectocele Rheumatoid arthritis Rosacea SBO (small bowel obstruction) (11/2019) Sick sinus syndrome Small bowel obstruction Surgical History H/O abdominal surgery abdominal exploration, repair, and oversewing over perforation 08/02/2000, Dr. Welsh H/O colonoscopy H/O: hysterectomy History of colon resection For diverticulitis and Meckel's Diverticulum History of hernia repair History of tonsillectomy and adenoidectomy Hx of appendectomy Hx of cataract surgery right eye, 12/24/2002 Hx of cholecystectomy Family History Father Leukemia Social History Smoking Status: Never smoker Second Hand Exposure: No; Do You Dip or Chew Tobacco: No; Tobacco Cessation Education Requested by Patient: No Hx Alcohol Use: No Hx Substance Use: No Preferred Language: Romanian Communication Ability: Effective Visual Impairment: Limited Hearing Ability: Hard of Hearing 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 Required: No Beliefs That Will Affect Care: Synagogue Synagogue Beliefs: Mormon marital status: / Current Living Situation: Alone Current Living Situation Comment: pt live in apartment, son and family live in house on same property Other Information That Helps Us Care for You: No Feels Safe at Home: Yes Safety Concerns: Feels Safe At This Time Childhood Exposure to Second-Hand Smoke: No Diet Comment: watches fiber, nuts and seeds caffeine: Yes (occasional soda) Dental Care, Regularly: No Physical Activity Frequency: Does not Exercise Physical Activity Frequency Comment: due to physical condition Seatbelt Use: always Sunscreen Use: Yes Assistive Devices: Glasses Review of Systems Review of Systems: All systems reviewed & are unremarkable except as noted in HPI & below Constitutional: no fever, no chills, no sweats, no fatigue and no weakness Respiratory: no cough and no dyspnea Cardiovascular: no chest pain and no edema Gastrointestinal: + abdominal pain, + bloating, + nausea, + vomiting and + constipation; no diarrhea/loose stools and no melena Genitourinary: no dysuria and no urinary hesitancy Musculoskeletal: no back pain Physical Exam Constitutional: well developed, well nourished, + thin and + in distress (mild) Eyes: PERRL, conjunctivae normal, anicteric sclerae ENMT: external ear and nose normal, oropharynx normal Neck: trachea midline, no thyromegaly Respiratory: normal respiratory effort, lungs clear to auscultation (diminished in bases) Cardiovascular: Rate/Rhythm: regular rate and + irregularly irregular Heart Sounds: normal S1 and normal S2; no murmur Extremities: normal capillary refill and + edema Gastrointestinal (Abdomen): Inspection/Auscultation: + abdomen distended and + hypoactive bowel sounds Percussion/Palpation: + abdomen tender, + tympanic to percussion and + abdomen firm; no guarding and abdomen not rigid Musculoskeletal: no cyanosis or clubbing, extremities motor strength 5/5 Skin: no rashes, warm and dry Neurologic: patellar DTR's 2+ bilat, sensation intact and PERRL, EOMI, accommodation nl, no face palsy, no dysarthria Psychiatric: A+Ox3, euthymic affect Lymphatic: no cervical or axillary lymphadenopathy Results & Data Results & Data ([facility]) Vital Signs (Past 12 Hours) Vital Signs Temp Pulse Pulse Resp BP BP Pulse Ox 07/25/20 14:48 72 07/25/20 12:04 36.5 C 66 18 127/82 94 07/25/20 11:32 70 127/82 07/25/20 09:08 62 07/25/20 08:14 36.4 C L 67 18 142/67 H 97 07/25/20 07:31 30 H 125/69 97 07/25/20 07:00 62 16 100/51 L 97 07/25/20 06:41 62 20 102/48 L 92 07/25/20 06:15 62 18 120/52 L 99 07/25/20 05:11 60 20 120/44 L 95 07/25/20 04:48 36.4 C L 80 20 124/65 97 Laboratory Results Laboratory Results - last 24 hr 07/25/20 07/25/20 07/25/20 04:45 04:45 04:45 WBC 7.25 RBC 4.52 Hgb 15.2 Hct 43.3 MCV 95.8 MCH 33.6 MCHC 35.1 RDW Std Deviation 52.0 H RDW Coeff of Kristian 14.9 H Plt Count 183 MPV 11.1 H Immature Gran % (Auto) 0.1 Neut % (Auto) 80.1 Lymph % (Auto) 13.9 Gila % (Auto) 5.1 Eos % (Auto) 0.7 Baso % (Auto) 0.1 Neut # (Auto) 5.80 Lymph # (Auto) 1.01 L Gila # (Auto) 0.37 Eos # (Auto) 0.05 Baso # (Auto) 0.01 Immature Gran # (Auto) 0.01 PT 12.1 H INR 1.2 H APTT PTT Ratio Sodium 137 Potassium 4.1 Chloride 99 Carbon Dioxide 31 Anion Gap 7.0 BUN 26 H Creatinine 1.17 Est Cr Clr Drug Dosing 27.6 Est GFR ( Amer) 47.8 Est GFR (Non-Af Amer) 41.3 BUN/Creatinine Ratio 21.9 H Glucose 142 H Lactate Calcium 9.8 Phosphorus Magnesium 2.3 Total Bilirubin 0.8 AST 22 ALT 19 Alkaline Phosphatase 157 H Troponin I < 0.015 Total Protein 8.7 H Albumin 4.0 Globulin 4.7 H Albumin/Globulin Ratio 0.9 Lipase 133 07/25/20 07/25/20 07/25/20 04:45 05:42 17:30 WBC RBC Hgb Hct MCV MCH MCHC RDW Std Deviation RDW Coeff of Kristian Plt Count MPV Immature Gran % (Auto) Neut % (Auto) Lymph % (Auto) Gila % (Auto) Eos % (Auto) Baso % (Auto) Neut # (Auto) Lymph # (Auto) Gila # (Auto) Eos # (Auto) Baso # (Auto) Immature Gran # (Auto) PT INR APTT 49.5 H* PTT Ratio 1.8 Sodium Potassium Chloride Carbon Dioxide Anion Gap BUN Creatinine Est Cr Clr Drug Dosing Est GFR ( Amer) Est GFR (Non-Af Amer) BUN/Creatinine Ratio Glucose Lactate 1.9 Calcium Phosphorus 3.7 Magnesium Total Bilirubin AST ALT Alkaline Phosphatase Troponin I Total Protein Albumin Globulin Albumin/Globulin Ratio Lipase Diagnostic Findings CT abdomen/pelvis IMPRESSION: 1. Small bowel obstruction felt to be secondary to a knuckle of small bowel within a ventral hernia. The patient appears be status post a prior ventral hernia repair. There is mild small bowel wall thickening near the transition point. There is no pneumatosis and no portal venous gas 2. Mild rectal wall thickening. Code Status & VTE Plan Code Status asked about code status, she said she would have to think about an answer she agreed to full code while she thinks about it VTE Prophylaxis Plan VTE Prophylaxis will be ordered: Yes PG Care Time/CCT Total # of Minutes Spent Total Time Spent with Patient: Total time spent is greater than 50% in coordination of care (as documented) at patient's floor/unit and/or counseling patient: Coding Level of Care Code 95992 Initial Inpt Care Lvl 3 Diagnoses Small bowel obstruction K56.609 Atrial fibrillation I48.11 Atrial fibrillation type: longstanding persistent Chronic diastolic heart failure I50.32 Hypothyroidism E03.9 Hypertension I10 Hypertension type: essential hypertension Gastroesophageal reflux disease K21.9 Benign essential tremor G25.0 (1) Atrial fibrillation Atrial fibrillation type: longstanding persistent Qualified Code(s): I48.11 - Longstanding persistent atrial fibrillation (2) Hypertension Hypertension type: essential hypertension Qualified Code(s): I10 - Essential (primary) hypertension
[2020-07-25 18:04] LABS: Partial Thromboplastin Ratio 1.8
[2020-07-25 18:05] LABS: Partial Thromboplastin Time 49.5 Seconds (21.0-31.0)
[2020-07-26] MEDS: METOPROLOL TARTRATE 1 MG/ML VIAL IV SCH ×4 (00:59→17:39)
--- NOTE | 2020-07-26 06:51 | Surgery Progress Note ---
Date of Service July 26, 2020 Assessment & Plan (1) Abdominal pain: Patient has improved Would leave NG for now lastly DC later today Continue to monitor her GI function Overall stable-does not appear to need surgical intervention Admission and Anticipated Discharge Date Admission Date: July 25, 2020 Subjective Patient had a bowel movement She initially had a significant amount from her NG tube now somewhat decreased No pain medication Review of Systems Review of Systems: All systems reviewed & are unremarkable except as noted in HPI & below Physical Exam Physical Exam: Her abdomen is still mildly distended She does have some bowel sounds She is awake and alert Eyes are anicteric Neck is supple Respiratory status is stable Irregular heart rhythm Skin is warm Results & Data ([facility]) Vital Signs (Past 12 Hours) Vital Signs Temp Pulse Pulse Resp BP BP Pulse Ox 07/26/20 06:33 85 126/75 07/26/20 02:59 36.5 C 72 16 108/68 94 07/26/20 01:05 73 07/26/20 00:59 62 110/57 L 07/25/20 22:15 36.6 C 68 18 112/68 93 07/25/20 19:15 36.5 C 73 16 109/70 94 PG Care Time/CCT Total # of Minutes Spent Total Time Spent with Patient: Total time spent is greater than 50% in coordination of care (as documented) at patient's floor/unit and/or counseling patient: Coding Level of Care Code 90398 Subseq Hosp Care Lvl 3 Diagnoses Abdominal pain R10.84 Abdominal location: generalized (1) Abdominal pain Abdominal location: generalized Qualified Code(s): R10.84 - Generalized abdominal pain
--- NOTE | 2020-07-26 07:37 | Hospitalist Progress Note ---
Date of Service July 26, 2020 Assessment & Plan (1) Small bowel obstruction: history of such, she says at least 15 occurrences NG tube placed in the ED at low intermittent suction, Dr. Chavarria evaluated her in the ED NPO and parenteral fluids pain and nausea relief CT abdomen and pelvis, 07/25/20 IMPRESSION: 1. Small bowel obstruction felt to be secondary to a knuckle of small bowel within a ventral hernia. The patient appears be status post a prior ventral hernia repair. There is mild small bowel wall thickening near the transition point. There is no pneumatosis and no portal venous gas 2. Mild rectal wall thickening. (2) Atrial fibrillation: holding rate control medications such as Diltiazem she is also on Propranolol but doubt that it is for rate control place on scheduled Lopressor IV 5mg with hold parameters place on heparin drip in case she needs surgery and it can be stopped hold eliquis (3) Chronic diastolic heart failure: examines euvolemic hold diuretics, gentle IV fluids at 80cc/hr while she is NPO (4) Hypothyroidism: okay to hold Synthroid for 7 days while she is NPO resume once she is taking PO again (5) Hypertension: BP stable use scheduled Lopressor 5mg IV (6) Gastroesophageal reflux disease: hold PPI for now could use IV Protonix if she has symptoms (7) Benign essential tremor: no tremors right now hold Propranol for time being Admission and Anticipated Discharge Date Admission Date: July 25, 2020 Subjective Patient did have a bowel movement but continues with crampy abdominal pain she is concerned somewhat of some obstruction in her rectum which she self palpated. I did perform a rectal exam in presence of a female nurse which did not feel any obstruction in her rectum although she is quite phimotic with regard to her anal sphincter Review of Systems Review of Systems: Mild to moderate distress and fatigue no headache, blurry or double vision no speech or swallowing issues no chest pain, pressure or palpitations no shortness of breath, cough or wheezes Diffuse lower quadrant crampy abdominal pain, without nausea or vomiting. no dysuria, hematuria or frequency no focal joint pain or swelling no back pain, CVA tenderness or radicular pain no bruising, bleeding or rashes no focal signs of weakness or numbness or altered sensation no complaints of anxiety or depression. Physical Exam Physical Exam: The patient appeared to be in moderate distress NG tube is in her nose. Vital signs as documented. Head exam is normocephalic atraumatic no scleral icterus Neck is without JVD, thyromegaly, or carotid bruits. Lungs are clear to auscultation, no focal loss of breath sounds Cardiac exam, Rhythm is regular.. No murmurs, rubs or gallops. Abdominal exam reveals hypoactive bowel sounds, soft no rebound minor guarding tympany and tender Extremities are nonedematous and both pedal pulses are present Neurologic exam is alert and oriented, no focal loss of strength or sensation Skin is without bruises or rashes Psychologically is without concerns for anxiety or depression. Results & Data Results & Data ([facility]) Vital Signs (Past 12 Hours) Vital Signs Temp Pulse Pulse Resp BP BP Pulse Ox 07/26/20 06:33 85 126/75 07/26/20 02:59 97.7 F 72 16 108/68 94 07/26/20 01:05 73 07/26/20 00:59 62 110/57 L 07/25/20 22:15 97.9 F 68 18 112/68 93 PG Care Time/CCT Total # of Minutes Spent Total Time Spent with Patient: Total time spent is greater than 50% in coordination of care (as documented) at patient's floor/unit and/or counseling patient: Coding Level of Care Code 25361 Subseq Hosp Care Lvl 3 Diagnoses Small bowel obstruction K56.609 Atrial fibrillation I48.11 Atrial fibrillation type: longstanding persistent Chronic diastolic heart failure I50.32 Hypothyroidism E03.9 Hypertension I10 Hypertension type: essential hypertension Gastroesophageal reflux disease K21.9 Benign essential tremor G25.0 (1) Atrial fibrillation Atrial fibrillation type: longstanding persistent Qualified Code(s): I48.11 - Longstanding persistent atrial fibrillation (2) Hypertension Hypertension type: essential hypertension Qualified Code(s): I10 - Essential (primary) hypertension
[2020-07-26 07:59] LABS: Hematocrit (blood only) 38.7 % (37-47); Hemoglobin 13.2 g/dL (12.0-16.0); Mean Corpuscular Hgb Conc 34.1 g/dL (32-36); Mean Corpuscular Volume 96.8 fL (80-100); Mean Platelet Volume 11.1 fL (7.4-10.4); Platelet Count 151 K/uL (130-400); RDW Coefficient of Variation 14.8 % (11.5-14.5); RDW Standard Deviation 52.4 fL (36.4-46.3); White Blood Count 6.21 K/uL (4.8-10.8)
[2020-07-26 08:20] LABS: INR 1.1 (0.9-1.1); Partial Thromboplastin Ratio 2.1
[2020-07-26 08:22] LABS: Partial Thromboplastin Time 57.4 Seconds (21.0-31.0)
[2020-07-26 08:29] LABS: Albumin Level 2.8 gm/dl (3.4-5.0); BUN Creatinine Ratio 28.9 (10-20); Calcium 8.1 mg/dl (8.5-10.1); Est GFR (African American) 50.4; Est GFR (Non-African American) 43.5; Magnesium 2.6 mg/dl (1.8-2.4); Potassium 4.1 mmol/L (3.5-5.1)
[2020-07-26 08:38] LABS: Albumin Globulin Ratio 0.7 (0.9-2); Bilirubin,Total 0.8 mg/dl (0.2-1); Globulin 4.1 gm/dl (2.5-4.0); Total Protein 6.9 gm/dl (6.4-8.2)
[2020-07-26] MEDS: SODIUM CHLORIDE 0.9% 1000ML 1,000 ML IV SCH ×2 (08:55→20:35)
[2020-07-26] MEDS: HEPARIN SODIUM/DEXTROSE 25,000 UNITS/500 ML BAG IV SCH (10:49)
[2020-07-26] MEDS ORDERED: LIDOCAINE 5% 1 PATCH TD SCH (16:45)
[2020-07-26] MEDS: LIDOCAINE 5% 1 PATCH TD SCH (17:26)
[2020-07-26] MEDS ORDERED: HydrALAZINE HCL 20 MG/ML VIAL IV PRN (18:40)
[2020-07-26] MEDS ORDERED: METOPROLOL TARTRATE 1 MG/ML VIAL IV PRN (18:40)
[2020-07-26] MEDS: PRIMIDONE 250 MG TAB PO SCH (20:29)
[2020-07-26] MEDS: PROPRANOLOL HCL 20 MG TAB PO SCH (20:29)
[2020-07-26] MEDS: APIXABAN 2.5 MG TAB PO SCH (20:29)
[2020-07-26] MEDS: POLYETHYLENE (MIRALAX) 17 GM PACK PO SCH (20:29)
[2020-07-27] MEDS: LEVOTHYROXINE SODIUM 137 MCG TABLET PO SCH (05:11)
[2020-07-27 07:17] LABS: Hematocrit (blood only) 36.7 % (37-47); Hemoglobin 12.4 g/dL (12.0-16.0); Mean Corpuscular Hemoglobin 32.6 pg (25-34); Mean Corpuscular Hgb Conc 33.8 g/dL (32-36); Mean Corpuscular Volume 96.6 fL (80-100); Mean Platelet Volume 10.8 fL (7.4-10.4); Platelet Count 136 K/uL (130-400); RDW Coefficient of Variation 14.9 % (11.5-14.5); RDW Standard Deviation 52.9 fL (36.4-46.3); White Blood Count 7.22 K/uL (4.8-10.8)
[2020-07-27 07:28] LABS: INR 1.1 (0.9-1.1); Partial Thromboplastin Ratio 1.1; Partial Thromboplastin Time 30.2 Seconds (21.0-31.0); Prothrombin Time 11.8 Seconds (9.0-12.0)
--- NOTE | 2020-07-27 07:39 | Surgery Progress Note ---
Date of Service July 27, 2020 Assessment & Plan (1) Small bowel obstruction: He has improved significantly from admission She very likely has significant adhesions Does not appear to need surgical intervention at the present time We will advance her diet and monitor progress Admission and Anticipated Discharge Date Admission Date: July 25, 2020 Subjective Patient tolerating some clear liquids with no emesis Does complain of some abdominal crampiness near her hernia which contains fat on her CAT scan Vital signs are stable Physical Exam Physical Exam: Abdomen is flat and soft she has active bowel sounds Minimal tenderness over the area of the hernia Constitutional: no acute distress Eyes: + anicteric sclerae Respiratory: no respiratory distress Musculoskeletal: Head/Neck/Chest: head atraumatic Skin: no rashes, warm and dry Neurologic: awake Psychiatric: Orientation: alert Results & Data ([facility]) Vital Signs (Past 12 Hours) Vital Signs Temp Pulse Pulse Resp BP Pulse Ox 07/27/20 07:18 74 07/27/20 06:55 36.9 C 83 20 122/71 95 07/27/20 03:38 81 07/27/20 03:20 36.8 C 70 20 119/71 94 07/26/20 22:57 36.6 C 59 L 20 119/72 94 PG Care Time/CCT Total # of Minutes Spent Total Time Spent with Patient: Total time spent is greater than 50% in coordination of care (as documented) at patient's floor/unit and/or counseling patient: Coding Level of Care Code 30477 Inpt Consult Level 3 Diagnoses Small bowel obstruction K56.609
[2020-07-27] MEDS: APIXABAN 2.5 MG TAB PO SCH ×2 (07:58→20:35)
[2020-07-27] MEDS: PROPRANOLOL HCL 20 MG TAB PO SCH ×2 (07:59→20:35)
[2020-07-27] MEDS: PANTOprazole 40 MG TAB PO SCH (07:59)
[2020-07-27] MEDS: FOLIC ACID 1 MG TAB PO SCH (08:00)
[2020-07-27] MEDS: PRIMIDONE 250 MG TAB PO SCH ×2 (08:00→20:36)
[2020-07-27] MEDS: LOSARTAN POTASSIUM 50 MG TAB PO SCH (08:00)
[2020-07-27] MEDS: LIDOCAINE 5% 1 PATCH TD SCH (08:01)
[2020-07-27] MEDS: POLYETHYLENE (MIRALAX) 17 GM PACK PO SCH ×2 (08:01→20:37)
[2020-07-27] MEDS: SODIUM CHLORIDE 0.9% 1000ML 1,000 ML IV SCH (08:06)
[2020-07-27 08:10] LABS: Albumin Globulin Ratio 0.7 (0.9-2); Albumin Level 2.6 gm/dl (3.4-5.0); BUN Creatinine Ratio 30.1 (10-20); Bilirubin,Total 0.6 mg/dl (0.2-1); Calcium 7.5 mg/dl (8.5-10.1); Creatinine Clr Calc Pharmacy 40.4 ml/min; Est GFR (African American) 80.6; Est GFR (Non-African American) 69.5; Magnesium 2.3 mg/dl (1.8-2.4); Potassium 3.9 mmol/L (3.5-5.1); Total Protein 6.6 gm/dl (6.4-8.2)
--- NOTE | 2020-07-27 14:37 | Hospitalist Progress Note ---
Date of Service July 27, 2020 Assessment & Plan (1) Small bowel obstruction: history of such, she says at least 15 occurrences NG tube placed in the ED at low intermittent suction removed 07/26, will allowance for po intake with surgical team oversight CT abdomen and pelvis, 07/25/20 IMPRESSION: 1. Small bowel obstruction felt to be secondary to a knuckle of small bowel within a ventral hernia. The patient appears be status post a prior ventral hernia repair. There is mild small bowel wall thickening near the transition point. There is no pneumatosis and no portal venous gas 2. Mild rectal wall thickening. (2) Atrial fibrillation: vitals are stable, propranolol restarted resumption of eliquis (3) Chronic diastolic heart failure: examines euvolemic ivf stopped 07/27 (4) Hypothyroidism: resume po synthroid (5) Hypertension: BP stable use scheduled Lopressor 5mg IV prn to augment bp control and afib rate control if needed (6) Gastroesophageal reflux disease: typically on ppi (7) Benign essential tremor: no tremors right now resumption of propranolol Admission and Anticipated Discharge Date Admission Date: July 25, 2020 Subjective pt is slow to recover, she is tolerant of some po meds, will have rehab evaluation, surgery is managing advancement of diet Review of Systems Review of Systems: Mild to moderate distress and fatigue no headache, blurry or double vision no speech or swallowing issues no chest pain, pressure or palpitations no shortness of breath, cough or wheezes lesseninglower quadrant crampy abdominal pain, without nausea or vomiting. no dysuria, hematuria or frequency no focal joint pain or swelling no back pain, CVA tenderness or radicular pain no bruising, bleeding or rashes no focal signs of weakness or numbness or altered sensation no complaints of anxiety or depression. Physical Exam Physical Exam: The patient has had ngt removed by surgical team Vital signs as documented. Head exam is normocephalic atraumatic no scleral icterus Neck is without JVD, thyromegaly, or carotid bruits. Lungs are clear to auscultation, no focal loss of breath sounds Cardiac exam, Rhythm is regular.. No murmurs, rubs or gallops. Abdominal exam continues with present but hypoactive bowel sounds, soft no rebound Extremities are nonedematous and both pedal pulses are present Neurologic exam is alert and oriented, no focal loss of strength or sensation Skin is without bruises or rashes Psychologically is without concerns for anxiety or depression. Results & Data Results & Data ([facility]) Vital Signs (Past 12 Hours) Vital Signs Temp Pulse Pulse Resp BP Pulse Ox 07/27/20 11:06 98.1 F 74 20 130/76 97 07/27/20 07:18 74 07/27/20 06:55 98.4 F 83 20 122/71 95 07/27/20 03:38 81 07/27/20 03:20 98.2 F 70 20 119/71 94 PG Care Time/CCT Total # of Minutes Spent Total Time Spent with Patient: Total time spent is greater than 50% in coordination of care (as documented) at patient's floor/unit and/or counseling patient: Coding Level of Care Code 69312 Subseq Hosp Care Lvl 3 Diagnoses Small bowel obstruction K56.609 Atrial fibrillation I48.11 Atrial fibrillation type: longstanding persistent Chronic diastolic heart failure I50.32 Hypothyroidism E03.9 Hypertension I10 Hypertension type: essential hypertension Gastroesophageal reflux disease K21.9 Benign essential tremor G25.0 (1) Atrial fibrillation Atrial fibrillation type: longstanding persistent Qualified Code(s): I48.11 - Longstanding persistent atrial fibrillation (2) Hypertension Hypertension type: essential hypertension Qualified Code(s): I10 - Essential (primary) hypertension
[2020-07-28] MEDS ORDERED: ACETAMINOPHEN 325 MG TAB PO PRN (03:14)
[2020-07-28] MEDS: LEVOTHYROXINE SODIUM 137 MCG TABLET PO SCH (05:56)
[2020-07-28] MEDS ORDERED: MICONAZOLE NITRATE POWDER 43 GM EXT PRN (06:01)
[2020-07-28 06:46] LABS: Hematocrit (blood only) 36.3 % (37-47); Hemoglobin 12.8 g/dL (12.0-16.0); Mean Corpuscular Hemoglobin 33.1 pg (25-34); Mean Corpuscular Hgb Conc 35.3 g/dL (32-36); Mean Corpuscular Volume 93.8 fL (80-100); Mean Platelet Volume 10.9 fL (7.4-10.4); Platelet Count 144 K/uL (130-400); RDW Coefficient of Variation 14.6 % (11.5-14.5); RDW Standard Deviation 49.5 fL (36.4-46.3); Red Blood Count 3.87 M/uL (4.2-5.4); White Blood Count 9.99 K/uL (4.8-10.8)
[2020-07-28 06:58] LABS: INR 1.1 (0.9-1.1); Partial Thromboplastin Ratio 1.1; Partial Thromboplastin Time 30.5 Seconds (21.0-31.0); Prothrombin Time 11.7 Seconds (9.0-12.0)
[2020-07-28 07:22] LABS: Albumin Level 2.8 gm/dl (3.4-5.0); BUN Creatinine Ratio 18.1 (10-20); Calcium 7.5 mg/dl (8.5-10.1); Creatinine Clr Calc Pharmacy 49.3 ml/min; Est GFR (African American) 92.2; Est GFR (Non-African American) 79.5; Magnesium 2.2 mg/dl (1.8-2.4); Potassium 3.3 mmol/L (3.5-5.1)
--- NOTE | 2020-07-28 07:24 | Surgery Progress Note ---
Date of Service July 28, 2020 Assessment & Plan (1) Small bowel obstruction: resolving SBO low fiber breakfast, consider d/c later today Admission and Anticipated Discharge Date Admission Date: July 25, 2020 Subjective bowels moving, no abd pain or nausea Physical Exam Gastrointestinal (Abdomen): Inspection/Auscultation: abdomen not distended Percussion/Palpation: abdomen soft; abdomen nontender Results & Data ([facility]) Vital Signs (Past 12 Hours) Vital Signs Temp Pulse Pulse Resp BP Pulse Ox 07/28/20 07:19 37.3 C 70 16 146/72 H 94 07/28/20 07:08 79 07/28/20 04:22 37.4 C 75 20 160/72 H 92 07/27/20 23:50 37.0 C 76 20 155/74 H 95 07/27/20 23:31 73 PG Care Time/CCT Total # of Minutes Spent Total Time Spent with Patient: Total time spent is greater than 50% in coordination of care (as documented) at patient's floor/unit and/or counseling patient: Coding Level of Care Code 43816 Subseq Hosp Care Lvl 1 Diagnoses Small bowel obstruction K56.609
[2020-07-28 07:25] LABS: Albumin Globulin Ratio 0.7 (0.9-2); Bilirubin,Total 0.8 mg/dl (0.2-1); Globulin 3.9 gm/dl (2.5-4.0); Total Protein 6.7 gm/dl (6.4-8.2)
[2020-07-28] MEDS: LOSARTAN POTASSIUM 50 MG TAB PO SCH (08:10)
[2020-07-28] MEDS: PANTOprazole 40 MG TAB PO SCH (08:10)
[2020-07-28] MEDS: POLYETHYLENE (MIRALAX) 17 GM PACK PO SCH (08:10)
[2020-07-28] MEDS: LIDOCAINE 5% 1 PATCH TD SCH (08:10)
[2020-07-28] MEDS: PROPRANOLOL HCL 20 MG TAB PO SCH (08:11)
[2020-07-28] MEDS: FOLIC ACID 1 MG TAB PO SCH (08:11)
[2020-07-28] MEDS: APIXABAN 2.5 MG TAB PO SCH (08:11)
[2020-07-28] MEDS: PRIMIDONE 250 MG TAB PO SCH (08:11)
--- NOTE | 2020-07-28 13:55 | Discharge Summary ---
Date of Service July 28, 2020 Admission HPI Per Admitting Provider 89 yo female with history of small bowel obstructions, by her count, 15 of them in the past, presented with abdominal distension, intense pain and vomiting. She said that her symptoms started yesterday evening. No BM yesterday or this morning. She had persistent pain and nothing really helped. She vomited but that did not relieve her distension or pressure. In the ED she had a CT of the abdomen/pelvis that showed a small bowel obstruction. She was evaluated by general surgery, Dr Chavarria, he recommended NG tube decompression and observe for resolution, hopeful that it will resolve with conservative measures. Vitals were stable. CBC stable, CMP normal CR and electrolytes. CXR with no acute changes. Principal Diagnosis small bowel obstruction -> resolved Discharge Exam The patient appeared chronically ill but stable Vital signs as documented. Lungs are clear to auscultation and appear unlabored Cardiac exam, Rhythm is regular.. No murmurs, rubs or gallops. Abdominal exam reveals normal bowel sounds, soft non tender, no masses Extremities are nonedematous and both pedal pulses are normal. Neurologic exam is alert and oriented, Psychologically is without concerns for anxiety or depression. Discharge Data Allergies Allergy/AdvReac Type Severity Reaction Status Date / Time orange Allergy Intermediate HIVES Verified 07/25/20 04:49 pseudoephedrine Allergy Intermediate worsens Verified 07/25/20 04:49 afib strawberry Allergy Intermediate HIVES Verified 07/25/20 04:49 Sulfa (Sulfonamide Allergy Intermediate hives Verified 07/25/20 04:49 Antibiotics) Cephalosporins Allergy Unknown ON [facility] Verified 07/25/20 04:49 LIST cilostazol [From Pletal] Allergy Unknown ON [facility] Verified 07/25/20 04:49 LIST tramadol Allergy Unknown ON [facility] Verified 07/25/20 04:49 LIST lorazepam AdvReac Severe "WENT Verified 07/25/20 04:49 CRAZY" caffeine AdvReac Intermediate HEART Verified 07/25/20 04:49 PALPITATIONS doxycycline AdvReac Intermediate NIGHTMARES Verified 07/25/20 04:49 rosuvastatin AdvReac Intermediate MYALGIAS Verified 07/25/20 04:49 hydrochlorothiazide AdvReac HYPONATREMI Verified 07/25/20 04:49 A Consultations 07/25/20 06:58 Consult General Surgery Stat 07/25/20 07:22 ED Decision to Admit Stat 07/25/20 08:12 Consult Case Management - Discharge Planning Routine Consult General Surgery Routine Ordered Studies 07/25/20 05:14 CT abd pelvis IV con only Urgent Hospital Course (1) Small bowel obstruction: history of such, she says at least 15 occurrences NG tube placed in the ED at low intermittent suction removed 07/26, patient is tolerated oral intake she is had continued bowel movements she feels stable and is returned to her normal condition CT abdomen and pelvis, 07/25/20 IMPRESSION: 1. Small bowel obstruction felt to be secondary to a knuckle of small bowel within a ventral hernia. The patient appears be status post a prior ventral hernia repair. There is mild small bowel wall thickening near the transition point. There is no pneumatosis and no portal venous gas 2. Mild rectal wall thickening. (2) Atrial fibrillation: vitals are stable, propranolol plus eliquis (3) Chronic diastolic heart failure: examines euvolemic ivf stopped 07/27 (4) Hypothyroidism: resume po synthroid (5) Hypertension: BP stable Propranolol (6) Gastroesophageal reflux disease: typically on ppi (7) Benign essential tremor: no tremors resumption of propranolol Total Time Total Time Spent Total Time Spent (In Minutes): It required greater than 30 minutes to prepare this patient for discharge Discharge Plan Discharge Items Patient Disposition: Home - Home Health Services Reason For Visit: SMALL BOWEL OBSTRUCTION Discharge Diagnosis: small bowel obstruction -> resolved Activity: Resume your previous activity Non-emergency contact: Primary Care Provider Call non-emergency contact if: you have any medication questions and your symptoms worsen Follow-up/Referrals: Alex Kwong DO [Primary Care Provider] - 08/03/20 10:30 am Diet: Regular Addtl Attending Provider Instructions: please see your family doctor in one week we did stop your diltiazem during this hospital stay, please continue to hold at the time of discharge gradually increase your diet, use a low fiber diet for the inital diet at home Pending Studies at Discharge: No Stand-Alone Forms: My [employer], Smoking Cessation Medications and DC Order Prescriptions: Continued folic acid 1 mg tablet 1 mg PO DAILY Qty: 90 RF: 3 primidone 250 mg tablet 250 mg PO BID Qty: 180 RF: 3 propranolol 60 mg tablet 60 mg PO BID Qty: 180 RF: 3 losartan 50 mg tablet 50 mg PO DAILY Qty: 90 RF: 3 (DME) Wheelchair (Manual) Device See Rx Instructions .ROUTE .MEDSUPPLY Qty: 1 RF: 0 furosemide [Lasix] 20 mg tablet See Rx Instructions PO DAILY Qty: 60 RF: 2 levothyroxine 137 mcg tablet 137 mcg PO DAILY Qty: 30 RF: 2 apixaban 2.5 mg tablet 2.5 mg PO BID Qty: 180 RF: 3 pantoprazole 40 mg tablet,delayed release (DR/EC) 40 mg PO DAILY Qty: 90 RF: 0 potassium chloride 10 mEq capsule, extended release 10 meq PO DAILY Qty: 90 RF: 3 polyethylene glycol 3350 [Miralax] 17 gram Powder In Packet 17 g PO AMPM RF: 0 Discontinued diltiazem HCl 360 mg capsule,extended release 24 hr 360 mg PO HS Qty: 90 RF: 3 Discharge Orders: Discharge Order (Routine); Ordered 07/28/20 Ordered By: Cristobal Jackson Admission Data Admit Date/Time: 07/25/20 07:27 Attending Provider: Cristobal Jackson Admit Provider: Connor Jain Primary Care Provider: Alex Kwong Other Providers: Horacio Chavarria ; Connor Jain ; [facility] Other Interventions: Discharge Summary Assessment (RN) Last Done: 07/28/20 13:12 Coding Level of Care Code D/C Day Management >30 mins Diagnoses Small bowel obstruction K56.609 Atrial fibrillation I48.11 Atrial fibrillation type: longstanding persistent Chronic diastolic heart failure I50.32 Hypothyroidism E03.9 Hypertension I10 Hypertension type: essential hypertension Gastroesophageal reflux disease K21.9 Benign essential tremor G25.0
[2020-07-28] MEDS ORDERED: POTASSIUM CHLORIDE 20 MEQ TABCR PO ONE (14:15)
== END 2020-07-28 15:24 | disposition home health service (06) | DRG 394 ==
LOC: ED 04:29 → SUATTDRO 07:27 → 2W 07:27